=== PATIENT | female | born 1990 | race Caucasian/White ===

== ENCOUNTER 2024-10-12 06:59 | Emergency (ER) | payer MEDICAID, SELFPAY ==
--- NOTE | ~2024-10-12 | CT_ITS ---
CTA chest PE protocol Ordering provider: Greg Martino MD History: 34 years Female with . sob , cp . H/O PE . Comparison: None. Technique: CT angiogram chest was performed following timed intravenous injection of contrast. Thin s lice axial images and reformatted coronal images were obtained. Three dimensional reformatted images of the chest were also obtained using a [employer] workstation. . Automated exposure control and iterati ve reconstruction technique were employed. The dose-length product was 150.02 mGy-cm. 100 mL Omnipaqu e 350 was given IV. Findings: PULMONARY ARTERIES: No pulmonary embolus. VISUALIZED THORACIC INLET: Normal. MEDIASTINUM: Aorta/coronary arteries: The thoracic aorta is normal. Fabian Heart/other: The heart is not enlarged. Lymph nodes: No mediastinal or hilar adenopathy. LUNGS: 6 mm nodule is seen in the left lower lobe laterally. 6 months follow-up CT is advised. No pulmonary masses. No infiltrates or effusions. No pneumothorax. Dependent atelectatic changes. VISUALIZED UPPER ABDOMEN: Contracted gallbladder with calcification suggestive of cholelithiasis. Ult rasound evaluation advised. Otherwise, the visualized upper abdomen is normal. MUSCULOSKELETAL: Soft tissues: The superficial soft tissues are normal. Bones: Normal spine. IMPRESSION: 1. No pulmonary embolism. 2. No acute cardiopulmonary pathology. 3. Nodule in the left lower lobe laterally measuring 6 mm. 6 months follow-up CT is advised. 4. Contracted gallbladder with calcifications suggestive of cholelithiasis. ultrasound evaluation ad vised.. Reviewed, dictated and finalized at location A. IMPRESSION: 1. No pulmonary embolism. 2. No acute cardiopulmonary pathology. 3. Nodule in the left lower lobe laterally measuring 6 mm. 6 months follow-up CT is advised. 4. Contracted gallbladder with calcifications suggestive of cholelithiasis. ul trasound evaluation advised..
--- NOTE | ~2024-10-12 | XR_ITS ---
XR chest 2V Ordering provider: Liam Ortiz MD History: 34 years Female with . chest pain and SOB, weakness . Comparison: None. FINDINGS: MEDIASTINUM: The cardiac silhouette is not enlarged. LUNGS: No infiltrates, effusions or pneumothorax. OTHER: No free air under the diaphragm. IMPRESSION: No acute cardiopulmonary pathology Reviewed, dictated and finalized at location A.
[2024-10-12 07:01] VITALS: BP 113/77; PULSE 79; RESP 14; TEMP 36.9; O2SAT 100
[2024-10-12 07:12] VITALS: PULSE 78
--- NOTE | 2024-10-12 07:14 | ECG_ITS ---
Test Date: 2024-10-12 07:23:34 Measurements Intervals Adams Rate: 72 P: 39 ND: 165 QRS: 65 QRSD: 73 T: 50 QT: 360 QTc: 394 Interpretive Statements SINUS RHYTHM No previous ECG available for comparison Electronically Signed On 10-12-2024 14:41:45 CDT by Alfonzo Chambers M.D.
[2024-10-12 07:50] LABS: Hematocrit 39.3 % (37.0-47.0); Hemoglobin 13.3 g/dL (12.0-15.0); Immature Granulocyte Percent A 1.8 % (0-0.5); Lymphocytes Absolute Auto 3.33 K/mm3 (0.9-3.2); Mean Corpuscular HGB Conc 33.8 g/dl (32-36); Mean Corpuscular Hemoglobin 30.4 pg (26-34); Mean Corpuscular Volume 89.7 fl (80-100); Nucleated Red Blood Cells Absolute Auto 0.000 K/mm3 (0.0-0.012); Nucleated Red Blood Cells Perc 0.0 % (0.0-0.2); Platelet Count Result 190 k/mm3 (150-375); Red Blood Count 4.38 M/mm3 (4.2-5.4); White Blood Count 9.0 K/mm3 (4.5-10.0)
[2024-10-12 08:04] LABS: INR 1.1; Partial Thromboplastin Time 27.4 Seconds (22.3-36.8); Prothrombin Time 14.0 Seconds (11.1-14.7)
[2024-10-12 08:15] VITALS: BP 94/65; PULSE 79; RESP 12; O2SAT 100
[2024-10-12 08:22] LABS: Alanine Aminotransferase 18 U/L (6-35); Albumin Level 4.2 g/dL (3.5-5.1); Alkaline Phosphatase 39 U/L (38-126); Anion Gap 11 mmol/L (4-12); Aspartate Amino Transferase 26 U/L (14-36); Bilirubin,Total 0.6 mg/dL (0.2-1.3); Blood Urea Nitrogen 10 mg/dL (7-17); Calcium 9.0 mg/dL (8.4-10.2); Carbon Dioxide 20 mmol/L (22-30); Chloride 107 mmol/L (98-107); Estimated CRCL calculation 95 ml/min; Estimated Glomerular Filt Rate > 60; Glucose 98 mg/dL (65-110); Lipase 75 U/L (23-300); Potassium 3.3 mmol/L (3.4-5.0); Sodium 138 mmol/L (137-145); Total Protein 6.9 g/dL (6.3-8.2)
[2024-10-12 08:30] VITALS: BP 95/62; PULSE 79; RESP 18; TEMP 36.6; O2SAT 98
[2024-10-12 08:31] LABS: Troponin I < 0.012 ng/mL (0.000-0.034)
--- OUTSIDE RECORDS SUMMARY | 2024-10-12 08:43 | XMS_ITS | Continuity of Care Document ---
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 EXAMINATIO N: MRI Brain without IV contrast INDICATION : ct neg, r/o post stroke COMPARISON : MRI brain 09/15/2022, same day CT head FINDINGS: MRI BRAIN: INFARCT: No acute infarct. HEMORRHAGE : No acute intraparen chymal or extra-axia l hemorrhage . MASS EFFECT: None. PARENCHYMA : Minimal punctate T2/FLAIR hyperinten sities suggestive of chronic microvascu lar disease. No intraparen chymal mass. MIDLINE STRUCTURES : Normal. VOLUME LOSS: None. VENTRICLES : No ventriculo megaly. VASCULAR: Preserved major vascular flow voids. BONES: Unremarkab le. SINUSES: Normal. MASTOIDS: Clear. ORBITS: Symmetric. SOFT TISSUES: Normal. IMPRESSION : No acute intracrani al findings. I have personally reviewed the images and attest to the contents of this report. * * *Final Report* * * Electronic ally Signed by: Maurice KESSLER, Ramirez Dominguez Signed on: 07/10/24 09:15 07/10 03:01 :22 [facility] GENERAL CHEMISTRY ALT-SGPT 14 U/L 10 - 40 07/10 01:17 :00 [facility] GENERAL CHEMISTRY BUN 11 mg/dL 6 - 20 07/10 01:17 :00 [facility] GENERAL CHEMISTRY AST-SGOT 15 U/L 07/10 01:17 :00 [facility] GENERAL CHEMISTRY Albumin 4.0 g/dL 3.4 - 5.0 07/10 01:17 :00 [facility] GENERAL CHEMISTRY Alkaline Phosphatase 49 U/L 35 - 104 07/10 01:17 :00 [facility] GENERAL CHEMISTRY Chloride 107 mmol/L 98 - 107 07/10 01:17 :00 [facility] GENERAL CHEMISTRY Sodium 141 mmol/L 136 - 145 07/10 01:17 :00 [facility] GENERAL CHEMISTRY Potassium 3.3 mmol/L 3.5 - 5.1 07/10 01:17 :00 [facility] GENERAL CHEMISTRY Calcium 9.1 mg/dL 8.3 - 10.6 07/10 01:17 :00 [facility] GENERAL CHEMISTRY Glucose Lvl 84 mg/dL 70 - 139 07/10 01:17 :00 [facility] GENERAL CHEMISTRY T Bili 0.74 mg/dL 0.30 - 1.20 07/10 01:17 :00 [facility] GENERAL CHEMISTRY Total Protein 6.8 g/dL 5.7 - 8.2 07/10 01:17 :00 [facility] GENERAL CHEMISTRY Creatinine, standardized 0.7 mg/dL 0.5 - 1.0 07/10 01:17 :00 Interpretive Data: Torgyx-hk-xke e transgender patients on testosterone therapy should have results assessed using the male reference range. Oqjj-yu-ldufv e transgender patients on hormone-modul ating therapy clinical judgment is advisedfor assessment. [facility] GENERAL CHEMISTRY CO2 26 mmol/L 20 - 31 07/10 01:17 :00 [facility] GENERAL CHEMISTRY Anion gap 11 mmol/L 0 - 20 07/10 01:17 :00 [facility] GENERAL CHEMISTRY Estimated GFR for Adults 118 mL/min/1.7 3m 07/10 01:17 :00 Interpretive Data: Changed to CKD-EPI 2020 on 2020. [facility] GENERAL CHEMISTRY Estimated GFR for peds Not Calculated mL/min/1.7 3m 07/10 01:17 :00 Interpretive Data: The estimated GFR was calculated using the Eliezer salas [place] equation (2009) . Reference: Pediatric GFR calculator at [employer] Website. [facility] GENERAL CHEMISTRY Magnesium 1.96 mg/dL 1.60 - 2.60 07/10 01:17 :00 [facility] GENERAL CHEMISTRY Ca++ 1.14 mmol/L 1.12 - 1.30 07/10 01:17 :00 [facility] GENERAL CHEMISTRY Phosphorus 4.1 mg/dL 2.4 - 5.1 07/10 01:17 :00 [facility] HEMATOLOGY PROFILES PLT 215 x10(9)/L 150 - 450 07/10 01:17 :00 [facility] HEMATOLOGY PROFILES MPV 9.8 8.0 - 12.0 07/10 01:17 :00 [facility] HEMATOLOGY PROFILES RDW SD 38.5 fL 36.4 - 46.3 07/10 01:17 :00 [facility] HEMATOLOGY PROFILES MCV 89.2 fL 81.6 - 98.3 07/10 01:17 :00 [facility] HEMATOLOGY PROFILES MCH 30.0 pg 26.0 - 33.0 07/10 01:17 :00 [facility] HEMATOLOGY PROFILES HCT 42.8 % 34.9 - 44.5 07/10 01:17 :00 Interpretive Data: Faoeva-et-ywd e transgender patients on testosterone therapy should have results assessed using the male reference range. Jwkl-wk-yacok e transgender patients on hormone-modul ating therapy clinical judgment is advisedfor assessment. [facility] HEMATOLOGY PROFILES MCHC 33.6 g/dL 32.0 - 36.0 07/10 01:17 :00 [facility] HEMATOLOGY PROFILES RDW CV 11.9 % 11.9 - 15.5 07/10 01:17 :00 [facility] HEMATOLOGY PROFILES HGB 14.4 g/dL 12.0 - 15.5 07/10 01:17 :00 Interpretive Data: Dzsxtm-ek-qky e transgender patients on testosterone therapy should have results assessed using the male reference range. Rumb-bo-ztanv e transgender patients on hormone-modul ating therapy clinical judgment is advisedfor assessment. [facility] HEMATOLOGY PROFILES WBC 6.99 x10(9)/L 3.50 - 10.50 07/10 01:17 :00 [facility] HEMATOLOGY PROFILES RBC 4.80 x10(12)/L 3.90 - 5.03 07/10 01:17 :00 [facility] HEMATOLOGY PROFILES Absolute Granulocytes 3.78 x10(9)/L 1.70 - 7.00 07/10 01:17 :00 [facility] HEMATOLOGY PROFILES Abs Lymphocytes 2.50 x10(9)/L 0.90 - 2.90 07/10 01:17 :00 [facility] HEMATOLOGY PROFILES Abs Basophils 0.04 x10(9)/L 0.00 - 0.30 07/10 01:17 :00 [facility] HEMATOLOGY PROFILES Abs Monocytes 0.32 x10(9)/L 0.30 - 0.90 07/10 01:17 :00 [facility] HEMATOLOGY PROFILES Abs Eosinophils 0.33 x10(9)/L 0.05 - 0.50 07/10 01:17 : [facility] HEMATOLOGY PROFILES % Lymphocytes 35.8 % 07/10 01:17 : [facility] HEMATOLOGY PROFILES % Basophils 0.6 % 07/10 01:17 : [facility] HEMATOLOGY PROFILES % Immature Granulocytes 0.30 % 0.02 - 0.42 07/10 01:17 : [facility] HEMATOLOGY PROFILES % Monocytes 4.6 % 07/10 01:17 :00 [facility] HEMATOLOGY PROFILES % Eosinophils 4.7 % 07/10 01:17 :00 [facility] HEMATOLOGY PROFILES Absolute Nucleated RBCs 0.0 x10(9)/L 0.0 - 0.0 07/10 01:17 :00 Interpretive Data: Normal values not established in patients less than 18 years old. [facility] HEMATOLOGY PROFILES % Neutrophils 54.0 % 07/10 01:17 :00 [facility] HEMATOLOGY PROFILES % Nucleated RBCs 0.0 % 07/10 01:17 :00 [facility] HEMATOLOGY PROFILES Abs Immature Granulocytes 0.02 x10(9)/L 0.00 - 0.03 07/10 01:17 :00 [facility] URINALYSIS UA NITRITE Negative (07/09/24 7:57 PM) 07/10 00:57 :00 [facility] URINALYSIS UA PROTEIN Negative mg/dL 07/10 00:57 :00 [facility] URINALYSIS UA BLOOD Negative 4 (07/09/24 7:57 PM) 07/10 00:57 :00 Result Comment: A hemoglobin concentration of 0.015-0.062 mg/dL is approximately equivalent to 5 -20 intact red blood cells per microliter. [facility] URINALYSIS UA LEUKOCYTES Trace *ABNORMAL* (07/09/24 7:57 PM) 07/10 00:57 :00 [facility] URINALYSIS UA UROBILINOGEN Negative Geronimo unit/dL 0.2 - 1.0 07/10 00:57 :00 [facility] URINALYSIS COLOR Yellow (07/09/24 7:57 PM) 07/10 00:57 :00 [facility] URINALYSIS Urine Collection Method Clean Catch UR (07/09/24 7:57 PM) 07/10 00:57 :00 [facility] URINALYSIS CLARITY Clear (07/09/24 7:57 PM) 07/10 00:57 :00 [facility] URINALYSIS UA KETONES 5 mg/dL 07/10 00:57 :00 [facility] URINALYSIS BILIRUBIN Negative (07/09/24 7:57 PM) 07/10 00:57 :00 [facility] URINALYSIS UA PH 5 (07/09/24 7:57 PM) 4.5 - 8.0 07/10 00:57 :00 [facility] URINALYSIS UA GLUCOSE Negative mg/dL 07/10 00:57 :00 [facility] URINALYSIS SPECIFIC GRAVITY 1.026 1.006 - 1.030 07/10 00:57 :00 [facility] URINALYSIS UA Epithelial Cells Many /lpf 07/10 00:57 :00 [facility] URINALYSIS WBC 0-3 /hpf 0 - 3 07/10 00:57 :00 [facility] URINALYSIS RBC 0-2 /hpf 0 - 2 07/10 00:57 :00 [facility] URINALYSIS UA Mucous Present *ABNORMAL* (07/09/24 7:57 PM) 07/10 00:57 :00 [facility] URINALYSIS UA Epithelial Cells Comment Given the number of epithelial cells present, skin baltazar contaminat ion is likely. 07/10 00:57 :00 [facility] CT Chest PE Protocol CT Chest PE Protocol CT Scan/CT Angio Accession # Exam Date/Time Procedure Ordering Provider [id number] 07/10/2024 00:[address] Chest PE Protocol Alfredo Riggs Reason For Exam (CT Chest PE Protocol) sob, cp, near syncope factor V Report EXAMINATIO N: CT pulmonary angiogram with IV contrast INDICATION : sob, cp, near syncope factor V COMPARISON : CT PE 06/12/2024 TECHNIQUE: Using helical technique, CT data from the thoracic inlet through the upper abdomen was obtained during rapid IV contrast infusion. The examinatio n was timed to the pulmonary arterial system to generate a CT angiograph ic study. Multiplana r MIP and reformatte d images were provided. FINDINGS: VASCULAR: The study is diagnostic to the level of the subsegment al pulmonary arteries. PULMONARY ARTERIES: No evidence of acute or chronic pulmonary embolism. The pulmonary arteries are normal in size. THORACIC AORTA: Normal in size. PULMONARY VEINS: Normal drainage into the left atrium. CORONARY ARTERIES: No significan t coronary atheroscle rosis. SYSTEMIC VEINS: Within normal limits. HEART: The heart is normal in size. No pericardia l effusion. CHEST: LUNGS/PLEU RA: Bilateral dependent subsegment al atelectasi s. No suspicious pulmonary nodules are visualized . The airways are patent. No pneumothor ax. No pleural effusion. No focal pleural lesion. MEDIASTINU M: No mediastina l or hilar lymphadeno annmarie. The visualized thyroid is unremarkab le. The visualized esophagus is unremarkab le. AXILLA/SOF T TISSUE: No supraclavi cular or axillary lymphadeno annmarie. Regional soft tissues are within normal limits. UPPER ABDOMEN: Cholelithi asis without evidence of cholecysti tis. Otherwise, no acute abnormalit y of the partially visualized upper abdomen. BONES: No evidence of acute fractures or aggressive osseous lesions. Old healed sternal body fracture. IMPRESSION : VASCULAR: * No pulmonary emboli. CHEST: * No acute cardiopulm onary findings. * Cholelithi asis without evidence of acute cholecysti tis. I have personally reviewed the images and attest to the contents of CT Scan/CT Angio Report this report. * * *Final Report* * * Electronic ally Signed by: Shruthi KESSLER, Tommy Heath Signed on: 07/10/24 04:12 07/10 00:00 :12 [facility] CT Head or Brain CT Head or Brain CT Scan/CT Angio Accession # Exam Date/Time Procedure Ordering Provider [id number] 07/10/2024 00:[address] Head or Brain Alfredo Riggs Reason For Exam (CT Head or Brain) new vertigo Report EXAMINATIO N: CT Head or Brain, CT Angiograph y Neck, CT Angiograph y Head without IV contrast INDICATION : new vertigo COMPARISON : 03/03/2024 CT head FINDINGS: CT HEAD: INFARCT: No acute vascular territory infarct. HEMORRHAGE : No parenchyma l or extra-axia l hemorrhage . MASS EFFECT: None. PARENCHYMA : Punctate hypodensit ies suggestive of chronic microvascu lar disease. No intraparen chymal mass. VOLUME LOSS: None. VENTRICLES : No ventriculo megaly. VESSELS: Unremarkab le. BONES: No acute fracture. SINUSES: Normal. MASTOIDS: Clear. ORBITS: Symmetric. SOFT TISSUES: Normal. CTA HEAD: STENOSIS: None. DISSECTION : None. ANEURYSM: None. MALFORMATI ON/VARIANT S: None. VEINS: Unremarkab le. CTA NECK: CERVICAL ARTERIES: STENOSIS: None. DISSECTION : None. ANEURYSM: None. MALFORMATI ON/VARIANT S: None. Pulmonary trunk measures 3.0 cm. CERVICAL VEINS: Unremarkab le. SOFT TISSUES: Normal. CERVICAL SPINE: Multilevel degenerati ve changes of the cervical spine. LUNG APICES: Bilateral dependent subsegment al atelectasi s. Mild paraseptal emphysemat ous changes predominan tly right upper lobe. IMPRESSION : 1. No acute intracrani al findings. 2. No flow-limit ing stenosis or aneurysmal dilation of the major CT Scan/CT Angio Report intracrani al vasculatur e. 3. No flow-limit ing stenosis or aneurysmal dilation of the major cervical arterial vasculatur e. 4. Pulmonic trunk measures 3.0 cm. Findings are nonspecifi c but can be seen with pulmonary arterial hypertensi on. I have personally reviewed the images and attest to the contents of this report. * * *Final Report* * * Electronic ally Signed by: Shruthi KESSLER, Tommy Heath Signed on: 07/10/24 04:07 07/10 00:00 :12 [facility] CT Angiograph y Neck CT Angiography Neck CT Scan/CT Angio Accession # Exam Date/Time Procedure Ordering Provider [id number] 07/10/2024 00:[address] Angiograph y Neck Alfredo Riggs Reason For Exam (CT Angiograph y Neck) new vertigo/ factor V Report EXAMINATIO N: CT Head or Brain, CT Angiograph y Neck, CT Angiograph y Head without IV contrast INDICATION : new vertigo COMPARISON : 03/03/2024 CT head FINDINGS: CT HEAD: INFARCT: No acute vascular territory infarct. HEMORRHAGE : No parenchyma l or extra-axia l hemorrhage . MASS EFFECT: None. PARENCHYMA : Punctate hypodensit ies suggestive of chronic microvascu lar disease. No intraparen chymal mass. VOLUME LOSS: None. VENTRICLES : No ventriculo megaly. VESSELS: Unremarkab le. BONES: No acute fracture. SINUSES: Normal. MASTOIDS: Clear. ORBITS: Symmetric. SOFT TISSUES: Normal. CTA HEAD: STENOSIS: None. DISSECTION : None. ANEURYSM: None. MALFORMATI ON/VARIANT S: None. VEINS: Unremarkab le. CTA NECK: CERVICAL ARTERIES: STENOSIS: None. DISSECTION : None. ANEURYSM: None. MALFORMATI ON/VARIANT S: None. Pulmonary trunk measures 3.0 cm. CERVICAL VEINS: Unremarkab le. SOFT TISSUES: Normal. CERVICAL SPINE: Multilevel degenerati ve changes of the cervical spine. LUNG APICES: Bilateral dependent subsegment al atelectasi s. Mild paraseptal emphysemat ous changes predominan tly right upper lobe. IMPRESSION : 1. No acute intracrani al findings. 2. No flow-limit ing stenosis or aneurysmal dilation of the major CT Scan/CT Angio Report intracrani al vasculatur e. 3. No flow-limit ing stenosis or aneurysmal dilation of the major cervical arterial vasculatur e. 4. Pulmonic trunk measures 3.0 cm. Findings are nonspecifi c but can be seen with pulmonary arterial hypertensi on. I have personally reviewed the images and attest to the contents of this report. * * *Final Report* * * Electronic ally Signed by: Shruthi KESSLER, Tommy Heath Signed on: 07/10/24 04:07 07/10 00:00 :12 [facility] CT Angiograph y Head CT Angiography Head CT Scan/CT Angio Accession # Exam Date/Time Procedure Ordering Provider [id number] 07/10/2024 00:[address] Angiograph y Head Alfredo Riggs Reason For Exam (CT Angiograph y Head) new vertigo/ factor V Report EXAMINATIO N: CT Head or Brain, CT Angiograph y Neck, CT Angiograph y Head without IV contrast INDICATION : new vertigo COMPARISON : 03/03/2024 CT head FINDINGS: CT HEAD: INFARCT: No acute vascular territory infarct. HEMORRHAGE : No parenchyma l or extra-axia l hemorrhage . MASS EFFECT: None. PARENCHYMA : Punctate hypodensit ies suggestive of chronic microvascu lar disease. No intraparen chymal mass. VOLUME LOSS: None. VENTRICLES : No ventriculo megaly. VESSELS: Unremarkab le. BONES: No acute fracture. SINUSES: Normal. MASTOIDS: Clear. ORBITS: Symmetric. SOFT TISSUES: Normal. CTA HEAD: STENOSIS: None. DISSECTION : None. ANEURYSM: None. MALFORMATI ON/VARIANT S: None. VEINS: Unremarkab le. CTA NECK: CERVICAL ARTERIES: STENOSIS: None. DISSECTION : None. ANEURYSM: None. MALFORMATI ON/VARIANT S: None. Pulmonary trunk measures 3.0 cm. CERVICAL VEINS: Unremarkab le. SOFT TISSUES: Normal. CERVICAL SPINE: Multilevel degenerati ve changes of the cervical spine. LUNG APICES: Bilateral dependent subsegment al atelectasi s. Mild paraseptal emphysemat ous changes predominan tly right upper lobe. IMPRESSION : 1. No acute intracrani al findings. 2. No flow-limit ing stenosis or aneurysmal dilation of the major CT Scan/CT Angio Report intracrani al vasculatur e. 3. No flow-limit ing stenosis or aneurysmal dilation of the major cervical arterial vasculatur e. 4. Pulmonic trunk measures 3.0 cm. Findings are nonspecifi c but can be seen with pulmonary arterial hypertensi on. I have personally reviewed the images and attest to the contents of this report. * * *Final Report* * * Electronic ally Signed by: Shruthi KESSLER, Tommy Heath Signed on: 07/10/24 04:07 07/10 00:00 :12 [facility] COAGULATIO N INR 1.0 0.8 - 1.1 07/08 22:44 :00 Interpretive Data: Suggested therapeutic INR range for stable oral anticoagulati on: Optimal Therapeutic INR Range 2.0-3.0 Therapeutic Range for High-Risk Groups (antiphoshpol ipid syndrome with previous thrombosis) 2.0-3.0 DVT of the leg 2.0-3.0 PE 2.0-3.0 Patients with AF and Stable Coronary Artery Disease 2.0-3.0 Bioprosthetic valve in the mitral position 2.0-3.0 Mechanical mitral valve or additional risk factors 2.5-3.5 Prevention of Recurrent VTE in Women prophylaxis for 6 weeks with prophylactic- or intermediate- dose LMWH or warfarin targeted at INR 2.0 or 3.0 rather than no prophylaxis For additional guidance see: Chandrika GRIFFITH, Bassem EA, Reed M, Harley DD, Tonie n joshua HJ; [employer] Antithromboti c Therapy and Prevention of Thrombosis Panel. Executive summary: Antithromboti c Therapy and Prevention of Thrombosis, 9th Ed: [employer] Evidence-Base d Clinical Practice Guidelines. Chest. 2012 Feb; 141(2 Suppl):7S-47S . doi: 10.1378/chest .1412S3 [facility] COAGULATIO N PT 12.4 s 10.7 - 13.5 07/08 22:44 :00 [facility] COAGULATIO N PTT 26.3 s 25.1 - 36.5 07/08 22:44 :00 Interpretive Data: Recommendatio ns for anticoagulant therapeutic ranges: Unfractionate d Heparin: Please order the anti-Xa assay. Target ranges and medication management recommendatio ns are based on the anti-Xa assay and posted in [employer] (see Medication Management-Ad ult Heparin Nomogram). Argatroban: Target ranges and medication management recommendatio ns are posted in [employer] (see Medication Management- Adult Argatroban Nomogram). Low molecular weight heparin or danaparoid monitoring: Please order the anti-Xa assay. Please contact the Pharmacy or the Clinical Pathology Service for additional questions. [facility] GENERAL CHEMISTRY Albumin 4.0 g/dL 3.4 - 5.0 07/08 22:44 :00 [facility] GENERAL CHEMISTRY ALT-SGPT 13 U/L 10 - 40 07/08 22:44 :00 [facility] GENERAL CHEMISTRY CO2 22 mmol/L 20 - 31 07/08 22:44 :00 [facility] GENERAL CHEMISTRY Chloride 106 mmol/L 98 - 107 07/08 22:44 :00 [facility] GENERAL CHEMISTRY Estimated GFR for Adults 123 mL/min/1.7 3m 07/08 22:44 :00 Interpretive Data: Changed to CKD-EPI 2020 on 2020. [facility] GENERAL CHEMISTRY Anion gap 16 mmol/L 0 - 20 07/08 22:44 :00 [facility] GENERAL CHEMISTRY Creatinine, standardized 0.6 mg/dL 0.5 - 1.0 07/08 22:44 :00 Interpretive Data: Mgbwpn-fi-ari e transgender patients on testosterone therapy should have results assessed using the male reference range. Tdul-xz-nfnhq e transgender patients on hormone-modul ating therapy clinical judgment is advisedfor assessment. [facility] GENERAL CHEMISTRY Alkaline Phosphatase 51 U/L 35 - 104 07/08 22:44 :00 [facility] GENERAL CHEMISTRY AST-SGOT 14 U/L 07/08 22:44 :00 [facility] GENERAL CHEMISTRY T Bili 0.80 mg/dL 0.30 - 1.20 07/08 22:44 :00 [facility] CHEMISTRY Estimated GFR for peds Not Calculated mL/min/1.7 3m 07/08 22:44 :00 Interpretive Data: The estimated GFR was calculated using the B josue [place] equation (2009) . Reference: Pediatric GFR calculator at [employer] Website. [facility] GENERAL CHEMISTRY Potassium 3.3 mmol/L 3.5 - 5.1 07/08 22:44 :00 [facility] GENERAL CHEMISTRY BUN 11 mg/dL 6 - 20 07/08 22:44 :00 [facility] GENERAL CHEMISTRY Calcium 9.8 mg/dL 8.3 - 10.6 07/08 22:44 :00 [facility] GENERAL CHEMISTRY Sodium 140 mmol/L 136 - 145 07/08 22:44 :00 [facility] GENERAL CHEMISTRY Glucose Lvl 78 mg/dL 70 - 139 07/08 22:44 :00 [facility] GENERAL CHEMISTRY Total Protein 6.7 g/dL 5.7 - 8.2 07/08 22:44 :00 [facility] GENERAL CHEMISTRY 3rd Generation TSH 1.057 mcIU/mL 0.550 - 4.780 07/08 22:44 :00 Interpretive Data: Reference Interval I U/mL Infants (1 2 3 months) 0.87 6 .15 Children (2 1 2 years) 0.67 4 .16 Adolescents (13 2 0 years) 0.48 4 .17 [facility] HEMATOLOGY PROFILES RBC 4.71 x10(12)/L 3.90 - 5.03 07/08 22:44 :00 [facility] HEMATOLOGY PROFILES WBC 6.68 x10(9)/L 3.50 - 10.50 07/08 22:44 :00 [facility] HEMATOLOGY PROFILES MCV 87.9 fL 81.6 - 98.3 07/08 22:44 :00 [facility] HEMATOLOGY PROFILES HCT 41.4 % 34.9 - 44.5 07/08 22:44 :00 Interpretive Data: Miyngl-cv-ngs e transgender patients on testosterone therapy should have results assessed using the male reference range. Zkbd-nz-afgiu e transgender patients on hormone-modul ating therapy clinical judgment is advisedfor assessment. [facility] HEMATOLOGY PROFILES HGB 14.4 g/dL 12.0 - 15.5 07/08 22:44 :00 Interpretive Data: Jhixfw-xo-mni e transgender patients on testosterone therapy should have results assessed using the male reference range. Hsjg-bt-wcnfx e transgender patients on hormone-modul ating therapy clinical judgment is advisedfor assessment. [facility] HEMATOLOGY PROFILES MCHC 34.8 g/dL 32.0 - 36.0 07/08 22:44 :00 [facility] HEMATOLOGY PROFILES MCH 30.6 pg 26.0 - 33.0 07/08 22:44 :00 [facility] HEMATOLOGY PROFILES MPV 10.2 8.0 - 12.0 07/08 22:44 :00 [facility] HEMATOLOGY PROFILES PLT 219 x10(9)/L 150 - 450 07/08 22:44 :00 [facility] HEMATOLOGY PROFILES RDW SD 38.4 fL 36.4 - 46.3 07/08 22:44 :00 [facility] HEMATOLOGY PROFILES RDW CV 11.9 % 11.9 - 15.5 07/08 22:44 :00 [facility] HEMATOLOGY PROFILES Absolute Granulocytes 2.99 x10(9)/L 1.70 - 7.00 07/08 22:44 :00 [facility] HEMATOLOGY PROFILES % Immature Granulocytes 0.30 % 0.02 - 0.42 07/08 22:44 :00 [facility] HEMATOLOGY PROFILES Abs Eosinophils 0.32 x10(9)/L 0.05 - 0.50 07/08 22:44 :00 [facility] HEMATOLOGY PROFILES Abs Monocytes 0.35 x10(9)/L 0.30 - 0.90 07/08 22:44 :00 [facility] HEMATOLOGY PROFILES Abs Lymphocytes 2.95 x10(9)/L 0.90 - 2.90 07/08 22:44 :00 [facility] HEMATOLOGY PROFILES Abs Immature Granulocytes 0.02 x10(9)/L 0.00 - 0.03 07/08 22:44 :00 [facility] HEMATOLOGY PROFILES Abs Basophils 0.05 x10(9)/L 0.00 - 0.30 07/08 22:44 :00 [facility] HEMATOLOGY PROFILES Absolute Nucleated RBCs 0.0 x10(9)/L 0.0 - 0.0 07/08 22:44 :00 Interpretive Data: Normal values not established in patients less than 18 years old. [facility] HEMATOLOGY PROFILES % Nucleated RBCs 0.0 % 07/08 22:44 :00 [facility] HEMATOLOGY PROFILES % Basophils 0.7 % 07/08 22:44 :00 [facility] HEMATOLOGY PROFILES % Eosinophils 4.8 % 07/08 22:44 :00 [facility] HEMATOLOGY PROFILES % Monocytes 5.2 % 07/08 22:44 :00 [facility] HEMATOLOGY PROFILES % Lymphocytes 44.2 % 07/08 22:44 :00 [facility] HEMATOLOGY PROFILES % Neutrophils 44.8 % 07/08 22:44 :00 [facility] URINALYSIS UA NITRITE Negative (07/08/24 5:44 PM) 07/08 22:44 :00 [facility] URINALYSIS UA PROTEIN Negative mg/dL 07/08 22:44 :00 [facility] URINALYSIS UA BLOOD Negative 5 (07/08/24 5:44 PM) 07/08 22:44 :00 Result Comment: A hemoglobin concentration of 0.015-0.062 mg/dL is approximately equivalent to 5 -20 intact red blood cells per microliter. [facility] URINALYSIS UA LEUKOCYTES Negative (07/08/24 5:44 PM) 07/08 22:44 :00 [facility] URINALYSIS UA UROBILINOGEN Negative Geronimo unit/dL 0.2 - 1.0 07/08 22:44 :00 [facility] URINALYSIS UA GLUCOSE Negative mg/dL 07/08 22:44 :00 [facility] URINALYSIS UA KETONES Negative mg/dL 07/08 22:44 :00 [facility] URINALYSIS CLARITY Clear (07/08/24 5:44 PM) 07/08 22:44 :00 [facility] URINALYSIS SPECIFIC GRAVITY 1.010 1.006 - 1.030 07/08 22:44 :00 [facility] URINALYSIS Urine Collection Method Clean Catch UR (07/08/24 5:44 PM) 07/08 22:44 :00 [facility] URINALYSIS UA PH 8 *NA* (07/08/24 5:44 PM) 4.5 - 8.0 07/08 22:44 :00 [facility] URINALYSIS COLOR Straw (07/08/24 5:44 PM) 07/08 22:44 :00 [facility] URINALYSIS BILIRUBIN Negative (07/08/24 5:44 PM) 07/08 22:44 :00 [facility] GENERAL CHEMISTRY Total Protein 6.9 g/dL 5.7 - 8.2 06/25 09:23 :00 [facility] GENERAL CHEMISTRY Creatinine, standardized 0.6 mg/dL 0.5 - 1.0 06/25 09:23 :00 Interpretive Data: Tyiidv-ve-qgh e transgender patients on testosterone therapy should have results assessed using the male reference range. Uyjg-io-osetd e transgender patients on hormone-modul ating therapy clinical judgment is advisedfor assessment. [facility] GENERAL CHEMISTRY CO2 24 mmol/L 20 - 31 06/25 09:23 :00 [facility] GENERAL CHEMISTRY Anion gap 15 mmol/L 0 - 20 06/25 09:23 :00 [facility] GENERAL CHEMISTRY Sodium 140 mmol/L 136 - 145 06/25 09:23 :00 [facility] GENERAL CHEMISTRY Potassium 3.8 mmol/L 3.5 - 5.1 06/25 09:23 :00 [facility] GENERAL CHEMISTRY T Bili 0.55 mg/dL 0.30 - 1.20 06/25 09:23 :00 [facility] GENERAL CHEMISTRY Calcium 8.9 mg/dL 8.3 - 10.6 06/25 09:23 :00 [facility] GENERAL CHEMISTRY Glucose Lvl 86 mg/dL 70 - 139 06/25 09:23 :00 [facility] GENERAL CHEMISTRY ALT-SGPT 12 U/L 10 - 40 06/25 09:23 :00 [facility] GENERAL CHEMISTRY BUN 9 mg/dL 6 - 20 06/25 09:23 :00 [facility] GENERAL CHEMISTRY Chloride 105 mmol/L 98 - 107 06/25 09:23 :00 [facility] CHEMISTRY Estimated GFR for Adults 121 mL/min/1.7 3m 06/25 09:23 :00 Interpretive Data: Changed to CKD-EPI 2020 on 2020. [facility] GENERAL CHEMISTRY AST-SGOT 15 U/L 06/25 09:23 :00 [facility] GENERAL CHEMISTRY Estimated GFR for peds Not Calculated mL/min/1.7 3m 06/25 09:23 :00 Interpretive Data: The estimated GFR was calculated using the Eliezer salas [place] equation (2009) . Reference: Pediatric GFR calculator at [employer] Website. [facility] GENERAL CHEMISTRY Albumin 4.1 g/dL 3.4 - 5.0 06/25 09:23 :00 [facility] GENERAL CHEMISTRY Alkaline Phosphatase 48 U/L 35 - 104 06/25 09:23 :00 [facility] SITE LAB RESULTS Influenza A Rapid POC Negative *NA* (06/25/24 3:29 AM) 06/25 08:29 :00 [facility] LAB RESULTS Influenza B Rapid POC Negative *NA* (06/25/24 3:29 AM) 06/25 08:29 :00 [facility] COAGULATIO N D-DIMER QUANTITATIVE 318.00 ng/mLFEU 0.00 - 500.00 06/25 08:03 :00 Interpretive Data: This test may be used as an aid in conjunction with a clinical score for the exclusion of deep venous thrombo-embol ism. The negative predictive value for deep venous thrombosis was greater than 97% in patients with a low or moderate PTP score when the D-dimer was less than 500 ng/mL FEU. ISTH DIAGNOSTIC SCORING SYSTEM FOR DIC Score 0 1 2 3 Platelet Count (x10^9/L) > 100 < 100 < 50 N/A PT Prolongation 0-3 3-6 > 6 N/A Fibrinogen (mg/dL) > 100 < 100 N/A N/A D-Dimer (ng/mL) < 215 N/A 215 - 500 > 500 The score applies to non- patients with disorders that are associated with DIC. Please use modified ISTH score for patients. The modified ISTH score does not contain D-dimer (Guillermo Tran et al. PLoS One. 2014; 9(4): v20369) Calculate Score: > or = 500: compatible with overt DIC < 500: suggestive for non-overt DIC Calculate Score: > or = 5: compatible with overt DIC < 5: suggestive for non-overt DIC [facility] COAGULATIO N PT 13.2 s 10.7 - 13.5 06/25 08:03 :00 [facility] COAGULATIO N INR 1.1 0.8 - 1.1 06/25 08:03 :00 Interpretive Data: Suggested therapeutic INR range for stable oral anticoagulati on: Optimal Therapeutic INR Range 2.0-3.0 Therapeutic Range for High-Risk Groups (antiphoshpol ipid syndrome with previous thrombosis) 2.0-3.0 DVT of the leg 2.0-3.0 PE 2.0-3.0 Patients with AF and Stable Coronary Artery Disease 2.0-3.0 Bioprosthetic valve in the mitral position 2.0-3.0 Mechanical mitral valve or additional risk factors 2.5-3.5 Prevention of Recurrent VTE in Women prophylaxis for 6 weeks with prophylactic- or intermediate- dose LMWH or warfarin targeted at INR 2.0 or 3.0 rather than no prophylaxis For additional guidance see: Chandrika GH, Bassem EA, Reed M, Harley DD, Tonie n joshua HJ; [employer] Antithromboti c Therapy and Prevention of Thrombosis Panel. Executive summary: Antithromboti c Therapy and Prevention of Thrombosis, 9th Ed: [employer] Evidence-Base d Clinical Practice Guidelines. Chest. 2012 Apr; 141(2 Suppl):7S-47S . doi: 10.1378/chest .1412S3 [facility] COAGULATIO N PTT 18.1 s 25.1 - 36.5 06/25 08:03 :00 Interpretive Data: Recommendatio ns for anticoagulant therapeutic ranges: Unfractionate d Heparin: Please order the anti-Xa assay. Target ranges and medication management recommendatio ns are based on the anti-Xa assay and posted in [employer] (see Medication Management-Ad ult Heparin Nomogram). Argatroban: Target ranges and medication management recommendatio ns are posted in [employer] (see Medication Management- Adult Argatroban Nomogram). Low molecular weight heparin or danaparoid monitoring: Please order the anti-Xa assay. Please contact the Pharmacy or the Clinical Pathology Service for additional questions. [facility] GENERAL CHEMISTRY T Bili 0.48 mg/dL 0.30 - 1.20 06/25 07:51 :00 [facility] GENERAL CHEMISTRY Anion gap 17 mmol/L 0 - 20 06/25 07:51 :00 [facility] CHEMISTRY Total Protein 6.4 g/dL 5.7 - 8.2 06/25 07:51 :00 [facility] GENERAL CHEMISTRY CO2 20 mmol/L 20 - 31 06/25 07:51 :00 [facility] GENERAL CHEMISTRY Potassium HEMOLYZED, unable to report due to interferen ce mmol/L 3.5 - 5.1 06/25 07:51 :00 Result Comment: Hemolyzed Hemolyzed Sample. [facility] GENERAL CHEMISTRY Chloride 107 mmol/L 98 - 107 06/25 07:51 :00 [facility] GENERAL CHEMISTRY Glucose Lvl 94 mg/dL 70 - 139 06/25 07:51 :00 [facility] GENERAL CHEMISTRY Sodium 140 mmol/L 136 - 145 06/25 07:51 :00 [facility] GENERAL CHEMISTRY Calcium 8.2 mg/dL 8.3 - 10.6 06/25 07:51 :00 [facility] GENERAL CHEMISTRY BUN HEMOLYZED, unable to report due to interferen ce mg/dL 6 - 20 06/25 07:51 :00 Result Comment: Hemolyzed Hemolyzed Sample. [facility] GENERAL CHEMISTRY Albumin 3.7 g/dL 3.4 - 5.0 06/25 07:51 :00 [facility] CHEMISTRY AST-SGOT 27 U/L 06/25 07:51 :00 [facility] GENERAL CHEMISTRY ALT-SGPT HEMOLYZED, unable to report due to interferen ce U/L 10 - 40 06/25 07:51 :00 Result Comment: Hemolyzed Hemolyzed Sample. [facility] GENERAL CHEMISTRY Alkaline Phosphatase 37 U/L 35 - 104 06/25 07:51 :00 [facility] CHEMISTRY Estimated GFR for peds Not Calculated mL/min/1.7 3m 06/25 07:51 :00 Interpretive Data: The estimated GFR was calculated using the Eliezer salas [place] equation (2009) . Reference: Pediatric GFR calculator at [employer] Website. [facility] CHEMISTRY Estimated GFR for Adults 124 mL/min/1.7 3m 06/25 07:51 :00 Interpretive Data: Changed to CKD-EPI 2020 on 2020. [facility] GENERAL CHEMISTRY Creatinine, standardized HEMOLYZED, unable to report due to interferen ce mg/dL 0.5 - 1.0 06/25 07:51 :00 Result Comment: Hemolyzed Hemolyzed Sample. Interpretive Data: Slsinn-of-yfz e transgender patients on testosterone therapy should have results assessed using the male reference range. Xani-fj-kkhwo e transgender patients on hormone-modul ating therapy clinical judgment is advisedfor assessment. [facility] HEMATOLOGY PROFILES PLT 141 x10(9)/L 150 - 450 06/25 07:51 :00 [facility] HEMATOLOGY PROFILES MPV 10.5 8.0 - 12.0 06/25 07:51 :00 [facility] HEMATOLOGY PROFILES HGB 12.0 g/dL 12.0 - 15.5 06/25 07:51 :00 Interpretive Data: Rmynst-sr-rbt e transgender patients on testosterone therapy should have results assessed using the male reference range. Rnag-ty-yxwzl e transgender patients on hormone-modul ating therapy clinical judgment is advisedfor assessment. [facility] HEMATOLOGY PROFILES RBC 3.92 x10(12)/L 3.90 - 5.03 06/25 07:51 :00 [facility] HEMATOLOGY PROFILES HCT 34.9 % 34.9 - 44.5 06/25 07:51 :00 Interpretive Data: Osksyk-nq-zwv e transgender patients on testosterone therapy should have results assessed using the male reference range. Ktdy-jq-rkkab e transgender patients on hormone-modul ating therapy clinical judgment is advisedfor assessment. [facility] HEMATOLOGY PROFILES WBC 8.15 x10(9)/L 3.50 - 10.50 06/25 07:51 :00 [facility] HEMATOLOGY PROFILES RDW SD 37.7 fL 36.4 - 46.3 06/25 07:51 :00 [facility] HEMATOLOGY PROFILES RDW CV 11.9 % 11.9 - 15.5 06/25 07:51 :00 [facility] HEMATOLOGY PROFILES MCV 89.0 fL 81.6 - 98.3 06/25 07:51 :00 [facility] HEMATOLOGY PROFILES MCHC 34.4 g/dL 32.0 - 36.0 06/25 07:51 :00 [facility] HEMATOLOGY PROFILES MCH 30.6 pg 26.0 - 33.0 06/25 07:51 :00 [facility] HEMATOLOGY PROFILES % Basophils 0.6 % 06/25 07:51 :00 [facility] HEMATOLOGY PROFILES Absolute Granulocytes 5.30 x10(9)/L 1.70 - 7.00 06/25 07:51 :00 [facility] HEMATOLOGY PROFILES % Immature Granulocytes 0.60 % 0.02 - 0.42 06/25 07:51 :00 [facility] HEMATOLOGY PROFILES % Eosinophils 4.7 % 06/25 07:51 :00 [facility] HEMATOLOGY PROFILES Abs Basophils 0.05 x10(9)/L 0.00 - 0.30 06/25 07:51 :00 [facility] HEMATOLOGY PROFILES Abs Eosinophils 0.38 x10(9)/L 0.05 - 0.50 06/25 07:51 :00 [facility] HEMATOLOGY PROFILES Abs Immature Granulocytes 0.05 x10(9)/L 0.00 - 0.03 06/25 07:51 :00 [facility] HEMATOLOGY PROFILES Abs Monocytes 0.44 x10(9)/L 0.30 - 0.90 06/25 07:51 :00 [facility] HEMATOLOGY PROFILES Abs Lymphocytes 1.93 x10(9)/L 0.90 - 2.90 06/25 07:51 :00 [facility] HEMATOLOGY PROFILES % Neutrophils 65.0 % 06/25 07:51 :00 [facility] HEMATOLOGY PROFILES Absolute Nucleated RBCs 0.0 x10(9)/L 0.0 - 0.0 06/25 07:51 :00 Interpretive Data: Normal values not established in patients less than 18 years old. [facility] HEMATOLOGY PROFILES % Monocytes 5.4 % 06/25 07:51 :00 [facility] HEMATOLOGY PROFILES % Lymphocytes 23.7 % 06/25 07:51 :00 [facility] HEMATOLOGY PROFILES % Nucleated RBCs 0.0 % 06/25 07:51 :00 [facility] US Leg Imaging Venous US Leg Imaging Venous Ultrasound Accession # Exam Date/Time Procedure Ordering Provider [id number] 06/25/2024 04:00 CDT US Leg Imaging Venous Christy Ramsay Reason For Exam (US Leg Imaging Venous) factor V leiden, CP, missed AC doses Report EXAMINATIO N: US Leg Imaging Venous INDICATION : factor V leiden, CP, missed AC doses COMPARISON S: 05/25/2024 TECHNIQUE: Grayscale, color and spectral Doppler evaluation of the Bilateral lower extremity deep venous system(s) was performed. FINDINGS: Bilateral common femoral, femoral and popliteal veins are normally compressib le and demonstrat e normally directed and appropriat kiara phasic flow with augmentati on. Normal flow is present within the saphenofem oral junctions and deep femoral veins in the proximal thighs and the posterior tibial and peroneal veins in the proximal calves. Acute DVT: No IMPRESSION : No evidence of deep venous thrombosis in the bilateral lower extremitie s. I have personally reviewed the images and attest to the contents of this report. * * *Final Report* * * Electronic ally Signed by: Nader Neal MD Signed on: 06/25/24 09:19 06/25 03:01 :05 [facility] XR Chest XR Chest XR General Diagnostic Accession # Exam Date/Time Procedure Ordering Provider [id number] 06/25/2024 03:11 CDT XR Chest Christy Ramsay Reason For Exam (XR Chest) chest pain Report EXAMINATIO N: XR Chest INDICATION : chest pain VIEWS: 2 COMPARISON : CT 06/12/2024 FINDINGS: Normal cardiomedi astinal silhouette . No focal parenchyma l process. No pleural effusions. No pneumothor ax. No acute osseous abnormalit ies. IMPRESSION : No acute cardiopulm onary findings. I have personally reviewed the images and attest to the contents of this report. * * *Final Report* * * Electronic ally Signed by: Jasmyne KESSLER, Jordon Fountain Signed on: 06/25/24 08:32 06/25 02:50 :51 [facility] CLINIC SITE LAB RESULTS POC U hCG (Rals) Negative *NA* (06/12/24 2:35 AM) 06/12 07:35 :00 [facility] GENERAL CHEMISTRY ALT-SGPT 13 U/L 10 - 40 06/12 07:26 :00 [facility] GENERAL CHEMISTRY Alkaline Phosphatase 47 U/L 35 - 104 06/12 07:26 :00 [facility] GENERAL CHEMISTRY Total Protein 7.0 g/dL 5.7 - 8.2 06/12 07:26 :00 [facility] GENERAL CHEMISTRY Creatinine, standardized 0.6 mg/dL 0.5 - 1.0 06/12 07:26 :00 Interpretive Data: Ggbkbi-hl-mde e transgender patients on testosterone therapy should have results assessed using the male reference range. Gjkf-hn-zdgnn e transgender patients on hormone-modul ating therapy clinical judgment is advisedfor assessment. [facility] GENERAL CHEMISTRY Chloride 107 mmol/L 98 - 107 06/12 07:26 :00 [facility] GENERAL CHEMISTRY Estimated GFR for Adults 121 mL/min/1.7 3m 06/12 07:26 :00 Interpretive Data: Changed to CKD-EPI 2020 on 2020. [facility] GENERAL CHEMISTRY Glucose Lvl 97 mg/dL 70 - 139 06/12 07:26 :00 [facility] GENERAL CHEMISTRY Calcium 8.6 mg/dL 8.3 - 10.6 06/12 07:26 :00 [facility] GENERAL CHEMISTRY BUN 9 mg/dL 6 - 20 06/12 07:26 :00 [facility] GENERAL CHEMISTRY Sodium 137 mmol/L 136 - 145 06/12 07:26 :00 [facility] GENERAL CHEMISTRY Estimated GFR for peds Not Calculated mL/min/1.7 3m 06/12 07:26 :00 Interpretive Data: The estimated GFR was calculated using the Eliezer salas [place] equation (2009) . Reference: Pediatric GFR calculator at [employer] Website. [facility] CHEMISTRY Albumin 3.9 g/dL 3.4 - 5.0 06/12 07:26 :00 [facility] GENERAL CHEMISTRY T Bili 0.54 mg/dL 0.30 - 1.20 06/12 07:26 :00 [facility] GENERAL CHEMISTRY AST-SGOT 20 U/L 06/12 07:26 :00 [facility] GENERAL CHEMISTRY Anion gap 11 mmol/L 0 - 20 06/12 07:26 :00 [facility] GENERAL CHEMISTRY CO2 23 mmol/L 20 - 31 06/12 07:26 :00 [facility] GENERAL CHEMISTRY Potassium HEMOLYZED, unable to report due to interferen ce mmol/L 3.5 - 5.1 06/12 07:26 :00 Result Comment: Hemolyzed Hemolyzed Sample. [facility] GENERAL CHEMISTRY 3rd Generation TSH 1.490 mcIU/mL 0.550 - 4.780 06/12 07:26 :00 Interpretive Data: Reference Interval I U/mL Infants (1 2 3 months) 0.87 6 .15 Children (2 1 2 years) 0.67 4 .16 Adolescents (13 2 0 years) 0.48 4 .17 [facility] HEMATOLOGY PROFILES PLT 214 x10(9)/L 150 - 450 06/12 07:26 :00 [facility] HEMATOLOGY PROFILES RDW SD 37.3 fL 36.4 - 46.3 06/12 07:26 :00 [facility] HEMATOLOGY PROFILES RDW CV 11.6 % 11.9 - 15.5 06/12 07:26 :00 [facility] HEMATOLOGY PROFILES MCHC 33.9 g/dL 32.0 - 36.0 06/12 07:26 :00 [facility] HEMATOLOGY PROFILES MCH 30.2 pg 26.0 - 33.0 06/12 07:26 :00 [facility] HEMATOLOGY PROFILES MCV 89.0 fL 81.6 - 98.3 06/12 07:26 :00 [facility] HEMATOLOGY PROFILES HCT 41.3 % 34.9 - 44.5 06/12 07:26 :00 Interpretive Data: Lrfcmu-ri-jwg e transgender patients on testosterone therapy should have results assessed using the male reference range. Oxnf-os-wjkvk e transgender patients on hormone-modul ating therapy clinical judgment is advisedfor assessment. [facility] HEMATOLOGY PROFILES HGB 14.0 g/dL 12.0 - 15.5 06/12 07:26 :00 Interpretive Data: Qssofs-zu-qpw e transgender patients on testosterone therapy should have results assessed using the male reference range. Lsjt-vx-lxmrw e transgender patients on hormone-modul ating therapy clinical judgment is advisedfor assessment. [facility] HEMATOLOGY PROFILES RBC 4.64 x10(12)/L 3.90 - 5.03 06/12 07:26 :00 [facility] HEMATOLOGY PROFILES WBC 6.03 x10(9)/L 3.50 - 10.50 06/12 07:26 :00 [facility] HEMATOLOGY PROFILES MPV 10.5 8.0 - 12.0 06/12 07:26 :00 [facility] HEMATOLOGY PROFILES % Neutrophils 47.7 % 06/12 07:26 :00 [facility] HEMATOLOGY PROFILES Abs Immature Granulocytes 0.02 x10(9)/L 0.00 - 0.03 06/12 07:26 :00 [facility] HEMATOLOGY PROFILES Absolute Nucleated RBCs 0.0 x10(9)/L 0.0 - 0.0 06/12 07:26 :00 Interpretive Data: Normal values not established in patients less than 18 years old. [facility] HEMATOLOGY PROFILES Abs Basophils 0.06 x10(9)/L 0.00 - 0.30 06/12 07:26 :00 [facility] HEMATOLOGY PROFILES Abs Eosinophils 0.32 x10(9)/L 0.05 - 0.50 06/12 07:26 :00 [facility] HEMATOLOGY PROFILES % Nucleated RBCs 0.0 % 06/12 07:26 :00 [facility] HEMATOLOGY PROFILES Abs Monocytes 0.31 x10(9)/L 0.30 - 0.90 06/12 07:26 :00 [facility] HEMATOLOGY PROFILES Abs Lymphocytes 2.45 x10(9)/L 0.90 - 2.90 06/12 07:26 :00 [facility] HEMATOLOGY PROFILES Absolute Granulocytes 2.87 x10(9)/L 1.70 - 7.00 06/12 07:26 :00 [facility] HEMATOLOGY PROFILES % Immature Granulocytes 0.30 % 0.02 - 0.42 06/12 07:26 :00 [facility] HEMATOLOGY PROFILES % Basophils 1.0 % 06/12 07:26 :00 [facility] HEMATOLOGY PROFILES % Eosinophils 5.3 % 06/12 07:26 :00 [facility] HEMATOLOGY PROFILES % Monocytes 5.1 % 06/12 07:26 :00 [facility] HEMATOLOGY PROFILES % Lymphocytes 40.6 % 06/12 07:26 :00 [facility] CT Chest PE Protocol CT Chest PE Protocol CT Scan/CT Angio Accession # Exam Date/Time Procedure Ordering Provider [id number] 06/12/2024 03:[address] Chest PE Protocol Nette Hermosillo PA-C Reason For Exam (CT Chest PE Protocol) CP ,SOA, hx of PE Report EXAMINATIO N: CT pulmonary angiogram with IV contrast INDICATION : CP ,SOA, hx of PE COMPARISON : CT PE 05/25/2024 TECHNIQUE: Using helical technique, CT data from the thoracic inlet through the upper abdomen was obtained during rapid IV contrast infusion. The examinatio n was timed to the pulmonary arterial system to generate a CT angiograph ic study. Multiplana r MIP and reformatte d images were provided. FINDINGS: VASCULAR: The study is diagnostic to the level of the subsegment al pulmonary arteries. No limitation s on this exam PULMONARY ARTERIES: No evidence of acute or chronic pulmonary embolism. The pulmonary arteries are normal in size. THORACIC AORTA: Normal in size. PULMONARY VEINS: Normal drainage into the left atrium. CORONARY ARTERIES: No significan t coronary atheroscle rosis. SYSTEMIC VEINS: Within normal limits. HEART: The heart is normal in size. No pericardia l effusion. CHEST: LUNGS/PLEU RA: Mild bilateral dependent atelectasi s. No suspicious pulmonary nodules are visualized . The airways are patent. No pneumothor ax. No pleural effusion. No focal pleural lesion. MEDIASTINU M: No mediastina l or hilar lymphadeno annmarie. The visualized thyroid is unremarkab le. The visualized esophagus is unremarkab le. AXILLA/SOF T TISSUE: No supraclavi cular or axillary lymphadeno annmarie. Regional soft tissues are within normal limits. UPPER ABDOMEN: Cholelithi asis. BONES: No evidence of acute fractures or aggressive osseous lesions. Old healed sternal fracture. IMPRESSION : VASCULAR: 1. No acute or chronic pulmonary emboli CHEST: 1. No acute intrathora cic or upper abdominal findings. 2. Cholelithi asis without acute cholecysti tis I have personally reviewed the images and attest to the contents of CT Scan/CT Angio Report this report. * * *Final Report* * * Electronic ally Signed by: Jasmyne KESSLER, Jordon Fountain Signed on: 06/12/24 08:14 06/12 03:25 :07 [facility] GENERAL CHEMISTRY Estimated GFR for Adults 120 mL/min/1.7 3m 05/25 22:26 :00 Interpretive Data: Changed to CKD-EPI 2020 on 2020. [facility] GENERAL CHEMISTRY Creatinine, standardized 0.6 mg/dL 0.5 - 1.0 05/25 22:26 :00 Interpretive Data: Chwfsq-ln-qdu e transgender patients on testosterone therapy should have results assessed using the male reference range. Pbks-il-xyacu e transgender patients on hormone-modul ating therapy clinical judgment is advisedfor assessment. [facility] GENERAL CHEMISTRY Sodium 139 mmol/L 136 - 145 05/25 22:26 :00 [facility] GENERAL CHEMISTRY Total Protein 7.0 g/dL 5.7 - 8.2 05/25 22:26 :00 [facility] GENERAL CHEMISTRY Glucose Lvl 80 mg/dL 70 - 139 05/25 22:26 :00 [facility] CHEMISTRY Anion gap 14 mmol/L 0 - 20 05/25 22:26 :00 [facility] CHEMISTRY Chloride 105 mmol/L 98 - 107 05/25 22:26 :00 [facility] CHEMISTRY T Bili 0.60 mg/dL 0.30 - 1.20 05/25 22:26 :00 [facility] GENERAL CHEMISTRY BUN 11 mg/dL 6 - 20 05/25 22:26 :00 [facility] GENERAL CHEMISTRY Potassium 3.6 mmol/L 3.5 - 5.1 05/25 22:26 :00 [facility] GENERAL CHEMISTRY Calcium 9.2 mg/dL 8.3 - 10.6 05/25 22:26 :00 [facility] GENERAL CHEMISTRY CO2 24 mmol/L 20 - 31 05/25 22:26 :00 [facility] GENERAL CHEMISTRY Alkaline Phosphatase 50 U/L 35 - 104 05/25 22:26 :00 [facility] GENERAL CHEMISTRY ALT-SGPT 14 U/L 10 - 40 05/25 22:26 :00 [facility] GENERAL CHEMISTRY Albumin 4.2 g/dL 3.4 - 5.0 05/25 22:26 :00 [facility] CHEMISTRY AST-SGOT 15 U/L 05/25 22:26 :00 [facility] CHEMISTRY Estimated GFR for peds Not Calculated mL/min/1.7 3m 05/25 22:26 :00 Interpretive Data: The estimated GFR was calculated using the B josue [place] equation (2009) . Reference: Pediatric GFR calculator at [employer] Website. [facility] HEMATOLOGY PROFILES MPV 10.4 8.0 - 12.0 05/25 22:26 :00 [facility] HEMATOLOGY PROFILES PLT 188 x10(9)/L 150 - 450 05/25 22:26 :00 [facility] HEMATOLOGY PROFILES RDW CV 12.0 % 11.9 - 15.5 05/25 22:26 :00 [facility] HEMATOLOGY PROFILES RDW SD 38.9 fL 36.4 - 46.3 05/25 22:26 :00 [facility] HEMATOLOGY PROFILES MCH 29.8 pg 26.0 - 33.0 05/25 22:26 :00 [facility] HEMATOLOGY PROFILES MCHC 33.5 g/dL 32.0 - 36.0 05/25 22:26 :00 [facility] HEMATOLOGY PROFILES MCV 88.9 fL 81.6 - 98.3 05/25 22: :00 [facility] HEMATOLOGY PROFILES HCT 44.8 % 34.9 - 44.5 05/25 22:26 :00 Interpretive Data: Jnfhto-qg-yxq e transgender patients on testosterone therapy should have results assessed using the male reference range. Xnqk-yv-lgiav e transgender patients on hormone-modul ating therapy clinical judgment is advisedfor assessment. [facility] HEMATOLOGY PROFILES RBC 5.04 x10(12)/L 3.90 - 5.03 05/25 22:26 :00 [facility] HEMATOLOGY PROFILES HGB 15.0 g/dL 12.0 - 15.5 05/25 22:26 :00 Interpretive Data: Fkdonc-bu-qrn e transgender patients on testosterone therapy should have results assessed using the male reference range. Xfng-yj-ttehf e transgender patients on hormone-modul ating therapy clinical judgment is advisedfor assessment. [facility] HEMATOLOGY PROFILES WBC 5.97 x10(9)/L 3.50 - 10.50 05/25 22:26 :00 [facility] HEMATOLOGY PROFILES Absolute Granulocytes 3.03 x10(9)/L 1.70 - 7.00 05/25 22: :00 [facility] HEMATOLOGY PROFILES Abs Lymphocytes 2.25 x10(9)/L 0.90 - 2.90 05/25 22:26 :00 [facility] HEMATOLOGY PROFILES % Basophils 0.7 % 05/25 22:26 :00 [facility] HEMATOLOGY PROFILES % Immature Granulocytes 0.20 % 0.02 - 0.42 05/25 22:26 :00 [facility] HEMATOLOGY PROFILES % Eosinophils 4.4 % 05/25 22:26 :00 [facility] HEMATOLOGY PROFILES % Lymphocytes 37.7 % 05/25 22:26 :00 [facility] HEMATOLOGY PROFILES % Monocytes 6.4 % 05/25 22:26 :00 [facility] HEMATOLOGY PROFILES Absolute Nucleated RBCs 0.0 x10(9)/L 0.0 - 0.0 05/25 22:26 :00 Interpretive Data: Normal values not established in patients less than 18 years old. [facility] HEMATOLOGY PROFILES % Neutrophils 50.6 % 05/25 22:26 :00 [facility] HEMATOLOGY PROFILES % Nucleated RBCs 0.0 % 05/25 22:26 :00 [facility] HEMATOLOGY PROFILES Abs Basophils 0.04 x10(9)/L 0.00 - 0.30 05/25 22:26 :00 [facility] HEMATOLOGY PROFILES Abs Immature Granulocytes 0.01 x10(9)/L 0.00 - 0.03 05/25 22:26 :00 [facility] HEMATOLOGY PROFILES Abs Monocytes 0.38 x10(9)/L 0.30 - 0.90 05/25 22:26 :00 [facility] HEMATOLOGY PROFILES Abs Eosinophils 0.26 x10(9)/L 0.05 - 0.50 05/25 22:26 :00 [facility] URINALYSIS UA PH 6 (05/25/24 4:26 PM) 4.5 - 8.0 05/25 22:26 :00 [facility] URINALYSIS COLOR Yellow (05/25/24 4:26 PM) 05/25 22:26 :00 [facility] URINALYSIS SPECIFIC GRAVITY 1.026 1.006 - 1.030 05/25 22:26 :00 [facility] URINALYSIS Urine Collection Method Clean Catch UR (05/25/24 4:26 PM) 05/25 22:26 :00 [facility] URINALYSIS CLARITY Slightly Cloudy (05/25/24 4:26 PM) 05/25 22:26 :00 [facility] URINALYSIS UA UROBILINOGEN Negative Geronimo unit/dL 0.2 - 1.0 05/25 22:26 :00 [facility] URINALYSIS UA BLOOD Negative 4 (05/25/24 4:26 PM) 05/25 22:26 :00 Result Comment: A hemoglobin concentration of 0.015-0.062 mg/dL is approximately equivalent to 5 -20 intact red blood cells per microliter. [facility] URINALYSIS UA KETONES Negative mg/dL 05/25 22:26 :00 [facility] URINALYSIS BILIRUBIN Negative (05/25/24 4:26 PM) 05/25 22:26 :00 [facility] URINALYSIS UA GLUCOSE Negative mg/dL 05/25 22:26 :00 [facility] URINALYSIS UA NITRITE Negative (05/25/24 4:26 PM) 05/25 22:26 :00 [facility] URINALYSIS UA PROTEIN Negative mg/dL 05/25 22:26 :00 [facility] URINALYSIS UA LEUKOCYTES Negative (05/25/24 4:26 PM) 05/25 22:26 :00 [facility] CT Chest PE Protocol CT Chest PE Protocol CT Scan/CT Angio Accession # Exam Date/Time Procedure Ordering Provider [id number] 05/25/2024 21:21 [employer] CT Chest PE Protocol Mathew Lopez Reason For Exam (CT Chest PE Protocol) chest pain hypotensio n Report EXAMINATIO N: CT pulmonary angiogram with IV contrast INDICATION : Chest pain, hypotensio n. COMPARISON : Chest CT 04/23/2024 TECHNIQUE: Using helical technique, CT data from the thoracic inlet through the upper abdomen was obtained during rapid IV contrast infusion. The examinatio n was timed to the pulmonary arterial system to generate a CT angiograph ic study. Multiplana r MIP and reformatte d images were provided. Dual-energ y CT images with iodine mapping were provided. FINDINGS: VASCULAR: The study is diagnostic to the level of the subsequent pulmonary arteries. No limitation s. PULMONARY ARTERIES: No evidence of acute or chronic pulmonary embolism. The pulmonary arteries are normal in size. THORACIC AORTA: Normal in size. PULMONARY VEINS: Normal drainage into the left atrium. CORONARY ARTERIES: No significan t coronary atheroscle rosis. SYSTEMIC VEINS: Within normal limits. HEART: The heart is normal in size. No pericardia l effusion. CHEST: LUNGS/PLEU RA: The pulmonary parenchyma appears within normal limits. No suspicious pulmonary nodules are visualized . The airways are patent. No pneumothor ax. No pleural effusion. No focal pleural lesion. MEDIASTINU M: No mediastina l or hilar lymphadeno annmarie. The visualized thyroid is unremarkab le. Unchanged subcentime ter thyroid nodules. AXILLA/SOF T TISSUE: No supraclavi cular or axillary lymphadeno annmarie. Regional soft tissues are within normal limits. UPPER ABDOMEN: Cholelithi asis without findings for cholecysti tis. BONES: No evidence of acute fractures or aggressive osseous lesions. Old healed sternal fracture deformity with callus formation. IMPRESSION : VASCULAR: No pulmonary embolism CHEST: 1. No acute cardiopulm onary abnormalit ies. 2. Cholelithi asis without findings for cholecysti tis. I have personally reviewed the images and attest to the contents of CT Scan/CT Angio Report this report. * * *Final Report* * * Electronic ally Signed by: Dario Alvarado MD Signed on: 05/25/24 21:26 05/25 21:05 :48 [facility] US Leg Imaging Venous US Leg Imaging Venous Ultrasound Accession # Exam Date/Time Procedure Ordering Provider [id number] 05/25/2024 17:20 [employer] US Leg Imaging Venous Rachelle Galeano MD Reason For Exam (US Leg Imaging Venous) RLE pain Report EXAMINATIO N: US Leg Imaging Venous INDICATION : RLE pain COMPARISON S: 12/12/2023 TECHNIQUE: Grayscale, color and spectral Doppler evaluation of the Right lower extremity deep venous system was performed. FINDINGS: Right common femoral, femoral and popliteal veins are normally compressib le and demonstrat e normally directed and appropriat kiara phasic flow with augmentati on. Normal flow is present within the right saphenofem oral junctions and deep femoral vein in the proximal thigh and the posterior tibial and peroneal veins in the right proximal calf. Acute DVT: No IMPRESSION : No right lower extremity DVT. I have personally reviewed the images and attest to the contents of this report. * * *Final Report* * * Electronic ally Signed by: Dario Alvarado MD Signed on: 05/25/24 17:30 05/25 16:58 :29 [facility] CLINIC SITE LAB RESULTS POC U hCG (Rals) Negative *NA* (04/23/24 1:32 AM) 04/23 07:32 :00 [facility] URINALYSIS UA GLUCOSE Negative mg/dL 04/23 07:32 :00 [facility] URINALYSIS UA PH 7 (04/23/24 1:32 AM) 4.5 - 8.0 04/23 07:32 :00 [facility] URINALYSIS UA UROBILINOGEN Negative Geronimo unit/dL 0.2 - 1.0 04/23 07:32 :00 [facility] URINALYSIS BILIRUBIN Negative (04/23/24 1:32 AM) 04/23 07:32 :00 [facility] URINALYSIS UA KETONES Negative mg/dL 04/23 07:32 :00 [facility] URINALYSIS UA LEUKOCYTES Negative (04/23/24 1:32 AM) 04/23 07:32 :00 [facility] URINALYSIS UA BLOOD Negative 5 (04/23/24 1:32 AM) 04/23 07:32 :00 Result Comment: A hemoglobin concentration of 0.015-0.062 mg/dL is approximately equivalent to 5 -20 intact red blood cells per microliter. [facility] URINALYSIS UA PROTEIN Negative mg/dL 04/23 07:32 :00 [facility] URINALYSIS UA NITRITE Negative (04/23/24 1:32 AM) 04/23 07:32 :00 [facility] URINALYSIS Urine Collection Method Clean Catch UR (04/23/24 1:32 AM) 04/23 07:32 :00 [facility] URINALYSIS SPECIFIC GRAVITY 1.026 1.006 - 1.030 04/23 07:32 :00 [facility] URINALYSIS COLOR Yellow (04/23/24 1:32 AM) 04/23 07:32 :00 [facility] URINALYSIS CLARITY Cloudy *ABNORMAL* (04/23/24 1:32 AM) 04/23 07:32 :00 [facility] COAGULATIO N PT 12.4 s 9.4 - 12.5 04/23 07:00 :00 [facility] COAGULATIO N INR 1.1 0.9 - 1.2 04/23 07:00 :00 Interpretive Data: Suggested therapeutic INR range for stable oral anticoagulati on: Optimal Therapeutic INR Range 2.0-3.0 Therapeutic Range for High-Risk Groups (antiphoshpol ipid syndrome with previous thrombosis) 2.0-3.0 DVT of the leg 2.0-3.0 PE 2.0-3.0 Patients with AF and Stable Coronary Artery Disease 2.0-3.0 Bioprosthetic valve in the mitral position 2.0-3.0 Mechanical mitral valve or additional risk factors 2.5-3.5 Prevention of Recurrent VTE in Women prophylaxis for 6 weeks with prophylactic- or intermediate- dose LMWH or warfarin targeted at INR 2.0 or 3.0 rather than no prophylaxis For additional guidance see: Chandrika GH, Bassem EA, Reed M, Harley DD, Schu n joshua HJ; [employer] Antithromboti c Therapy and Prevention of Thrombosis Panel. Executive summary: Antithromboti c Therapy and Prevention of Thrombosis, 9th Ed: [employer] Evidence-Base d Clinical Practice Guidelines. Chest. 2012 Apr; 141(2 Suppl):7S-47S . doi: 10.1378/chest .1412S3 [facility] COAGULATIO N PTT 28.6 s 25.1 - 36.5 04/23 07:00 :00 Interpretive Data: Recommendatio ns for anticoagulant therapeutic ranges: Unfractionate d Heparin: Please order the anti-Xa assay. Target ranges and medication management recommendatio ns are based on the anti-Xa assay and posted in [employer] (see Medication Management-Ad ult Heparin Nomogram). Argatroban: Target ranges and medication management recommendatio ns are posted in [employer] (see Medication Management- Adult Argatroban Nomogram). Low molecular weight heparin or danaparoid monitoring: Please order the anti-Xa assay. Please contact the Pharmacy or the Clinical Pathology Service for additional questions. [facility] GENERAL CHEMISTRY Albumin 4.0 g/dL 3.4 - 5.0 04/23 07:00 :00 [facility] GENERAL CHEMISTRY Calcium 9.3 mg/dL 8.3 - 10.6 04/23 07:00 :00 [facility] GENERAL CHEMISTRY BUN 12 mg/dL 6 - 20 04/23 07:00 :00 [facility] GENERAL CHEMISTRY ALT-SGPT 13 U/L 10 - 40 04/23 07:00 :00 [facility] GENERAL CHEMISTRY Alkaline Phosphatase 56 U/L 35 - 104 04/23 07:00 :00 [facility] GENERAL CHEMISTRY Glucose Lvl 108 mg/dL 70 - 139 04/23 07:00 :00 [facility] GENERAL CHEMISTRY Chloride 106 mmol/L 98 - 107 04/23 07:00 :00 [facility] GENERAL CHEMISTRY Anion gap 14 mmol/L 0 - 20 04/23 07:00 :00 [facility] GENERAL CHEMISTRY CO2 25 mmol/L 20 - 31 04/23 07:00 :00 [facility] GENERAL CHEMISTRY Potassium 3.5 mmol/L 3.5 - 5.1 04/23 07:00 :00 [facility] GENERAL CHEMISTRY Sodium 141 mmol/L 136 - 145 04/23 07:00 :00 [facility] GENERAL CHEMISTRY T Bili 0.45 mg/dL 0.30 - 1.20 04/23 07:00 :00 [facility] GENERAL CHEMISTRY Creatinine, standardized 0.7 mg/dL 0.5 - 1.0 04/23 07:00 :00 Interpretive Data: Vzkzdc-or-wdz e transgender patients on testosterone therapy should have results assessed using the male reference range. Sxbc-vh-ixmoj e transgender patients on hormone-modul ating therapy clinical judgment is advisedfor assessment. [facility] GENERAL CHEMISTRY Total Protein 7.0 g/dL 5.7 - 8.2 04/23 07:00 :00 [facility] CHEMISTRY Estimated GFR for Adults 115 mL/min/1.7 3m 04/23 07:00 :00 Interpretive Data: Changed to CKD-EPI 2020 on 2020. [facility] GENERAL CHEMISTRY AST-SGOT 15 U/L 04/23 07:00 :00 [facility] GENERAL CHEMISTRY Estimated GFR for peds Not Calculated mL/min/1.7 3m 04/23 07:00 :00 Interpretive Data: The estimated GFR was calculated using the Eliezer salas [place] equation (2009) . Reference: Pediatric GFR calculator at [employer] Website. [facility] HEMATOLOGY PROFILES RDW CV 11.5 % 11.9 - 15.5 04/23 07:00 :00 [facility] HEMATOLOGY PROFILES MCHC 34.0 g/dL 32.0 - 36.0 04/23 07:00 :00 [facility] HEMATOLOGY PROFILES RDW SD 38.4 fL 36.4 - 46.3 04/23 07:00 :00 [facility] HEMATOLOGY PROFILES MCH 30.7 pg 26.0 - 33.0 04/23 07:00 :00 [facility] HEMATOLOGY PROFILES MCV 90.3 fL 81.6 - 98.3 04/23 07:00 :00 [facility] HEMATOLOGY PROFILES HGB 14.5 g/dL 12.0 - 15.5 04/23 07:00 :00 Interpretive Data: Ciwkvx-kg-ulv e transgender patients on testosterone therapy should have results assessed using the male reference range. Iyoo-ew-pxibx e transgender patients on hormone-modul ating therapy clinical judgment is advisedfor assessment. [facility] HEMATOLOGY PROFILES RBC 4.73 x10(12)/L 3.90 - 5.03 04/23 07:00 :00 [facility] HEMATOLOGY PROFILES HCT 42.7 % 34.9 - 44.5 04/23 07:00 :00 Interpretive Data: Iqlqse-wa-xdx e transgender patients on testosterone therapy should have results assessed using the male reference range. Ddgf-se-esrxf e transgender patients on hormone-modul ating therapy clinical judgment is advisedfor assessment. [facility] HEMATOLOGY PROFILES WBC 7.56 x10(9)/L 3.50 - 10.50 04/23 07:00 :00 [facility] HEMATOLOGY PROFILES PLT 187 x10(9)/L 150 - 450 04/23 07:00 :00 [facility] HEMATOLOGY PROFILES MPV 10.9 8.0 - 12.0 04/23 07:00 :00 [facility] HEMATOLOGY PROFILES % Nucleated RBCs 0.0 % 04/23 07:00 :00 [facility] HEMATOLOGY PROFILES % Neutrophils 44.5 % 04/23 07:00 :00 [facility] HEMATOLOGY PROFILES Absolute Nucleated RBCs 0.0 x10(9)/L 0.0 - 0.0 04/23 07:00 :00 Interpretive Data: Normal values not established in patients less than 18 years old. [facility] HEMATOLOGY PROFILES Abs Eosinophils 0.38 x10(9)/L 0.05 - 0.50 04/23 07:00 :00 [facility] HEMATOLOGY PROFILES Abs Monocytes 0.39 x10(9)/L 0.30 - 0.90 04/23 07:00 :00 [facility] HEMATOLOGY PROFILES Abs Immature Granulocytes 0.02 x10(9)/L 0.00 - 0.03 04/23 07:00 :00 [facility] HEMATOLOGY PROFILES Abs Basophils 0.05 x10(9)/L 0.00 - 0.30 04/23 07:00 :00 [facility] HEMATOLOGY PROFILES Abs Lymphocytes 3.35 x10(9)/L 0.90 - 2.90 04/23 07:00 :00 [facility] HEMATOLOGY PROFILES % Lymphocytes 44.3 % 04/23 07:00 :00 [facility] HEMATOLOGY PROFILES % Basophils 0.7 % 04/23 07:00 :00 [facility] HEMATOLOGY PROFILES % Eosinophils 5.0 % 04/23 07:00 :00 [facility] HEMATOLOGY PROFILES Absolute Granulocytes 3.37 x10(9)/L 1.70 - 7.00 04/23 07:00 :00 [facility] HEMATOLOGY PROFILES % Immature Granulocytes 0.30 % 0.02 - 0.42 04/23 07:00 :00 [facility] HEMATOLOGY PROFILES % Monocytes 5.2 % 04/23 07:00 :00 [facility] [facility] CT Chest PE Protocol CT Chest PE Protocol CT Scan/CT Angio Accession # Exam Date/Time Procedure Ordering Provider [id number] 04/23/2024 02:17 [employer] CT Chest PE Protocol Massiel KESSLER, Andrey Trinidad Reason For Exam (CT Chest PE Protocol) prior PEs, CP and SOB, not taking AC Report EXAMINATIO N: CT pulmonary angiogram with IV contrast INDICATION : prior PEs, CP and SOB, not taking AC COMPARISON : CT chest 02/20/2024 TECHNIQUE: Using helical technique, CT data from the thoracic inlet through the upper abdomen was obtained during rapid IV contrast infusion. The examinatio n was timed to the pulmonary arterial system to generate a CT angiograph ic study. Multiplana r MIP and reformatte d images were provided. FINDINGS: VASCULAR: The study is diagnostic to the level of the subsegment al pulmonary arteries. PULMONARY ARTERIES: No evidence of pulmonary embolism. The pulmonary arteries are normal in size. THORACIC AORTA: Normal in size. PULMONARY VEINS: Normal drainage into the left atrium. CORONARY ARTERIES: No significan t coronary atheroscle rosis. SYSTEMIC VEINS: Within normal limits. HEART: The heart is normal in size. No pericardia l effusion. CHEST: LUNGS/PLEU RA: Bibasilar subsegment al atelectasi s, otherwise the pulmonary parenchyma appears within normal limits. No suspicious pulmonary nodules are visualized . The airways are patent. No pneumothor ax. No pleural effusion. No focal pleural lesion. MEDIASTINU M: No mediastina l or hilar lymphadeno annmarie. Subcentime ter hypodense left thyroid nodule, similar to prior. The visualized esophagus is unremarkab le. AXILLA/SOF T TISSUE: No supraclavi cular or axillary lymphadeno annmarie. Regional soft tissues are within normal limits. UPPER ABDOMEN: Cholelithi asis without secondary signs of acute cholecysti tis. BONES: No evidence of acute fractures or aggressive osseous lesions. Healed chronic sternal fracture deformity. IMPRESSION : VASCULAR: No acute pulmonary embolism. CHEST: 1. No acute cardiopulm onary abnormalit ies.. 2. Cholelithi asis without secondary signs of acute cholecysti tis. 3. Grossly unchanged subcentime ter hypodense left thyroid nodule. CT Scan/CT Angio Report I have personally reviewed the images and attest to the contents of this report. * * *Final Report* * * Electronic ally Signed by: Jasmyne KESSLER, Jordon Fountain Signed on: 04/23/24 08:53 04/23 01:56 :34 [facility] GENERAL CHEMISTRY BUN 8 mg/dL 6 - 20 03/04 00:45 :00 [facility] GENERAL CHEMISTRY Calcium 9.0 mg/dL 8.3 - 10.6 03/04 00:45 :00 [facility] GENERAL CHEMISTRY Alkaline Phosphatase 63 U/L 35 - 104 03/04 00:45 :00 [facility] GENERAL CHEMISTRY Total Protein 7.3 g/dL 5.7 - 8.2 03/04 00:45 :00 [facility] GENERAL CHEMISTRY ALT-SGPT 16 U/L 10 - 40 03/04 00:45 :00 [facility] GENERAL CHEMISTRY Creatinine, standardized 0.7 mg/dL 0.5 - 1.0 03/04 00:45 :00 Interpretive Data: Iwzohi-gj-ppl e transgender patients on testosterone therapy should have results assessed using the male reference range. Zddw-qy-whlqt e transgender patients on hormone-modul ating therapy clinical judgment is advisedfor assessment. [facility] GENERAL CHEMISTRY Anion gap 15 mmol/L 0 - 20 03/04 00:45 :00 [facility] GENERAL CHEMISTRY Albumin 4.3 g/dL 3.4 - 5.0 03/04 00:45 :00 [facility] GENERAL CHEMISTRY T Bili 0.43 mg/dL 0.30 - 1.20 03/04 00:45 :00 [facility] GENERAL CHEMISTRY Estimated GFR for peds Not Calculated mL/min/1.7 3m 03/04 00:45 :00 Interpretive Data: The estimated GFR was calculated using the Eliezer salas [place] equation (2009) . Reference: Pediatric GFR calculator at [employer] Website. [facility] GENERAL CHEMISTRY Potassium 3.4 mmol/L 3.5 - 5.1 03/04 00:45 :00 [facility] GENERAL CHEMISTRY CO2 22 mmol/L 20 - 31 03/04 00:45 :00 [facility] GENERAL CHEMISTRY Chloride 105 mmol/L 98 - 107 03/04 00:45 :00 [facility] CHEMISTRY Estimated GFR for Adults 118 mL/min/1.7 3m 03/04 00:45 :00 Interpretive Data: Changed to CKD-EPI 2020 on 2020. [facility] GENERAL CHEMISTRY Sodium 139 mmol/L 136 - 145 03/04 00:45 :00 [facility] GENERAL CHEMISTRY AST-SGOT 16 U/L 03/04 00:45 :00 [facility] GENERAL CHEMISTRY Glucose Lvl 120 mg/dL 70 - 139 03/04 00:45 :00 [facility] HEMATOLOGY PROFILES MCHC 33.9 g/dL 32.0 - 36.0 03/04 00:45 :00 [facility] HEMATOLOGY PROFILES MCH 30.4 pg 26.0 - 33.0 03/04 00:45 :00 [facility] HEMATOLOGY PROFILES MCV 89.8 fL 81.6 - 98.3 03/04 00:45 :00 [facility] HEMATOLOGY PROFILES HCT 43.1 % 34.9 - 44.5 03/04 00:45 :00 Interpretive Data: Wqubug-fd-pnw e transgender patients on testosterone therapy should have results assessed using the male reference range. Rblh-fq-eicvl e transgender patients on hormone-modul ating therapy clinical judgment is advisedfor assessment. [facility] HEMATOLOGY PROFILES HGB 14.6 g/dL 12.0 - 15.5 03/04 00:45 :00 Interpretive Data: Qzkghh-rh-ugk e transgender patients on testosterone therapy should have results assessed using the male reference range. Bsww-gp-dzfxy e transgender patients on hormone-modul ating therapy clinical judgment is advisedfor assessment. [facility] HEMATOLOGY PROFILES RBC 4.80 x10(12)/L 3.90 - 5.03 03/04 00:45 :00 [facility] HEMATOLOGY PROFILES WBC 9.74 x10(9)/L 3.50 - 10.50 03/04 00:45 :00 [facility] HEMATOLOGY PROFILES MPV 10.1 8.0 - 12.0 03/04 00:45 :00 [facility] HEMATOLOGY PROFILES PLT 227 x10(9)/L 150 - 450 03/04 00:45 :00 [facility] HEMATOLOGY PROFILES RDW SD 38.6 fL 36.4 - 46.3 03/04 00:45 :00 [facility] HEMATOLOGY PROFILES RDW CV 11.9 % 11.9 - 15.5 03/04 00:45 :00 [facility] HEMATOLOGY PROFILES Abs Monocytes 0.43 x10(9)/L 0.30 - 0.90 03/04 00:45 :00 [facility] HEMATOLOGY PROFILES Abs Lymphocytes 2.29 x10(9)/L 0.90 - 2.90 03/04 00:45 :00 [facility] HEMATOLOGY PROFILES Absolute Granulocytes 6.62 x10(9)/L 1.70 - 7.00 03/04 00:45 :00 [facility] HEMATOLOGY PROFILES % Immature Granulocytes 0.60 % 0.02 - 0.42 03/04 00:45 :00 [facility] HEMATOLOGY PROFILES % Basophils 0.5 % 03/04 00:45 :00 [facility] HEMATOLOGY PROFILES % Eosinophils 3.0 % 03/04 00:45 :00 [facility] HEMATOLOGY PROFILES % Monocytes 4.4 % 03/04 00:45 :00 [facility] HEMATOLOGY PROFILES % Lymphocytes 23.5 % 03/04 00:45 :00 [facility] HEMATOLOGY PROFILES Abs Immature Granulocytes 0.06 x10(9)/L 0.00 - 0.03 03/04 00:45 :00 [facility] HEMATOLOGY PROFILES % Neutrophils 68.0 % 03/04 00:45 :00 [facility] HEMATOLOGY PROFILES Absolute Nucleated RBCs 0.0 x10(9)/L 0.0 - 0.0 03/04 00:45 :00 Interpretive Data: Normal values not established in patients less than 18 years old. [facility] HEMATOLOGY PROFILES Abs Basophils 0.05 x10(9)/L 0.00 - 0.30 03/04 00:45 :00 [facility] HEMATOLOGY PROFILES % Nucleated RBCs 0.0 % 03/04 00:45 :00 [facility] HEMATOLOGY PROFILES Abs Eosinophils 0.29 x10(9)/L 0.05 - 0.50 03/04 00:45 :00 [facility] XR Chest Portable XR Chest Portable XR General Diagnostic Accession # Exam Date/Time Procedure Ordering Provider [id number] 03/03/2024 20:39 [employer] XR Chest Portable Angelina Garibay Reason For Exam (XR Chest Portable) chest pain, shortness of breath Report EXAMINATIO N: XR Chest Portable INDICATION : chest pain, shortness of breath VIEWS: 1 COMPARISON : Chest radiograph 12/17/2023; CT chest 02/20/2024 FINDINGS: Normal cardiomedi astinal silhouette . No focal parenchyma l process. No pleural effusions. No pneumothor ax. No acute osseous abnormalit ies. IMPRESSION : No acute cardiopulm onary findings. I have personally reviewed the images and attest to the contents of this report. * * *Final Report* * * Electronic ally Signed by: Christiano KESSLER, Dario Brian Signed on: 03/03/24 20:50 03/03 20:14 :16 [facility] CT Head or Brain CT Head or Brain CT Scan/CT Angio Accession # Exam Date/Time Procedure Ordering Provider [id number] 03/03/2024 20:21 [employer] CT Head or Brain Brett Goel MD Reason For Exam (CT Head or Brain) weakness, vision changes Report EXAMINATIO N: CT Head or Brain without IV contrast INDICATION : Weakness, Vision Changes COMPARISON : 12/16/2023 FINDINGS: CT HEAD: INFARCT: No acute vascular territory infarct. HEMORRHAGE : No parenchyma l or extra-axia l hemorrhage . MASS EFFECT: None. PARENCHYMA : No intraparen chymal mass. VOLUME LOSS: None. VENTRICLES : No ventriculo megaly. VESSELS: Unremarkab le. BONES: No acute fracture. Mild concave rightward nasal septal deviation. SINUSES: Mild left maxillary sinus-pred ominant paranasal sinus opacificat ion. MASTOIDS: Clear. ORBITS: Symmetric. SOFT TISSUES: Normal. IMPRESSION : No acute intracrani al abnormalit y. I have personally reviewed the images and attest to the contents of this report. * * *Final Report* * * Electronic ally Signed by: Susan Butler DO Signed on: 03/03/24 20:31 03/03 20:05 :14 [facility] SITE LAB RESULTS Influenza A Rapid POC Negative *NA* (02/20/24 11:20 PM) 02/20 05:20 :00 [facility] SITE LAB RESULTS Influenza B Rapid POC Negative *NA* (02/20/24 11:20 PM) 02/20 05:20 :00 [facility] COAGULATIO N PT 13.1 s 9.4 - 12.5 02/20 02:45 :00 [facility] COAGULATIO N INR 1.2 0.9 - 1.2 02/20 02:45 :00 Interpretive Data: Suggested therapeutic INR range for stable oral anticoagulati on: Optimal Therapeutic INR Range 2.0-3.0 Therapeutic Range for High-Risk Groups (antiphoshpol ipid syndrome with previous thrombosis) 2.0-3.0 DVT of the leg 2.0-3.0 PE 2.0-3.0 Patients with AF and Stable Coronary Artery Disease 2.0-3.0 Bioprosthetic valve in the mitral position 2.0-3.0 Mechanical mitral valve or additional risk factors 2.5-3.5 Prevention of Recurrent VTE in Women prophylaxis for 6 weeks with prophylactic- or intermediate- dose LMWH or warfarin targeted at INR 2.0 or 3.0 rather than no prophylaxis For additional guidance see: Chandrika GRIFFITH, Bassem EA, Reed M, Harley DD, Schu n joshua HJ; [employer] Antithromboti c Therapy and Prevention of Thrombosis Panel. Executive summary: Antithromboti c Therapy and Prevention of Thrombosis, 9th Ed: [employer] Evidence-Base d Clinical Practice Guidelines. Chest. 2011; 141(2 Suppl):7S-47S . doi: 10.1378/chest .1412S3 [facility] COAGULATIO N PTT 30.3 s 25.1 - 36.5 02/20 02:45 :00 Interpretive Data: Recommendatio ns for anticoagulant therapeutic ranges: Unfractionate d Heparin: Please order the anti-Xa assay. Target ranges and medication management recommendatio ns are based on the anti-Xa assay and posted in [employer] (see Medication Management-Ad ult Heparin Nomogram). Argatroban: Target ranges and medication management recommendatio ns are posted in [employer] (see Medication Management- Adult Argatroban Nomogram). Low molecular weight heparin or danaparoid monitoring: Please order the anti-Xa assay. Please contact the Pharmacy or the Clinical Pathology Service for additional questions. [facility] GENERAL CHEMISTRY Anion gap 14 mmol/L 0 - 20 02/20 02:00 :00 [facility] GENERAL CHEMISTRY Albumin 4.2 g/dL 3.4 - 5.0 02/20 02:00 :00 [facility] GENERAL CHEMISTRY T Bili 0.70 mg/dL 0.30 - 1.20 02/20 02:00 :00 [facility] GENERAL CHEMISTRY Alkaline Phosphatase 64 U/L 35 - 104 02/20 02:00 :00 [facility] GENERAL CHEMISTRY Total Protein 7.1 g/dL 5.7 - 8.2 02/20 02:00 :00 [facility] GENERAL CHEMISTRY ALT-SGPT 13 U/L 10 - 40 02/20 02:00 :00 [facility] GENERAL CHEMISTRY Creatinine, standardized 0.7 mg/dL 0.5 - 1.0 02/20 02:00 :00 Interpretive Data: Pzpswd-if-oia e transgender patients on testosterone therapy should have results assessed using the male reference range. Pame-oq-wlvze e transgender patients on hormone-modul ating therapy clinical judgment is advisedfor assessment. [facility] GENERAL CHEMISTRY BUN 13 mg/dL 6 - 20 02/20 02:00 :00 [facility] GENERAL CHEMISTRY Calcium 8.6 mg/dL 8.3 - 10.6 02/20 02:00 :00 [facility] GENERAL CHEMISTRY Glucose Lvl 87 mg/dL 70 - 139 02/20 02:00 :00 [facility] GENERAL CHEMISTRY Chloride 106 mmol/L 98 - 107 02/20 02:00 :00 [facility] GENERAL CHEMISTRY Estimated GFR for Adults 118 mL/min/1.7 3m 02/20 02:00 :00 Interpretive Data: Changed to CKD-EPI 2020 on 2020. [facility] GENERAL CHEMISTRY Sodium 138 mmol/L 136 - 145 02/20 02:00 :00 [facility] GENERAL CHEMISTRY Estimated GFR for peds Not calculated 02/20 02:00 :00 Interpretive Data: The estimated GFR was calculated using the B josue [place] equation (2009) . Reference: Pediatric GFR calculator at [employer] Website. [facility] GENERAL CHEMISTRY Potassium 3.7 mmol/L 3.5 - 5.1 02/20 02:00 :00 [facility] GENERAL CHEMISTRY CO2 22 mmol/L 20 - 31 02/20 02:00 :00 [facility] GENERAL CHEMISTRY AST-SGOT 16 U/L 02/20 02:00 :00 [facility] HEMATOLOGY PROFILES WBC 8.13 x10(9)/L 3.50 - 10.50 02/20 02:00 :00 [facility] HEMATOLOGY PROFILES PLT 217 x10(9)/L 150 - 450 02/20 02:00 :00 [facility] HEMATOLOGY PROFILES MPV 10.6 8.0 - 12.0 02/20 02:00 :00 [facility] HEMATOLOGY PROFILES RDW CV 12.0 % 11.9 - 15.5 02/20 02:00 :00 [facility] HEMATOLOGY PROFILES RDW SD 38.7 fL 36.4 - 46.3 02/20 02:00 :00 [facility] HEMATOLOGY PROFILES MCHC 34.0 g/dL 32.0 - 36.0 02/20 02:00 :00 [facility] HEMATOLOGY PROFILES MCV 87.9 fL 81.6 - 98.3 02/20 02:00 :00 [facility] HEMATOLOGY PROFILES MCH 29.9 pg 26.0 - 33.0 02/20 02:00 :00 [facility] HEMATOLOGY PROFILES HGB 14.4 g/dL 12.0 - 15.5 02/20 02:00 :00 Interpretive Data: Ckahec-dk-djr e transgender patients on testosterone therapy should have results assessed using the male reference range. Epbx-wh-vvtve e transgender patients on hormone-modul ating therapy clinical judgment is advisedfor assessment. [facility] HEMATOLOGY PROFILES HCT 42.3 % 34.9 - 44.5 02/20 02:00 :00 Interpretive Data: Ygfugb-yz-sfm e transgender patients on testosterone therapy should have results assessed using the male reference range. Xjtu-jk-gbbye e transgender patients on hormone-modul ating therapy clinical judgment is advisedfor assessment. [facility] HEMATOLOGY PROFILES RBC 4.81 x10(12)/L 3.90 - 5.03 02/20 02:00 :00 [facility] HEMATOLOGY PROFILES Abs Immature Granulocytes 0.03 x10(9)/L 0.00 - 0.03 02/20 02:00 :00 [facility] HEMATOLOGY PROFILES Abs Eosinophils 0.42 x10(9)/L 0.05 - 0.50 02/20 02:00 :00 [facility] HEMATOLOGY PROFILES Abs Basophils 0.05 x10(9)/L 0.00 - 0.30 02/20 02:00 :00 [facility] HEMATOLOGY PROFILES % Monocytes 6.3 % 02/20 02:00 :00 [facility] HEMATOLOGY PROFILES % Eosinophils 5.2 % 02/20 02:00 :00 [facility] HEMATOLOGY PROFILES % Immature Granulocytes 0.40 % 0.02 - 0.42 02/20 02:00 :00 [facility] HEMATOLOGY PROFILES Absolute Granulocytes 4.86 x10(9)/L 1.70 - 7.00 02/20 02:00 :00 [facility] HEMATOLOGY PROFILES % Basophils 0.6 % 02/20 02:00 :00 [facility] HEMATOLOGY PROFILES % Nucleated RBCs 0.0 % 02/20 02:00 :00 [facility] HEMATOLOGY PROFILES Abs Lymphocytes 2.26 x10(9)/L 0.90 - 2.90 02/20 02:00 :00 [facility] HEMATOLOGY PROFILES Abs Monocytes 0.51 x10(9)/L 0.30 - 0.90 02/20 02:00 :00 [facility] HEMATOLOGY PROFILES % Neutrophils 59.7 % 02/20 02:00 :00 [facility] HEMATOLOGY PROFILES % Lymphocytes 27.8 % 02/20 02:00 :00 [facility] HEMATOLOGY PROFILES Absolute Nucleated RBCs 0.0 x10(9)/L 0.0 - 0.0 02/20 02:00 :00 Interpretive Data: Normal values not established in patients less than 18 years old. [facility] CT Chest PE Protocol CT Chest PE Protocol CT Scan/CT Angio Accession # Exam Date/Time Procedure Ordering Provider [id number] 02/20/2024 22:35 [employer] CT Chest PE Protocol Chip Espinosa DO Reason For Exam (CT Chest PE Protocol) chest pain, hemoptsis, h/o PE Report EXAMINATIO N: CT pulmonary angiogram with IV contrast INDICATION : chest pain, hemoptsis, h/o PE COMPARISON : Multiple prior CT PE's, most recently 12/11/2023 TECHNIQUE: Using helical technique, CT data from the thoracic inlet through the upper abdomen was obtained during rapid IV contrast infusion. The examinatio n was timed to the pulmonary arterial system to generate a CT angiograph ic study. Multiplana r MIP and reformatte d images were provided. FINDINGS: VASCULAR: The study is diagnostic to the level of the subsegment al pulmonary arteries. PULMONARY ARTERIES: No evidence of acute or chronic pulmonary embolism. The pulmonary arteries are normal in size. THORACIC AORTA: Normal in size. PULMONARY VEINS: Normal drainage into the left atrium. CORONARY ARTERIES: No significan t coronary atheroscle rosis. SYSTEMIC VEINS: Within normal limits. HEART: The heart is normal in size. No pericardia l effusion. CHEST: LUNGS/PLEU RA: Bilateral dependent subsegment al atelectasi s. No suspicious pulmonary nodules are visualized . The airways are patent. No pneumothor ax. No pleural effusion. No focal pleural lesion. MEDIASTINU M: No mediastina l or hilar lymphadeno annmarie. Similar-ap pearing left thyroid hypodense nodule. Unchanged from prior examinatio n. The visualized esophagus is unremarkab le. AXILLA/SOF T TISSUE: No supraclavi cular or axillary lymphadeno annmarie. Regional soft tissues are within normal limits. UPPER ABDOMEN: Cholelithi asis without cholecysti tis. BONES: No evidence of acute fractures or aggressive osseous lesions. Old healed sternal fracture deformity. IMPRESSION : VASCULAR: No evidence of pulmonary embolus. CHEST: * No acute cardiopulm onary findings. * Cholelithi asis without cholecysti tis. I have personally reviewed the images and attest to the contents of CT Scan/CT Angio Report this report. * * *Final Report* * * Electronic ally Signed by: Shruthi KESSLER, Tommy Heath Signed on: 02/21/24 01:23 02/19 22:00 :03 [facility] GENERAL CHEMISTRY Potassium 4.1 mmol/L 3.5 - 5.1 12/16 04:32 :00 [facility] GENERAL CHEMISTRY BUN 11 mg/dL - 12/16 04:32 :00 [facility] COAGULATIO N PT 17.2 s 9.4 - 12.5 12/16 03:15 :00 [facility] COAGULATIO N INR 1.5 0.9 - 1.2 12/16 03:15 :00 Interpretive Data: Suggested therapeutic INR range for stable oral anticoagulati on: Optimal Therapeutic INR Range 2.0-3.0 Therapeutic Range for High-Risk Groups (antiphoshpol ipid syndrome with previous thrombosis) 2.0-3.0 DVT of the leg 2.0-3.0 PE 2.0-3.0 Patients with AF and Stable Coronary Artery Disease 2.0-3.0 Bioprosthetic valve in the mitral position 2.0-3.0 Mechanical mitral valve or additional risk factors 2.5-3.5 Prevention of Recurrent VTE in Women prophylaxis for 6 weeks with prophylactic- or intermediate- dose LMWH or warfarin targeted at INR 2.0 or 3.0 rather than no prophylaxis For additional guidance see: Chandrika GRIFFITH, Bassem EA, Reed M, Harley DD, Tonie n joshua HJ; [employer] Antithromboti c Therapy and Prevention of Thrombosis Panel. Executive summary: Antithromboti c Therapy and Prevention of Thrombosis, 9th Ed: [employer] Evidence-Base d Clinical Practice Guidelines. Chest. 2012 Feb; 141(2 Suppl):7S-47S . doi: 10.1378/chest .1412S3 [facility] COAGULATIO N PTT 30.0 s 25.1 - 36.5 12/16 03:15 :00 Interpretive Data: Recommendatio ns for anticoagulant therapeutic ranges: Unfractionate d Heparin: Please order the anti-Xa assay. Target ranges and medication management recommendatio ns are based on the anti-Xa assay and posted in [employer] (see Medication Management-Ad ult Heparin Nomogram). Argatroban: Target ranges and medication management recommendatio ns are posted in [employer] (see Medication Management- Adult Argatroban Nomogram). Low molecular weight heparin or danaparoid monitoring: Please order the anti-Xa assay. Please contact the Pharmacy or the Clinical Pathology Service for additional questions. [facility] GENERAL CHEMISTRY AST-SGOT 36 U/L 12/16 03:15 :00 [facility] GENERAL CHEMISTRY Albumin 4.3 g/dL 3.4 - 5.0 12/16 03:15 :00 [facility] GENERAL CHEMISTRY Alkaline Phosphatase 46 U/L 35 - 104 12/16 03:15 :00 [facility] CHEMISTRY ALT-SGPT 57 U/L 10 - 40 12/16 03:15 :00 Result Comment: Hemolyzed [facility] GENERAL CHEMISTRY BUN HEMOLYZED, unable to report due to interferen ce mg/dL 6 - 20 12/16 03:15 :00 Result Comment: Hemolyzed Hemolyzed Sample.notifi ed [facility] GENERAL CHEMISTRY Calcium 9.8 mg/dL 8.3 - 10.6 12/16 03:15 :00 [facility] GENERAL CHEMISTRY Glucose Lvl 81 mg/dL 70 - 139 12/16 03:15 :00 [facility] GENERAL CHEMISTRY Chloride 108 mmol/L 98 - 107 12/16 03:15 :00 [facility] GENERAL CHEMISTRY Sodium 137 mmol/L 136 - 145 12/16 03:15 :00 [facility] GENERAL CHEMISTRY Potassium HEMOLYZED, unable to report due to interferen ce mmol/L 3.5 - 5.1 12/16 03:15 :00 Result Comment: Hemolyzed Hemolyzed Sample. Rosaashia Hardin RN [facility] [facility] GENERAL CHEMISTRY CO2 22 mmol/L 20 - 12/16 03:15 :00 [facility] GENERAL CHEMISTRY Anion gap 12 mmol/L 0 - 20 12/16 03:15 :00 [facility] GENERAL CHEMISTRY T Bili 0.48 mg/dL 0.30 - 1.20 12/16 03:15 :00 [facility] GENERAL CHEMISTRY Total Protein 7.3 g/dL 5.7 - 8.2 12/16 03:15 :00 [facility] GENERAL CHEMISTRY Creatinine, standardized 0.7 mg/dL 0.5 - 1.0 12/16 03:15 :00 Interpretive Data: Ebhqdk-ei-upf e transgender patients on testosterone therapy should have results assessed using the male reference range. Nqgk-je-reuzc e transgender patients on hormone-modul ating therapy clinical judgment is advisedfor assessment. [facility] GENERAL CHEMISTRY Estimated GFR for Adults 118 mL/min/1.7 3m 12/16 03:15 :00 Interpretive Data: Changed to CKD-EPI 2020 on 2020. [facility] GENERAL CHEMISTRY Estimated GFR for peds Not calculated 12/16 03:15 :00 Interpretive Data: The estimated GFR was calculated using the B josue Boston equation (2009) . Reference: Pediatric GFR calculator at [employer] Website. [facility] HEMATOLOGY PROFILES WBC 6.31 x10(9)/L 3.50 - 10.50 12/16 03:15 :00 [facility] HEMATOLOGY PROFILES RBC 4.96 x10(12)/L 3.90 - 5.03 12/16 03:15 :00 [facility] HEMATOLOGY PROFILES HGB 15.0 g/dL 12.0 - 15.5 12/16 03:15 :00 Interpretive Data: Rpfmoh-kd-ebb e transgender patients on testosterone therapy should have results assessed using the male reference range. Vqzo-wo-fijuy e transgender patients on hormone-modul ating therapy clinical judgment is advisedfor assessment. [facility] HEMATOLOGY PROFILES HCT 44.1 % 34.9 - 44.5 12/16 03:15 :00 Interpretive Data: Btwnif-jh-ilo e transgender patients on testosterone therapy should have results assessed using the male reference range. Bztq-sq-bzvzb e transgender patients on hormone-modul ating therapy clinical judgment is advisedfor assessment. [facility] HEMATOLOGY PROFILES MCV 88.9 fL 81.6 - 98.3 12/16 03:15 :00 [facility] HEMATOLOGY PROFILES MCH 30.2 pg 26.0 - 33.0 12/16 03:15 :00 [facility] HEMATOLOGY PROFILES MCHC 34.0 g/dL 32.0 - 36.0 12/16 03:15 :00 [facility] HEMATOLOGY PROFILES RDW CV 12.1 % 11.9 - 15.5 12/16 03:15 :00 [facility] HEMATOLOGY PROFILES RDW SD 39.8 fL 36.4 - 46.3 12/16 03:15 :00 [facility] HEMATOLOGY PROFILES PLT 189 x10(9)/L 150 - 450 12/16 03:15 :00 [facility] HEMATOLOGY PROFILES MPV 10.5 8.0 - 12.0 12/16 03:15 :00 [facility] HEMATOLOGY PROFILES % Nucleated RBCs 0.0 % 12/16 03:15 :00 [facility] HEMATOLOGY PROFILES Absolute Nucleated RBCs 0.0 x10(9)/L 0.0 - 0.0 12/16 03:15 :00 Interpretive Data: Normal values not established in patients less than 18 years old. [facility] HEMATOLOGY PROFILES % Neutrophils 50.2 % 12/16 03:15 :00 [facility] HEMATOLOGY PROFILES % Lymphocytes 39.5 % 12/16 03:15 :00 [facility] HEMATOLOGY PROFILES % Monocytes 5.5 % 12/16 03:15 :00 [facility] HEMATOLOGY PROFILES % Eosinophils 3.5 % 12/16 03:15 :00 [facility] HEMATOLOGY PROFILES % Basophils 1.1 % 12/16 03:15 :00 [facility] HEMATOLOGY PROFILES % Immature Granulocytes 0.20 % 0.02 - 0.42 12/16 03:15 :00 [facility] HEMATOLOGY PROFILES Absolute Granulocytes 3.17 x10(9)/L 1.70 - 7.00 12/16 03:15 :00 [facility] HEMATOLOGY PROFILES Abs Lymphocytes 2.49 x10(9)/L 0.90 - 2.90 12/16 03:15 :00 [facility] HEMATOLOGY PROFILES Abs Monocytes 0.35 x10(9)/L 0.30 - 0.90 12/16 03:15 :00 [facility] HEMATOLOGY PROFILES Abs Eosinophils 0.22 x10(9)/L 0.05 - 0.50 12/16 03:15 :00 [facility] HEMATOLOGY PROFILES Abs Basophils 0.07 x10(9)/L 0.00 - 0.30 12/16 03:15 :00 [facility] HEMATOLOGY PROFILES Abs Immature Granulocytes 0.01 x10(9)/L 0.00 - 0.03 12/16 03:15 :00 [facility] XR Chest XR Chest XR General Diagnostic Accession # Exam Date/Time Procedure Ordering Provider [id number] 12/17/2023 01:12 CDT XR Chest Marce Wagoner MD Reason For Exam (XR Chest) chest pain Report EXAMINATIO N: XR Chest INDICATION : chest pain VIEWS: 2 COMPARISON : CT 12/11/2023 FINDINGS: Normal cardiomedi astinal silhouette . No focal parenchyma l process. No pleural effusions. No pneumothor ax. No acute osseous abnormalit ies. IMPRESSION : No acute cardiopulm onary findings. I have personally reviewed the images and attest to the contents of this report. * * *Final Report* * * Electronic ally Signed by: Anuj Costello MD Signed on: 12/17/23 02:58 12/16 00:27 :07 [facility] CT Head or Brain CT Head or Brain CT Scan/CT Angio Accession # Exam Date/Time Procedure Ordering Provider [id number] 12/16/2023 23:[address] Head or Brain Marce Wagoner MD Reason For Exam (CT Head or Brain) headache, on thinners Report PROCEDURE INFORMATIO N: Exam: CT Head Without Contrast Exam date and time: 12/16/2023 11:40 PM Age: 33 years old Clinical indication : Headache, on thinners TECHNIQUE: Imaging protocol: Computed tomography of the head without contrast. COMPARISON : MRI Brain 09/15/2022 10:41 PM FINDINGS: Brain: Unremarkab le. No acute hemorrhage . Unremarkab le white matter. No mass effect. Cerebral ventricles : No ventriculo megaly. Paranasal sinuses: Minimal left maxillary sinus mucosal thickening . Deviated nasal septum and septal spur. Mastoid air cells: Visualized mastoid air cells are well aerated. Bones: Unremarkab le. No acute fracture. Soft tissues: Unremarkab le. IMPRESSION : No CT evidence of acute intracrani al abnormalit y. Electronic ally signed by Ortiz Quevedo MD at 12/17/2023 02:26 For questions regarding this report please call [facility] at [phone] I have personally reviewed the images and attest to the contents of this report. * * *Final Report* * * Electronic ally Signed by: Anuj Costello MD Signed on: 12/17/23 11:41 Transcribe d date/time: 12/17/23 11:42 12/15 23:34 :43 [facility] COAGULATIO N Unfractionat ed Heparin Assay 0.39 [iU]/mL 0.30 - 0.70 12/12 08:31 :00 Interpretive Data: Therapeutic Range: 0.3- 0.7 IU/mL [facility] GENERAL CHEMISTRY BUN 15 mg/dL 6 - 12/12 08:31 :00 [facility] GENERAL CHEMISTRY Calcium 9.2 mg/dL 8.3 - 10.6 12/12 08:31 :00 [facility] CHEMISTRY Glucose Lvl 81 mg/dL 70 - 139 12/12 08:31 :00 [facility] GENERAL CHEMISTRY Chloride 110 mmol/L 98 - 107 12/12 08:31 :00 [facility] GENERAL CHEMISTRY Sodium 140 mmol/L 136 - 145 12/12 08:31 :00 [facility] GENERAL CHEMISTRY Potassium 4.1 mmol/L 3.5 - 5.1 12/12 08:31 :00 [facility] GENERAL CHEMISTRY CO2 24 mmol/L 12/12 08:31 :00 [facility] GENERAL CHEMISTRY Anion gap 10 mmol/L 0 - 20 12/12 08:31 :00 [facility] CHEMISTRY Creatinine, standardized 0.6 mg/dL 0.5 - 1.0 12/12 08:31 :00 Interpretive Data: Pasgyo-jb-qsj e transgender patients on testosterone therapy should have results assessed using the male reference range. Pmjc-mw-ysmwk e transgender patients on hormone-modul ating therapy clinical judgment is advisedfor assessment. [facility] GENERAL CHEMISTRY Estimated GFR for Adults 121 mL/min/1.7 3m 12/12 08:31 :00 Interpretive Data: Changed to CKD-EPI 2020 on 2020. [facility] GENERAL CHEMISTRY Estimated GFR for peds Not calculated 12/12 08:31 :00 Interpretive Data: The estimated GFR was calculated using the B josue [place] equation (2009) . Reference: Pediatric GFR calculator at [employer] Website. [facility] HEMATOLOGY PROFILES WBC 6.13 x10(9)/L 3.50 - 10.50 12/12 08:31 :00 [facility] HEMATOLOGY PROFILES RBC 4.55 x10(12)/L 3.90 - 5.03 12/12 08:31 :00 [facility] HEMATOLOGY PROFILES HGB 13.9 g/dL 12.0 - 15.5 12/12 08:31 :00 Interpretive Data: Rmzdwq-dd-yje e transgender patients on testosterone therapy should have results assessed using the male reference range. Vwab-rp-fzxwo e transgender patients on hormone-modul ating therapy clinical judgment is advisedfor assessment. [facility] HEMATOLOGY PROFILES HCT 40.3 % 34.9 - 44.5 12/12 08:31 :00 Interpretive Data: Xsxpzd-kv-qmi e transgender patients on testosterone therapy should have results assessed using the male reference range. Lekt-qd-erqdx e transgender patients on hormone-modul ating therapy clinical judgment is advisedfor assessment. [facility] HEMATOLOGY PROFILES MCV 88.6 fL 81.6 - 98.3 12/12 08:31 :00 [facility] HEMATOLOGY PROFILES MCH 30.5 pg 26.0 - 33.0 12/12 08:31 :00 [facility] HEMATOLOGY PROFILES MCHC 34.5 g/dL 32.0 - 36.0 12/12 08:31 :00 [facility] HEMATOLOGY PROFILES RDW CV 12.2 % 11.9 - 15.5 12/12 08:31 :00 [facility] HEMATOLOGY PROFILES RDW SD 39.4 fL 36.4 - 46.3 12/12 08:31 :00 [facility] HEMATOLOGY PROFILES PLT 173 x10(9)/L 150 - 450 12/12 08:31 :00 [facility] HEMATOLOGY PROFILES MPV 10.9 8.0 - 12.0 12/12 08:31 :00 [facility] HEMATOLOGY PROFILES % Nucleated RBCs 0.0 % 12/12 08:31 :00 [facility] HEMATOLOGY PROFILES Absolute Nucleated RBCs 0.0 x10(9)/L 0.0 - 0.0 12/12 08:31 :00 Interpretive Data: Normal values not established in patients less than 18 years old. [facility] COAGULATIO N Unfractionat ed Heparin Assay 0.47 [iU]/mL 0.30 - 0.70 12/12 01:21 :00 Interpretive Data: Therapeutic Range: 0.3- 0.7 IU/mL [facility] COAGULATIO N Unfractionat ed Heparin Assay 0.70 [iU]/mL 0.30 - 0.70 12/11 18:31 :00 Interpretive Data: Therapeutic Range: 0.3- 0.7 IU/mL [facility] US Leg Imaging Venous US Leg Imaging Venous Ultrasound Accession # Exam Date/Time Procedure Ordering Provider [id number] 12/12/2023 13:15 CDT US Leg Imaging Venous Christian KESSLER, Saqib Best Reason For Exam (US Leg Imaging Venous) PE Report EXAMINATIO N: US Leg Imaging Venous INDICATION : PE COMPARISON S: Bilateral lower extremity ultrasound 11/17/2016 TECHNIQUE: Grayscale, color and spectral Doppler evaluation of the Bilateral lower extremity deep venous system(s) was performed. FINDINGS: Bilateral common femoral, femoral and popliteal veins are normally compressib le and demonstrat e normally directed and appropriat kiara phasic flow with augmentati on. Normal flow is present within the saphenofem oral junctions and deep femoral veins in the proximal thighs and the posterior tibial and peroneal veins in the proximal calves. Acute DVT: No IMPRESSION : No evidence of acute DVT within the bilateral lower extremitie s. I have personally reviewed the images and attest to the contents of this report. * * *Final Report* * * Electronic ally Signed by: Nader Neal MD Signed on: 12/12/23 13:46 12/11 11:50 :32 [facility] COAGULATIO N Unfractionat ed Heparin Assay 0.68 [iU]/mL 0.30 - 0.70 12/11 09:41 :00 Interpretive Data: Therapeutic Range: 0.3- 0.7 IU/mL [facility] COAGULATIO N PT 13.1 s 9.4 - 12.5 12/11 01:42 :00 [facility] COAGULATIO N INR 1.2 0.9 - 1.2 12/11 01:42 :00 Interpretive Data: Suggested therapeutic INR range for stable oral anticoagulati on: Optimal Therapeutic INR Range 2.0-3.0 Therapeutic Range for High-Risk Groups (antiphoshpol ipid syndrome with previous thrombosis) 2.0-3.0 DVT of the leg 2.0-3.0 PE 2.0-3.0 Patients with AF and Stable Coronary Artery Disease 2.0-3.0 Bioprosthetic valve in the mitral position 2.0-3.0 Mechanical mitral valve or additional risk factors 2.5-3.5 Prevention of Recurrent VTE in Women prophylaxis for 6 weeks with prophylactic- or intermediate- dose LMWH or warfarin targeted at INR 2.0 or 3.0 rather than no prophylaxis For additional guidance see: Chandrika GH, Bassem EA, Reed M, Harley DD, Tonie n joshua HJ; [employer] Antithromboti c Therapy and Prevention of Thrombosis Panel. Executive summary: Antithromboti c Therapy and Prevention of Thrombosis, 9th Ed: [employer] Evidence-Base d Clinical Practice Guidelines. Chest. 2011; 141(2 Suppl):7S-47S . doi: 10.1378/chest .1412S3 [facility] COAGULATIO N PTT 26.8 s 25.1 - 36.5 12/11 01:42 :00 Interpretive Data: Recommendatio ns for anticoagulant therapeutic ranges: Unfractionate d Heparin: Please order the anti-Xa assay. Target ranges and medication management recommendatio ns are based on the anti-Xa assay and posted in [employer] (see Medication Management-Ad ult Heparin Nomogram). Argatroban: Target ranges and medication management recommendatio ns are posted in [employer] (see Medication Management- Adult Argatroban Nomogram). Low molecular weight heparin or danaparoid monitoring: Please order the anti-Xa assay. Please contact the Pharmacy or the Clinical Pathology Service for additional questions. [facility] COAGULATIO N D-DIMER QUANTITATIVE 527.00 ng/mLFEU 0.00 - 500.00 12/10 21:52 :00 Result Comment: Called to Claire Monsalve RN @ 17:28 12/11/23 LKD - [id number] - 12/11/23, 5:29 PM Interpretive Data: This test may be used as an aid in conjunction with a clinical score for the exclusion of deep venous thrombo-embol ism. The negative predictive value for deep venous thrombosis was Greater than 97% in patients with a low or moderate PTP score when the D-dimer was less than 500 ng/mL FEU. ISTH DIAGNOSTIC SCORING SYSTEM FOR DIC Score 0 1 2 3 Platelet Count (x10^9/L) > 100 < 100 < 50 N/A PT Prolongation 0-3 3-6 > 6 N/A Fibrinogen (mg/dL) > 100 < 100 N/A N/A D-Dimer (ng/mL) < 215 N/A 215 - 500 > 500 The score applies to non- patients with disorders that are associated with DIC. Please use modified ISTH score for patients. The modified ISTH score does not contain D-dimer (Guillermo Tran et al. PLoS One. 2014; 9(4): v02315) Calculate Score: > or = 500: compatible with overt DIC < 500: suggestive for non-overt DIC [facility] GENERAL CHEMISTRY AST-SGOT 14 U/L 12/10 21:52 :00 [facility] GENERAL CHEMISTRY Albumin 4.3 g/dL 3.4 - 5.0 12/10 21:52 :00 [facility] GENERAL CHEMISTRY Alkaline Phosphatase 50 U/L 35 - 104 12/10 21:52 :00 [facility] GENERAL CHEMISTRY ALT-SGPT 10 U/L 10 - 40 12/10 21:52 :00 [facility] GENERAL CHEMISTRY BUN 10 mg/dL 6 - 20 12/10 21:52 :00 [facility] GENERAL CHEMISTRY Calcium 9.2 mg/dL 8.3 - 10.6 12/10 21:52 :00 [facility] GENERAL CHEMISTRY Glucose Lvl 89 mg/dL 70 - 139 12/10 21:52 :00 [facility] GENERAL CHEMISTRY Chloride 108 mmol/L 98 - 107 12/10 21:52 :00 [facility] GENERAL CHEMISTRY Sodium 137 mmol/L 136 - 145 09/14 /2024 21:52 :00 [facility] GENERAL CHEMISTRY Potassium 3.8 mmol/L 3.5 - 5.1 12/10 21:52 :00 [facility] GENERAL CHEMISTRY CO2 23 mmol/L 20 - 31 12/10 21:52 :00 [facility] GENERAL CHEMISTRY Anion gap 10 mmol/L 0 - 20 12/10 21:52 :00 [facility] GENERAL CHEMISTRY T Bili 0.51 mg/dL 0.30 - 1.20 12/10 21:52 :00 [facility] GENERAL CHEMISTRY Total Protein 7.1 g/dL 5.7 - 8.2 12/10 21:52 :00 [facility] GENERAL CHEMISTRY Creatinine, standardized 0.7 mg/dL 0.5 - 1.0 12/10 21:52 :00 Interpretive Data: Amltwl-kb-xrc e transgender patients on testosterone therapy should have results assessed using the male reference range. Mnci-fj-uplmq e transgender patients on hormone-modul ating therapy clinical judgment is advisedfor assessment. [facility] GENERAL CHEMISTRY Estimated GFR for Adults 118 mL/min/1.7 3m 12/10 21:52 :00 Interpretive Data: Changed to CKD-EPI 2020 on 2020. [facility] CHEMISTRY Estimated GFR for peds Not calculated 12/10 21:52 :00 Interpretive Data: The estimated GFR was calculated using the [employer] equation (2009) . Reference: Pediatric GFR calculator at National [employer] Website. [facility] HEMATOLOGY PROFILES % Nucleated RBCs 0.0 % 12/10 21:52 :00 [facility] HEMATOLOGY PROFILES Absolute Nucleated RBCs 0.0 x10(9)/L 0.0 - 0.0 12/10 21:52 :00 Interpretive Data: Normal values not established in patients less than 18 years old. [facility] HEMATOLOGY PROFILES % Neutrophils 51.8 % 12/10 21:52 :00 [facility] HEMATOLOGY PROFILES % Lymphocytes 39.7 % 12/10 21:52 :00 [facility] HEMATOLOGY PROFILES % Monocytes 5.0 % 12/10 21:52 :00 [facility] HEMATOLOGY PROFILES % Eosinophils 2.7 % 12/10 21:52 :00 [facility] HEMATOLOGY PROFILES % Basophils 0.6 % 12/10 21:52 :00 [facility] HEMATOLOGY PROFILES % Immature Granulocytes 0.20 % 0.02 - 0.42 12/10 21:52 :00 [facility] HEMATOLOGY PROFILES Absolute Granulocytes 3.22 x10(9)/L 1.70 - 7.00 12/10 21:52 :00 [facility] HEMATOLOGY PROFILES Abs Lymphocytes 2.47 x10(9)/L 0.90 - 2.90 12/10 21:52 :00 [facility] HEMATOLOGY PROFILES Abs Monocytes 0.31 x10(9)/L 0.30 - 0.90 12/10 21:52 :00 [facility] HEMATOLOGY PROFILES Abs Eosinophils 0.17 x10(9)/L 0.05 - 0.50 12/10 21:52 :00 [facility] HEMATOLOGY PROFILES Abs Basophils 0.04 x10(9)/L 0.00 - 0.30 12/10 21:52 :00 [facility] HEMATOLOGY PROFILES Abs Immature Granulocytes 0.01 x10(9)/L 0.00 - 0.03 12/10 21:52 :00 [facility] HEMATOLOGY PROFILES WBC 6.22 x10(9)/L 3.50 - 10.50 12/10 21:52 :00 [facility] HEMATOLOGY PROFILES RBC 4.92 x10(12)/L 3.90 - 5.03 12/10 21:52 :00 [facility] HEMATOLOGY PROFILES HGB 15.0 g/dL 12.0 - 15.5 12/10 21:52 :00 Interpretive Data: Tpwsai-rg-zpi e transgender patients on testosterone therapy should have results assessed using the male reference range. Jlou-ez-uunto e transgender patients on hormone-modul ating therapy clinical judgment is advisedfor assessment. [facility] HEMATOLOGY PROFILES HCT 43.1 % 34.9 - 44.5 12/10 21:52 :00 Interpretive Data: Pncefs-bh-hra e transgender patients on testosterone therapy should have results assessed using the male reference range. Zlnv-dg-yqunh e transgender patients on hormone-modul ating therapy clinical judgment is advisedfor assessment. [facility] HEMATOLOGY PROFILES MCV 87.6 fL 81.6 - 98.3 12/10 21:52 :00 [facility] HEMATOLOGY PROFILES MCH 30.5 pg 26.0 - 33.0 12/10 21:52 :00 [facility] HEMATOLOGY PROFILES MCHC 34.8 g/dL 32.0 - 36.0 12/10 21:52 :00 [facility] HEMATOLOGY PROFILES RDW CV 12.0 % 11.9 - 15.5 12/10 21:52 :00 [facility] HEMATOLOGY PROFILES RDW SD 38.5 fL 36.4 - 46.3 12/10 21:52 :00 [facility] HEMATOLOGY PROFILES PLT 186 x10(9)/L 150 - 450 12/10 21:52 :00 [facility] HEMATOLOGY PROFILES MPV 10.4 8.0 - 12.0 12/10 21:52 :00 [facility] CT Chest PE Protocol CT Chest PE Protocol CT Scan/CT Angio Accession # Exam Date/Time Procedure Ordering Provider [id number] 12/11/2023 19:[address] Chest PE Protocol Claire Rosas Reason For Exam (CT Chest PE Protocol) CP, dyspnea Report EXAMINATIO N: CT pulmonary angiogram with IV contrast INDICATION : CP, Dyspnea COMPARISON : 04/30/2023 TECHNIQUE: Using helical technique, CT data from the thoracic inlet through the upper abdomen was obtained during rapid IV contrast infusion. The examinatio n was timed to the pulmonary arterial system to generate a CT angiograph ic study. Multiplana r MIP and reformatte d images were provided. FINDINGS: VASCULAR: The study is diagnostic to the level of the subsegment al pulmonary arteries. PULMONARY ARTERIES: Acute central filling defect of the bifurcatio n of the right apical and posterior segmental arteries (#60/8). Borderline pulmonary trunk dilatation (measuring up to 2.6 cm in maximum axial diameter), larger than the ascending aorta diameter. THORACIC AORTA: Normal in size. PULMONARY VEINS: Normal drainage into the left atrium. CORONARY ARTERIES: No significan t coronary atheroscle rosis. SYSTEMIC VEINS: Within normal limits. IVC without hepatic vein contrast reflux. HEART: RV: LV diameter ratio greater than 1. No interventr icular septal straighten ing/bowing . The heart is normal in size. No pericardia l effusion. CHEST: LUNGS/PLEU RA: Dependent bibasilar subsegment al atelectasi s, otherwise the pulmonary parenchyma appears within normal limits. No suspicious pulmonary nodules are visualized . The airways are patent. No pneumothor ax. No pleural effusion. No focal pleural lesion. MEDIASTINU M: No mediastina l or hilar lymphadeno annmarie. The visualized thyroid is unremarkab le. The visualized esophagus is unremarkab le. AXILLA/SOF T TISSUE: No supraclavi cular or axillary lymphadeno annmarie. Regional soft tissues are within normal limits. UPPER ABDOMEN: Calcified cholelithi asis without acute cholecysti tis. The remainder visualized upper abdomen is unremarkab le.. BONES: No evidence of acute fractures or aggressive osseous lesions. Old healed sternal body fracture with callus formation. IMPRESSION : VASCULAR: Acute right upper lobe segmental pulmonary artery thromboemb olism with evidence suggestive of mild right heart strain. CHEST: No additional acute cardiopulm onary findings. These findings were discussed with DE Selby on CT Scan/CT Angio Report 12/11/2023 8:15 PM by Ramirez Wu MD. I have personally reviewed the images and attest to the contents of this report. * * *Final Report* * * Electronic ally Signed by: Dario Alvarado MD Signed on: 12/11/23 20:22 12/10 19:35 :30 [facility] XR Chest XR Chest XR General Diagnostic Accession # Exam Date/Time Procedure Ordering Provider [id number] 12/11/2023 17:53 CDT XR Chest Nathan KC, Mathew Landers Reason For Exam (XR Chest) chest pain Report EXAMINATIO N: XR Chest INDICATION : chest pain VIEWS: 2 COMPARISON : 04/25/2023 FINDINGS: Normal cardiomedi astinal silhouette . No focal parenchyma l process. No pleural effusions. No pneumothor ax. No acute osseous abnormalit ies. IMPRESSION : No acute cardiopulm onary findings. I have personally reviewed the images and attest to the contents of this report. * * *Final Report* * * Electronic ally Signed by: Dario Alvarado MD Signed on: 12/11/23 20:15 12/10 17:29 :35 [facility] Consultation Notes Results Value Date Source Emergency Services Note Basic Informatio n Chief Complaint chest pain/pressure starting at 1130. radiating to bilat shoulder and down back. History of Present Illness 34yo female with h/o POTS, PTSD, factor V leiden, PE (noncompliant with eliquis) presented to the ED with chest pressure. Started when she was getting ready to go for a hike with her boyfriend about 3-4hrs prior to arrival. Pressure, radiating to b/l shoulders. Slightly pleuritic with associated dyspnea. No cough, fevers, wheezing. No dizziness. Reports associated tachycardia. No N/V/D recently, although she has been camping. Reports staying hydrated recently. No alcohol use. Does endorse pain behind the left knee for several weeks. Hasn't refilled her eliquis in several weeks. Review of Systems All other systems reviewed and negative other than stated in history of present of illness. Physical Exam Vitals and Measurements T: 36.3 C HR: 111 RR: 20 BP: 124/80 SpO2: 99% WT: 58.6 kg Gen: Alert. No acute distress. Skin: Warm. Dry. No rash. Head: Normocephalic. Atraumatic. Eyes: PERRLA. EOMI. Normal conjunctiva. ENT: Oral mucosa moist. Neck: Supple. Cardio: Normal rate and rhythm. No edema. Pulm: Respirations are nonlabored. Lungs CTAB. Intermittently will stop talking and hyperventilate, but then will answer question and converse with me with nonlabored breathing. Abd: Soft and nontender. No guarding or rebound. MSK: Normal ROM. Neuro: A&Ox4. Moving all extremities spontaneously. Psych: Cooperative. Appropriate mood and affect. Procedure Medical Decision Making I have independently reviewed nursing triage information. I have independently reviewed prior medical records in the EMR. I have independently reviewed and interpreted all laboratory, radiology, EKG and diagnostic studies as documented in the MDM. Additional history obtained from: n/a Acute problems addressed: CP, dyspnea Chronic Problems noted/addressed: POTs, PE Differentials: PE, acs, pneumonia, anxiety Independent interpretation by this provider: cbc, cmp, ekg, trop, dimer, XR chest Intensive Monitoring: No Other sources: n/a Notable discussions: discussed results and treatment plan with the patient Notable Considerations: I have given consideration for discharge home . This was discussed with the patient and through shared decision making the patient understands the plan for discharge home. Scripts: None MDM 34yo female presented to the ED with chest pain and dyspnea. Improved on arrival to the ED. Given IVF, toradol and tylenol and pt reevaluated in no acute distress. Labs with no leukocytosis or anemia. CMP unremarkable. EKG with no ischemic changes. Trop negative. Dimer elevated. CT PE with no PE or other acute findings. CXR unremarkable. US doppler of the left leg with no acute findings. Pt reassured. Will f/u with her PCP for further care. Return ED precautions were discussed and pt verbalized understanding. Attending Dr. Argueta Reexamination/Reevaluation Assessment/Plan 1. Chest pain Patient Education Chest Pain Follow Up With When Contact Information Return to Emergency Department Within As Needed Additional Instructions: Elle Villarreal Within 1 to [address] [address] Business (1) Additional Instructions: Medication Reconciliation Unchanged apixaban (Eliquis (apixaban) 5 mg oral tablet)5 Milligram Oral Twice daily for 30 Days. Refills: 0. apixaban (Eliquis (apixaban) Starter Pack for Treatment of DVT and PE 5 mg oral tablet)Take 10 mg PO BID x 7 days, then take 5 mg PO BID thereafter; if refills, please fill maintenance dose NOT starter pack; Oral. Refills: 0. diclofenac topical (diclofenac 1% topical gel)2 gram Topical Three times daily for 14 Days. Refills: 0. diclofenac topical (diclofenac 1% topical gel)2 gram Topical Four times daily for 14 Days. Refills: 0. diclofenac topical (Voltaren Arthritis Pain 1% topical gel)4.5 Inch Topical Four times daily. do not use on more than 2 bodyareas at the same time do not use on more than 2 bodyareas at the same time apply to clean, dry, intact skin over the chest wall. Refills: 0. docusate (docusate sodium 100 mg oral tablet)1 tab(s) Oral Twice daily for 30 Days. Refills: 0. LORazepamOral Twice daily. meloxicam (meloxicam 15 mg oral tablet)15 Milligram Oral Daily for 7 Days. for inflammation eat before you take it. Refills: 0. Misc. Medication (Ice Pack)1 Pack Topical Every 4 hours as needed Pain for 3 Days. Refills: 0. pantoprazole (pantoprazole 40 mg oral delayed release tablet)1 tab(s) Oral Daily for 60 Days. Refills: 2. promethazine (promethazine 12.5 mg rectal suppository)1 suppository(ies) Rectal Every 6 hours for 3 Days. Refills: 0. ED Forms Problem List/Past Medical History Ongoing Allergic rhinitis, cause unspecified Factor V Leiden mutation History of DVT in adulthood Hyperemesis MDD (major depressive disorder), recurrent episode POTS (postural orthostatic tachycardia syndrome) PTSD (post-traumatic stress disorder) Scoliosis (and kyphoscoliosis), idiopathic Historical Procedure/Surgical History D&C- 2015 lipoma removal-2013 Medication Administration Given ketorolac, 15 mg, IV Push ondansetron Inj, 4 mg, Slow IV Push NS (bolus), 1000 mL, IV Allergies Fish Itching, Hives Haldol Lidoderm 5% topical film Rash No Known Latex Allergy cyclobenzaprine droPERidol Social History Smoking Status Current every day smoker Alcohol Employment/School Highest education:High school Home/Environment Lives with:Children, Godmother Substance Abuse - Denies Substance Abuse Tobacco - Denies Tobacco Use Family History Cancer: Grandfather, Maternal. Depression: Mother. Valvular heart disease: Negative: Mother. Health Status Family Member(s) Lab Results HEMATOLOGY PROFILES LATEST RESULTS HISTORICAL RESULTS WBC 08/09/24 13:08 6.34 07/09/24 6.99 RBC 08/09/24 13:08 4.77 07/09/24 4.80 HGB 08/09/24 13:08 14.2 07/09/24 14.4 HCT 08/09/24 13:08 42.2 07/09/24 42.8 MCV 08/09/24 13:08 88.5 07/09/24 89.2 MCH 08/09/24 13:08 29.8 07/09/24 30.0 MCHC 08/09/24 13:08 33.6 07/09/24 33.6 RDW SD 08/09/24 13:08 39.2 07/09/24 38.5 RDW CV 08/09/24 13:08 11.9 07/09/24 11.9 PLT 08/09/24 13:08 202 07/09/24 215 MPV 08/09/24 13:08 10.0 07/09/24 9.8 % Neutrophils 08/09/24 13:08 55.3 07/09/24 54.0 Absolute Granulocytes 08/09/24 13:08 3.51 07/09/24 3.78 % Immature Granulocytes 08/09/24 13:08 .50 High 07/09/24 .30 Abs Immature Granulocytes 08/09/24 13:08 0.03 07/09/24 0.02 % Lymphocytes 08/09/24 13:08 33.6 07/09/24 35.8 Abs Lymphocytes 08/09/24 13:08 2.13 07/09/24 2.50 % Monocytes 08/09/24 13:08 5.4 07/09/24 4.6 Abs Monocytes 08/09/24 13:08 0.34 07/09/24 0.32 % Eosinophils 08/09/24 13:08 4.6 07/09/24 4.7 Abs Eosinophils 08/09/24 13:08 0.29 07/09/24 0.33 % Basophils 08/09/24 13:08 0.6 07/09/24 0.6 Abs Basophils 08/09/24 13:08 0.04 07/09/24 0.04 % Nucleated RBCs 08/09/24 13:08 0.0 07/09/24 0.0 Absolute Nucleated RBCs 08/09/24 13:08 0.0 07/09/24 0.0 COAGULATION LATEST RESULTS HISTORICAL RESULTS D-DIMER QUANTITATIVE 08/09/24 13:08 665.00 High 06/25/24 318.00 GENERAL CHEMISTRY LATEST RESULTS HISTORICAL RESULTS Sodium 08/09/24 13:08 141 07/09/24 141 Potassium 08/09/24 13:08 3.3 Low 07/09/24 3.3 Low Chloride 08/09/24 13:08 106 07/09/24 107 CO2 08/09/24 13:08 26 07/09/24 26 Anion gap 08/09/24 13:08 12 07/09/24 11 Glucose Lvl 08/09/24 13:08 76 07/09/24 84 BUN 08/09/24 13:08 14 07/09/24 11 Creatinine, standardized 08/09/24 13:08 0.7 07/09/24 0.7 Estimated GFR for Adults 08/09/24 13:08 115 07/09/24 118 Estimated GFR for peds 08/09/24 13:08 Not Calculated 07/09/24 Not Calculated Calcium 08/09/24 13:08 9.0 07/09/24 9.1 Total Protein 08/09/24 13:08 6.8 07/09/24 6.8 Albumin 08/09/24 13:08 4.1 07/09/24 4.0 T Bili 08/09/24 13:08 0.76 07/09/24 0.74 Alkaline Phosphatase 08/09/24 13:08 50 07/09/24 49 AST-SGOT 08/09/24 13:08 18 07/09/24 15 ALT-SGPT 08/09/24 13:08 20 07/09/24 14 Cardiac Markers LATEST RESULTS HISTORICAL RESULTS Troponin I Value 08/09/24 13:08 <3 06/25/24 <3 Troponin I Delta from Initial Value 08/09/24 13:08 N/A 06/25/24 0 Troponin I Interp 08/09/24 13:08 See Comment 06/25/24 See Comment URINALYSIS LATEST RESULTS HISTORICAL RESULTS COLOR 08/09/24 13:08 Yellow 07/09/24 Yellow CLARITY 08/09/24 13:08 Clear 07/09/24 Clear SPECIFIC GRAVITY 08/09/24 13:08 1.021 07/09/24 1.026 UA PH 08/09/24 13:08 8 07/09/24 5 UA GLUCOSE 08/09/24 13:08 Negative 07/09/24 Negative UA KETONES 08/09/24 13:08 Negative 07/09/24 5 Abnormal BILIRUBIN 08/09/24 13:08 Negative 07/09/24 Negative UA UROBILINOGEN 08/09/24 13:08 Negative 07/09/24 Negative UA BLOOD 08/09/24 13:08 Negative 07/09/24 Negative UA LEUKOCYTES 08/09/24 13:08 Negative 07/09/24 Trace Abnormal UA NITRITE 08/09/24 13:08 Negative 07/09/24 Negative UA PROTEIN 08/09/24 13:08 Negative 07/09/24 Negative Urine Collection Method 08/09/24 13:08 Clean Catch UR 07/09/24 Clean Catch UR SENSITIVE OTHER URINE TESTS LATEST RESULTS HISTORICAL RESULTS Test Result: 08/09/24 13:08 Negative 07/08/24 Negative Diagnostic Results IMPRESSION: VASCULAR: * No pulmonary emboli. * Dilated pulmonary trunk. Findings can be seen with pulmonary arterial hypertension. CHEST: * No acute cardiopulmonary findings. Acute DVT: No IMPRESSION: No evidence of acute deep venous thrombosis within the left lower extremity. ECG NSR. No acute ischemic changes. 08/09/2024 Emergency Services Note Basic Informatio n Chief Complaint DIZZINESS OFF AND ON SINCE YEST. SEEN HERE YEST. History of Present Illness Patient is a 33-year-old female who presents for chest pain, with near syncopal episode prior to arrival. Patient does have a history of POTS, factor V Leyden mutation history of DVT PE major depression, anxiety who returns today for symptoms for which she states she was seen here yesterday however feels like they chalked it up to anxiety and sent her home which patient stating during exam with at times patient very tearful that she does know she has issues with anxiety, when she was first diagnosed with a PE she was terrified to go to bed because it is just her and her son living at home alone together for the fear that she would not wake up at night, with anytime she does have symptoms that are similar even if they are consistent with her prior PEs it does exacerbate her overall state of anxiety however patient states she has suffered from POTS for years nose exactly what symptoms she has when associated with that specific issue with the last 2 days patient having near syncopal episodes almost passing out while she was sitting. With tunnel vision, abnormal hearing, body feeling weak almost numb and very dizzy. She did not ever have a syncopal episode. However states episode yesterday and multiple today as it is what prompted her return today. She of note is under a lot of stress, she is typically very compliant with her medication she does take Ativan for severe anxiety however has had really difficult trials or experiences with SSRIs or medications to control symptoms instead of just as needed management with patient stating that her chest as well even though it is not chest pain just feels like it is deeply bruised with in regards to medications she has not taking her Eliquis in the last 48 hours. Patient has been seen in the past multiple times but states always told she has anxiety which makes her feel like she should not come in however patient states this is not her typical symptoms and has her very worried. Patient denies any abnormal bleeding, no shortness of breath no calf pain no vision changes no nausea vomiting diarrhea. She is not diabetic or immunocompromise. No severe headache or gait abnormalities Review of Systems All pertinent systems reviewed in HPI otherwise, reviewed as documented in chart Physical Exam Vitals and Measurements T: 37.2 C HR: 100 RR: 20 BP: 98/62 SpO2: 99% WT: 56.7 kg General: Tacky slightly lower pressure which is consistent with her prior readings afebrile not tachypneic normal O2 room air mildly anxious appearing, does appear as if she is very fatigued but not ill or septic Skin: Warm, dry, pink, no rash Head: Normocephalic, atraumatic. Neck: Supple. Eye: Pupils are equal, round, and reactive to light. Normal conjunctiva Ears, nose, mouth, and throat: normal TM, nares, oral mucosa moist, normal voice Cardiovascular: Regular rate and rhythm, no murmur, normal peripheral perfusion. Respiratory: Lungs are clear to auscultation, respirations are non-labored, breath sounds are equal. Chest wall: Pressure tenderness over anterior left chest no palpable rib fracture crepitus no bruising or rash Back: Nontender. Musculoskeletal: Normal ROM Gastrointestinal: Soft, nontender, nondistended, normal bowel sounds, no organomegaly. Neurological: Alert and oriented to person, place, time, and situation. CN II through XII intact Psychiatric: Cooperative. Easily tearful at times during conversation easily anxious but very pleasant Medical Decision Making I have independently reviewed nursing triage information. I have independently reviewed prior medical records in the EMR. I have independently reviewed and interpreted all laboratory, radiology, EKG and diagnostic studies as documented in the MDM. Acute problems addressed: Near syncopal episode, palpitations Chronic Problems noted/addressed pertinent to visit: Factor V Leyden mutation history of DVT hyperemesis POTS anxiety depression PTSD severe Differentials: PE, pleurisy, orthostatic hypotension, dehydration, anemia, electrolyte abnormality, infection less likely posterior stroke Diagnostics: CT head CTA head and neck chest x-ray MRI brain EKG Independent interpretation by this provider: EKG no ST elevation depression, sinus rhythm with sinus arrhythmia nonspecific T wave abnormality which is consistent with priors patient goes from this to normal sinus to no arrhythmia with nonspecific T wave abnormalities, rate of 84, Dr. Wen attending reviewed and agreed In regards to CT no obvious intracranial abnormality in regards to CT head specifically no ischemic findings, with in regards to interpretation CT PE CTA head and neck and MRI brain I did review Intensive Monitoring is required for: _Ativan, fentanyl ED Summary: Patient is a 33-year-old female who returns to the ER for what she describes as an near syncopal or passing out episode while she was sitting on the couch with associated left-sided chest pain pressure, patient states she is very familiar with what she suffers from in regards to symptoms associated with POTS and this was totally different, with patient also having a significant past medical history of severe anxiety depression significant posttraumatic stress which exacerbates overall health which patient is very aware of, with anxiety surrounding prior PE, with patient being evaluated in the ER multiple times for similar episodes however feels that everyone basically interprets her symptoms as anxiety which she does not disagree that this is part of it but patient states and I do agree that there have to be multiple etiologies combined associated with recurrent issues episodes. Patient here is very pleasant, she was given p.o. Ativan 2 L normal saline, potassium was Zofran and fentanyl following, with labs here overall reassuring no leukocytosis normal H&H normal platelet chronically low potassium orally replaced with otherwise no MARLI normal glucose normal liver function electrolytes with urinalysis not 100% consistent with infection we will culture in the setting of no urinary symptoms with patient undergoing imaging for posterior stroke as well as PE with CT head CTA head and neck CT PE negative for acute abnormalities with chest x-ray no acute cardiopulmonary findings. Patient he remained free of worsening symptoms still having intermittent pain in her chest but has not had any recurrence of the near syncopal episodes however in the setting of factor V and the fact that she has missed a few doses of her anticoagulation medication did proceed with MRI to rule out posterior stroke, with given chest pain has been present for more than 48 hours with negative troponin EKG yesterday at this time EKG obtained only and not repeat troponins with EKG sinus rhythm with sinus arrhythmia, nonspecific T wave abnormality which is consistent with multiple prior EKG she has had in the past. Patient here was also given heating pads for the chest which seem to help. MRI negative. Patient here continue to improve, did spend approximately 45 minutes throughout stay going over findings recommendations follow-up return precautions. She will follow-up with her provider who she will call on Wednesday, for discussions about findings today and recommendations such as Holter monitor. I will send in a few doses of meloxicam and Voltaren to pharmacy of choice for sternal, chest pain. She will continue her regular medication regimen including her anticoagulants. Within the time of discharge patient remained free of new or worsening symptoms aware of findings treatment follow-up and signs symptoms new or worsening as noted return for care. Disposition Discussion: The entire plan of care has been decided through shared decision making with directed input from the patient (family, legal guardian or others involved with the patient and their care; facilities, consult service recommendations iif applicable) surrounding reason for ED visit, diagnosis, treatment recommendations as well as disposition recommendations. During the patients time/course in the ED the patient remained free of new or worsening symptoms, required no escalation of care or critical care with treatment in regards to symptom control/management , remained hemodynamically stable with with improvement with the above noted treatment, therefore given no evidence for a more malignant underlying process, but the patient also understands that early in the process of an illness or injury, an initial workup and exam can be falsely reassuring, however reassurance provider surrounding the lack of urgent//emergent findings requiring observation or inpatient admission, will discharge home Education surrounding strict return precautions and reiterated importance of follow up with designated provider within 48-72 hours was discussed and encouraged. Patient (and or other historians) verbalized understanding of all findings and agrees to plan of care for if discharged from the ER. Discussed results and treatment plan with the patient (and/or family/parent/or other's pertinent to care) including but not limited to: diagnosis, recommendations (including non-medication treatment options-diet, stretches etc), medications (given during visit as well as prescriptions), response to treatment throughout stay as well as shared decision making with patient (including consult services if indicated), deciding factors surrounding final disposition (home, observation, admission, follow up appts) as well as signs or symptoms that are persistent, worse or new despite treatment today, requiring follow up and or return to ER for further care Reexamination/Reevaluation Vital Signs (midnight yesterday to current) Parameter Last Charted Minimum Maximum Temperature 37.2 (07/09 17:10) 37.2 (07/09 17:10) 37.2 (07/09 17:10) Heart Rate 67 (07/10 00:33) 63 (07/09 22:29) 100 (07/09 17:10) Resp Rate 16 (07/09 19:17) 16 (07/09 19:17) 20 (07/09 17:10) NIBP 99/64 (07/10 00:30) 97/66 (07/09 22:30) 150/107 (07/09 19:14) SpO2 95 (07/10 00:33) 94 (07/09 23:59) 100 (07/09 19:59) Pain Score 7 (07/09 23:13) 6 (07/09 17:10) 7 (07/09 23:13) Assessment/Plan 1. Near syncope 2. Chest pain Disposition:home. If the patient disposition included anything other than patient stable for discharge home/by self (PD, gaurdian, facility staff or vehicles, EMS, taxi pass, or ride needed) :taxi/uber Consults: Attending:Behzad Treatment Plan: At this time have discussed, symptoms, exam findings, diagnosis and treatment plan with patient and or others if permission to/or if patient does not have the mental capacity at baseline or secondary to current conditions For those stable for Discharge the following was discussed In addition to treatment plan above, any medication changes, recommendations specific interventions/care discussed at discharge with follow up and return precautions specific to visit today given. If your visit required specialty services or you require follow up placed for today's visit including establish of care with a service with our facility (including transfer of care), you will get a call with your appointment time and date If labs or imaging at discharge is pending, you were educated recommendations of care until results were back, with only if results are abnormal or would change current plan of care, you will be notified by the number you provided however, if you have not heard back from us within the timeframe discussed and have concerns please call the number listed on the first page of this paperwork and ask to speak to someone about results Education: See discharge papework Response: No questions at discharge unless documented Dragon used for note creation. Patient Education Meloxicam Oral Tablet (MELOXICAM - ORAL) Diclofenac Topical Gel (DICLOFENAC 1% - TOPICAL) Pulmonary Hypertension and Pulmonary Arterial Hypertension Chest Pain Lightheadedness or Faintness Follow Up With When Contact Information Elle Villarreal Within As Needed [address] [place] [address] [facility] (1) Additional Instructions: At this time as discussed workup here reassuring, no pulmonary embolism with no findings concerning for stroke or intracranial abnormality. I do want you to make sure you are consistent with your Eliquis try not to miss a dose. In regards to recommendations surrounding symptoms I do recommend warm heat to the chest, topical diclofenac. Regards to issues with stressors and anxiety I do recommend taking your anxiety medicine as prescribed like we discussed I know you do have a lot of reasonable reasons secondary to prior events that make you nervous specifically during the night however like we discussed taking your Ativan at the prescription dose recommended will help more usually day schedule with your sleep and overall stressors I believe at night. I do want you to follow-up with your provider for close recheck to discuss reason for visit recent symptoms as well as the fact that I do recommend a Holter monitor outpatient however given you do not have a provider here which I want like we discussed for you to talk about with your provider so that they can monitor and follow you in regards to the results but this may also allow for things such as abnormal heartbeat or rhythms to be captured while you are not in the ER. Although workup here is reassuring I also recommend you discuss with your provider other possible labs that can be done on an outpatient basis that may or may not be needed such as vitamin levels and things like that to see if there is anything you are deficient on that may be exacerbating and contributing as well given I do believe symptoms are multifactorial with multiple etiologies which is a not uncommon. I also want you to continue to monitor symptoms however I want you to also try to give yourself reassurance that you have been through a lot and although sometimes we do not have an exact medication or an exact answer to resolve symptoms instantly at 1 time with the amount of stress that you have had and currently have I do think you should give yourself credit and be proud for the fact that you are strong and have overcome multiple obstacles and/or roadblocks for several years because in regards to past events which were not your fault I do think that at the end of the day having somebody congratulate you on progressions and progress you have made is very important. At this time as discussed to follow-up with your provider for close recheck however if it anytime despite treatment symptoms persisted you get worse or new symptoms develop always return for care. 1. F/u pcp-holter monitor, further out pt labs if needed for symptoms Medication Reconciliation Unchanged apixaban (Eliquis (apixaban) 5 mg oral tablet)5 Milligram Oral Twice daily for 30 Days. Refills: 0. apixaban (Eliquis (apixaban) Starter Pack for Treatment of DVT and PE 5 mg oral tablet)Take 10 mg PO BID x 7 days, then take 5 mg PO BID thereafter; if refills, please fill maintenance dose NOT starter pack; Oral. Refills: 0. diclofenac topical (diclofenac 1% topical gel)2 gram Topical Three times daily for 14 Days. Refills: 0. diclofenac topical (diclofenac 1% topical gel)2 gram Topical Four times daily for 14 Days. Refills: 0. docusate (docusate sodium 100 mg oral tablet)1 tab(s) Oral Twice daily for 30 Days. Refills: 0. LORazepamOral Twice daily. Misc. Medication (Ice Pack)1 Pack Topical Every 4 hours as needed Pain for 3 Days. Refills: 0. pantoprazole (pantoprazole 40 mg oral delayed release tablet)1 tab(s) Oral Daily for 60 Days. Refills: 2. promethazine (promethazine 12.5 mg rectal suppository)1 suppository(ies) Rectal Every 6 hours for 3 Days. Refills: 0. ED Forms Problem List/Past Medical History Ongoing Allergic rhinitis, cause unspecified Factor V Leiden mutation History of DVT in adulthood Hyperemesis MDD (major depressive disorder), recurrent episode POTS (postural orthostatic tachycardia syndrome) PTSD (post-traumatic stress disorder) Scoliosis (and kyphoscoliosis), idiopathic Historical Procedure/Surgical History D&C- 2016 lipoma removal-2013 Medication Administration Given fentaNYL, 50 mcg, Slow IV Push iohexol, 07411 mg, IV Toradol, 15 mg, IV Push Ativan 1 mg oral tablet, 1 mg, Oral Zofran Inj, 4 mg, Slow IV Push potassium chloride, 40 mEq, Oral NS Bolus, 1000 mL, IV NS (bolus), 1000 mL, IV Allergies Fish Itching, Hives Haldol No Known Latex Allergy Social History Smoking Status Current every day smoker Alcohol Employment/School Highest education:High school Home/Environment Lives with:Children, Godmother Substance Abuse - Denies Substance Abuse Tobacco - Denies Tobacco Use Family History Cancer: Grandfather, Maternal. Depression: Mother. Valvular heart disease: Negative: Mother. Health Status Family Member(s) Lab Results HEMATOLOGY PROFILES LATEST RESULTS HISTORICAL RESULTS WBC 07/09/24 20:17 6.99 07/08/24 6.68 RBC 07/09/24 20:17 4.80 07/08/24 4.71 HGB 07/09/24 20:17 14.4 07/08/24 14.4 HCT 07/09/24 20:17 42.8 07/08/24 41.4 MCV 07/09/24 20:17 89.2 07/08/24 87.9 MCH 07/09/24 20:17 30.0 07/08/24 30.6 MCHC 07/09/24 20:17 33.6 07/08/24 34.8 RDW SD 07/09/24 20:17 38.5 07/08/24 38.4 RDW CV 07/09/24 20:17 11.9 07/08/24 11.9 PLT 07/09/24 20:17 215 07/08/24 219 MPV 07/09/24 20:17 9.8 07/08/24 10.2 % Neutrophils 07/09/24 20:17 54.0 07/08/24 44.8 Absolute Granulocytes 07/09/24 20:17 3.78 07/08/24 2.99 % Immature Granulocytes 07/09/24 20:17 .30 07/08/24 .30 Abs Immature Granulocytes 07/09/24 20:17 0.02 07/08/24 0.02 % Lymphocytes 07/09/24 20:17 35.8 07/08/24 44.2 Abs Lymphocytes 07/09/24 20:17 2.50 07/08/24 2.95 High % Monocytes 07/09/24 20:17 4.6 07/08/24 5.2 Abs Monocytes 07/09/24 20:17 0.32 07/08/24 0.35 % Eosinophils 07/09/24 20:17 4.7 07/08/24 4.8 Abs Eosinophils 07/09/24 20:17 0.33 07/08/24 0.32 % Basophils 07/09/24 20:17 0.6 07/08/24 0.7 Abs Basophils 07/09/24 20:17 0.04 07/08/24 0.05 % Nucleated RBCs 07/09/24 20:17 0.0 07/08/24 0.0 Absolute Nucleated RBCs 07/09/24 20:17 0.0 07/08/24 0.0 GENERAL CHEMISTRY LATEST RESULTS HISTORICAL RESULTS Sodium 07/09/24 20:17 141 07/08/24 140 Potassium 07/09/24 20:17 3.3 Low 07/08/24 3.3 Low Chloride 07/09/24 20:17 107 07/08/24 106 CO2 07/09/24 20:17 26 07/08/24 22 Anion gap 07/09/24 20:17 11 07/08/24 16 Glucose Lvl 07/09/24 20:17 84 07/08/24 78 BUN 07/09/24 20:17 11 07/08/24 11 Creatinine, standardized 07/09/24 20:17 0.7 07/08/24 0.6 Estimated GFR for Adults 07/09/24 20:17 118 07/08/24 123 Estimated GFR for peds 07/09/24 20:17 Not Calculated 07/08/24 Not Calculated Calcium 07/09/24 20:17 9.1 07/08/24 9.8 Magnesium 07/09/24 20:17 1.96 Phosphorus 07/09/24 20:17 4.1 Total Protein 07/09/24 20:17 6.8 07/08/24 6.7 Albumin 07/09/24 20:17 4.0 07/08/24 4.0 T Bili 07/09/24 20:17 0.74 07/08/24 0.80 Alkaline Phosphatase 07/09/24 20:17 49 07/08/24 51 AST-SGOT 07/09/24 20:17 15 07/08/24 14 ALT-SGPT 07/09/24 20:17 14 07/08/24 13 Ca++ 07/09/24 20:17 1.14 URINALYSIS LATEST RESULTS HISTORICAL RESULTS COLOR 07/09/24 19:57 Yellow 07/08/24 Straw CLARITY 07/09/24 19:57 Clear 07/08/24 Clear SPECIFIC GRAVITY 07/09/24 19:57 1.026 07/08/24 1.010 UA PH 04/13/25 19:57 5 07/08/24 8 UA GLUCOSE 07/09/24 19:57 Negative 07/08/24 Negative UA KETONES 07/09/24 19:57 5 Abnormal 07/08/24 Negative BILIRUBIN 07/09/24 19:57 Negative 07/08/24 Negative UA UROBILINOGEN 07/09/24 19:57 Negative 07/08/24 Negative UA BLOOD 07/09/24 19:57 Negative 07/08/24 Negative UA LEUKOCYTES 07/09/24 19:57 Trace Abnormal 07/08/24 Negative UA NITRITE 07/09/24 19:57 Negative 07/08/24 Negative UA PROTEIN 07/09/24 19:57 Negative 07/08/24 Negative WBC 07/09/24 19:57 0-3 04/28/23 0-3 RBC 07/09/24 19:57 0-2 04/28/23 3-6 Abnormal UA Epithelial Cells 07/09/24 19:57 Many Abnormal 04/28/23 Moderate Abnormal UA Epithelial Cells Comment 07/09/24 19:57 Given the number of epithelial cells present, skin baltazar contamination is likely. 04/28/23 Given the number of epithelial cells present, skin baltazar contamination is likely. UA Mucous 07/09/24 19:57 Present Abnormal 04/28/23 Present Abnormal Urine Collection Method 07/09/24 19:57 Clean Catch UR 07/08/24 Clean Catch UR Diagnostic Results Result type: MRI Brain Result date: July 10, 2024 04:53 CDT Result status: Unauth Result title: MRI Brain Performed by: Sue Yeh DO on July 10, 2024 04:58 CDT Encounter info: [id number], [facility], Emergency, 07/09/2024 - * Preliminary Report * Reason For Exam ct neg, r/o post stroke Report EXAMINATION: MRI Brain without IV contrast INDICATION: ct neg, r/o post stroke COMPARISON: MRI brain 09/15/2022, same day CT head FINDINGS: MRI BRAIN: INFARCT: No acute infarct. HEMORRHAGE: No acute intraparenchymal or extra-axial hemorrhage. MASS EFFECT: None. PARENCHYMA: Minimal punctate T2/FLAIR hyperintensities suggestive of chronic microvascular disease. No intraparenchymal mass. MIDLINE STRUCTURES: Normal. VOLUME LOSS: None. VENTRICLES: No ventriculomegaly. VASCULAR: Preserved major vascular flow voids. BONES: Unremarkable. SINUSES: Normal. MASTOIDS: Clear. ORBITS: Symmetric. SOFT TISSUES: Normal. IMPRESSION: No acute intracranial findings. Signature Line ### PRELIMINARY REPORT ONLY #### PRELIMINARY REPORT ONLY #### PRELIMINARY REPORT ONLY ### Resident:Yeh Sue ### PRELIMINARY REPORT ONLY #### PRELIMINARY REPORT ONLY #### PRELIMINARY REPORT ONLY ### MRIB This document has an image Result type: CT Angiography Head Result date: July 10, 2024 00:25 CDT Result status: Unauth Result title: CT Angiography Head Performed by: Sue Yeh DO on July 10, 2024 00:59 CDT Encounter info: [id number], [facility], Emergency, 07/09/2024 - * Preliminary Report * Reason For Exam new vertigo/ factor V Report EXAMINATION: CT Head or Brain, CT Angiography Neck, CT Angiography Head without IV contrast INDICATION: new vertigo COMPARISON: 03/03/2024 CT head FINDINGS: CT HEAD: INFARCT: No acute vascular territory infarct. HEMORRHAGE: No parenchymal or extra-axial hemorrhage. MASS EFFECT: None. PARENCHYMA: Punctate hypodensities suggestive of chronic microvascular disease. No intraparenchymal mass. VOLUME LOSS: None. VENTRICLES: No ventriculomegaly. VESSELS: Unremarkable. BONES: No acute fracture. SINUSES: Normal. MASTOIDS: Clear. ORBITS: Symmetric. SOFT TISSUES: Normal. CTA HEAD: STENOSIS: None. DISSECTION: None. ANEURYSM: None. MALFORMATION/VARIANTS: None. VEINS: Unremarkable. CTA NECK: CERVICAL ARTERIES: STENOSIS: None. DISSECTION: None. ANEURYSM: None. MALFORMATION/VARIANTS: None. Pulmonary trunk measures 3.0 cm. CERVICAL VEINS: Unremarkable. SOFT TISSUES: Normal. CERVICAL SPINE: Multilevel degenerative changes of the cervical spine. LUNG APICES: Bilateral dependent subsegmental atelectasis. Mild paraseptal emphysematous changes predominantly right upper lobe. IMPRESSION: 1. No acute intracranial findings. 2. No flow-limiting stenosis or aneurysmal dilation of the major intracranial vasculature. 3. No flow-limiting stenosis or aneurysmal dilation of the major cervical arterial vasculature. 4. Pulmonic trunk measures 3.0 cm. Findings are nonspecific but can be seen with pulmonary arterial hypertension. Signature Line ### PRELIMINARY REPORT ONLY #### PRELIMINARY REPORT ONLY #### PRELIMINARY REPORT ONLY ### Resident:Sue Yeh DO ### PRELIMINARY REPORT ONLY #### PRELIMINARY REPORT ONLY #### PRELIMINARY REPORT ON Result type: CT Chest PE Protocol Result date: July 10, 2024 00:25 CDT Result status: Unauth Result title: CT Chest PE Protocol Performed by: Sue Yeh DO on July 10, 2024 00:25 CDT Encounter info: [id number], [facility], Emergency, 07/09/2024 - * Preliminary Report * Reason For Exam sob, cp, near syncope factor V Report EXAMINATION: CT pulmonary angiogram with IV contrast INDICATION: sob, cp, near syncope factor V COMPARISON: CT PE 06/12/2024 TECHNIQUE: Using helical technique, CT data from the thoracic inlet through the upper abdomen was obtained during rapid IV contrast infusion. The examination was timed to the pulmonary arterial system to generate a CT angiographic study. Multiplanar MIP and reformatted images were provided. FINDINGS: VASCULAR: The study is diagnostic to the level of the subsegmental pulmonary arteries. PULMONARY ARTERIES: No evidence of acute or chronic pulmonary embolism. The pulmonary arteries are normal in size. THORACIC AORTA: Normal in size. PULMONARY VEINS: Normal drainage into the left atrium. CORONARY ARTERIES: No significant coronary atherosclerosis. SYSTEMIC VEINS: Within normal limits. HEART: The heart is normal in size. No pericardial effusion. CHEST: LUNGS/PLEURA: Bilateral dependent subsegmental atelectasis. No suspicious pulmonary nodules are visualized. The airways are patent. No pneumothorax. No pleural effusion. No focal pleural lesion. MEDIASTINUM: No mediastinal or hilar lymphadenopathy. The visualized thyroid is unremarkable. The visualized esophagus is unremarkable. AXILLA/SOFT TISSUE: No supraclavicular or axillary lymphadenopathy. Regional soft tissues are within normal limits. UPPER ABDOMEN: Cholelithiasis without evidence of cholecystitis. Otherwise, no acute abnormality of the partially visualized upper abdomen. BONES: No evidence of acute fractures or aggressive osseous lesions. IMPRESSION: VASCULAR: * No pulmonary emboli. CHEST: * No acute cardiopulmonary findings. * Cholelithiasis without evidence of acute cholecystitis. Signature Line ### PRELIMINARY REPORT ONLY #### PRELIMINARY REPORT ONLY #### PRELIMINARY REPORT ONLY ### Resident:Sue Yeh DO ### PRELIMINARY REPORT ONLY #### PRELIMINARY REPORT ONLY #### PRELIMINARY REPORT ONLY ### CTPEThis document has an image LY ### [id number] This document has an image ECG 07/09/2024 Emergency Services Note Basic Informatio n Chief Complaint Patient BIB EMS for chest pain, starting about an hour ago. Patient complains of pressure like pain. History of Present Illness Patient is a 33-year-old female with a PMH of factor V Leiden, DVT, PE, POTS, PTSD, MDD, RITCHIE. She presents to the ED for acute shortness of breath, chest pain, presyncope/syncope. Patient states that she was sitting on the couch playing video games when she suddenly had acute left-sided chest pain and shortness of breath. Patient states that she felt like she was going to pass out and did pass out several times for several seconds at a time. Patient denies falling or striking her head. She states that this has happened several times in the past, feels similar to her prior PE, however many times when this has happened she has come to the ED and has had a negative workup. Patient denies recent fevers, chills, cough, sputum production, abdominal pain, nausea, vomiting, constipation, diarrhea, dysuria. Review of Systems Negative except as noted in HPI Physical Exam Vitals and Measurements T: 37.0 C HR: 72 RR: 18 BP: 118/70 SpO2: 99% WT: 56.9 kg General: no acute distress, well appearing, alert and oriented. Head: normocephalic, atraumatic. Eyes: PERRL. Ears: atraumatic, no discharge. Nose: atraumatic, no epistaxis or drainage. Mouth: mucosa moist, no oropharyngeal erythema or exudate, no oral lacerations, uvula midline. Throat: trachea midline. Neck: supple, motion intact w/o pain. Chest: symmetric chest rise, tender to palp at mid sternal costal junction a pproximate level of ribs 5/6 Cardiovasculature: RRR with no M/R/G, cap refill < 2 sec, extremities warm and well perfused. Respiratory: CTAB, no increased WOB. Abdomen: flat, soft, nontender to palpation without guarding or rebound. MSK: all limbs moving freely w/o pain or restriction, no swelling or obvious deformity. Neuro: following commands, no focal deficits. Psych: cooperative, appropriate mood and affect. Procedure Medical Decision Making Acute problems addressed: Chest pain, shortness of breath Chronic Problems noted/addressed: factor V Leiden, DVT, PE, POTS, PTSD, MDD, RITCHIE Differentials include but not limited to: PE, WI, PNA, viral URI/LRI, arrhythmia, POTS, aneurysm, larynx spasm, MSK pain, costochondritis Independent interpretation by this provider: Labs, EKG Other sources: Prior ED note Notable discussions: Discussed all test results, follow-up planning, return precautions, medication management, etc. Specialists consulted: None Summary: Patient is a 33-year-old female with a PMH of factor V Leiden, DVT, PE, POTS, PTSD, MDD, RITCHIE. She presents to the ED for acute chest pain, shortness of breath, syncope/presyncope that occurred while patient was sitting down playing videogames. Patient states that symptoms lasted for several minutes and has completely resolved at this point. Patient states that this feels like her prior PE, and that this has happened multiple times however many times that this has happened she has had negative workups at the ED. On physical exam patient is resting comfortably in bed, in no acute distress, speaking in complete and coherent sentences. Heart is RRR, lungs CTAB, chest is tender to palpation at costochondral junction at approximate level of ribs 5/6 with reproduction of patient's chest pain. Abdomen is S/NT/ND. Physical exam is otherwise unremarkable. Labs show no leukocytosis, no anemia, no significant electrolyte abnormalities, normal coag panel, normal BNP. UA shows no acute signs of UTI. Given patient's complete resolution of symptoms and negative laboratory workup I have low suspicion for acute thrombotic disease and would prefer to spare patient radiation given her multiple CT PE studies in the past. Patient remains hemodynamically stable while in department, I believe that she is currently stable for outpatient follow-up. Discussed importance of follow-up with PCP as well as ED return precautions if symptoms worsen or new concerning symptoms arise. Patient is amenable to this plan Disposition: Discharged home Reexamination/Reevaluation Assessment/Plan 1. Chest pain 2. Anxiety Patient Education Generalized Anxiety Disorder Chest Pain Chest Pain: Musculoskeletal Follow Up With When Contact Information Return to Emergency Department Additional Instructions: If symptoms worsen or new concerning symptoms arise Follow up with primary care provider Within 5 to 7 days Additional Instructions: if symptoms persist Medication Reconciliation Unchanged apixaban (Eliquis (apixaban) 5 mg oral tablet)5 Milligram Oral Twice daily for 30 Days. Refills: 0. apixaban (Eliquis (apixaban) Starter Pack for Treatment of DVT and PE 5 mg oral tablet)Take 10 mg PO BID x 7 days, then take 5 mg PO BID thereafter; if refills, please fill maintenance dose NOT starter pack; Oral. Refills: 0. diclofenac topical (diclofenac 1% topical gel)2 gram Topical Three times daily for 14 Days. Refills: 0. diclofenac topical (diclofenac 1% topical gel)2 gram Topical Four times daily for 14 Days. Refills: 0. docusate (docusate sodium 100 mg oral tablet)1 tab(s) Oral Twice daily for 30 Days. Refills: 0. LORazepamOral Twice daily. Misc. Medication (Ice Pack)1 Pack Topical Every 4 hours as needed Pain for 3 Days. Refills: 0. pantoprazole (pantoprazole 40 mg oral delayed release tablet)1 tab(s) Oral Daily for 60 Days. Refills: 2. promethazine (promethazine 12.5 mg rectal suppository)1 suppository(ies) Rectal Every 6 hours for 3 Days. Refills: 0. ED Forms Problem List/Past Medical History Ongoing Allergic rhinitis, cause unspecified Factor V Leiden mutation History of DVT in adulthood Hyperemesis MDD (major depressive disorder), recurrent episode POTS (postural orthostatic tachycardia syndrome) PTSD (post-traumatic stress disorder) Scoliosis (and kyphoscoliosis), idiopathic Historical Procedure/Surgical History D&C- 2015 lipoma removal-2013 Medication Administration Given acetaminophen 500 mg oral tablet, 1000 mg, Oral Allergies Fish Itching, Hives Haldol No Known Latex Allergy Social History Smoking Status Current every day smoker Alcohol Employment/School Highest education:High school Home/Environment Lives with:Children, Godmother Substance Abuse - Denies Substance Abuse Tobacco - Denies Tobacco Use Family History Cancer: Grandfather, Maternal. Depression: Mother. Valvular heart disease: Negative: Mother. Health Status Family Member(s) Lab Results HEMATOLOGY PROFILES LATEST RESULTS HISTORICAL RESULTS WBC 07/08/24 17:44 6.68 06/25/24 8.15 RBC 07/08/24 17:44 4.71 06/25/24 3.92 HGB 07/08/24 17:44 14.4 06/25/24 12.0 HCT 07/08/24 17:44 41.4 06/25/24 34.9 MCV 07/08/24 17:44 87.9 06/25/24 89.0 MCH 07/08/24 17:44 30.6 06/25/24 30.6 MCHC 07/08/24 17:44 34.8 06/25/24 34.4 RDW SD 07/08/24 17:44 38.4 06/25/24 37.7 RDW CV 07/08/24 17:44 11.9 06/25/24 11.9 PLT 07/08/24 17:44 219 06/25/24 141 Low MPV 07/08/24 17:44 10.2 06/25/24 10.5 % Neutrophils 07/08/24 17:44 44.8 06/25/24 65.0 Absolute Granulocytes 07/08/24 17:44 2.99 06/25/24 5.30 % Immature Granulocytes 07/08/24 17:44 .30 06/25/24 .60 High Abs Immature Granulocytes 07/08/24 17:44 0.02 06/25/24 0.05 High % Lymphocytes 07/08/24 17:44 44.2 06/25/24 23.7 Abs Lymphocytes 07/08/24 17:44 2.95 High 06/25/24 1.93 % Monocytes 07/08/24 17:44 5.2 06/25/24 5.4 Abs Monocytes 07/08/24 17:44 0.35 06/25/24 0.44 % Eosinophils 07/08/24 17:44 4.8 06/25/24 4.7 Abs Eosinophils 07/08/24 17:44 0.32 06/25/24 0.38 % Basophils 07/08/24 17:44 0.7 06/25/24 0.6 Abs Basophils 07/08/24 17:44 0.05 06/25/24 0.05 % Nucleated RBCs 07/08/24 17:44 0.0 06/25/24 0.0 Absolute Nucleated RBCs 07/08/24 17:44 0.0 06/25/24 0.0 COAGULATION LATEST RESULTS HISTORICAL RESULTS PT 07/08/24 17:44 12.4 06/25/24 13.2 INR 07/08/24 17:44 1.0 06/25/24 1.1 PTT 07/08/24 17:44 26.3 06/25/24 18.1 Low GENERAL CHEMISTRY LATEST RESULTS HISTORICAL RESULTS Sodium 07/08/24 17:44 140 06/25/24 140 Potassium 07/08/24 17:44 3.3 Low 06/25/24 3.8 Chloride 07/08/24 17:44 106 06/25/24 105 CO2 07/08/24 17:44 22 06/25/24 24 Anion gap 07/08/24 17:44 16 06/25/24 15 Glucose Lvl 07/08/24 17:44 78 06/25/24 86 BUN 07/08/24 17:44 11 06/25/24 9 Creatinine, standardized 07/08/24 17:44 0.6 06/25/24 0.6 Estimated GFR for Adults 07/08/24 17:44 123 06/25/24 121 Estimated GFR for peds 07/08/24 17:44 Not Calculated 06/25/24 Not Calculated Calcium 07/08/24 17:44 9.8 06/25/24 8.9 Total Protein 07/08/24 17:44 6.7 06/25/24 6.9 Albumin 07/08/24 17:44 4.0 06/25/24 4.1 T Bili 07/08/24 17:44 0.80 06/25/24 0.55 Alkaline Phosphatase 07/08/24 17:44 51 06/25/24 48 AST-SGOT 07/08/24 17:44 14 06/25/24 15 ALT-SGPT 07/08/24 17:44 13 06/25/24 12 3rd Generation TSH 07/08/24 17:44 1.057 06/12/24 1.490 Cardiac Markers LATEST RESULTS HISTORICAL RESULTS NT-ProBNP 07/08/24 17:44 47 05/25/24 <35 URINALYSIS LATEST RESULTS HISTORICAL RESULTS COLOR 07/08/24 17:44 Straw 05/25/24 Yellow CLARITY 07/08/24 17:44 Clear 05/25/24 Slightly Cloudy SPECIFIC GRAVITY 07/08/24 17:44 1.010 05/25/24 1.026 UA PH 07/08/24 17:44 8 05/25/24 6 UA GLUCOSE 07/08/24 17:44 Negative 05/25/24 Negative UA KETONES 07/08/24 17:44 Negative 05/25/24 Negative BILIRUBIN 07/08/24 17:44 Negative 05/25/24 Negative UA UROBILINOGEN 07/08/24 17:44 Negative 05/25/24 Negative UA BLOOD 07/08/24 17:44 Negative 05/25/24 Negative UA LEUKOCYTES 07/08/24 17:44 Negative 05/25/24 Negative UA NITRITE 07/08/24 17:44 Negative 05/25/24 Negative UA PROTEIN 07/08/24 17:44 Negative 05/25/24 Negative Urine Collection Method 07/08/24 17:44 Clean Catch UR 05/25/24 Clean Catch UR SENSITIVE OTHER URINE TESTS LATEST RESULTS HISTORICAL RESULTS Test Result: 07/08/24 17:44 Negative 04/27/23 Negative Diagnostic Results ECG Attestation by Néstor Crawley DO on July 13, 2024 22:03 I personally saw and evaluated the patient on the result date found in the header of this document. I independently performed the critical/cruz portions of the Evaluation and Management service and discussed the management with the author of this document. I agree with everything documented above with the following exceptions/additions: I performed substantive portions of the physical exam, history collection, medical decision making and cruz elements of this patient's presentation and evaluation include: Procedures: No procedures were supervised Critical Care: No critical care time completed by me. 07/08/2024 Emergency Services Note Pre-Arrival Fabian llanes Name: [id number], Current Date: 06/25/2024 02:19:57 CDT Gender: Date of : Age: Pre-Arrival Type: Telephone Triage ETA: 06/25/2024 02:36:00 CDT Presenting Problem: Pre-Arrival User: Jelani Redding EMT-P Referring Source: Location: 44 06/25/2024 Emergency Services Note Basic Informatio n Chief Complaint chest pains that feels like prior PE, left sided sub sternal on deep inhalation History of Present Illness 33-year-old female with past medical history significant for factor V Leiden, previous PE/DVT, MDD, POTS, PTSD presents to the ED via EMS for sudden onset central substernal chest pain. Patient reports she was at home this evening awake playing video games when she had sudden onset substernal central chest pain with associated lightheadedness and nausea. The pain has slightly improved since its onset. The pain is pleuritic in nature. She has not been compliant on her anticoagulation as she left it in [place]. She has missed 7 doses (06/18 through 06/25). Denies recent infection, fevers, cough, lower extremity edema or erythema. Review of Systems All pertinent systems reviewed in HPI otherwise, reviewed as documented in chart Physical Exam Vitals and Measurements T: 36.6 C HR: 78 RR: 18 BP: 95/77 SpO2: 100% WT: 58.1 kg VS: Vital signs normal General: Alert, non ill or septic appearing Skin: Warm, dry, pink, no rash. Head: Normocephalic, atraumatic. Neck: Supple. Eye: Pupils are equal, round, and reactive to light. Normal conjunctiva Ears, nose, mouth, and throat:normal TM, nares, oral mucosa moist, normal voice Cardiovascular: Regular rate and rhythm, no murmur, normal peripheral perfusion. Respiratory: Lungs are clear to auscultation, respirations are non-labored, breath sounds are equal. Chest wall: Anterior chest wall tenderness to palpation Back: Nontender. Musculoskeletal: Normal ROM. Gastrointestinal: Soft, nontender, nondistended, normal bowel sounds, no organomegaly. Neurological: Alert and oriented to person, place, time, and situation Psychiatric: Cooperative. Medical Decision Making I have independently reviewed nursing triage information. I have independently reviewed prior medical records in the EMR. I have independently reviewed and interpreted all laboratory, radiology, EKG and diagnostic studies as documented in the MDM. Additional history obtained from: Chart review, EMS report Acute problems addressed: Chest pain, shortness of Chronic Problems noted/addressed: Factor V Leiden, anticoagulation nonadherence, history of PE, MDD, POTS, PTSD, anxiety Differentials: PE, musculoskeletal pain, anxiety, GERD, cholelithiasis, ACS less likely Independent interpretation by this provider: EKG, CXR Intensive Monitoring: No Other sources: Previous ED visit notes, EMS report Notable discussions: Return precautions, anticoagulation adherence Notable Considerations: I have given consideration for discharge home for chest pain. This was discussed with the patient and through shared decision making the patient understands the plan for discharge home. Scripts: Prescription(s) were provided to assist with symptom relief. Refill of Eliquis MDM 33-year-old female with past medical history significant for factor V Leiden, previous PE/DVT, MDD, POTS, PTSD presents to the ED via EMS for sudden onset central substernal chest pain. Vital signs normal. Well-appearing on physical exam, anterior chest wall tenderness to palpation, bilateral lungs clear to auscultation, no lower extremity unilateral erythema or edema. Initial interventions included Toradol. Chest x-ray independently interpreted by me negative for pneumothorax, focal consolidation, pulmonary edema, pleural effusion. Given she has had a numerous amount of CT PE's within the last year, normal vital signs including no tachycardia or hypoxia we discussed obtaining lower extremity DVT ultrasounds and D-dimer. D-dimer 318. If she does have a pulmonary embolism given normal troponins and vital signs low clinical concern that it is a massive or submassive PE and her clinical course would likely not change. Ultimately she needs to restart her Eliquis. Review of labs significant for no leukocytosis or anemia, normal liver renal function, no significant electrolyte abnormality. Troponin less than 3, delta 0. Flu and COVID-negative. EKG independently interpreted by me sinus rhythm, nonspecific T wave changes T wave inversions in V1 through V3 seen on prior EKG. Additional interventions for pain control included Flexeril and Tylenol. Ultrasound lower extremities negative for DVT. Refill sent of Eliquis. Discussed return precautions and follow-up with PCP. Patient comfortable with plan for discharge home. This visit was shared with Dr. Buck Assessment/Plan Chest pain Orders: US Leg Imaging Venous, factor V leiden, CP, missed AC doses, 06/25/24 2:52:00 CDT Bilat, Stat, Rad Type, Inpatient Indicator, Orig Ref Doc Eliazar Zuñiga XR Chest, Two views in department, chest pain, 06/25/24 2:48:00 CDT, Stat, Orig Ref Doc Eliazar Zuñiga Patient Education Chest Pain Follow Up With When Contact Information Return to Emergency Department Within As Needed Additional Instructions: Please return to the ED if you have new or worsening symptoms including chest pain, shortness of breath, passing out, palpitations. Start taking your anticoagulation again as soon as possible. Refill was sent to your pharmacy. Medication Reconciliation Unchanged apixaban (Eliquis (apixaban) 5 mg oral tablet)5 Milligram Oral Twice daily for 30 Days. Refills: 0. apixaban (Eliquis (apixaban) Starter Pack for Treatment of DVT and PE 5 mg oral tablet)Take 10 mg PO BID x 7 days, then take 5 mg PO BID thereafter; if refills, please fill maintenance dose NOT starter pack; Oral. Refills: 0. diclofenac topical (diclofenac 1% topical gel)2 gram Topical Three times daily for 14 Days. Refills: 0. diclofenac topical (diclofenac 1% topical gel)2 gram Topical Four times daily for 14 Days. Refills: 0. docusate (docusate sodium 100 mg oral tablet)1 tab(s) Oral Twice daily for 30 Days. Refills: 0. LORazepamOral Twice daily. Misc. Medication (Ice Pack)1 Pack Topical Every 4 hours as needed Pain for 3 Days. Refills: 0. pantoprazole (pantoprazole 40 mg oral delayed release tablet)1 tab(s) Oral Daily for 60 Days. Refills: 2. promethazine (promethazine 12.5 mg rectal suppository)1 suppository(ies) Rectal Every 6 hours for 3 Days. Refills: 0. ED Forms Attestation by Chan Buck MD on June 27, 2024 00:07 I personally saw and evaluated the patient. I discussed the management with the Advanced Practice Provider, and reviewed the CHELSEY's note. I approved of, and take responsibility for, the medical decision making at the time of patient care. Procedures: _ Critical Care: _ Problem List/Past Medical History Ongoing Allergic rhinitis, cause unspecified Factor V Leiden mutation History of DVT in adulthood Hyperemesis MDD (major depressive disorder), recurrent episode POTS (postural orthostatic tachycardia syndrome) PTSD (post-traumatic stress disorder) Scoliosis (and kyphoscoliosis), idiopathic Historical Procedure/Surgical History D&C- 2015 lipoma removal-2013 Medication Administration Given acetaminophen 500 mg oral tablet, 1000 mg, Oral ketorolac, 15 mg, 6 mL, IV Push Allergies Fish Itching, Hives Haldol No Known Latex Allergy Social History Smoking Status Current every day smoker Alcohol Employment/School Highest education:High school Home/Environment Lives with:Children, Godmother Substance Abuse - Denies Substance Abuse Tobacco - Denies Tobacco Use Family History Cancer: Grandfather, Maternal. Depression: Mother. Valvular heart disease: Negative: Mother. Health Status Family Member(s) Lab Results HEMATOLOGY PROFILES LATEST RESULTS HISTORICAL RESULTS WBC 06/25/24 02:51 8.15 06/12/24 6.03 RBC 06/25/24 02:51 3.92 06/12/24 4.64 HGB 06/25/24 02:51 12.0 06/12/24 14.0 HCT 06/25/24 02:51 34.9 06/12/24 41.3 MCV 06/25/24 02:51 89.0 06/12/24 89.0 MCH 06/25/24 02:51 30.6 06/12/24 30.2 MCHC 06/25/24 02:51 34.4 06/12/24 33.9 RDW SD 06/25/24 02:51 37.7 06/12/24 37.3 RDW CV 06/25/24 02:51 11.9 06/12/24 11.6 Low PLT 06/25/24 02:51 141 Low 06/12/24 214 MPV 06/25/24 02:51 10.5 06/12/24 10.5 % Neutrophils 06/25/24 02:51 65.0 06/12/24 47.7 Absolute Granulocytes 06/25/24 02:51 5.30 06/12/24 2.87 % Immature Granulocytes 06/25/24 02:51 .60 High 06/12/24 .30 Abs Immature Granulocytes 06/25/24 02:51 0.05 High 06/12/24 0.02 % Lymphocytes 06/25/24 02:51 23.7 06/12/24 40.6 Abs Lymphocytes 06/25/24 02:51 1.93 06/12/24 2.45 % Monocytes 06/25/24 02:51 5.4 06/12/24 5.1 Abs Monocytes 06/25/24 02:51 0.44 06/12/24 0.31 % Eosinophils 06/25/24 02:51 4.7 06/12/24 5.3 Abs Eosinophils 06/25/24 02:51 0.38 06/12/24 0.32 % Basophils 06/25/24 02:51 0.6 06/12/24 1.0 Abs Basophils 06/25/24 02:51 0.05 06/12/24 0.06 % Nucleated RBCs 06/25/24 02:51 0.0 06/12/24 0.0 Absolute Nucleated RBCs 06/25/24 02:51 0.0 06/12/24 0.0 COAGULATION LATEST RESULTS HISTORICAL RESULTS PT 06/25/24 03:03 13.2 04/23/24 12.4 INR 06/25/24 03:03 1.1 04/23/24 1.1 PTT 06/25/24 03:03 18.1 Low 04/23/24 28.6 D-DIMER QUANTITATIVE 06/25/24 03:03 318.00 12/11/23 527.00 High GENERAL CHEMISTRY LATEST RESULTS HISTORICAL RESULTS Sodium 06/25/24 04:23 140 06/12/24 137 Potassium 06/25/24 04:23 3.8 06/12/24 HEMOLYZED, unable to report due to interference Chloride 06/25/24 04:23 105 06/12/24 107 CO2 06/25/24 04:23 24 06/12/24 23 Anion gap 06/25/24 04:23 15 06/12/24 11 Glucose Lvl 06/25/24 04:23 86 06/12/24 97 BUN 06/25/24 04:23 9 06/12/24 9 Creatinine, standardized 06/25/24 04:23 0.6 06/12/24 0.6 Estimated GFR for Adults 06/25/24 04:23 121 06/12/24 121 Estimated GFR for peds 06/25/24 04:23 Not Calculated 06/12/24 Not Calculated Calcium 06/25/24 04:23 8.9 06/12/24 8.6 Total Protein 06/25/24 04:23 6.9 06/12/24 7.0 Albumin 06/25/24 04:23 4.1 06/12/24 3.9 T Bili 06/25/24 04:23 0.55 06/12/24 0.54 Alkaline Phosphatase 06/25/24 04:23 48 06/12/24 47 AST-SGOT 06/25/24 04:23 15 06/12/24 20 ALT-SGPT 06/25/24 04:23 12 06/12/24 13 Cardiac Markers LATEST RESULTS HISTORICAL RESULTS Troponin I Value 06/25/24 04:23 <3 06/12/24 <3 Troponin I Delta from Initial Value 06/25/24 04:23 0 06/12/24 N/A Troponin I Interp 06/25/24 04:23 See Comment 06/12/24 See Comment Coronavirus COVID-19 LATEST RESULTS HISTORICAL RESULTS SARS-CoV2 Rapid Antigen 06/25/24 03:29 Negative 02/20/24 Negative Point of Care Labs LATEST RESULTS HISTORICAL RESULTS Influenza A Rapid POC 06/25/24 03:29 Negative 02/20/24 Negative Influenza B Rapid POC 06/25/24 03:29 Negative 02/20/24 Negative Diagnostic Results (06/25/2024 04:00 CDT US Leg Imaging Venous) Reason For Exam factor V leiden, CP, missed AC doses Report EXAMINATION: US Leg Imaging Venous INDICATION: factor V leiden, CP, missed AC doses COMPARISONS: None TECHNIQUE: Grayscale, color and spectral Doppler evaluation of the Bilateral lower extremity deep venous system(s) was performed. FINDINGS: Bilateral common femoral, femoral and popliteal veins are normally compressible and demonstrate normally directed and appropriately phasic flow with augmentation. Normal flow is present within the saphenofemoral junctions and deep femoral veins in the proximal thighs and the posterior tibial and peroneal veins in the proximal calves. Acute DVT: No IMPRESSION: No evidence of deep venous thrombosis in the bilateral lower extremities. Signature Line ### PRELIMINARY REPORT ONLY #### PRELIMINARY REPORT ONLY #### PRELIMINARY REPORT ONLY ### Resident:Jordon Cazares MD [1] (06/25/2024 03:11 CDT XR Chest) Reason For Exam chest pain Report EXAMINATION: XR Chest INDICATION: chest pain VIEWS: 2 COMPARISON: CT 06/12/2024 FINDINGS: Normal cardiomediastinal silhouette. No focal parenchymal process. No pleural effusions. No pneumothorax. No acute osseous abnormalities. IMPRESSION: No acute cardiopulmonary findings. Signature Line ### PRELIMINARY REPORT ONLY #### PRELIMINARY REPORT ONLY #### PRELIMINARY REPORT ONLY ### Resident:Jordon Cazares MD [2] ECG [1] US Leg Imaging Venous; Leonila Fallon 06/25/2024 04:00 CDT [2] XR Chest; Danyel BOWIE (R)Tc 06/25/2024 03:11 CDT 06/25/2024 Emergency Services Note Basic Informatio n Chief Complaint BIB EMS with the c/o chest pain and SOB since 10 pm , has H/O PE History of Present Illness Karley is a 33-year-old female with past medical history of factor V Leiden, history of 2 previous PEs, PTSD, POTS, depression who presents to the ED via EMS for chest pain and shortness of breath. Patient developed episode of dizziness at approximately 1300 today. She laid down, which helped for a little bit. She was then driving back from [place] when she developed sudden onset of pleuritic left-sided chest pain that started approximately 1900. States this feels similar to her previous PE. States she has been off her Eliquis for a couple of months because she does not have insurance. She has been getting her insurance back. Denies any leg swelling. Does endorse recent travel. No recent surgeries. Associated shortness of breath. Some nausea, no vomiting. Review of Systems All systems reviewed and are otherwise negative. ROS reviewed as documented in chart. Physical Exam Vitals and Measurements T: 36.3 C HR: 75 RR: 19 BP: 97/70 SpO2: 99% WT: 60.2 kg General: Alert. In no acute distress. Resp: Lungs CTA with non-labored respirations. CV: RRR without M/R/G GI: Abdomen soft and non-tender. Neuro: A&O x4. Sensation intact to bilateral face, upper extremity, lower extremity. Strength 5 of 5 bilateral upper and lower extremity. No facial droop. No slurred speech. Normal [id number]. Normal [id number]. No ataxic gait. Extraocular movements intact. PERRLA. No nystagmus. Psych: Anxious. Procedure Medical Decision Making Acute problems addressed: Chest pain, shortness of breath Chronic Problems noted/addressed: Factor V Leiden with history of PE Differentials: PE, ACS, pneumonia, dissection, costochondritis, pleurisy Independent interpretation by this provider: Labs, EKG, CT scan Other sources: previous ED notes Notable discussions: None Summary: Patient is a 33-year-old female who presents to the ED for chest pain and shortness of breath. Vital signs stable. Patient initially given Tylenol, fentanyl, IV fluids. Declined meclizine. EKG demonstrates heart rate of 67, sinus rhythm, no acute signs of ischemia, QTc of 392. Patient states her symptoms resolved until she went to CT scan and then she was started at some pain again. Was given dose of Valium. Basic labs are unremarkable. Thyroid within normal limits. Troponin negative. 2-hour delta troponin not needed as symptoms started greater than [address] PE without evidence of pulmonary acute findings or evidence of PE. Findings discussed with patient. Recommended she restart her Eliquis, which patient states she will do when she has her insurance figured out. Discharged home in stable condition with return precautions explained. Attending on shift: Dr. Buck Reexamination/Reevaluation Assessment/Plan 1. Chest pain Orders: CT Chest PE Protocol, CP ,SOA, hx of PE, 06/12/24 2:16:00 CDT, Stat, Orig Ref Doc Eliazar Zuñiga Patient Education Chest Pain: Musculoskeletal Chest Pain Follow Up With When Contact Information Phil KESSLER, Elle Steel, Referring Physicians Within As Needed [address] [address] Additional Instructions: There are many things that may cause chest pain, often the exact cause can be difficult to identify. Apart from pain associated with the heart or lungs, discomfort may also be caused by digestive problems such as acid reflux or stomach ulcers, spasms of the esophagus, anxiety, stress or anger, inflammation of the cartilage in the chest, or soreness of the muscles within the chest wall. Most often, the sources of chest pain are not serious or life-threatening and will get better on their own over a few days. Sometimes of chest pain may require more testing as an outpatient to identify the source of your symptoms. Your work-up in the emergency department did not show any evidence of an acute life-threatening cause of your chest pain. It is felt that you are low risk for a serious adverse event as result of your chest pain over the next several days and therefore we recommend discharge and close follow-up within the next 1-2 weeks with your primary care provider to ensure resolution of symptoms and determine if further testing needs to be performed as an outpatient. Even though you are being discharged from the ER, you should still continue to watch for any problems, as we can never be 100% certain that you won't develop further issues in the future. If you have any new symptoms or your systems get worse, do not be afraid to return for reevaluation. We are more than happy to reevaluate you should any new concerns develop. If you have worse or different types of chest pain, chest pain or pressure that lasts for several minutes, have difficulty breathing, have a sensation of irregular or abnormal heart rhythm, have chest pain associated with dizziness or sweating, chest pain associated with vomiting, or tearing chest pain that radiates to your back, or if further concerning symptoms are developing, you should return to the ER for reevaluation. Medication Reconciliation Unchanged apixaban (Eliquis (apixaban) 5 mg oral tablet)5 Milligram Oral Twice daily for 30 Days. Refills: 0. apixaban (Eliquis (apixaban) Starter Pack for Treatment of DVT and PE 5 mg oral tablet)Take 10 mg PO BID x 7 days, then take 5 mg PO BID thereafter; if refills, please fill maintenance dose NOT starter pack; Oral. Refills: 0. diclofenac topical (diclofenac 1% topical gel)2 gram Topical Three times daily for 14 Days. Refills: 0. diclofenac topical (diclofenac 1% topical gel)2 gram Topical Four times daily for 14 Days. Refills: 0. docusate (docusate sodium 100 mg oral tablet)1 tab(s) Oral Twice daily for 30 Days. Refills: 0. LORazepamOral Twice daily. Misc. Medication (Ice Pack)1 Pack Topical Every 4 hours as needed Pain for 3 Days. Refills: 0. pantoprazole (pantoprazole 40 mg oral delayed release tablet)1 tab(s) Oral Daily for 60 Days. Refills: 2. promethazine (promethazine 12.5 mg rectal suppository)1 suppository(ies) Rectal Every 6 hours for 3 Days. Refills: 0. ED Forms Problem List/Past Medical History Ongoing Allergic rhinitis, cause unspecified Factor V Leiden mutation History of DVT in adulthood Hyperemesis MDD (major depressive disorder), recurrent episode POTS (postural orthostatic tachycardia syndrome) PTSD (post-traumatic stress disorder) Scoliosis (and kyphoscoliosis), idiopathic Historical Procedure/Surgical History D&C- 2016 lipoma removal-2013 Medication Administration Given acetaminophen IV Soln, 1000 mg, IVPB diazepam injection, 5 mg, IV Push fentaNYL, 25 mcg, Slow IV Push iohexol, 91372 mg, IV NS (bolus), 1000 mL, IV Bolus Allergies Fish Itching, Hives Haldol No Known Latex Allergy Social History Smoking Status Current every day smoker Alcohol Employment/School Highest education:High school Home/Environment Lives with:Children, Godmother Substance Abuse - Denies Substance Abuse Tobacco - Denies Tobacco Use Family History Cancer: Grandfather, Maternal. Depression: Mother. Valvular heart disease: Negative: Mother. Health Status Family Member(s) Lab Results HEMATOLOGY PROFILES LATEST RESULTS HISTORICAL RESULTS WBC 06/12/24 02:26 6.03 05/25/24 5.97 RBC 06/12/24 02:26 4.64 05/25/24 5.04 High HGB 06/12/24 02: 14.0 05/25/24 15.0 HCT 06/12/24 02:26 41.3 05/25/24 44.8 High MCV 06/12/24 02: 89.0 05/25/24 88.9 MCH 06/12/24 02:26 30.2 05/25/24 29.8 MCHC 06/12/24 02:26 33.9 05/25/24 33.5 RDW SD 06/12/24 02:26 37.3 05/25/24 38.9 RDW CV 06/12/24 02: 11.6 Low 05/25/24 12.0 PLT 06/12/24 02:26 214 05/25/24 188 MPV 06/12/24 02:26 10.5 05/25/24 10.4 % Neutrophils 06/12/24 02: 47.7 05/25/24 50.6 Absolute Granulocytes 06/12/24 02:26 2.87 05/25/24 3.03 % Immature Granulocytes 06/12/24 02:26 .30 05/25/24 .20 Abs Immature Granulocytes 06/12/24 02:26 0.02 05/25/24 0.01 % Lymphocytes 06/12/24 02:26 40.6 05/25/24 37.7 Abs Lymphocytes 06/12/24 02:26 2.45 05/25/24 2.25 % Monocytes 06/12/24 02:26 5.1 05/25/24 6.4 Abs Monocytes 06/12/24 02:26 0.31 05/25/24 0.38 % Eosinophils 06/12/24 02:26 5.3 05/25/24 4.4 Abs Eosinophils 06/12/24 02:26 0.32 05/25/24 0.26 % Basophils 06/12/24 02:26 1.0 05/25/24 0.7 Abs Basophils 06/12/24 02:26 0.06 05/25/24 0.04 % Nucleated RBCs 06/12/24 02:26 0.0 05/25/24 0.0 Absolute Nucleated RBCs 06/12/24 02:26 0.0 05/25/24 0.0 GENERAL CHEMISTRY LATEST RESULTS HISTORICAL RESULTS Sodium 06/12/24 02:26 137 05/25/24 139 Potassium 06/12/24 02:26 HEMOLYZED, unable to report due to interference 05/25/24 3.6 Chloride 06/12/24 02:26 107 05/25/24 105 CO2 06/12/24 02:26 23 05/25/24 24 Anion gap 06/12/24 02:26 11 05/25/24 14 Glucose Lvl 06/12/24 02:26 97 05/25/24 80 BUN 06/12/24 02:26 9 05/25/24 11 Creatinine, standardized 06/12/24 02:26 0.6 05/25/24 0.6 Estimated GFR for Adults 06/12/24 02:26 121 05/25/24 120 Estimated GFR for peds 06/12/24 02:26 Not Calculated 05/25/24 Not Calculated Calcium 06/12/24 02:26 8.6 05/25/24 9.2 Total Protein 06/12/24 02:26 7.0 05/25/24 7.0 Albumin 06/12/24 02:26 3.9 05/25/24 4.2 T Bili 06/12/24 02:26 0.54 05/25/24 0.60 Alkaline Phosphatase 06/12/24 02:26 47 05/25/24 50 AST-SGOT 06/12/24 02:26 20 05/25/24 15 ALT-SGPT 06/12/24 02:26 13 05/25/24 14 3rd Generation TSH 06/12/24 02:26 1.490 Cardiac Markers LATEST RESULTS HISTORICAL RESULTS Troponin I Value 06/12/24 02:26 <3 05/25/24 <3 Troponin I Delta from Initial Value 06/12/24 02:26 N/A 05/25/24 N/A Troponin I Interp 06/12/24 02:26 See Comment 05/25/24 See Comment Point of Care Labs LATEST RESULTS HISTORICAL RESULTS POC U hCG (Rals) 06/12/24 02:35 Negative 04/23/24 Negative Diagnostic Results (06/12/2024 03:[address] Chest PE Protocol) IMPRESSION: VASCULAR: 1. No acute or chronic pulmonary emboli CHEST: 1. No acute intrathoracic or upper abdominal findings. 2. Cholelithiasis without acute cholecystitis Signature Line ### PRELIMINARY REPORT ONLY #### PRELIMINARY REPORT ONLY #### PRELIMINARY REPORT ONLY ### Resident:Aruna KESSLER, Eliazar Anand [1] ECG [1] CT Chest PE Protocol; Milton RT (R)(CT)Brett 06/12/2024 03:51 CDT 06/12/2024 Acute Care Surgery Clinic Note Chief Com plaint primitivo eval History of Present Illness 33 year old female presents to [facility] clinic for concerns of abdominal pain. She states the pain has been ongoing for the past several months. The pain is located to her epigastric region and right upper abdomen. The pain radiates to the back. She states any intake of food will make it worse. When she is not eating the pain is less severe but still dull and aching. She describes the pain has dull and achy similar to indigestion. She has been seen many times in the ED with rule out PE in the setting of SOB and factor V Leiden. PMH - Factor V Leiden, hx of PE 2014, Depression, PSH - D&C Family Hx - Lymphoma maternal grandmother Social Hx - Denies tobacco use, current vap use, denies ETOH, Denies illicit drug use Review of Systems Review of systems was completed and pertinent positives mentioned in the HPI above. Physical Exam Vitals and Measurements T: 37.3 C HR: 103 RR: 20 BP: 109/69 WT: 56.7 kg General: Alert and oriented, no acute distress HEENT: Normocephalic, PERRLA, EOMI, normal conjunctiva, moist mucous membranes Neck: Supple Cardiac: Regular rate and rhythm, no murmur, no edema, adequate peripheral perfusion Pulmonary: Clear to auscultation bilaterally, symmetric expansion, normal inspiratory effort Abdomen: Soft, mild tenderness to RUQ, LUQ, and Epigastrium, non-distended, normal bowel sounds; no CVA tenderness MSK: Normal strength, no deformity or ecchymosis; mild tenderness to palpation of anterior left chest wall, tenderness to palpation of posterior R calf Integument: Warm, dry, no rash Psych: Cooperative, appropriate mood and affect Assessment/Plan Orders: pantoprazole(pantoprazole 40 mg oral delayed release tablet), 40 mg= 1 Tablet(s), Oral, Daily, 2 refills H pylori Stool Antigen, Stool, *Est. 06/06/24, Routine, Routine, Nurse Collect, Print Label Y/N, Dyspepsia, Order for Future Visit, Hold Until Collected, First Available, Orig Ref Doc Eliazar Zuñiga US Abdomen (Non Vascular)(Ultrasound Abdomen (Non Vascular)), Order for Future Visit (Post Discharge), Epigastric Abdominal pain, *Est. 06/06/24 due within 2 month(s) US RUQ (Liver/GB), Routine, Orig Ref Doc Eliazar Zuñiga, Dyspepsia 33 year old F with: 1. Abdominal pain 2. Cholelithiasis 3. Dyspepsia 4. Factor V Leiden - On AC (eliquis) Plan: 1. Ms. Mcneill was seen and examined 2. Clinically her pain and discomfort are none specific, however location and temporal association with PO intake makes the following high in the differential: -Symptomatic cholelithiasis -Peptic Ulcer Disease 3. I discussed the difference as well as the natural history of both disease processes as well as medical and procedural options. -We reviewed her CT Chest PE studies which show one small calcified stone without secondary evidence of inflammation 4. Will plan to follow up US of the abdomen as well as trial PPI therapy with stool studies for H pylori -Education regarding low fat diet provided -Return precautions provided Dispo: 1. Return to clinic 3 weeks Medical decision making on this patient encounter which included but is not limited to personally reviewing history (previous encounters within our healthcare system when available, external records when appropriate), performing the cruz aspects of the exam including history and physical examination, reviewing orders, providing education to the patient/caregiver, and documentation in the medical record. The visit required complex medical management through an ongoing care relationship with the patient. Complexity: 40283 Moderate; 1 or more chronic illnesses with exacerbation, progression, or 2 or more stable chronic illnesses, or 1 undiagnosed new problem, or 1 acute illness with systemic symptoms, or 1 acute complicated injury 40 min Time spent on this patient encounter include but is not limited to personally reviewing history, previous encounters within our healthcare system when available, external records when appropriate. Performing the cruz aspects of the exam, reviewing orders, providing education to the patient/caregiver, and documentation in the medical record. This excludes any procedure time that may have been performed. RD Problem List/Past Medical History Ongoing Allergic rhinitis, cause unspecified Factor V Leiden mutation History of DVT in adulthood Hyperemesis MDD (major depressive disorder), recurrent episode POTS (postural orthostatic tachycardia syndrome) PTSD (post-traumatic stress disorder) Scoliosis (and kyphoscoliosis), idiopathic Historical Procedure/Surgical History D&C- 2015 lipoma removal-2013 Medications apixaban(Eliquis (apixaban) 5 mg oral tablet), 5 mg, Oral, bid apixaban(Eliquis (apixaban) Starter Pack for Treatment of DVT and PE 5 mg oral tablet), See Instructions, Oral diclofenac topical(diclofenac 1% topical gel), 2 g, Topical, tid diclofenac topical(diclofenac 1% topical gel), 2 g, Topical, qid docusate(docusate sodium 100 mg oral tablet), 100 mg= 1 Tablet(s), Oral, bid ketorolac(Toradol), 30 mg= 1 mL, IV Push, Once Lactated Ringers(LR Bolus), 1000 mL, IV Bolus, Once Lactated Ringers(LR Bolus), 1000 mL, IV Bolus, Once LORazepam, Oral, bid Misc. Medication(Ice Pack), 1 Pack, Topical, q4h, PRN pantoprazole(pantoprazole 40 mg oral delayed release tablet), 40 mg= 1 Tablet(s), Oral, Daily, 2 refills promethazine(promethazine 12.5 mg rectal suppository), 12.5 mg= 1 Supp, Rectal, q6h Allergies Fish Itching, Hives Haldol No Known Latex Allergy Social History Smoking Status Current every day smoker Alcohol Employment/School Highest education:High school Home/Environment Lives with:Children, Godmother Substance Abuse - Denies Substance Abuse Tobacco - Denies Tobacco Use Family History Cancer: Grandfather, Maternal. Depression: Mother. Valvular heart disease: Negative: Mother. Health Status Family Member(s) Immunizations Vaccine Date Status SARS-CoV-2 (COVID-19) Ad26 vaccine - Not Given influenza virus vaccine inactivated 12/30/2016 Given diphtheria/pertussis acel/tetanus adult 12/30/2016 Given influenza virus vaccine inactivated 12/30/2014 Given Human Papillomavirus(Gardasil)* 01/25/2007 Given Human Papillomavirus(Gardasil)* 09/24/2006 Given Human Papillomavirus(Gardasil)* 07/23/2006 Given measles/mumps/rubella virus vaccine 10/27/1996 Given OPV (old vaccine) 10/27/1996 Given DTaP* 10/27/1996 Given DTP (old vaccine)* 11/12/1993 Given OPV (old vaccine) 06/12/1993 Given OPV (old vaccine) 02/07/1993 Given DTaP* 02/07/1993 Given measles/mumps/rubella virus vaccine 11/18/1992 Given hepatitis B vaccine (historical) 09/16/1992 Given hepatitis B vaccine (historical) 08/02/1992 Given haemophilus PRP-OMP(PedvaxHIB)* 04/16/1992 Given haemophilus PRP-OMP(PedvaxHIB)* 04/16/1992 Given DTP (old vaccine)* 04/16/1992 Given haemophilus PRP-OMP(PedvaxHIB)* 01/05/1992 Given OPV (old vaccine) 01/05/1992 Given DTP (old vaccine)* 01/05/1992 Given Health Maintenance Lab Results Diagnostic Results Visit Information Attending Physician: Jordon Hartman MD Primary Care Physician: Elle Villarreal MD Visit Date: 06/06/2024 06/06/2024 Emergency Services Note Basic Informatio n Chief Complaint Increased anxiety with palpitations and dizziness. Having episodes of vision loss in triage. Right flank/abd pain. History of Present Illness a 33-year-old female with past medical history of factor V Leiden and prior pulmonary emboli (not able to afford her Eliquis) who is presenting to the emergency department for chest pain, anxiety, right flank pain, lightheadedness, and right calf pain since last night. Endorses that her chest pain is making her feel nauseous. Patient reports that she has been unable to afford her Eliquis for several months because Of changing jobs and losing her health insurance. She plans on applying to Medicaid later this week. No urinary symptoms. Unknown when last menstrual period was as she has a Mirena and does not get periods. No recent illness. No traumatic injuries. Review of Systems Physical Exam Vitals and Measurements T: 36.7 C HR: 101 RR: 18 BP: 93/66 SpO2: 98% WT: 57.9 kg General: Alert and oriented, no acute distress HEENT: Normocephalic, PERRLA, EOMI, normal conjunctiva, moist mucous membranes Neck: Supple Cardiac: Regular rate and rhythm, no murmur, no edema, adequate peripheral perfusion Pulmonary: Clear to auscultation bilaterally, symmetric expansion, normal inspiratory effort Abdomen: Soft, non-tender, non-distended, normal bowel sounds; no CVA tenderness MSK: Normal strength, no deformity or ecchymosis; mild tenderness to palpation of anterior left chest wall, tenderness to palpation of posterior R calf Integument: Warm, dry, no rash Neuro: CN II-XII grossly intact, no focal deficits Psych: Cooperative, appropriate mood and affect Procedure Medical Decision Making Patient coming in for chest pain, R flank pain, and shortness of breath. DDX includes but is not limited to PE, pneumonia, pyelonephritis, costochondritis, muscle spasm Given ketorolac and zofran for symptom control. CBC, CMP, beta hcg, troponins, NT-ProBNP, and UA unremarkable. EKG independently interpreted by myself as normal sinus rhythm, normal axis, no evidence of acute ischemic changes, no ST elevations/depressions/T wave inversions, no significant conduction abnormalities, normal intervals. Continuing to have pain- given 10 mg Flexeril PO. Feeling that she is going to have a panic attack- given 5 mg diazepam IV , as she refused to take it PO. CT PE shows no evidence of PE but does show cholelithiasis, no evidence of cholecystitis. Informed of this and given follow up with general surgery. Given eliquis starter pack Rx and coupon. Counseled on importance of continuing this medication. She will go the insurance office this week to apply. Return to care precautions provided and patient expressed understanding of such. Patient discharged home in care of friend. Reexamination/Reevaluation Assessment/Plan 1. Gallstone 2. Coagulopathy Patient Education Gallbladder Disease: Low-Fat Diet Gallstones Safe Use of Non-Warfarin Blood Thinners: Video Follow Up With When Contact Information Surgery - General Within 1 month [facility] [place] [phone] Business (1) Additional Instructions: I have referred you to general surgery at and follow-up with if you end up having frequent symptoms from your gallbladder. Return to Emergency Department Within As Needed Additional Instructions: Please return to the emergency department for chest pain, shortness of breath, lightheadedness, persistent abdominal pain associated with vomiting or fevers, or new/worsening symptoms. Elle Wiredu Within As Needed [address] [place] [address] Business (1) Additional Instructions: Medication Reconciliation Unchanged apixaban (Eliquis (apixaban) 5 mg oral tablet)5 Milligram Oral Twice daily for 30 Days. Refills: 0. apixaban (Eliquis (apixaban) Starter Pack for Treatment of DVT and PE 5 mg oral tablet)Take 10 mg PO BID x 7 days, then take 5 mg PO BID thereafter; if refills, please fill maintenance dose NOT starter pack; Oral. Refills: 0. diclofenac topical (diclofenac 1% topical gel)2 gram Topical Three times daily for 14 Days. Refills: 0. diclofenac topical (diclofenac 1% topical gel)2 gram Topical Four times daily for 14 Days. Refills: 0. docusate (docusate sodium 100 mg oral tablet)1 tab(s) Oral Twice daily for 30 Days. Refills: 0. Misc. Medication (Ice Pack)1 Pack Topical Every 4 hours as needed Pain for 3 Days. Refills: 0. promethazine (promethazine 12.5 mg rectal suppository)1 suppository(ies) Rectal Every 6 hours for 3 Days. Refills: 0. Attestation by Camilo Dan MD on May 28, 2024 04:45 I personally saw and evaluated the patient. I discussed the management with the resident and reviewed the resident s note. I agree with the documented findings and plan of care. Eric Dan MD Emergency Medicine Attending Problem List/Past Medical History Ongoing Allergic rhinitis, cause unspecified Factor V Leiden mutation History of DVT in adulthood Hyperemesis MDD (major depressive disorder), recurrent episode POTS (postural orthostatic tachycardia syndrome) PTSD (post-traumatic stress disorder) Scoliosis (and kyphoscoliosis), idiopathic Historical Procedure/Surgical History D&C- 2015 lipoma removal-2013 Medication Administration Given cyclobenzaprine, 10 mg, Oral diazepam injection, 5 mg, Slow IV Push iohexol, 02068 mg, IV ketorolac, 15 mg, IV Push Zofran Inj, 4 mg, Slow IV Push Allergies Fish Itching, Hives Haldol No Known Latex Allergy Social History Smoking Status Current every day smoker Alcohol Employment/School Highest education:High school Home/Environment Lives with:Children, Godmother Substance Abuse - Denies Substance Abuse Tobacco - Denies Tobacco Use Family History Cancer: Grandfather, Maternal. Depression: Mother. Valvular heart disease: Negative: Mother. Health Status Family Member(s) Lab Results HEMATOLOGY PROFILES LATEST RESULTS HISTORICAL RESULTS WBC 05/25/24 16:26 5.97 04/23/24 7.56 RBC 05/25/24 16:26 5.04 High 04/23/24 4.73 HGB 05/25/24 16:26 15.0 04/23/24 14.5 HCT 05/25/24 16:26 44.8 High 04/23/24 42.7 MCV 05/25/24 16:26 88.9 04/23/24 90.3 MCH 05/25/24 16:26 29.8 04/23/24 30.7 MCHC 05/25/24 16:26 33.5 04/23/24 34.0 RDW SD 05/25/24 16:26 38.9 04/23/24 38.4 RDW CV 05/25/24 16:26 12.0 04/23/24 11.5 Low PLT 05/25/24 16:26 188 04/23/24 187 MPV 05/25/24 16:26 10.4 04/23/24 10.9 % Neutrophils 05/25/24 16:26 50.6 04/23/24 44.5 Absolute Granulocytes 05/25/24 16:26 3.03 04/23/24 3.37 % Immature Granulocytes 05/25/24 16:26 .20 01/26/25 .30 Abs Immature Granulocytes 05/25/24 16:26 0.01 04/23/24 0.02 % Lymphocytes 05/25/24 16:26 37.7 04/23/24 44.3 Abs Lymphocytes 05/25/24 16:26 2.25 04/23/24 3.35 High % Monocytes 05/25/24 16:26 6.4 04/23/24 5.2 Abs Monocytes 05/25/24 16:26 0.38 04/23/24 0.39 % Eosinophils 05/25/24 16:26 4.4 04/23/24 5.0 Abs Eosinophils 05/25/24 16:26 0.26 04/23/24 0.38 % Basophils 05/25/24 16:26 0.7 04/23/24 0.7 Abs Basophils 05/25/24 16:26 0.04 04/23/24 0.05 % Nucleated RBCs 05/25/24 16:26 0.0 04/23/24 0.0 Absolute Nucleated RBCs 05/25/24 16:26 0.0 04/23/24 0.0 GENERAL CHEMISTRY LATEST RESULTS HISTORICAL RESULTS Sodium 05/25/24 16:26 139 04/23/24 141 Potassium 05/25/24 16:26 3.6 04/23/24 3.5 Chloride 05/25/24 16:26 105 04/23/24 106 CO2 05/25/24 16:26 24 04/23/24 25 Anion gap 05/25/24 16:26 14 04/23/24 14 Glucose Lvl 05/25/24 16:26 80 04/23/24 108 BUN 05/25/24 16:26 11 04/23/24 12 Creatinine, standardized 05/25/24 16:26 0.6 04/23/24 0.7 Estimated GFR for Adults 05/25/24 16:26 120 04/23/24 115 Estimated GFR for peds 05/25/24 16:26 Not Calculated 04/23/24 Not Calculated Calcium 05/25/24 16:26 9.2 04/23/24 9.3 Total Protein 05/25/24 16:26 7.0 04/23/24 7.0 Albumin 05/25/24 16:26 4.2 04/23/24 4.0 T Bili 05/25/24 16:26 0.60 04/23/24 0.45 Alkaline Phosphatase 05/25/24 16:26 50 04/23/24 56 AST-SGOT 05/25/24 16:26 15 04/23/24 15 ALT-SGPT 05/25/24 16:26 14 04/23/24 13 SENSITIVE GENERAL CHEMISTRY LATEST RESULTS Beta hCG 05/25/24 16:26 <2.6 Cardiac Markers LATEST RESULTS HISTORICAL RESULTS NT-ProBNP 05/25/24 16:26 <35 02/20/24 <35 Troponin I Value 05/25/24 16:26 <3 03/03/24 <3 Troponin I Delta from Initial Value 05/25/24 16:26 N/A 03/03/24 N/A Troponin I Interp 05/25/24 16:26 See Comment 03/03/24 See Comment URINALYSIS LATEST RESULTS HISTORICAL RESULTS COLOR 05/25/24 16:26 Yellow 04/23/24 Yellow CLARITY 05/25/24 16:26 Slightly Cloudy 04/23/24 Cloudy Abnormal SPECIFIC GRAVITY 05/25/24 16:26 1.026 04/23/24 1.026 UA PH 05/25/24 16:26 6 04/23/24 7 UA GLUCOSE 05/25/24 16:26 Negative 04/23/24 Negative UA KETONES 05/25/24 16:26 Negative 04/23/24 Negative BILIRUBIN 05/25/24 16:26 Negative 04/23/24 Negative UA UROBILINOGEN 05/25/24 16:26 Negative 04/23/24 Negative UA BLOOD 05/25/24 16:26 Negative 04/23/24 Negative UA LEUKOCYTES 05/25/24 16:26 Negative 04/23/24 Negative UA NITRITE 05/25/24 16:26 Negative 04/23/24 Negative UA PROTEIN 05/25/24 16:26 Negative 04/23/24 Negative Urine Collection Method 05/25/24 16:26 Clean Catch UR 04/23/24 Clean Catch UR Diagnostic Results (05/25/2024 17:20 [employer] US Leg Imaging Venous) FINDINGS: Right common femoral, femoral and popliteal veins are normally compressible and demonstrate normally directed and appropriately phasic flow with augmentation. Normal flow is present within the right saphenofemoral junctions and deep femoral vein in the proximal thigh and the posterior tibial and peroneal veins in the right proximal calf. Acute DVT: No IMPRESSION: No right lower extremity DVT. [1] (05/25/2024 21:21 [employer] CT Chest PE Protocol) FINDINGS: VASCULAR: The study is diagnostic to the level of the subsequent pulmonary arteries. No limitations. PULMONARY ARTERIES: No evidence of acute or chronic pulmonary embolism. The pulmonary arteries are normal in size. THORACIC AORTA: Normal in size. PULMONARY VEINS: Normal drainage into the left atrium. CORONARY ARTERIES: No significant coronary atherosclerosis. SYSTEMIC VEINS: Within normal limits. HEART: The heart is normal in size. No pericardial effusion. CHEST: LUNGS/PLEURA: The pulmonary parenchyma appears within normal limits. No suspicious pulmonary nodules are visualized. The airways are patent. No pneumothorax. No pleural effusion. No focal pleural lesion. MEDIASTINUM: No mediastinal or hilar lymphadenopathy. The visualized thyroid is unremarkable. Unchanged subcentimeter thyroid nodules. AXILLA/SOFT TISSUE: No supraclavicular or axillary lymphadenopathy. Regional soft tissues are within normal limits. UPPER ABDOMEN: Cholelithiasis without findings for cholecystitis. BONES: No evidence of acute fractures or aggressive osseous lesions. Old healed sternal fracture deformity with callus formation. IMPRESSION: VASCULAR: No pulmonary embolism CHEST: 1. No acute cardiopulmonary abnormalities. 2. Cholelithiasis without findings for cholecystitis. [2] ECG [1] US Leg Imaging Venous; Dario Alvarado MD 05/25/2024 17:20 [employer] [2] CT Chest PE Protocol; Dario Alvarado MD 05/25/2024 21:21 [employer] 05/25/2024 Emergency Services Note Basic Informatio n Chief Complaint right flank pain since this am, sob and cp began 1800. pe in sept. not taking eleqious x1 month History of Present Illness Patient is a 33-year-old female with past medical history of factor V Leiden and prior pulmonary emboli (not currently compliant with Eliquis for the past 1.5 months) who is presenting to the emergency department due to chest pain and shortness of breath. Patient states that her shortness of breath has been ongoing for the past couple of days. Worse when she takes a deep breath in. She notes that this evening around 1800, she had onset of chest pain. She denies any radiation of the pain. She states that at first she thought it could be secondary to a panic attack, though when it persisted she decided to be seen. She also does note some right flank pain. She states that she has never had a kidney stone in the past and denies any ekta hematuria. She denies any dysuria. She does smoke and vape. Review of Systems Review of systems is negative except as otherwise stated in the HPI. Physical Exam Vitals and Measurements T: 36.4 C HR: 83 RR: 16 BP: 110/73 SpO2: 100% WT: 58.2 kg General: Alert and oriented, no acute distress. HEENT: Normocephalic, PERRLA, EOMI, normal conjunctiva, moist mucous membranes. Neck: Supple, no JVD. Cardiac: Regular rate and rhythm, no murmur, no edema, adequate peripheral perfusion. Pulmonary: Clear to auscultation bilaterally, symmetric expansion, normal inspiratory effort. Abdomen: Soft, non-tender, non-distended, no rebound or guarding, reproducible right flank tenderness to palpation. MSK: Normal strength, no deformity or ecchymosis. Integument: Warm, dry, no rash. Neuro: CN II-XII grossly intact, no focal deficits. Psych: Cooperative, appropriate mood and affect. Medical Decision Making Patient is a 33 year old female with history of factor V Leiden and two prior pulmonary emboli who is not currently compliant with her prescribed Eliquis (last taken 1-1.5 months ago) who is presenting to the emergency department due to chest pain and shortness of breath. Shortness of breath for the past couple of days, chest pain that worsened acutely today. Also endorses right flank pain. Has had recent dry cough, is a smoker. Denies infectious symptoms. Vital signs reviewed. Physical exam as above. Labs obtained and reviewed - UA negative for infection/blood. No leukocytosis. EKG without acute ischemic changes. Elected to obtain CT PE given patient's history and medication noncompliance, negative for acute PE. No pneumonia. Patient treated symptomatically with Toradol and Fentanyl. Suspect costochondritis/muscle strain in setting of recent cough. Strongly advised patient to take her prescribed Eliquis, new prescription sent to patient's pharmacy. Advised PCP follow up within the next week. Patient has Flexeril at home, advised PRN use. Strict return precautions discussed. Again encouraged patient to ensure Eliquis compliance. All questions answered. Patient discharged home. Assessment/Plan 1. Chest pain 2. Shortness of breath 3. Non compliance w medication regimen Orders: apixaban(Eliquis (apixaban) 5 mg oral tablet), 5 mg, Oral, bid Patient Education Apixaban Oral Tablet (APIXABAN - ORAL) SOB (Shortness of Breath) Chest Pain Follow Up With When Contact Information Return to Emergency Department Within As Needed Additional Instructions: It is highly recommended that you get back in with your primary care doctor to get back on your Eliquis. Please return to the emergency department at any time should you have any worsening of your symptoms or new concerning symptoms. Elle Villarreal Within 1 to [address] [phone] Business (1) Additional Instructions: You must contact this provider to schedule your appointment. Medication Reconciliation Changed apixaban (Eliquis (apixaban) 5 mg oral tablet)5 Milligram Oral Twice daily for 30 Days. Refills: 0. apixaban (Eliquis (apixaban) Starter Pack for Treatment of DVT and PE 5 mg oral tablet)Take 10 mg PO BID x 7 days, then take 5 mg PO BID thereafter; if refills, please fill maintenance dose NOT starter pack; Oral. Refills: 0. Unchanged diclofenac topical (diclofenac 1% topical gel)2 gram Topical Three times daily for 14 Days. Refills: 0. diclofenac topical (diclofenac 1% topical gel)2 gram Topical Four times daily for 14 Days. Refills: 0. docusate (docusate sodium 100 mg oral tablet)1 tab(s) Oral Twice daily for 30 Days. Refills: 0. Misc. Medication (Ice Pack)1 Pack Topical Every 4 hours as needed Pain for 3 Days. Refills: 0. promethazine (promethazine 12.5 mg rectal suppository)1 suppository(ies) Rectal Every 6 hours for 3 Days. Refills: 0. ED Forms Problem List/Past Medical History Ongoing Allergic rhinitis, cause unspecified Factor V Leiden mutation History of DVT in adulthood Hyperemesis MDD (major depressive disorder), recurrent episode POTS (postural orthostatic tachycardia syndrome) PTSD (post-traumatic stress disorder) Scoliosis (and kyphoscoliosis), idiopathic Historical Procedure/Surgical History D&C- 2015 lipoma removal-2013 Medication Administration Given fentaNYL, 25 mcg, Slow IV Push iohexol, 43078 mg, IV ketorolac, 15 mg, IV Push Allergies Fish Itching, Hives No Known Latex Allergy No Known Medication Allergies Social History Smoking Status Current every day smoker Alcohol Employment/School Highest education:High school Home/Environment Lives with:Children, Godmother Substance Abuse - Denies Substance Abuse Tobacco - Denies Tobacco Use Family History Cancer: Grandfather, Maternal. Depression: Mother. Valvular heart disease: Negative: Mother. Health Status Family Member(s) Lab Results HEMATOLOGY PROFILES LATEST RESULTS HISTORICAL RESULTS WBC 04/23/24 01:00 7.56 03/03/24 9.74 RBC 04/23/24 01:00 4.73 03/03/24 4.80 HGB 04/23/24 01:00 14.5 03/03/24 14.6 HCT 04/23/24 01:00 42.7 03/03/24 43.1 MCV 04/23/24 01:00 90.3 03/03/24 89.8 MCH 04/23/24 01:00 30.7 03/03/24 30.4 MCHC 04/23/24 01:00 34.0 03/03/24 33.9 RDW SD 04/23/24 01:00 38.4 03/03/24 38.6 RDW CV 04/23/24 01:00 11.5 Low 03/03/24 11.9 PLT 04/23/24 01:00 187 03/03/24 227 MPV 04/23/24 01:00 10.9 03/03/24 10.1 % Neutrophils 04/23/24 01:00 44.5 03/03/24 68.0 Absolute Granulocytes 04/23/24 01:00 3.37 03/03/24 6.62 % Immature Granulocytes 04/23/24 01:00 .30 03/03/24 .60 High Abs Immature Granulocytes 04/23/24 01:00 0.02 03/03/24 0.06 High % Lymphocytes 04/23/24 01:00 44.3 03/03/24 23.5 Abs Lymphocytes 04/23/24 01:00 3.35 High 03/03/24 2.29 % Monocytes 04/23/24 01:00 5.2 03/03/24 4.4 Abs Monocytes 04/23/24 01:00 0.39 03/03/24 0.43 % Eosinophils 04/23/24 01:00 5.0 03/03/24 3.0 Abs Eosinophils 04/23/24 01:00 0.38 03/03/24 0.29 % Basophils 04/23/24 01:00 0.7 03/03/24 0.5 Abs Basophils 04/23/24 01:00 0.05 03/03/24 0.05 % Nucleated RBCs 04/23/24 01:00 0.0 03/03/24 0.0 Absolute Nucleated RBCs 04/23/24 01:00 0.0 03/03/24 0.0 COAGULATION LATEST RESULTS HISTORICAL RESULTS PT 04/23/24 01:00 12.4 02/20/24 13.1 High INR 04/23/24 01:00 1.1 02/20/24 1.2 PTT 04/23/24 01:00 28.6 02/20/24 30.3 GENERAL CHEMISTRY LATEST RESULTS HISTORICAL RESULTS Sodium 04/23/24 01:00 141 03/03/24 139 Potassium 04/23/24 01:00 3.5 03/03/24 3.4 Low Chloride 04/23/24 01:00 106 03/03/24 105 CO2 04/23/24 01:00 25 03/03/24 22 Anion gap 04/23/24 01:00 14 03/03/24 15 Glucose Lvl 04/23/24 01:00 108 03/03/24 120 BUN 04/23/24 01:00 12 03/03/24 8 Creatinine, standardized 04/23/24 01:00 0.7 03/03/24 0.7 Estimated GFR for Adults 04/23/24 01:00 115 03/03/24 118 Estimated GFR for peds 04/23/24 01:00 Not Calculated 03/03/24 Not Calculated Calcium 04/23/24 01:00 9.3 03/03/24 9.0 Total Protein 04/23/24 01:00 7.0 03/03/24 7.3 Albumin 04/23/24 01:00 4.0 03/03/24 4.3 T Bili 04/23/24 01:00 0.45 03/03/24 0.43 Alkaline Phosphatase 04/23/24 01:00 56 03/03/24 63 AST-SGOT 04/23/24 01:00 15 03/03/24 16 ALT-SGPT 04/23/24 01:00 13 03/03/24 16 URINALYSIS LATEST RESULTS HISTORICAL RESULTS COLOR 04/23/24 01:32 Yellow 04/28/23 Yellow CLARITY 04/23/24 01:32 Cloudy Abnormal 04/28/23 Clear SPECIFIC GRAVITY 04/23/24 01:32 1.026 04/28/23 1.040 High UA PH 04/23/24 01:32 7 04/28/23 6 UA GLUCOSE 04/23/24 01:32 Negative 04/28/23 Negative UA KETONES 04/23/24 01:32 Negative 04/28/23 80 Abnormal BILIRUBIN 04/23/24 01:32 Negative 04/28/23 Negative UA UROBILINOGEN 04/23/24 01:32 Negative 04/28/23 Negative UA BLOOD 04/23/24 01:32 Negative 04/28/23 Small Abnormal UA LEUKOCYTES 04/23/24 01:32 Negative 04/28/23 Negative UA NITRITE 04/23/24 01:32 Negative 04/28/23 Negative UA PROTEIN 04/23/24 01:32 Negative 04/28/23 Negative Urine Collection Method 04/23/24 01:32 Clean Catch UR 04/28/23 Clean Catch UR Point of Care Labs LATEST RESULTS HISTORICAL RESULTS POC U hCG (Rals) 04/23/24 01:32 Negative 04/18/23 Negative Diagnostic Results (04/23/2024 02:17 [employer] CT Chest PE Protocol) IMPRESSION: VASCULAR: No acute pulmonary embolism. CHEST: 1. No acute cardiopulmonary abnormalities.. 2. Cholelithiasis without secondary signs of acute cholecystitis. 3. Grossly unchanged subcentimeter hypodense left thyroid nodule. [1] ECG Sinus rhythm with sinus arrhythmia, rate of 88, normal axis, [place], QRS and QTc intervals normal, nonspecific ST/T wave changes, by my read. [1] CT Chest PE Protocol; Milton BOWIE (Gomez)(CT)Brett 04/23/2024 02:17 [employer] I evaluated the patient and discussed the management with the resident physician. I agree with their findings, treatment and disposition. Zhao Vigil MD Emergency Medicine Attending 04/23/2024 Emergency Services Note History Of Prese nt Illness Patient received during handoff from previous physician. For full history of present illness, please see their note from earlier. In short, this is a 33-year-old female who presents for evaluation of abdominal pain. Review of Systems Patient received during handoff from previous physician. For full review of systems, please see their note from earlier. Reevaluation/Repeat Exam Vitals and Measurements HR: 84 RR: 16 BP: 101/75 SpO2: 100% Patient received during handoff from previous physician. For full physical exam, please see their note from earlier. Lab Results HEMATOLOGY PROFILES LATEST RESULTS HISTORICAL RESULTS WBC 03/03/24 18:45 9.74 02/20/24 8.13 RBC 03/03/24 18:45 4.80 02/20/24 4.81 HGB 03/03/24 18:45 14.6 02/20/24 14.4 HCT 03/03/24 18:45 43.1 02/20/24 42.3 MCV 03/03/24 18:45 89.8 02/20/24 87.9 MCH 03/03/24 18:45 30.4 02/20/24 29.9 MCHC 03/03/24 18:45 33.9 02/20/24 34.0 RDW SD 03/03/24 18:45 38.6 02/20/24 38.7 RDW CV 03/03/24 18:45 11.9 02/20/24 12.0 PLT 03/03/24 18:45 227 02/20/24 217 MPV 03/03/24 18:45 10.1 02/20/24 10.6 % Neutrophils 03/03/24 18:45 68.0 02/20/24 59.7 Absolute Granulocytes 03/03/24 18:45 6.62 02/20/24 4.86 % Immature Granulocytes 03/03/24 18:45 .60 High 02/20/24 .40 Abs Immature Granulocytes 03/03/24 18:45 0.06 High 02/20/24 0.03 % Lymphocytes 03/03/24 18:45 23.5 02/20/24 27.8 Abs Lymphocytes 03/03/24 18:45 2.29 02/20/24 2.26 % Monocytes 03/03/24 18:45 4.4 02/20/24 6.3 Abs Monocytes 03/03/24 18:45 0.43 02/20/24 0.51 % Eosinophils 03/03/24 18:45 3.0 02/20/24 5.2 Abs Eosinophils 03/03/24 18:45 0.29 02/20/24 0.42 % Basophils 03/03/24 18:45 0.5 02/20/24 0.6 Abs Basophils 03/03/24 18:45 0.05 02/20/24 0.05 % Nucleated RBCs 03/03/24 18:45 0.0 02/20/24 0.0 Absolute Nucleated RBCs 03/03/24 18:45 0.0 02/20/24 0.0 GENERAL CHEMISTRY LATEST RESULTS HISTORICAL RESULTS Sodium 03/03/24 18:45 139 02/20/24 138 Potassium 03/03/24 18:45 3.4 Low 02/20/24 3.7 Chloride 03/03/24 18:45 105 02/20/24 106 CO2 03/03/24 18:45 22 02/20/24 22 Anion gap 03/03/24 18:45 15 02/20/24 14 Glucose Lvl 03/03/24 18:45 120 02/20/24 87 BUN 03/03/24 18:45 8 02/20/24 13 Creatinine, standardized 03/03/24 18:45 0.7 02/20/24 0.7 Estimated GFR for Adults 03/03/24 18:45 118 02/20/24 118 Estimated GFR for peds 03/03/24 18:45 Not Calculated 02/20/24 Not calculated Calcium 03/03/24 18:45 9.0 02/20/24 8.6 Total Protein 03/03/24 18:45 7.3 02/20/24 7.1 Albumin 03/03/24 18:45 4.3 02/20/24 4.2 T Bili 03/03/24 18:45 0.43 02/20/24 0.70 Alkaline Phosphatase 03/03/24 18:45 63 02/20/24 64 AST-SGOT 03/03/24 18:45 16 02/20/24 16 ALT-SGPT 03/03/24 18:45 16 02/20/24 13 Cardiac Markers LATEST RESULTS HISTORICAL RESULTS Troponin I Value 03/03/24 18:45 <3 02/20/24 <3 Troponin I Delta from Initial Value 03/03/24 18:45 N/A 11/24/24 0 Troponin I Interp 03/03/24 18:45 See Comment 02/20/24 See Comment Diagnostic Results CT Head or Brain 03/03/2024 20:32 [employer] SAL[employer]WORK ENGINEER XR Chest Portable 03/03/2024 20:51 [employer]WORK ENGINEER ECG Medical Decision Making Patient received from previous provider, please see their note for full details. In short this is a 33-year-old female who presents for evaluation of abdominal pain. Patient was treated with Valium and haloperidol for symptoms which moderately improved symptoms. Upon re-evaluation, patient feeling moderately better and feels ready to go home. Return precautions discussed. All questions answered to patient satisfaction Assessment/Plan 1. Back pain Patient Education Back Pain Follow Up With When Contact Information Follow up with primary care provider Within As Needed Additional Instructions: Please follow up with your primary care provider within 5-7 days for evaluation if your symptoms do not improve. You must contact your provider to schedule this appointment. Return to Emergency Department Within As Needed Additional Instructions: Please return to the emergency department if your symptoms worsen or you develop new symptoms concerning to you. Medication Administration Given Valium Injection, 2 mg, Slow IV Push Haldol Inj (Imm Rel), 5 mg, Slow IV Push Medication Reconciliation Unchanged apixaban (Eliquis (apixaban) Starter Pack for Treatment of DVT and PE 5 mg oral tablet)Take 10 mg PO BID x 7 days, then take 5 mg PO BID thereafter; if refills, please fill maintenance dose NOT starter pack; Oral. Refills: 0. diclofenac topical (diclofenac 1% topical gel)2 gram Topical Three times daily for 14 Days. Refills: 0. diclofenac topical (diclofenac 1% topical gel)2 gram Topical Four times daily for 14 Days. Refills: 0. docusate (docusate sodium 100 mg oral tablet)1 tab(s) Oral Twice daily for 30 Days. Refills: 0. Misc. Medication (Ice Pack)1 Pack Topical Every 4 hours as needed Pain for 3 Days. Refills: 0. promethazine (promethazine 12.5 mg rectal suppository)1 suppository(ies) Rectal Every 6 hours for 3 Days. Refills: 0. Attestation by Christel Mijares MD on March 10, 2024 02:44 I personally saw and evaluated the patient. I discussed the management with the resident and reviewed the resident&rsquo;s note. I agree with the documented findings and plan of care. Procedures: _ Critical Care: _ 03/03/2024 Emergency Services Note Basic Informatio n Chief Complaint History of Present Illness 33yo F presenting for several acute concerns w a pmhx of anxiety. Pt reports she was at home watching [employer]ik[employer]oks when she suddenly had vision loss described as only being able to see fuzzy outlines of objects and light vs dark. Also had sudden weakness w limited ability to walk. Feels like she has a 'weighted blanket' on her entire body. Symptoms are the same on the R and L side of her body. Denies sensation changes, fevers, rigors, bowel changes, rash, headache, vomiting, photophobia. Symptoms not worsened by laying down flat. Review of Systems Physical Exam Vitals and Measurements General: moderate acute distress, tearful, panicked HENT: Normal conjunctiva, EOMI, oral mucosa is moist, PERRLA Neck: Supple, Full range of motion Respiratory: Lungs are clear to auscultation bilaterally, Respirations are non-labored, Symmetrical chest wall expansion. Cardiovascular: Regular rate and rhythm, No murmur, Normal peripheral perfusion, No peripheral edema or swelling, no vascular cordage in calves Gastrointestinal: Soft, Non-tender, Non-distended, Normal bowel sounds Musculoskeletal: intermittent improvement and worsening in range of motion of all extremities, intermittent improvement and worsening of strength. When pt is asked to do something, she is unable. Spontaneously able to preform similar actions later (s.a. hand tripe washer, getting out of wheel chair, able to control dropping arm from hitting her face) Neurologic: Alert, Moves all extremities spontaneously. Sensation to light touch intact in all extremities. CN II-XII intact (XI nerve was touch and go, pt had full strength w proper muscle contraction for a second and then would let arms go limp during exam) Skin: no visible lesions or rash Psychiatric: Cooperative, interactive, appropriate for age Procedure Medical Decision Making I reviewed triage and nursing records from this visit. I reviewed prior medical records in the EMR I reviewed all results of laboratory analysis, diagnostic studies, and imaging studies ordered and completed during this encounter. I independently interpreted results of all laboratory tests, and further imagining and diagnostic testing completed during this encounter as documented in the MDM paragraph. Additional history obtained from: NA Chronic medical problems contributing to current encounter or at risk of deteriorating as a result of the patient's current presenting complaint addressed during this encounter: history of PE x 2, DVT, cholelithiasis, factor V Leiden, sternal fracture, MDD, POTS, PTSD Differential diagnosis including but not limited to: conversion disorder, somatic symptom disorder, panic attack, TIA/CVA, sepsis, inflammatory disorder --> Sxs do not stike me as a CVA given bilateral weakness, lack of sensory involvement, vision changes that fully resolved w ongoing weakness. CT head non-concerning. CMP, CBC, trop non-concerning. Pt unable to do MSK eval during exam but later able to get out of wheelchair on own, move arms to shake hand w proper tripe washer, control the fall of her arm to not let it hit her face. Given IV diazepam wo full control of panic, Haldol ordered. Symptoms improved significantly, pt handed off to dc once she got new clothes. Consultants: None_ _ Reexamination/Reevaluation Assessment/Plan Orders: haloperidol(Haldol Inj (Imm Rel)), 5 mg= 1 mL, Slow IV Push, Once 1. Acute weakness - pmhx of anxiety, PTSD - CT head non-concerning - weakness waxing/waning throughout ED stay - IV diazepam for anxiety did not control anxiety - IV Haldol ordered - symptoms improved significantly Patient Education Follow Up Medication Reconciliation Unchanged apixaban (Eliquis (apixaban) Starter Pack for Treatment of DVT and PE 5 mg oral tablet)Take 10 mg PO BID x 7 days, then take 5 mg PO BID thereafter; if refills, please fill maintenance dose NOT starter pack; Oral. Refills: 0. diclofenac topical (diclofenac 1% topical gel)2 gram Topical Three times daily for 14 Days. Refills: 0. diclofenac topical (diclofenac 1% topical gel)2 gram Topical Four times daily for 14 Days. Refills: 0. docusate (docusate sodium 100 mg oral tablet)1 tab(s) Oral Twice daily for 30 Days. Refills: 0. Misc. Medication (Ice Pack)1 Pack Topical Every 4 hours as needed Pain for 3 Days. Refills: 0. promethazine (promethazine 12.5 mg rectal suppository)1 suppository(ies) Rectal Every 6 hours for 3 Days. Refills: 0. ED Forms Problem List/Past Medical History Ongoing Allergic rhinitis, cause unspecified Factor V Leiden mutation History of DVT in adulthood Hyperemesis MDD (major depressive disorder), recurrent episode POTS (postural orthostatic tachycardia syndrome) PTSD (post-traumatic stress disorder) Scoliosis (and kyphoscoliosis), idiopathic Historical Procedure/Surgical History D&C- 2015 lipoma removal-2013 Medication Administration Given Valium Injection, 2 mg, Slow IV Push Haldol Inj (Imm Rel), 5 mg, Slow IV Push Allergies Fish Itching, Hives No Known Latex Allergy No Known Medication Allergies Social History Smoking Status Current every day smoker Alcohol Employment/School Highest education:High school Home/Environment Lives with:Children, Godmother Substance Abuse - Denies Substance Abuse Tobacco - Denies Tobacco Use Family History Cancer: Grandfather, Maternal. Depression: Mother. Valvular heart disease: Negative: Mother. Health Status Family Member(s) Lab Results HEMATOLOGY PROFILES LATEST RESULTS HISTORICAL RESULTS WBC 03/03/24 18:45 9.74 02/20/24 8.13 RBC 03/03/24 18:45 4.80 02/20/24 4.81 HGB 03/03/24 18:45 14.6 02/20/24 14.4 HCT 03/03/24 18:45 43.1 02/20/24 42.3 MCV 03/03/24 18:45 89.8 02/20/24 87.9 MCH 03/03/24 18:45 30.4 02/20/24 29.9 MCHC 03/03/24 18:45 33.9 02/20/24 34.0 RDW SD 03/03/24 18:45 38.6 02/20/24 38.7 RDW CV 03/03/24 18:45 11.9 02/20/24 12.0 PLT 03/03/24 18:45 227 02/20/24 217 MPV 03/03/24 18:45 10.1 02/20/24 10.6 % Neutrophils 03/03/24 18:45 68.0 02/20/24 59.7 Absolute Granulocytes 03/03/24 18:45 6.62 02/20/24 4.86 % Immature Granulocytes 03/03/24 18:45 .60 High 02/20/24 .40 Abs Immature Granulocytes 03/03/24 18:45 0.06 High 02/20/24 0.03 % Lymphocytes 03/03/24 18:45 23.5 02/20/24 27.8 Abs Lymphocytes 03/03/24 18:45 2.29 02/20/24 2.26 % Monocytes 03/03/24 18:45 4.4 02/20/24 6.3 Abs Monocytes 03/03/24 18:45 0.43 02/20/24 0.51 % Eosinophils 03/03/24 18:45 3.0 02/20/24 5.2 Abs Eosinophils 03/03/24 18:45 0.29 02/20/24 0.42 % Basophils 03/03/24 18:45 0.5 02/20/24 0.6 Abs Basophils 03/03/24 18:45 0.05 02/20/24 0.05 % Nucleated RBCs 03/03/24 18:45 0.0 02/20/24 0.0 Absolute Nucleated RBCs 03/03/24 18:45 0.0 02/20/24 0.0 GENERAL CHEMISTRY LATEST RESULTS HISTORICAL RESULTS Sodium 03/03/24 18:45 139 02/20/24 138 Potassium 03/03/24 18:45 3.4 Low 02/20/24 3.7 Chloride 03/03/24 18:45 105 02/20/24 106 CO2 03/03/24 18:45 22 02/20/24 22 Anion gap 03/03/24 18:45 15 02/20/24 14 Glucose Lvl 03/03/24 18:45 120 02/20/24 87 BUN 03/03/24 18:45 8 02/20/24 13 Creatinine, standardized 03/03/24 18:45 0.7 02/20/24 0.7 Estimated GFR for Adults 03/03/24 18:45 118 02/20/24 118 Estimated GFR for peds 03/03/24 18:45 Not Calculated 02/20/24 Not calculated Calcium 03/03/24 18:45 9.0 02/20/24 8.6 Total Protein 03/03/24 18:45 7.3 02/20/24 7.1 Albumin 03/03/24 18:45 4.3 02/20/24 4.2 T Bili 03/03/24 18:45 0.43 02/20/24 0.70 Alkaline Phosphatase 03/03/24 18:45 63 11/24/24 64 AST-SGOT 03/03/24 18:45 16 02/20/24 16 ALT-SGPT 03/03/24 18:45 16 02/20/24 13 Cardiac Markers LATEST RESULTS HISTORICAL RESULTS Troponin I Value 03/03/24 18:45 <3 02/20/24 <3 Troponin I Delta from Initial Value 03/03/24 18:45 N/A 02/20/24 0 Troponin I Interp 03/03/24 18:45 See Comment 02/20/24 See Comment Diagnostic Results CT Head or Brain 03/03/2024 20:32 [employer] ENGINEER XR Chest Portable 03/03/2024 20:51 [employer] ENGINEER ECG Attestation by Dyllan KESSLER, Christel Shaffer on March 10, 2024 02:44 I personally saw and evaluated the patient. I discussed the management with the resident and reviewed the resident&rsquo;s note. I agree with the documented findings and plan of care. Procedures: _ Critical Care: _ 03/03/2024 Emergency Services Note History Of Prese nt Illness Patient received during handoff from previous physician. For full history of present illness, please see their note from earlier. In short, this is a 33F presenting to the ED for chest pain and hemoptysis. Hx of PE. Review of Systems N/A Reevaluation/Repeat Exam Vitals and Measurements T: 36.7 C HR: 69 RR: 20 BP: 107/79 SpO2: 100% WT: 59 kg Patient received during handoff from previous physician. For full physical exam, please see their note from earlier. General: In no acute distress Respiratory: Nonlabored respirations on room air Head: Atraumatic, mildly erythematous oropharynx Lab Results HEMATOLOGY PROFILES LATEST RESULTS HISTORICAL RESULTS WBC 02/20/24 20:00 8.13 12/16/23 6.31 RBC 02/20/24 20:00 4.81 12/16/23 4.96 HGB 02/20/24 20:00 14.4 12/16/23 15.0 HCT 02/20/24 20:00 42.3 12/16/23 44.1 MCV 02/20/24 20:00 87.9 12/16/23 88.9 MCH 02/20/24 20:00 29.9 12/16/23 30.2 MCHC 02/20/24 20:00 34.0 12/16/23 34.0 RDW SD 02/20/24 20:00 38.7 12/16/23 39.8 RDW CV 02/20/24 20:00 12.0 12/16/23 12.1 PLT 02/20/24 20:00 217 12/16/23 189 MPV 02/20/24 20:00 10.6 12/16/23 10.5 % Neutrophils 02/20/24 20:00 59.7 12/16/23 50.2 Absolute Granulocytes 02/20/24 20:00 4.86 12/16/23 3.17 % Immature Granulocytes 02/20/24 20:00 .40 12/16/23 .20 Abs Immature Granulocytes 02/20/24 20:00 0.03 12/16/23 0.01 % Lymphocytes 02/20/24 20:00 27.8 12/16/23 39.5 Abs Lymphocytes 02/20/24 20:00 2.26 12/16/23 2.49 % Monocytes 02/20/24 20:00 6.3 12/16/23 5.5 Abs Monocytes 02/20/24 20:00 0.51 12/16/23 0.35 % Eosinophils 02/20/24 20:00 5.2 12/16/23 3.5 Abs Eosinophils 02/20/24 20:00 0.42 12/16/23 0.22 % Basophils 02/20/24 20:00 0.6 12/16/23 1.1 Abs Basophils 02/20/24 20:00 0.05 12/16/23 0.07 % Nucleated RBCs 02/20/24 20:00 0.0 12/16/23 0.0 Absolute Nucleated RBCs 02/20/24 20:00 0.0 12/16/23 0.0 COAGULATION LATEST RESULTS HISTORICAL RESULTS PT 02/20/24 20:45 13.1 High 12/16/23 17.2 High INR 02/20/24 20:45 1.2 12/16/23 1.5 High PTT 02/20/24 20:45 30.3 12/16/23 30.0 GENERAL CHEMISTRY LATEST RESULTS HISTORICAL RESULTS Sodium 02/20/24 20:00 138 12/16/23 137 Potassium 02/20/24 20:00 3.7 12/16/23 4.1 Chloride 02/20/24 20:00 106 12/16/23 108 High CO2 02/20/24 20:00 22 12/16/23 22 Anion gap 02/20/24 20:00 14 12/16/23 12 Glucose Lvl 02/20/24 20:00 87 12/16/23 81 BUN 02/20/24 20:00 13 12/16/23 11 Creatinine, standardized 02/20/24 20:00 0.7 12/16/23 0.7 Estimated GFR for Adults 02/20/24 20:00 118 12/16/23 118 Estimated GFR for peds 02/20/24 20:00 Not calculated 12/16/23 Not calculated Calcium 02/20/24 20:00 8.6 12/16/23 9.8 Total Protein 02/20/24 20:00 7.1 12/16/23 7.3 Albumin 02/20/24 20:00 4.2 12/16/23 4.3 T Bili 02/20/24 20:00 0.70 12/16/23 0.48 Alkaline Phosphatase 02/20/24 20:00 64 12/16/23 46 AST-SGOT 02/20/24 20:00 16 12/16/23 36 High ALT-SGPT 02/20/24 20:00 13 12/16/23 57 High Cardiac Markers LATEST RESULTS HISTORICAL RESULTS NT-ProBNP 02/20/24 20:45 <35 12/16/23 <35 Troponin I Value 02/20/24 20:45 <3 12/16/23 <3 Troponin I Delta from Initial Value 02/20/24 20:45 0 12/16/23 N/A Troponin I Interp 02/20/24 20:45 See Comment 12/16/23 See Comment Blood Bank Results LATEST RESULTS ABORh Gel 02/20/24 21:25 B Positive History Check 02/20/24 21:25 History Found Diagnostic Results ECG (02/20/2024 22:35 [employer] [address] CT Chest PE Protocol) FINDINGS: VASCULAR: The study is diagnostic to the level of the subsegmental pulmonary arteries. PULMONARY ARTERIES: No evidence of acute or chronic pulmonary embolism. The pulmonary arteries are normal in size. THORACIC AORTA: Normal in size. PULMONARY VEINS: Normal drainage into the left atrium. CORONARY ARTERIES: No significant coronary atherosclerosis. SYSTEMIC VEINS: Within normal limits. HEART: The heart is normal in size. No pericardial effusion. CHEST: LUNGS/PLEURA: Bilateral dependent subsegmental atelectasis. No suspicious pulmonary nodules are visualized. The airways are patent. No pneumothorax. No pleural effusion. No focal pleural lesion. MEDIASTINUM: No mediastinal or hilar lymphadenopathy. Similar-appearing left thyroid hypodense nodule. Unchanged from prior examination. The visualized esophagus is unremarkable. AXILLA/SOFT TISSUE: No supraclavicular or axillary lymphadenopathy. Regional soft tissues are within normal limits. UPPER ABDOMEN: Cholelithiasis without cholecystitis. BONES: No evidence of acute fractures or aggressive osseous lesions. IMPRESSION: VASCULAR: No evidence of pulmonary embolus. CHEST: * No acute cardiopulmonary findings. * Cholelithiasis without cholecystitis. [1] Medical Decision Making Patient handed off to me by previous provider, see their note for complete details and work-up. Pending at the time of hand-off: CT PE protocol, OOVID/influenza swab Results: Negative for PE. Incidental finding of cholelithiasis. Follow up contact information for general surgery provided to patient. Discussed all findings with patient. COVID/influenza negative. Dispo: Patient discharged in stable condition. Discussed return precautions with patient at bedside. Encouraged follow up with PCP. Patient agreeable with plan and verbalized understanding. Assessment/Plan 1. Chest pain 2. SOB (shortness of breath) 3. Cholelithiasis Patient Education Chest Pain SOB (Shortness of Breath) Gallstones: General Info Follow Up With When Contact Information Surgery - Acute Care Surgery Clinic Within As Needed [facility] [place] [place] [address]- Business (1) Additional Instructions: Return to Emergency Department Within As Needed Additional Instructions: Phil KESSLER, Elle Steel, Referring Physicians Within As Needed [address] [id number] Additional Instructions: Medication Administration Given fentaNYL, 25 mcg, Slow IV Push morphine INJ, 4 mg, Slow IV Push Medication Reconciliation Unchanged apixaban (Eliquis (apixaban) Starter Pack for Treatment of DVT and PE 5 mg oral tablet)Take 10 mg PO BID x 7 days, then take 5 mg PO BID thereafter; if refills, please fill maintenance dose NOT starter pack; Oral. Refills: 0. diclofenac topical (diclofenac 1% topical gel)2 gram Topical Three times daily for 14 Days. Refills: 0. diclofenac topical (diclofenac 1% topical gel)2 gram Topical Four times daily for 14 Days. Refills: 0. docusate (docusate sodium 100 mg oral tablet)1 tab(s) Oral Twice daily for 30 Days. Refills: 0. Misc. Medication (Ice Pack)1 Pack Topical Every 4 hours as needed Pain for 3 Days. Refills: 0. promethazine (promethazine 12.5 mg rectal suppository)1 suppository(ies) Rectal Every 6 hours for 3 Days. Refills: 0. [1] CT Chest PE Protocol; Shruthi KESSLER, Tommy Heath 02/20/2024 22:35 [employer] Attestation by Lyric Enriquez DO on February 21, 2024 02:39 I personally saw and evaluated the patient. I discussed the management with the resident and reviewed the resident&rsquo;s note. I agree with the documented findings and plan of care. Procedures: No procedures were performed during the visit. Critical Care: No critical care was needed for this visit. 02/20/2024 Emergency Services Note Basic Informatio n Chief Complaint Chest pain s/p PE in November,, also dizzy, hemoptysis 2 weeks ago x1 History of Present Illness PT is a 33 yo female with a history of PE x 2, DVT, cholelithiasis, factor V Leiden, sternal fracture, MDD, POTS, PTSD. They present today for chest pain and shortness of breath that started on . Patient states that pain is central and radiates through to her right scapula, pain is worse with deep inspiration. Patient states that this feels the same as her prior PEs. Patient endorses that she was off her Eliquis for approximately 3 weeks secondary to not having an active prescription, this has been remedied with PCPs office, patient has been back on Eliquis for approximately 2 weeks. Patient endorses 1 bout of hemoptysis, minimal, several days ago. Patient also states that she had a cold several days prior, minimal cough without sputum production, no fevers, chills, nausea, vomiting at that time. They deny associated sputum production, nausea, vomiting, hematemesis, diarrhea, abd pain, fever, chills, lethargy, dysuria Review of Systems Negative except as noted in HPI Physical Exam Vitals and Measurements T: 36.7 C HR: 75 RR: 11 BP: 110/84 SpO2: 100% WT: 59 kg General: mild distress, well appearing, alert and oriented. Head: normocephalic, atraumatic. Eyes: PERRL, EOMI, non-icteric. Ears: atraumatic, no discharge. Nose: atraumatic, no epistaxis or drainage. Mouth: mucosa moist, no oropharyngeal erythema or exudate, no oral lacerations, uvula midline. No active bleeding noted in oropharynx. Throat: trachea midline, no LAD, No JVD noted. Neck: supple, motion intact w/o pain, no midline tenderness. Chest: symmetric chest rise, nontender to palp. Cardiovasculature: RRR with no M/R/G, cap refill < 2 sec, extremities warm and well perfused. Respiratory: CTAB, no increased WOB. Active, minimal hemoptysis. Abdomen: flat, soft, nontender to palpation without guarding or rebound. MSK: all limbs moving freely w/o pain or restriction, no swelling or obvious deformity. Normal pain to right calf with palpation and passive dorsiflexion, no palpable cords, no posterior knee pain. Neuro: following commands, no focal deficits. Psych: cooperative, appropriate mood and affect. Procedure Medical Decision Making Acute problems addressed: Chest pain, hemoptysis Chronic Problems noted/addressed: PE x 2, DVT, cholelithiasis, factor V Leiden, sternal fracture, MDD, POTS, PTSD Differentials include but not limited to: PE, WI, pneumonia, viral URI/LRI, mucosal bleeding, Independent interpretation by this provider: Labs, EKG Other sources: Prior admission/discharge note Notable discussions: Discussed all test results, follow-up planning, return precautions, medication management, etc. Specialists consulted: None Summary: Patient is a 33-year-old woman presenting for chest pain, shortness of breath that has been persistent for approximately 4 days, point tenderness over central/right chest radiating to right scapula, patient states the pain is worse with deep inspiration. Patient endorses that this feels like her prior PE, that she had been off her anticoagulant for approximately 3 weeks, (approximately 5 weeks ago). Patient has been back on her Eliquis for approximately 2 weeks. On exam patient is having active, minimal hemoptysis. No active signs of bleeding noted in oropharynx. Exam is otherwise unremarkable. Labs show no leukocytosis, no anemia, no significant electrolyte derangements. PT is elevated as would be expected, INR is 1.2. Cardiac labs show BNP and troponin are not elevated, delta of 0. EKG shows no ST elevation, T wave inversion, no S1Q3T3, or other signs of right heart strain. Given patient's history of PEs, bleeding disorder, noncompliance with Eliquis for approximately 3 weeks, and active hemoptysis acute is reasonable to work patient up for PE. CT PE is ordered and is pending at this time. ​ Disposition: Handed off to oncoming physician for further workup and disposition Reexamination/Reevaluation Assessment/Plan 1. Chest pain 2. SOB (shortness of breath) 3. Cholelithiasis Orders: CT Chest PE Protocol, chest pain, hemoptsis, h/o PE, 02/20/24 20:37:00 [employer] ENGINEER, Stat, Orig Ref Doc Eliazar Zuñiga Influenza+SARS-CoV-2 (COVID-19) Rapid Antigen POC, Stat collect, Nasal Swab, Nurse Collect, Start date 02/20/24 23:20:00 [employer]WORK ENG[employer]ER, Stop date 02/20/24 23:20:00 [employer]WORK ENGINEER, Eliazar Zuñiga Patient Education Chest Pain SOB (Shortness of Breath) Gallstones: General Info Follow Up With When Contact Information Surgery - [facility] Within As Needed [facility] [place] [address]- Business (1) Additional Instructions: Return to Emergency Department Within As Needed Additional Instructions: Phil KESSLER, Elle Steel, Referring Physicians Within As Needed [address] [address] Additional Instructions: Medication Reconciliation Unchanged apixaban (Eliquis (apixaban) Starter Pack for Treatment of DVT and PE 5 mg oral tablet)Take 10 mg PO BID x 7 days, then take 5 mg PO BID thereafter; if refills, please fill maintenance dose NOT starter pack; Oral. Refills: 0. diclofenac topical (diclofenac 1% topical gel)2 gram Topical Three times daily for 14 Days. Refills: 0. diclofenac topical (diclofenac 1% topical gel)2 gram Topical Four times daily for 14 Days. Refills: 0. docusate (docusate sodium 100 mg oral tablet)1 tab(s) Oral Twice daily for 30 Days. Refills: 0. Misc. Medication (Ice Pack)1 Pack Topical Every 4 hours as needed Pain for 3 Days. Refills: 0. promethazine (promethazine 12.5 mg rectal suppository)1 suppository(ies) Rectal Every 6 hours for 3 Days. Refills: 0. ED Forms Problem List/Past Medical History Ongoing Allergic rhinitis, cause unspecified Factor V Leiden mutation History of DVT in adulthood Hyperemesis MDD (major depressive disorder), recurrent episode POTS (postural orthostatic tachycardia syndrome) PTSD (post-traumatic stress disorder) Scoliosis (and kyphoscoliosis), idiopathic Historical Procedure/Surgical History D&C- 2015 lipoma removal-2013 Medication Administration Given fentaNYL, 25 mcg, Slow IV Push iohexol, 85946 mg, IV morphine INJ, 4 mg, Slow IV Push Allergies Fish Itching, Hives No Known Latex Allergy No Known Medication Allergies Social History Smoking Status Current every day smoker Alcohol Employment/School Highest education:High school Home/Environment Lives with:Children, Godmother Substance Abuse - Denies Substance Abuse Tobacco - Denies Tobacco Use Family History Cancer: Grandfather, Maternal. Depression: Mother. Valvular heart disease: Negative: Mother. Health Status Family Member(s) Lab Results HEMATOLOGY PROFILES LATEST RESULTS HISTORICAL RESULTS WBC 02/20/24 20:00 8.13 12/16/23 6.31 RBC 02/20/24 20:00 4.81 12/16/23 4.96 HGB 02/20/24 20:00 14.4 12/16/23 15.0 HCT 02/20/24 20:00 42.3 12/16/23 44.1 MCV 02/20/24 20:00 87.9 12/16/23 88.9 MCH 02/20/24 20:00 29.9 12/16/23 30.2 MCHC 02/20/24 20:00 34.0 12/16/23 34.0 RDW SD 02/20/24 20:00 38.7 12/16/23 39.8 RDW CV 02/20/24 20:00 12.0 12/16/23 12.1 PLT 02/20/24 20:00 217 12/16/23 189 MPV 02/20/24 20:00 10.6 12/16/23 10.5 % Neutrophils 02/20/24 20:00 59.7 12/16/23 50.2 Absolute Granulocytes 02/20/24 20:00 4.86 12/16/23 3.17 % Immature Granulocytes 02/20/24 20:00 .40 12/16/23 .20 Abs Immature Granulocytes 02/20/24 20:00 0.03 12/16/23 0.01 % Lymphocytes 02/20/24 20:00 27.8 12/16/23 39.5 Abs Lymphocytes 02/20/24 20:00 2.26 12/16/23 2.49 % Monocytes 02/20/24 20:00 6.3 12/16/23 5.5 Abs Monocytes 02/20/24 20:00 0.51 12/16/23 0.35 % Eosinophils 02/20/24 20:00 5.2 12/16/23 3.5 Abs Eosinophils 02/20/24 20:00 0.42 12/16/23 0.22 % Basophils 02/20/24 20:00 0.6 12/16/23 1.1 Abs Basophils 02/20/24 20:00 0.05 12/16/23 0.07 % Nucleated RBCs 02/20/24 20:00 0.0 12/16/23 0.0 Absolute Nucleated RBCs 02/20/24 20:00 0.0 12/16/23 0.0 COAGULATION LATEST RESULTS HISTORICAL RESULTS PT 02/20/24 20:45 13.1 High 12/16/23 17.2 High INR 02/20/24 20:45 1.2 12/16/23 1.5 High PTT 02/20/24 20:45 30.3 12/16/23 30.0 GENERAL CHEMISTRY LATEST RESULTS HISTORICAL RESULTS Sodium 02/20/24 20:00 138 12/16/23 137 Potassium 02/20/24 20:00 3.7 12/16/23 4.1 Chloride 02/20/24 20:00 106 12/16/23 108 High CO2 02/20/24 20:00 22 12/16/23 22 Anion gap 02/20/24 20:00 14 12/16/23 12 Glucose Lvl 02/20/24 20:00 87 12/16/23 81 BUN 02/20/24 20:00 13 12/16/23 11 Creatinine, standardized 02/20/24 20:00 0.7 12/16/23 0.7 Estimated GFR for Adults 02/20/24 20:00 118 12/16/23 118 Estimated GFR for peds 02/20/24 20:00 Not calculated 12/16/23 Not calculated Calcium 02/20/24 20:00 8.6 12/16/23 9.8 Total Protein 02/20/24 20:00 7.1 12/16/23 7.3 Albumin 02/20/24 20:00 4.2 12/16/23 4.3 T Bili 02/20/24 20:00 0.70 12/16/23 0.48 Alkaline Phosphatase 02/20/24 20:00 64 12/16/23 46 AST-SGOT 02/20/24 20:00 16 12/16/23 36 High ALT-SGPT 02/20/24 20:00 13 12/16/23 57 High Cardiac Markers LATEST RESULTS HISTORICAL RESULTS NT-ProBNP 02/20/24 20:45 <35 12/16/23 <35 Troponin I Value 02/20/24 20:45 <3 12/16/23 <3 Troponin I Delta from Initial Value 02/20/24 20:45 0 12/16/23 N/A Troponin I Interp 02/20/24 20:45 See Comment 12/16/23 See Comment Blood Bank Results LATEST RESULTS ABORh Gel 02/20/24 21:25 B Positive History Check 02/20/24 21:25 History Found Antibody Screen (Gel) 02/20/24 21:25 Negative BB ID 02/20/24 21:25 [id number] Diagnostic Results (02/20/2024 22:35 [employer] [address] Chest PE Protocol) IMPRESSION: VASCULAR: No evidence of pulmonary embolus. CHEST: * No acute cardiopulmonary findings. * Cholelithiasis without cholecystitis. [1] ECG Normal sinus rhythm, no ST elevation, no reciprocal changes, no inverted T waves, no signs of arrhythmia, intervals are all within normal limits. [1] CT Chest PE Protocol; Robe Cordoba 02/20/2024 22:35 [employer] Attestation by Lyric Enriquez DO on February 20, 2024 21:31 I personally saw and evaluated the patient. I discussed the management with the resident and reviewed the resident&rsquo;s note. I agree with the documented findings and plan of care. This is a 33-year-old female with history of recurrent pulmonary embolism and factor V Leiden Presenting for pleuritic chest pain and small-volume hemoptysis. The patient was off of her Eliquis for some time and got back on it 2 weeks ago; apparently she ran out of her prescription and her PCP would not fill it. Had URI symptoms last week but no cough with it. Today started coughing up a small amount of blood and having pleuritic chest pain which felt just like her prior PE ECG performed at 1958 hrs reveals NSR at 73 bpm, normal axis, normal intervals, no ST elevation or depression General: Awake, alert, no acute distress Head: Normocephalic, atraumatic ENT: PERRLA, EOM intact, non-icteric without injection. Oral mucosa moist Neck: supple with full range of motion. No midline tenderness. Trachea midline. No JVD Cardiovascular: RRR, no murmurs, rubs, or gallops Respiratory: No increased work of breathing. No use of accessory muscles. Symmetrical chest wall expansion. No rhonchi, rales, or wheezes Abdomen: Soft, nontender, nondistended MSK: grossly normal ROM without swelling or deformity. No chest wall tenderness Extremities: No cyanosis, no edema. 2+ pulses. No calf tenderness Neuro: CN II-XII grossly intact. No focal deficits appreciated Psych: Calm, appropriate Skin: Warm, dry, no skin tenting, cap refill < 2 seconds Clinical picture suspicious for acute under embolism, recurrent, in the setting of factor V Leiden. Differential considered includes bronchitis (low suspicion for this given no adventitious lungs sounds and hasn&rsquo;t been coughing until today). No TB exposures we know of. Will obtain CTA chest 0000 hrs update: CTA negative. Suspect low volume hemoptysis is secondary to early bronchitis. Clinically stable for discharge Procedures: No procedures were performed during the visit. Critical Care: No critical care was needed for this visit. 02/20/2024 Emergency Services Note Basic Informatio n Chief Complaint pt reports she was diagnosed w a PE on sat and last night began having head rushes, and 'hearing like in a tunnel and chest pain, on eliquis, (feels wobbly like on a boat) ear ringing History of Present Illness Patient is a 33-year-old female with history of factor V Leiden, prior DVT, diagnosed with recurrent PE about a week ago presenting with worsening chest pain, shortness of breath and fatigue. Patient states that she has she had been doing well following discharge until yesterday when she started to have bouts of lightheadedness and fatigue. She reports headache, no vision changes no nausea. She states that the chest pain on her right side is much worse than it was before. She has tried Tylenol and ibuprofen with no significant relief. Patient states that she has been compliant with her Eliquis. No leg pain or swelling. Review of Systems Physical Exam Vitals and Measurements T: 36.5 C HR: 63 RR: 11 BP: 103/71 SpO2: 87% WT: 58 kg General: Alert and oriented, painful distress HEENT: Normocephalic, normal conjunctiva, moist mucous membranes Neck: Supple, no JVD Cardiac: Regular rate and rhythm, no murmur, no edema, adequate peripheral perfusion Pulmonary: Clear to auscultation bilaterally, symmetric expansion, normal inspiratory effort Abdomen: Soft, non-tender, non-distended MSK: Normal strength, no deformity or ecchymosis Integument: Warm, dry Neuro: no focal deficits, alert and oriented to person, place, time, and situation. Procedure Medical Decision Making Patient is a 33-year-old female with a right segmental PE on Eliquis presenting with worsening chest pain, shortness of breath and fatigue. On my exam, she is uncomfortable on account of pain but is nontoxic-appearing. Maintaining oxygen saturation of 90 to 94% on room air. Blood pressure and other vital signs within normal limits. No neurologic deficits. Reviewed CT PE, showed right segmental PE with evidence of right heart strain. Concern for worsening right heart strain, failure of outpatient treatment, intracranial bleed. Will obtain CBC, CMP, troponin, BNP, EKG, chest x-ray, CT brain for further evaluation. EKG, interpreted by me, shows sinus rhythm, rate of 79 bpm, no evidence of acute ischemic changes or right heart strain on EKG. CBC and CMP within normal limits. Troponin and BNP within normal limits. Independently interpreted chest x-ray to show no acute findings. No acute intracranial bleed on CT brain. Patient initially received Toradol for pain but continued to report significant pain so was given morphine. Patient maintaining oxygen saturation of 99 to 100% on room air. Patient was able to ambulate in the ED with no significant respiratory distress or hypoxia. No indication for further workup or admission at this time. All results of diagnostic tests performed in the ED were discussed with the patient. We discussed symptomatic management of symptoms, compliance with medications and appropriate follow-up. She was prescribed Percocet to help with her symptoms. Return precautions were discussed. The patient voiced understanding and is in agreement with discharge and treatment plan. Reexamination/Reevaluation Assessment/Plan Chest pain Ordered: Troponin I (High Sensitivity - [facility]), Timed collect, Blood, Nurse Collect, Start date 12/17/23 0:03:00 CDT, Once, Stop date 12/17/23 0:03:00 CDT, Chest pain, Orig Ref Eliazar Grigsby Orders: CT Head or Brain, headache, on thinners, 12/16/23 23:01:00 CDT, Stat, Orig Ref Eliazar Grigsby Patient Education Chest Pain Pulmonary Embolism Follow Up With When Contact Information Elle Phil Within 5 to [address] [address] Business (1) Additional Instructions: Medication Reconciliation New Prescription acetaminophen-oxyCODONE (acetaminophen-oxycodone 325 mg-5 mg oral tablet)1 tab(s) Oral Every 6 hours as needed for pain for 3 Days. Refills: 0. Unchanged apixaban (Eliquis (apixaban) Starter Pack for Treatment of DVT and PE 5 mg oral tablet)Take 10 mg PO BID x 7 days, then take 5 mg PO BID thereafter; if refills, please fill maintenance dose NOT starter pack; Oral. Refills: 0. diclofenac topical (diclofenac 1% topical gel)2 gram Topical Three times daily for 14 Days. Refills: 0. diclofenac topical (diclofenac 1% topical gel)2 gram Topical Four times daily for 14 Days. Refills: 0. docusate (docusate sodium 100 mg oral tablet)1 tab(s) Oral Twice daily for 30 Days. Refills: 0. Misc. Medication (Ice Pack)1 Pack Topical Every 4 hours as needed Pain for 3 Days. Refills: 0. promethazine (promethazine 12.5 mg rectal suppository)1 suppository(ies) Rectal Every 6 hours for 3 Days. Refills: 0. ED Forms Problem List/Past Medical History Ongoing Allergic rhinitis, cause unspecified Factor V Leiden mutation History of DVT in adulthood Hyperemesis MDD (major depressive disorder), recurrent episode POTS (postural orthostatic tachycardia syndrome) PTSD (post-traumatic stress disorder) Scoliosis (and kyphoscoliosis), idiopathic Historical Procedure/Surgical History D&C- 2015 lipoma removal-2013 Medication Administration Given ketorolac, 15 mg, IV Push morphine INJ, 4 mg, Slow IV Push Allergies Fish Itching, Hives No Known Latex Allergy No Known Medication Allergies Social History Smoking Status Current every day smoker Alcohol Employment/School Highest education:High school Home/Environment Lives with:Children, Godmother Substance Abuse - Denies Substance Abuse Tobacco - Denies Tobacco Use Family History Cancer: Grandfather, Maternal. Depression: Mother. Valvular heart disease: Negative: Mother. Health Status Family Member(s) Lab Results HEMATOLOGY PROFILES LATEST RESULTS HISTORICAL RESULTS WBC 12/16/23 22:15 6.31 12/13/23 6.13 RBC 12/16/23 22:15 4.96 12/13/23 4.55 HGB 12/16/23 22:15 15.0 12/13/23 13.9 HCT 12/16/23 22:15 44.1 12/13/23 40.3 MCV 12/16/23 22:15 88.9 12/13/23 88.6 MCH 12/16/23 22:15 30.2 12/13/23 30.5 MCHC 12/16/23 22:15 34.0 12/13/23 34.5 RDW SD 12/16/23 22:15 39.8 12/13/23 39.4 RDW CV 12/16/23 22:15 12.1 12/13/23 12.2 PLT 12/16/23 22:15 189 12/13/23 173 MPV 12/16/23 22:15 10.5 12/13/23 10.9 % Neutrophils 12/16/23 22:15 50.2 12/11/23 51.8 Absolute Granulocytes 12/16/23 22:15 3.17 12/11/23 3.22 % Immature Granulocytes 12/16/23 22:15 .20 12/11/23 .20 Abs Immature Granulocytes 12/16/23 22:15 0.01 12/11/23 0.01 % Lymphocytes 12/16/23 22:15 39.5 12/11/23 39.7 Abs Lymphocytes 12/16/23 22:15 2.49 12/11/23 2.47 % Monocytes 12/16/23 22:15 5.5 12/11/23 5.0 Abs Monocytes 12/16/23 22:15 0.35 12/11/23 0.31 % Eosinophils 12/16/23 22:15 3.5 12/11/23 2.7 Abs Eosinophils 12/16/23 22:15 0.22 12/11/23 0.17 % Basophils 12/16/23 22:15 1.1 12/11/23 0.6 Abs Basophils 12/16/23 22:15 0.07 12/11/23 0.04 % Nucleated RBCs 12/16/23 22:15 0.0 12/13/23 0.0 Absolute Nucleated RBCs 12/16/23 22:15 0.0 12/13/23 0.0 COAGULATION LATEST RESULTS HISTORICAL RESULTS PT 12/16/23 22:15 17.2 High 12/11/23 13.1 High INR 12/16/23 22:15 1.5 High 12/11/23 1.2 PTT 12/16/23 22:15 30.0 12/11/23 26.8 GENERAL CHEMISTRY LATEST RESULTS HISTORICAL RESULTS Sodium 12/16/23 22:15 137 12/13/23 140 Potassium 12/16/23 23:32 4.1 12/13/23 4.1 Chloride 12/16/23 22:15 108 High 12/13/23 110 High CO2 12/16/23 22:15 22 12/13/23 24 Anion gap 12/16/23 22:15 12 12/13/23 10 Glucose Lvl 12/16/23 22:15 81 12/13/23 81 BUN 12/16/23 23:32 11 12/13/23 15 Creatinine, standardized 12/16/23 22:15 0.7 12/13/23 0.6 Estimated GFR for Adults 12/16/23 22:15 118 12/13/23 121 Estimated GFR for peds 12/16/23 22:15 Not calculated 12/13/23 Not calculated Calcium 12/16/23 22:15 9.8 12/13/23 9.2 Total Protein 12/16/23 22:15 7.3 12/11/23 7.1 Albumin 12/16/23 22:15 4.3 12/11/23 4.3 T Bili 12/16/23 22:15 0.48 12/11/23 0.51 Alkaline Phosphatase 12/16/23 22:15 46 12/11/23 50 AST-SGOT 12/16/23 22:15 36 High 12/11/23 14 ALT-SGPT 12/16/23 22:15 57 High 12/11/23 10 Cardiac Markers LATEST RESULTS HISTORICAL RESULTS NT-ProBNP 12/16/23 22:15 <35 Troponin I Value 12/16/23 22:15 <3 12/11/23 <3 Troponin I Delta from Initial Value 12/16/23 22:15 N/A 12/11/23 N/A Troponin I Interp 12/16/23 22:15 See Comment 12/11/23 See Comment Diagnostic Results ECG Attestation by Jelani Carranza MD on December 20, 2023 03:00 I personally saw and evaluated the patient. I discussed the management with the resident and reviewed the resident&rsquo;s note. I agree with the documented findings and plan of care. Procedures: _ Critical Care: _ 12/16/2023 Echocardiogram Transthoracic Complete (TTE) Patient Information Patient name: SHAYY PUTNAM Date of : 1990 UEI: [id number] Age: 33 year(s) Gender: Female Visit number: [id number] Procedure Information Procedure: TTE procedure: Echo Transthoracic Complete, Complete 2D, M-mode, Complete Spectral Doppler, Color Flow. Study date and time: 12/12/2023 3:53 PM Blood pressure: 93 / 54 mmHg Study status: Routine Heart rate: 73 bpm Patient status: In-Patient Height: 65 in. Study location: Bedside Weight: 132.25 lb. Patient location: BSA: 1.66 m BMI: 22.01 kg/m Indication R07.9 Chest Pain. Procedure Electronic Semiconductor Processor: Timi Camarena RDCS RVT Interpreting physician: Rosana Harrington MD Physician Conclusions Summary: Left ventricular size is normal. Left ventricular systolic function is normal, ejection fraction is 60 %. Overall regional wall motion is normal. Diastolic function is normal. Right ventricular size is normal. Systolic function is normal. Right ventricular systolic pressure could not be assessed due to inadequate tricuspid regurgitation jet. Normal size atria. No significant valvular abnormalities. No evidence of pericardial effusion. IVC is normal in size and course. Respirophasic changes were normal. Signature Findings Left ventricle: Left ventricular size is normal. Wall thickness is normal. Left ventricular systolic function is normal, ejection fraction is 60 %. Overall regional wall motion is normal. Diastolic function is normal. Right ventricle: Right ventricular size is normal. Systolic function is normal. Right ventricular systolic pressure could not be assessed due to inadequate tricuspid regurgitation jet. Left atrium: Left atrial volume is normal. Right atrium: Right atrial size is normal. Aortic valve: Aortic valve is not well visualized. Valve morphology is indeterminate. There is no evidence for aortic stenosis. There is no significant aortic regurgitation. Mitral valve: Mitral valve structure is normal. There is normal leaflet separation. There is no evidence for mitral valve stenosis. There is trace mitral valve regurgitation. Tricuspid valve: The tricuspid valve appears normal. There is normal leaflet motion. There is no evidence of tricuspid stenosis. There is trivial tricuspid regurgitation. Pulmonic valve: Pulmonic valve not well seen. There is no Doppler evidence for pulmonic stenosis or significant regurgitation. Aorta/Great vessels: Aortic root exhibited normal size. The IVC is normal in size and course. Respirophasic changes were normal. Pericardial: No evidence of pericardial effusion. Left Ventricle Diastolic dimension: 4.4 cm Systolic dimension: 2.6 cm 2D septum diastolic: 0.9 cm Area systolic: 14.8 cm 2D post wall diastolic: 0.8 cm FS: 41 % Area diastolic: 29.1 cm LV length: 7.72 cm CI: 2.36 l/min/m LV mass (ASE formula): 118.58 g LVESV MOD: 30.7 ml LV mass index: 71.46 g/m RWT: 0.36 EF Bateman (BP): 66 % LVEDV MOD: 89.5 ml LVEDV (A2C): 90.6 ml LVEDVI MOD: 53.94 ml/m EF Calculated: 65.7 % LVEDVI (A2C): 54.6 ml/m LVEDV Bateman (BP): 89.5 ml LVESVI (A2C): 18.44 ml/m LVESV Bateman (BP): 30.7 ml EF (A2C): 66 % LVEDV (A4C): 80.3 ml LVESV (A4C): 28.1 ml LVEDVI (A4C): 48.39 ml/m LVESVI (A4C): 16.93 ml/m EF (A4C): 65 % Right Ventricle Diastolic dimension: 2.5 cm TAPSE: 2.71 cm Left Atrium LA diameter (2D): 3.1 cm LA/Aorta (2D): 0.97 LA area: 12 cm LA volume: 35.6 ml Right Atrium RA dimension: 4.59 cm RA area index: 7.11 cm RA area: 11.8 cm Aortic Valve Peak velocity: 118 cm/s Mean velocity: 77 cm/s Peak gradient: 5.57 mmHg Mean gradient: 3 mmHg Area (cont VTI): 2.31 cm AV VTI: 23.2 cm LVOT Mean velocity: 70.7 cm/s LVOT Peak velocity: 113 cm/s LVOT Mean gradient: 2 mmHg LVOT Peak gradient: 5 mmHg LVOT VTI: 21.1 cm LVOT diameter: 1.8 cm Mitral Valve Peak E-wave: 76 cm/s Peak A-wave: 58.2 cm/s E' septal velocity: 12 cm/s E/A ratio: 1.31 E/E' septal: 6.33 Peak gradient: 2.31 mmHg Deceleration time: 217 ms E' lateral velocity: 15.3 cm/s E/E' lateral: 4.97 E/E' average: 5.65 Tricuspid Valve TR velocity: 176 cm/s TR gradient: 12.39 mmHg Pulmonic Valve Peak velocity: 98.3 cm/s Peak gradient: 3.87 mmHg Mean velocity: 67.3 cm/s Mean gradient: 2 mmHg Acceleration time: 48 ms Aorta/Great Vessels Aortic root (2D): 3.2 cm Aortic arch: 2.5 cm Ascending aorta: 2.5 cm LVOT diameter: 1.8 cm 12/12/2023 Emergency Services Note Basic Informatio n Chief Complaint reports, feeling unusual heart beat over past few days getting worse today History of Present Illness 33yo female with h/o Factor V leiden with prior PE (not currently on anticoagulation), and POTS presented to the ED with palpitations for the past few days and CP today. Onset of pleuritic chest while at work with an episode of near syncope. Feels mildly labored. Mild cough. No fevers or chills. No LE edema. Concerned for possible PE. Review of Systems All other systems reviewed and negative other than stated in history of present of illness. Physical Exam Vitals and Measurements T: 36.5 C HR: 65 RR: 9 BP: 99/69 SpO2: 100% WT: 57.7 kg Gen: Alert. No acute distress. Skin: Warm. Dry. No rash. Head: Normocephalic. Atraumatic. Eyes: PERRLA. EOMI. Normal conjunctiva. ENT: Oral mucosa moist. Neck: Supple. Cardio: Normal rate and rhythm. No edema. Pulm: Respirations are nonlabored. Lungs CTAB. Abd: Soft and nontender. No guarding or rebound. MSK: Normal ROM. Neuro: A&Ox4. Moving all extremities spontaneously. Psych: Cooperative. Appropriate mood and affect. Procedure Medical Decision Making I have independently reviewed nursing triage information. I have independently reviewed prior medical records in the EMR. I have independently reviewed and interpreted all laboratory, radiology, EKG and diagnostic studies as documented in the MDM. Additional history obtained from: EMR Acute problems addressed: CP, dyspnea, pre-syncope Chronic Problems noted/addressed: factor V leiden, prior PE Differentials: PE, ACS, pleurisy, pneumonia Independent interpretation by this provider: EKG, cbc, cmp, trop, dimer, CXR Intensive Monitoring: No Other sources: EMR Notable discussions: discussed results and treatment plan with the patient Notable Considerations: I have given consideration for full admission for pulmonary embolism. This was discussed with the patient and through shared decision making the patient understands the plan for admission. Scripts: _ [facility] 33yo female presented to the ED with pleuritic chest pain, dyspnea, near syncope. Arrived mildly tachycardic. No hypoxia or labored breathing. EKG with no ischemic changes. Trop negative. CBC and CMP unremarkable. CXR with no acute findings. Dimer mildly elevated. CT with right segmental PE with right heart strain. Started heparin. Will admit to medicine for echo and tele monitoring. Shared visit with attending Dr. Buck Reexamination/Reevaluation Vital Signs (most recent within last year) Temperature 36.5 (12/11/23 16:39) Heart Rate 70 (12/11/23 20:18) Resp Rate 10 (12/11/23 20:17) NIBP 100/69 (12/11/23 19:30) SpO2 100 (12/11/23 20:18) Pain Score 4 (12/11/23 16:39) Assessment/Plan 1. Pulmonary embolism Orders: heparin, Nomogram, form: Injection, IV Push, Once, STAT, first dose 12/11/23 20:18:00 CDT, stop date 12/11/23 20:18:00 CDT heparin, Nomogram, form: Injection, IV Push, As Indicated PRN for Other; See comments, first dose 12/11/23 20:18:00 CDT heparin 25,000 units, Total volume (mL): 250, IV Soln, IV, TITRATE - See Nomogram Task for inital infusion ra, Start date: 12/11/23 20:18:00 CDT Heparin Nomogram - Dosage Titration Orders Heparin Nomogram - Notify Physician Heparin Nomogram - Start Heparin Infusion Heparin Nomogram - Unfractionated Heparin Assay orders Heparin Nomogram - Use Admission Weight PT PTT Unfractionated Heparin Anti-Xa Assay Patient Education Follow Up No qualifying data available Medication Reconciliation Unchanged diclofenac topical (diclofenac 1% topical gel)2 gram Topical Three times daily for 14 Days. Refills: 0. diclofenac topical (diclofenac 1% topical gel)2 gram Topical Four times daily for 14 Days. Refills: 0. docusate (docusate sodium 100 mg oral tablet)1 tab(s) Oral Twice daily for 30 Days. Refills: 0. Misc. Medication (Ice Pack)1 Pack Topical Every 4 hours as needed Pain for 3 Days. Refills: 0. promethazine (promethazine 12.5 mg rectal suppository)1 suppository(ies) Rectal Every 6 hours for 3 Days. Refills: 0. ED Forms Attestation by Chan Buck MD on December 15, 2023 03:07 I personally saw and evaluated the patient. I discussed the management with the Advanced Practice Provider, and reviewed the CHELSEY's note. I approved of, and take responsibility for, the medical decision making at the time of patient care. Procedures: _ Critical Care: _ Problem List/Past Medical History Ongoing Allergic rhinitis, cause unspecified Factor V Leiden mutation History of DVT in adulthood Hyperemesis MDD (major depressive disorder), recurrent episode POTS (postural orthostatic tachycardia syndrome) PTSD (post-traumatic stress disorder) Scoliosis (and kyphoscoliosis), idiopathic Historical Procedure/Surgical History D&C- 2015 lipoma removal-2013 Medication Administration Given NS (bolus), 1000 mL, IV Allergies Fish (Itching, Hives) No Known Latex Allergy No Known Medication Allergies Social History Smoking Status Never smoker Alcohol Employment/School Highest education level: High school. Home/Environment Lives with Children, Godmother. Substance Abuse - Denies Substance Abuse Tobacco - Denies Tobacco Use Family History Cancer: Grandfather, Maternal. Depression: Mother. Valvular heart disease: Negative: Mother. Lab Results HEMATOLOGY PROFILES LATEST RESULTS HISTORICAL RESULTS WBC 12/11/23 16:52 6.22 04/30/23 6.62 RBC 12/11/23 16:52 4.92 04/30/23 4.76 HGB 12/11/23 16:52 15.0 04/30/23 14.5 HCT 12/11/23 16:52 43.1 04/30/23 41.9 MCV 12/11/23 16:52 87.6 04/30/23 88.0 MCH 12/11/23 16:52 30.5 04/30/23 30.5 MCHC 12/11/23 16:52 34.8 04/30/23 34.6 RDW SD 12/11/23 16:52 38.5 04/30/23 37.2 RDW CV 12/11/23 16:52 12.0 04/30/23 11.5 Low PLT 12/11/23 16:52 186 04/30/23 188 MPV 12/11/23 16:52 10.4 04/30/23 9.9 % Neutrophils 12/11/23 16:52 51.8 04/30/23 52.5 Absolute Granulocytes 12/11/23 16:52 3.22 04/30/23 3.48 % Immature Granulocytes 12/11/23 16:52 .20 04/30/23 .50 High Abs Immature Granulocytes 12/11/23 16:52 0.01 04/30/23 0.03 % Lymphocytes 12/11/23 16:52 39.7 04/30/23 34.9 Abs Lymphocytes 12/11/23 16:52 2.47 04/30/23 2.31 % Monocytes 12/11/23 16:52 5.0 04/30/23 6.6 Abs Monocytes 12/11/23 16:52 0.31 04/30/23 0.44 % Eosinophils 12/11/23 16:52 2.7 04/30/23 4.7 Abs Eosinophils 12/11/23 16:52 0.17 04/30/23 0.31 % Basophils 12/11/23 16:52 0.6 04/30/23 0.8 Abs Basophils 12/11/23 16:52 0.04 04/30/23 0.05 % Nucleated RBCs 12/11/23 16:52 0.0 04/30/23 0.0 Absolute Nucleated RBCs 12/11/23 16:52 0.0 04/30/23 0.0 COAGULATION LATEST RESULTS HISTORICAL RESULTS D-DIMER QUANTITATIVE 12/11/23 16:52 527.00 High 04/30/23 0.51 High GENERAL CHEMISTRY LATEST RESULTS HISTORICAL RESULTS Sodium 12/11/23 16:52 137 04/30/23 136 Potassium 12/11/23 16:52 3.8 04/30/23 3.5 Chloride 12/11/23 16:52 108 High 04/30/23 100 CO2 12/11/23 16:52 23 04/30/23 24 Anion gap 12/11/23 16:52 10 04/30/23 16 Glucose Lvl 12/11/23 16:52 89 04/30/23 80 BUN 12/11/23 16:52 10 04/30/23 9 Creatinine, standardized 12/11/23 16:52 0.7 04/30/23 0.90 Estimated GFR for Adults 12/11/23 16:52 118 04/30/23 88 Low Estimated GFR for peds 12/11/23 16:52 Not calculated 04/30/23 Not calculated Calcium 12/11/23 16:52 9.2 04/30/23 8.8 Total Protein 12/11/23 16:52 7.1 04/30/23 6.7 Albumin 12/11/23 16:52 4.3 04/30/23 4.2 T Bili 12/11/23 16:52 0.51 04/30/23 0.56 Alkaline Phosphatase 12/11/23 16:52 50 04/30/23 67 AST-SGOT 12/11/23 16:52 14 04/30/23 13 ALT-SGPT 12/11/23 16:52 10 04/30/23 9 Low Cardiac Markers LATEST RESULTS Troponin I Value 12/11/23 16:52 <3 Troponin I Delta from Initial Value 12/11/23 16:52 N/A Troponin I Interp 12/11/23 16:52 See Comment Diagnostic Results IMPRESSION: VASCULAR: Acute right segmental pulmonary artery thromboembolism with evidence suggestive of mild right heart strain. CHEST: No acute cardiopulmonary findings. ECG NSR. No acute ischemic changes. 12/11/2023 Discharge Summaries Results Value Date Source Discharge Summary Date of Admission Date of Discharge 12/13/2023 Reason for Hospitalization reports, feeling unusual heart beat over past few days getting worse today Hospital Course Karley Mcneill is a 33-year-old female with a history of Factor V Leiden deficiency (heparin gtt started 12/12/23, apixaban starter pack started 12/13/23), prior PE, and POTS who presented to the ED for pleuritic chest pain with an episode of near-syncope while at work on 12/12/23. She reported that she has experienced palpitations over the past few days. She has had a prior PE in 2014, however she states that she was not on anticoagulation afterwards. She reports she was on Lovenox only during her in 2017. In the ED, patient was initially tachycardic, which improved with 1L NS bolus. D-dimer was obtained and was elevated at 527. CT PE was significant for acute RUL segmental PE with mild heart strain. Patient was started on heparin drip on 12/12/23. IR was consulted in ED and they recommended no intervention as PT is hemodynamically stable. PT was switched to Apixaban taper on 12/13/23. PT feels comfortable with discharge on 12/13/23. Patient instructions: -Take apixaban 10 mg by mouth twice daily for 7 days, then take 5 mg by mouth twice daily thereafter. Will be delivered bedside. -Cannot take apixaban while -Follow up with your primary care doctor within 1 week of getting discharged for post-hospital follow-up Discharge Diagnoses 1. Pulmonary embolism Orders: apixaban, 10 mg = 2 Tablet(s), form: Tablet, Oral, bid, NOW, first dose 12/13/23 8:53:00 CDT, order duration: 7 day(s), Physician Stop, stop date 12/19/23 21:00:00 CDT, DVT/PE - NEW DIAGNOSIS ONLY: Loading Dose, Other - See Comments apixaban, See Instructions, Oral, Take 10 mg PO BID x 7 days, then take 5 mg PO BID thereafter; if refills, please fill maintenance dose NOT starter pack, # 1 Kit, Refill(s) 0, DVT/PE, Pharmacy: [facility], Loading plus maintenance dose X 3... Follow Up Appt External Clinic or Provider Other Diagnoses Ongoing Allergic rhinitis, cause unspecified Factor V Leiden mutation History of DVT in adulthood Hyperemesis MDD (major depressive disorder), recurrent episode POTS (postural orthostatic tachycardia syndrome) PTSD (post-traumatic stress disorder) Scoliosis (and kyphoscoliosis), idiopathic Historical Operations and Procedures [facility] Interventional Radiology Pending Labs Discharge Disposition Medications New, Changed, or Refilled Medications apixaban (Eliquis (apixaban) Starter Pack for Treatmen See Instructions, Oral, for 30 day(s), Take 10 mg PO BID x 7 days, then take 5 mg PO BID thereafter; if refills, please fill maintenance dose NOT starter pack, 1 Kit, 0 Refill(s) Comments: apixaban 10 mg BID started 12/13/23 AM. Heparin started on the 12/12/23 Instructions:Take 10 mg PO BID x 7 days, then take 5 mg PO BID thereafter; if refills, please f Medications to be Continued Misc. Medication (Ice Pack) 1 Pack, Topical, q4h, for 3 day(s), PRN: Pain, 1 Each, 0 Refill(s) diclofenac topical (diclofenac 1% topical gel) 2 g, Topical, qid, for 14 day(s), 112 g, 0 Refill(s) diclofenac topical (diclofenac 1% topical gel) 2 g, Topical, tid, for 14 day(s), 100 g, 0 Refill(s) docusate (docusate sodium 100 mg) 100 mg, 1 Tablet(s), Oral, bid, for 30 day(s), 60 Tablet(s), 0 Refill(s) promethazine (promethazine 12.5 mg rectal suppository) 12.5 mg, 1 Supp, Rectal, q6h, for 3 day(s), 12 Supp, 0 Refill(s) Discontinued Medications None Physical Exam at Discharge Vitals and Measurements T: 36.5 C TMIN: 36.1 C TMAX: 36.5 C HR: 61 RR: 16 BP: 91/55 SpO2: 96% General: Alert and oriented, No acute distress. Eyes: PERRL, EOMI, Normal conjunctiva. HENT: Normocephalic, Oral mucosa is moist. Neck: Supple, Non-tender. Respiratory: Lungs are clear to auscultation, Respirations are non-labored, Breath sounds are equal, Symmetrical chest wall expansion. Cardiovascular: Normal rate, Regular rhythm, No murmur, Normal peripheral perfusion, No edema. Gastrointestinal: Soft, Non-tender, Non-distended, Normal bowel sounds. Musculoskeletal: No swelling, No deformity. Integumentary: Warm, Dry, Intact, No pallor, No rash. Neurologic: Alert, Oriented, No focal defects. Psychiatric: Cooperative, Appropriate mood and affect. Time Spent 30 mins Follow Up Appointments Follow Up Appt External Clinic or Provider, Follow up at Elle Villarreal MD with [facility] Within 7 Days, Coordinate appt with No tests, Originally referred by Eliazar Zuñiga No qualifying data available Nursing/Other Orders Regular Diet. Ordered on 12/11/23 22:54:00 CDT, Meal Start Time Breakfast 0700 to 0900 I performed a history and examination of the patient and discussed the patient&rsquo;s management with the team on the date listed in the header of this document. I reviewed the note by the student/resident/fellow and agree with the documented findings and plan of care. Acute RUL segmental PE Clarification: was prescribed Xarelto after her first PE in 2014; did not tolerate well (reported it made her feel tired/difficulty concentrating. Willing to take apixaban as prescribed above. Discussed return precautions. Discussed that DOAC is not compatible with ; advised to discuss switching to LMVH if considering . 12/13/2023 History and Physicals Results Value Date Source History and Physical Chief Complaint rep orts, feeling unusual heart beat over past few days getting worse today History of Present Illness Karley Mcneill is a 33-year-old female with a history of Factor V Leiden deficiency (not on anticoagulation currently), prior PE, and POTS who presented to the ED for pleuritic chest pain with an episode of near-syncope while at work. She reports that she has experienced palpitations over the past few days. She has had a prior PE in 2014, however she states that she was not on anticoagulation afterwards. She reports she was on Lovenox only during her in 2016. She is a current smoker. In the ED, patient was initially tachycardic, which improved with 1L NS bolus. D-dimer was obtained and was elevated at 527. CT PE was significant for acute RUL segmental PE with mild heart strain. Patient was started on heparin drip. IR was consulted in ED and they recommended no intervention at this time, as patient is hemodynamically stable. Review of Systems Constitutional: Negative for fever, chills, night sweats, weight loss or malaise/fatigue. Eyes: Negative for blurred vision. Ear, nose, mouth, throat: Negative for congestion, oral lesions or sore throat. Cardiovascular: Positive for palpiations. Negative for chest pain or leg swelling. Respiratory: Positive for pleuritic chest pain and shortness of breath. Negative for cough, hemoptysis, or sputum production. Gastrointestinal: Negative for abdominal pain, nausea, vomiting, constipation or diarrhea. Genitourinary: Negative for dysuria, frequency or urgency. Musculoskeletal: Negative for back pain, myalgias, arthralgias or neck pain. Skin: Negative for itching or rash. Neurological: Negative for headaches, peripheral numbness or tingling. All other systems reviewed and are negative Physical Exam Vitals and Measurements T: 36.6 C TMIN: 36.5 C TMAX: 36.6 ?C HR: 83 RR: 17 BP: 104/64 SpO2: 98% WT: 57.7 kg (Dosing) BMI: 21.9 General: Alert and oriented. No acute distress. Eye: EOMI. Normal conjunctiva. HENT: Normal hearing. Moist oral mucosa. No lymphadenopathy Cardiovascular: Regular rate and rhythm. Radial pulse palpable. Pulmonary: Clear to auscultation bilaterally. Normal effort. Abdomen: Soft. Nontender. Musculoskeletal: No lower extremity edema. Nontender. Skin: Warm and dry. Neuro: No focal deficits. Psychiatric: Cooperative. Appropriate affect. Assessment/Plan Karley Mcneill is a 33-year-old female with a history of Factor V Leiden deficiency (not on anticoagulation currently), prior PE, and POTS who presented to the ED for pleuritic chest pain with an episode of near-syncope while at work. She reports that she has experienced palpitations over the past few days. She has had a prior PE in 2014, however she states that she was not on anticoagulation afterwards. She reports she was on Lovenox only during her in 2016. In the ED, patient was initially tachycardic, which improved with 1L NS bolus. D-dimer was obtained and was elevated at 527. CT PE was significant for acute RUL segmental PE with mild heart strain. Patient was started on heparin drip. IR was consulted in ED and they recommended no intervention at this time, as patient is hemodynamically stable. #RUL Segmental Pulmonary Embolism #Factor V Leiden Deficiency, not on anticoagulation #History of prior PE in 2014 - CT PE demonstrated acute right upper lobe segmental pulmonary artery thromboembolism with evidence of mild right heart strain - D-dimer elevated at 527 - Hemodynamically stable in ED - Started on heparin drip in ED - TTE in AM - Doppler US for BLEs pending #Tobacco Use - Nicotine patches ordered Diet: Regular GI prophylaxis: Pantoprazole DVT prophylaxis: Heparin drip Code: Full Dispo: Floor, Team D Patient seen and discussed with attending physician, Dr. Elliott. Problem List/Past Medical History Ongoing Allergic rhinitis, cause unspecified Factor V Leiden mutation History of DVT in adulthood Hyperemesis MDD (major depressive disorder), recurrent episode POTS (postural orthostatic tachycardia syndrome) PTSD (post-traumatic stress disorder) Scoliosis (and kyphoscoliosis), idiopathic Historical Procedure/Surgical History D&C- 2015 lipoma removal-2013 Medications Inpatient heparin 1000 units/ml inj range, Nomogram, IV Push, As Indicated, PRN heparin 25,000 units/250 mL RTU 25,000 units, 56055 units= 250 mL, IV ibuprofen 600 mg oral tablet, 600 mg= 3 Tablet(s), Oral, q6h, PRN LR Bolus, 1000 mL, IV Bolus, Once LR Bolus, 1000 mL, IV Bolus, Once Toradol, 30 mg= 1 mL, IV Push, Once Home diclofenac 1% topical gel, 2 g, Topical, tid diclofenac 1% topical gel, 2 g, Topical, qid docusate sodium 100 mg oral tablet, 100 mg= 1 Tablet(s), Oral, bid Ice Pack, 1 Pack, Topical, q4h, PRN promethazine 12.5 mg rectal suppository, 12.5 mg= 1 Supp, Rectal, q6h Allergies Fish (Itching, Hives) No Known Latex Allergy No Known Medication Allergies Social History Smoking Status Current every day smoker Alcohol Employment/School Highest education level: High school. Home/Environment Lives with Children, Godmother. Substance Abuse - Denies Substance Abuse Tobacco - Denies Tobacco Use Family History Cancer: Grandfather, Maternal. Depression: Mother. Valvular heart disease: Negative: Mother. Immunizations Vaccine Date Status SARS-CoV-2 (COVID-19) Ad26 vaccine - Not Given influenza virus vaccine inactivated 12/30/2016 Given diphtheria/pertussis acel/tetanus adult 12/30/2016 Given influenza virus vaccine inactivated 12/30/2014 Given Human Papillomavirus(Gardasil)* 01/25/2007 Given Human Papillomavirus(Gardasil)* 09/24/2006 Given Human Papillomavirus(Gardasil)* 07/23/2006 Given measles/mumps/rubella virus vaccine 10/27/1996 Given OPV (old vaccine) 10/27/1996 Given DTaP* 10/27/1996 Given DTP (old vaccine)* 11/12/1993 Given OPV (old vaccine) 06/12/1993 Given OPV (old vaccine) 02/07/1993 Given DTaP* 02/07/1993 Given measles/mumps/rubella virus vaccine 11/18/1992 Given hepatitis B vaccine (historical) 09/16/1992 Given hepatitis B vaccine (historical) 08/02/1992 Given haemophilus PRP-OMP(PedvaxHIB)* 04/16/1992 Given haemophilus PRP-OMP(PedvaxHIB)* 04/16/1992 Given DTP (old vaccine)* 04/16/1992 Given haemophilus PRP-OMP(PedvaxHIB)* 01/05/1992 Given OPV (old vaccine) 01/05/1992 Given DTP (old vaccine)* 01/05/1992 Given Lab Results CBC (12/11/23) WBC 6.22 Hgb 15.0 Hct 43.1 MCV 87.6 PLT 186 Auto Differential % nRBC 0.0 Absolute nRBC 0.0 % Neutrophils 51.8 Absolute Neut 3.22 % Im Granulocyt .20 Absolute Im Gra 0.01 % Lymphocytes 39.7 % Monocytes 5.0 % Eosinophils 2.7 % Basophils 0.6 Diagnostic Results (12/11/2023 17:53 CDT XR Chest) IMPRESSION: No acute cardiopulmonary findings. [1] (12/11/2023 19:[address] Chest PE Protocol) IMPRESSION: VASCULAR: Acute right upper lobe segmental pulmonary artery thromboembolism with evidence suggestive of mild right heart strain. CHEST: No additional acute cardiopulmonary findings. [2] [1] XR Chest; Dario Alvarado MD 12/11/2023 17:53 CDT [2] CT Chest PE Protocol; Dario Alvarado MD 12/11/2023 19:53 CDT Patient states she is doing better this morning. Continues to endorse chest pain, rated at 6-7/10. Continues to endorse mild shortness of breath, improved from yesterday. Endorses good p.o. intake. Denies nausea, vomiting, diarrhea. Voiding and stooling without issue. Discussed need for ongoing anticoagulation with patient. States she was on anticoagulant in the past that caused undesirable side effects. Open to starting new oral anticoagulant. No other concerns. 24-hour plan: -Continue heparin drip -TTE pending -Bilateral lower extremity Doppler US pending -Follow-up prior records to determine what anticoagulant patient was on in the past. Will plan to transition to oral DOAC in the coming days. -Pain control with Tylenol as needed Attending Attestation: I personally saw and evaluated the patient on the result date found in the header of this document. I independently performed the critical/cruz portions of the Evaluation and Management service and discussed the management with the author of this document. I agree with everything documented above with the following exceptions/additions: None. Michael Elliott MD Department of Medicine Hospital medicine, Tree Inspector/Hospitalist 12/12/2023 Vital Signs Vital Sign Value Date Comments Source SpO2 100 % 07/10/2024 09:20:59 [facility] Heart Rate 66 bpm 07/10/2024 09:20:58 [facility] SBP NIBP 99 mm[Hg] 07/10/2024 09:20:00 [facility] DBP NIBP 70 mm[Hg] 07/10/2024 09:20:00 [facility] Heart Rate 64 bpm 07/10/2024 09:19:58 [facility] SpO2 100 % 07/10/2024 09:19:58 [facility] Mean NIBP 78 mm[Hg] 07/10/2024 09:18:36 [facility] SBP NIBP 93 mm[Hg] 07/10/2024 09:18:36 [facility] DBP NIBP 68 mm[Hg] 07/10/2024 09:18:36 [facility] SpO2 94 % 07/10/2024 07:49:19 [facility] Heart Rate 64 bpm 07/10/2024 07:49:18 [facility] Mean NIBP 61 mm[Hg] 07/10/2024 07:37:44 [facility] SpO2 95 % 07/10/2024 05:33:05 [facility] Heart Rate 67 bpm 07/10/2024 05:33:03 [facility] Mean NIBP 77 mm[Hg] 07/10/2024 05:30:00 [facility] SBP NIBP 99 mm[Hg] 07/10/2024 05:30:00 [facility] DBP NIBP 64 mm[Hg] 07/10/2024 05:30:00 [facility] SBP NIBP 98 mm[Hg] 07/10/2024 04:30:00 [facility] DBP NIBP 73 mm[Hg] 07/10/2024 04:30:00 [facility] Mean NIBP 83 mm[Hg] 07/10/2024 04:30:00 [facility] Respiratory Rate 16 breaths/min 07/10/2024 00:17:52 [facility] Respiratory Rate 20 breaths/min 07/09/2024 22:10:00 [facility] Temperature (Celsius) 37.2 Rani 07/09/2024 22:10:00 [facility] Weight (kg) 56.7 kg 07/09/2024 22:10:00 [facility] SBP NIBP 118 mm[Hg] 07/09/2024 01:30:00 [facility] DBP NIBP 70 mm[Hg] 07/09/2024 01:30:00 [facility] SpO2 99 % 07/09/2024 01:30:00 [facility] Respiratory Rate 18 breaths/min 07/09/2024 01:30:00 [facility] Heart Rate 72 bpm 07/09/2024 01:30:00 [facility] SpO2 100 % 07/09/2024 01:20:27 [facility] Respiratory Rate 15 breaths/min 07/09/2024 01:19:56 [facility] Heart Rate 75 bpm 07/09/2024 01:19:56 [facility] SBP NIBP 113 mm[Hg] 07/09/2024 01:00:00 [facility] DBP NIBP 75 mm[Hg] 07/09/2024 01:00:00 [facility] Mean NIBP 87 mm[Hg] 07/09/2024 01:00:00 [facility] Heart Rate 83 bpm 07/09/2024 00:57:26 [facility] SpO2 98 % 07/09/2024 00:57:26 [facility] Respiratory Rate 16 breaths/min 07/09/2024 00:57:26 [facility] Mean NIBP 74 mm[Hg] 07/09/2024 00:30:00 [facility] SBP NIBP 94 mm[Hg] 07/09/2024 00:30:00 [facility] DBP NIBP 72 mm[Hg] 07/09/2024 00:30:00 [facility] Heart Rate 68 bpm 07/09/2024 00:29:50 [facility] SpO2 97 % 07/09/2024 00:29:50 [facility] Respiratory Rate 17 breaths/min 07/09/2024 00:29:42 [facility] Mean NIBP 83 mm[Hg] 07/09/2024 00:00:50 [facility] SBP NIBP 93 mm[Hg] 07/09/2024 00:00:50 [facility] DBP NIBP 76 mm[Hg] 07/09/2024 00:00:50 [facility] Mean NIBP 83 mm[Hg] 07/08/2024 23:57:55 [facility] Temperature (Celsius) 37.0 Rani 07/08/2024 21:31:00 [facility] Weight (kg) 56.9 kg 07/08/2024 21:31:00 [facility] Mean NIBP 68 mm[Hg] 06/25/2024 10:06:39 [facility] SBP NIBP 95 mm[Hg] 06/25/2024 10:06:39 [facility] DBP NIBP 57 mm[Hg] 06/25/2024 10:06:39 [facility] Respiratory Rate 15 breaths/min 06/25/2024 10:01:56 [facility] Heart Rate 89 bpm 06/25/2024 10:01:56 [facility] SpO2 100 % 06/25/2024 10:01:55 [facility] Mean NIBP 84 mm[Hg] 06/25/2024 09:17:44 [facility] SBP NIBP 95 mm[Hg] 06/25/2024 09:17:44 [facility] DBP NIBP 77 mm[Hg] 06/25/2024 09:17:44 [facility] Heart Rate 78 bpm 06/25/2024 09:17:00 [facility] Respiratory Rate 18 breaths/min 06/25/2024 09:17:00 [facility] SpO2 100 % 06/25/2024 09:17:00 [facility] Temperature (Celsius) 36.6 Rani 06/25/2024 09:17:00 [facility] SpO2 100 % 06/25/2024 08:29:04 [facility] Respiratory Rate 15 breaths/min 06/25/2024 08:29:02 [facility] Heart Rate 81 bpm 06/25/2024 08:29:02 [facility] SpO2 99 % 06/25/2024 07:33:15 [facility] Heart Rate 75 bpm 06/25/2024 07:27:26 [facility] Mean NIBP 84 mm[Hg] 06/25/2024 07:27:12 [facility] SBP NIBP 95 mm[Hg] 06/25/2024 07:27:12 [facility] DBP NIBP 80 mm[Hg] 06/25/2024 07:27:12 [facility] Respiratory Rate 18 breaths/min 06/25/2024 07:27:00 [facility] Temperature (Celsius) 36.2 Rani 06/25/2024 07:22:00 [facility] Mean NIBP 89 mm[Hg] 06/25/2024 07:22:00 [facility] Weight (kg) 58.1 kg 06/25/2024 07:22:00 [facility] SBP NIBP 103 mm[Hg] 06/25/2024 07:22:00 [facility] DBP NIBP 82 mm[Hg] 06/25/2024 07:22:00 [facility] Heart Rate 77 bpm 06/12/2024 10:17:37 [facility] SpO2 100 % 06/12/2024 10:17:35 [facility] Mean NIBP 85 mm[Hg] 06/12/2024 10:00:00 [facility] SBP NIBP 99 mm[Hg] 06/12/2024 10:00:00 [facility] DBP NIBP 76 mm[Hg] 06/12/2024 10:00:00 [facility] SpO2 100 % 06/12/2024 09:50:01 [facility] Heart Rate 76 bpm 06/12/2024 09:49:59 [facility] SBP NIBP 98 mm[Hg] 06/12/2024 09:30:00 [facility] DBP NIBP 74 mm[Hg] 06/12/2024 09:30:00 [facility] Mean NIBP 83 mm[Hg] 06/12/2024 09:30:00 [facility] SpO2 100 % 06/12/2024 09:29:59 [facility] Heart Rate 75 bpm 06/12/2024 09:29:54 [facility] Mean NIBP 81 mm[Hg] 06/12/2024 09:00:00 [facility] SBP NIBP 102 mm[Hg] 06/12/2024 09:00:00 [facility] DBP NIBP 66 mm[Hg] 06/12/2024 09:00:00 [facility] SpO2 100 % 06/12/2024 08:59:53 [facility] Heart Rate 66 bpm 06/12/2024 08:59:48 [facility] Mean NIBP 86 mm[Hg] 06/12/2024 08:04:59 [facility] SBP NIBP 103 mm[Hg] 06/12/2024 08:04:59 [facility] DBP NIBP 79 mm[Hg] 06/12/2024 08:04:59 [facility] Respiratory Rate 19 breaths/min 06/12/2024 06:58:00 [facility] Temperature (Celsius) 36.3 Rani 06/12/2024 06:58:00 [facility] Weight (kg) 60.2 kg 06/12/2024 06:58:00 [facility] Temperature (Celsius) 37.3 Rani 06/06/2024 18:53:00 [facility] Respiratory Rate 20 breaths/min 06/06/2024 18:53:00 [facility] Heart Rate 103 bpm 06/06/2024 18:53:00 [facility] Weight (kg) 56.7 kg 06/06/2024 18:53:00 [facility] SBP NIBP 109 mm[Hg] 06/06/2024 18:53:00 [facility] DBP NIBP 69 mm[Hg] 06/06/2024 18:53:00 [facility] SpO2 99 % 05/26/2024 03:30:52 [facility] Heart Rate 73 bpm 05/26/2024 03:30:05 [facility] Respiratory Rate 16 breaths/min 05/26/2024 03:30:00 [facility] Mean NIBP 75 mm[Hg] 05/26/2024 03:30:00 [facility] SBP NIBP 97 mm[Hg] 05/26/2024 03:30:00 [facility] DBP NIBP 65 mm[Hg] 05/26/2024 03:30:00 [facility] SpO2 94 % 05/26/2024 02:47:32 [facility] Heart Rate 66 bpm 05/26/2024 02:47:28 [facility] Heart Rate 61 bpm 05/26/2024 02:30:13 [facility] SpO2 98 % 05/26/2024 02:30:02 [facility] Mean NIBP 71 mm[Hg] 05/26/2024 02:30:00 [facility] SBP NIBP 92 mm[Hg] 05/26/2024 02:30:00 [facility] DBP NIBP 63 mm[Hg] 05/26/2024 02:30:00 [facility] SpO2 98 % 05/26/2024 01:43:37 [facility] Heart Rate 68 bpm 05/26/2024 01:43:36 [facility] Mean NIBP 90 mm[Hg] 05/26/2024 01:30:00 [facility] SBP NIBP 110 mm[Hg] 05/26/2024 01:30:00 [facility] DBP NIBP 78 mm[Hg] 05/26/2024 01:30:00 [facility] Mean NIBP 75 mm[Hg] 05/26/2024 01:00:00 [facility] SBP NIBP 91 mm[Hg] 05/26/2024 01:00:00 [facility] DBP NIBP 64 mm[Hg] 05/26/2024 01:00:00 [facility] Respiratory Rate 18 breaths/min 05/25/2024 21:30:00 [facility] Weight (kg) 57.9 kg 05/25/2024 21:30:00 [facility] Temperature (Celsius) 36.7 Rani 05/25/2024 21:30:00 [facility] Heart Rate 59 bpm 04/23/2024 09:23:06 [facility] SpO2 96 % 04/23/2024 09:23:04 [facility] Respiratory Rate 15 breaths/min 04/23/2024 09:23:00 [facility] Mean NIBP 80 mm[Hg] 04/23/2024 09:15:00 [facility] SBP NIBP 100 mm[Hg] 04/23/2024 09:15:00 [facility] DBP NIBP 70 mm[Hg] 04/23/2024 09:15:00 [facility] Respiratory Rate 13 breaths/min 04/23/2024 08:59:57 [facility] Heart Rate 72 bpm 04/23/2024 08:59:31 [facility] SpO2 96 % 04/23/2024 08:59:30 [facility] SBP NIBP 106 mm[Hg] 04/23/2024 08:45:00 [facility] DBP NIBP 77 mm[Hg] 04/23/2024 08:45:00 [facility] Mean NIBP 85 mm[Hg] 04/23/2024 08:45:00 [facility] SpO2 97 % 04/23/2024 07:59:13 [facility] Respiratory Rate 13 breaths/min 04/23/2024 07:59:12 [facility] Heart Rate 72 bpm 04/23/2024 07:59:12 [facility] SpO2 96 % 04/23/2024 07:17:36 [facility] Heart Rate 77 bpm 04/23/2024 07:17:08 [facility] Respiratory Rate 16 breaths/min 04/23/2024 07:17:08 [facility] SBP NIBP 92 mm[Hg] 04/23/2024 07:15:00 [facility] DBP NIBP 67 mm[Hg] 04/23/2024 07:15:00 [facility] Mean NIBP 75 mm[Hg] 04/23/2024 07:15:00 [facility] Temperature (Celsius) 36.4 Rani 04/23/2024 06:35:00 [facility] SBP NIBP 110 mm[Hg] 04/23/2024 06:35:00 [facility] DBP NIBP 73 mm[Hg] 04/23/2024 06:35:00 [facility] Weight (kg) 58.2 kg 04/23/2024 06:35:00 [facility] SpO2 99 % 03/04/2024 05:59:15 [facility] Mean NIBP 66 mm[Hg] 03/04/2024 05:30:00 [facility] Respiratory Rate 18 breaths/min 03/04/2024 05:30:00 [facility] SBP NIBP 94 mm[Hg] 03/04/2024 05:30:00 [facility] DBP NIBP 58 mm[Hg] 03/04/2024 05:30:00 [facility] Heart Rate 80 bpm 03/04/2024 05:30:00 [facility] SpO2 100 % 03/04/2024 05:29:39 [facility] Mean NIBP 76 mm[Hg] 03/04/2024 05:00:00 [facility] SBP NIBP 104 mm[Hg] 03/04/2024 05:00:00 [facility] DBP NIBP 67 mm[Hg] 03/04/2024 05:00:00 [facility] SpO2 100 % 03/04/2024 04:59:33 [facility] Mean NIBP 80 mm[Hg] 03/04/2024 04:30:00 [facility] SBP NIBP 103 mm[Hg] 03/04/2024 04:30:00 [facility] DBP NIBP 65 mm[Hg] 03/04/2024 04:30:00 [facility] SpO2 100 % 03/04/2024 04:08:58 [facility] Heart Rate 84 bpm 03/04/2024 04:00:00 [facility] Mean NIBP 83 mm[Hg] 03/04/2024 04:00:00 [facility] SBP NIBP 101 mm[Hg] 03/04/2024 04:00:00 [facility] DBP NIBP 75 mm[Hg] 03/04/2024 04:00:00 [facility] Respiratory Rate 16 breaths/min 03/04/2024 04:00:00 [facility] Respiratory Rate 22 breaths/min 03/04/2024 01:30:00 [facility] Heart Rate 92 bpm 03/04/2024 01:30:00 [facility] SpO2 100 % 02/21/2024 06:07:01 [facility] Heart Rate 88 bpm 02/21/2024 06:07:01 [facility] Respiratory Rate 13 breaths/min 02/21/2024 06:02:31 [facility] SBP NIBP 105 mm[Hg] 02/21/2024 06:00:02 [facility] DBP NIBP 71 mm[Hg] 02/21/2024 06:00:02 [facility] Mean NIBP 79 mm[Hg] 02/21/2024 06:00:02 [facility] Heart Rate 71 bpm 02/21/2024 05:59:30 [facility] SpO2 100 % 02/21/2024 05:59:30 [facility] Respiratory Rate 16 breaths/min 02/21/2024 05:59:22 [facility] Mean NIBP 83 mm[Hg] 02/21/2024 05:45:00 [facility] SBP NIBP 113 mm[Hg] 02/21/2024 05:45:00 [facility] DBP NIBP 73 mm[Hg] 02/21/2024 05:45:00 [facility] Heart Rate 66 bpm 02/21/2024 05:29:56 [facility] SpO2 100 % 02/21/2024 05:29:54 [facility] Respiratory Rate 12 breaths/min 02/21/2024 05:29:50 [facility] Mean NIBP 83 mm[Hg] 02/21/2024 05:15:00 [facility] SBP NIBP 98 mm[Hg] 02/21/2024 05:15:00 [facility] DBP NIBP 73 mm[Hg] 02/21/2024 05:15:00 [facility] Heart Rate 75 bpm 02/21/2024 04:29:46 [facility] SpO2 100 % 02/21/2024 04:29:44 [facility] Respiratory Rate 11 breaths/min 02/21/2024 04:29:43 [facility] SBP NIBP 110 mm[Hg] 02/21/2024 04:00:00 [facility] DBP NIBP 84 mm[Hg] 02/21/2024 04:00:00 [facility] Mean NIBP 93 mm[Hg] 02/21/2024 04:00:00 [facility] Temperature (Celsius) 36.7 Rani 02/21/2024 01:49:00 [facility] Weight (kg) 59 kg 02/21/2024 01:49:00 [facility] Heart Rate 76 bpm 12/17/2023 08:55:48 [facility] Respiratory Rate 19 breaths/min 12/17/2023 08:55:45 [facility] SpO2 99 % 12/17/2023 08:52:49 [facility] Mean NIBP 66 mm[Hg] 12/17/2023 08:30:00 [facility] SBP NIBP 97 mm[Hg] 12/17/2023 08:30:00 [facility] DBP NIBP 53 mm[Hg] 12/17/2023 08:30:00 [facility] Heart Rate 64 bpm 12/17/2023 08:16:15 [facility] SpO2 99 % 12/17/2023 08:16:15 [facility] Respiratory Rate 16 breaths/min 12/17/2023 08:16:12 [facility] Mean NIBP 88 mm[Hg] 12/17/2023 08:00:00 [facility] SBP NIBP 107 mm[Hg] 12/17/2023 08:00:00 [facility] DBP NIBP 81 mm[Hg] 12/17/2023 08:00:00 [facility] SpO2 99 % 12/17/2023 07:50:12 [facility] Heart Rate 78 bpm 12/17/2023 07:50:11 [facility] Respiratory Rate 16 breaths/min 12/17/2023 07:50:11 [facility] Heart Rate 60 bpm 12/17/2023 07:49:42 [facility] SpO2 99 % 12/17/2023 07:49:40 [facility] Respiratory Rate 13 breaths/min 12/17/2023 07:49:36 [facility] Mean NIBP 94 mm[Hg] 12/17/2023 07:31:30 [facility] SBP NIBP 106 mm[Hg] 12/17/2023 07:31:30 [facility] DBP NIBP 90 mm[Hg] 12/17/2023 07:31:30 [facility] Mean NIBP 78 mm[Hg] 12/17/2023 07:30:00 [facility] SBP NIBP 98 mm[Hg] 12/17/2023 07:30:00 [facility] DBP NIBP 69 mm[Hg] 12/17/2023 07:30:00 [facility] Weight (kg) 58 kg 12/17/2023 02:05:00 [facility] Temperature (Celsius) 36.5 Rani 12/17/2023 02:05:00 [facility] SBP NIBP 91 mm[Hg] 12/13/2023 15:03:47 [facility] DBP NIBP 55 mm[Hg] 12/13/2023 15:03:47 [facility] Mean NIBP 67 mm[Hg] 12/13/2023 15:03:47 [facility] Heart Rate 61 bpm 12/13/2023 15:03:47 [facility] SpO2 96 % 12/13/2023 15:03:47 [facility] Temperature (Celsius) 36.5 Rani 12/13/2023 15:00:00 [facility] Temperature (Celsius) 36.3 Rani 12/13/2023 09:00:00 [facility] Heart Rate 79 bpm 12/13/2023 09:00:00 [facility] Respiratory Rate 16 breaths/min 12/13/2023 09:00:00 [facility] SBP NIBP 99 mm[Hg] 12/13/2023 09:00:00 [facility] DBP NIBP 71 mm[Hg] 12/13/2023 09:00:00 [facility] Mean NIBP 80 mm[Hg] 12/13/2023 09:00:00 [facility] SpO2 97 % 12/13/2023 09:00:00 [facility] Temperature (Celsius) 36.1 Rani 12/13/2023 00:00:00 [facility] Heart Rate 66 bpm 12/13/2023 00:00:00 [facility] Respiratory Rate 16 breaths/min 12/13/2023 00:00:00 [facility] SBP NIBP 96 mm[Hg] 12/13/2023 00:00:00 [facility] DBP NIBP 60 mm[Hg] 12/13/2023 00:00:00 [facility] Mean NIBP 72 mm[Hg] 12/13/2023 00:00:00 [facility] SpO2 99 % 12/13/2023 00:00:00 [facility] SBP NIBP 102 mm[Hg] 12/12/2023 21:45:44 [facility] DBP NIBP 67 mm[Hg] 12/12/2023 21:45:44 [facility] Mean NIBP 78 mm[Hg] 12/12/2023 21:45:44 [facility] Heart Rate 74 bpm 12/12/2023 21:45:44 [facility] SpO2 97 % 12/12/2023 21:45:44 [facility] Respiratory Rate 14 breaths/min 12/12/2023 21:00:00 [facility] Temperature (Celsius) 36.9 Rani 12/12/2023 14:25:25 [facility] Respiratory Rate 17 breaths/min 12/12/2023 09:00:00 [facility] Report Given to RN 12/12/2023 03:03:00 [facility] Dosing Weight (kg) 57.7 kg 12/12/2023 03:00:00 [facility] Height (cm) 165.1 cm 12/12/2023 03:00:00 [facility] Height (cm) 165.1 cm 12/12/2023 02:30:00 [facility] Height (cm) 165.1 cm 12/12/2023 02:00:00 [facility] Weight (kg) 59.7 kg 12/12/2023 01:46:00 [facility] Height (cm) 165.1 cm 12/12/2023 01:46:00 [facility] BMI 21.9 kg/m2 12/12/2023 01:46:00 [facility] Dosing Weight (kg) 57.7 kg 12/12/2023 01:36:00 [facility] Weight (kg) 57.7 kg 12/11/2023 21:39:00 [facility] BMI 21.2 kg/m2 12/11/2023 21:39:00 [facility] Encounters Location Location Details Encounter Type Encounter Number Reason For Visit Attending Provider ADM Date DC Date Status Source [facility] Inpatient [id number] PAIN - CHEST Patricia Backes 12/10 16:37 :07 12/12 15:26 :00 Active [facility] [id number] Jelani Carranza 12/16 01:59 :35 12/16 09:09 :00 [facility] [id number] Tre Alvarado 02/20 01:46 :02 02/20 07:10 :00 [facility] [id number] Bryan Dupree 03/04 00:22 :00 03/04 00:34 :00 [facility] [id number] Christel Mijares 03/04 00:41 :27 03/04 06:04 :00 [facility] [id number] Bryan Dupree 03/04 23:22 :00 03/04 23:23 :00 [facility] [id number] Zhao Vigil 04/23 06:33 :42 04/23 09:35 :00 [facility] [id number] Bryan Dupree 05/25 20:53 :00 05/25 21:04 :00 [facility] [id number] Camilo Dan 05/25 21:07 :14 05/26 04:27 :00 [facility] [id number] Jordon Hartman 06/06 18:38 :30 06/07 04:59 :59 [facility] [id number] Bryan Dupree 06/12 06:39 :00 06/12 06:49 :00 [facility] [id number] Chan Buck 06/12 06:53 :56 06/12 10:30 :00 [facility] [id number] Bryan Dupree 06/25 06:56 :00 06/25 07:09 :00 [facility] [id number] Chan Devinet 06/25 07:16 :45 06/25 10:11 :00 [facility] [id number] Bryan Dupree 07/08 21:11 :00 07/08 21:25 :00 [facility] [id number] Obianuju Eziolisa 07/08 21:30 :22 07/09 02:06 :00 [facility] [id number] Bryan Dupree 07/09 21:49 :00 07/09 21:58 :00 [facility] [id number] Ed Beavers 07/09 22:05 :12 07/10 11:10 :00 [facility] [id number] 40624 Outside Ordering Physician 07/31 18:45 :00 09/30 04:59 :59 [facility] [id number] Bryan Dupree 08/09 17:31 :00 08/09 17:54 :00 [facility] [id number] Ed Beavers 08/09 17:57 :50 08/09 22:44 :00 [facility] FGL FGL OUTPATIENT [id number] ER FU 3-5 DAYS/blo od clot Brett Alejo [facility] SPP SPP OUTPATIENT [id number] NEW PER PT(ANXIE TY) Jessie Dao [facility]GL OUTPATIENT [id number] WEEK F/U Liliana Gov-Jesse [facility] [id number] tachycar karina, possible POTS Roberto Marquez [facility] FGL FGL OUTPATIENT [id number] ER FU 3-5 DAYS/blo od clot Marybeth Chasitydahl [facility] FGL OUTPATIENT [id number] ER f/u Sam Cobbnshaw [facility] FGL OUTPATIENT [id number] wk f/u per madeline Sam Cobbnshaw [facility] FBL FBL DIAGNOSTIC TESTING [id number] ppd reading it was placed at 10:50 11/3 Sam Cobbnshaw [facility] FGL FGL OUTPATIENT [id number] ER F/U-HEAR T RACING/V OMITING- TB CHECKED Sam [place] [facility] FGL OUTPATIENT [id number] hosp dc fu Sam Madeline [facility] CRD CRD OUTPATIENT [id number] EST CARE CHECK FOR Armen Leal Cancel [facility]Z PH[facility]IC[facility]INIC [id number] cristóbal/fts/ blayne Weston Cancel [facility] [id number] con/?us/ blayne Weston Cancel [facility] [id number] con/?us/ cisneros [facility] NELSON NELSON CR PHYSICIAN OP CLINIC [id number] CRISTÓBAL/BARRON SON Brett Weston [facility] N[facility] [id number] CRISTÓBAL/BARRON DESIREE Weston [facility] [id number] SCOLI - 16 DEGRESS L1-L4 Dot Pul[facility] [id number] growth/r ob/jacks on Brett Weston [facility] NELSON NELSON CR PHYS[facility] [id number] growth/r ob/[facility] NELSON NELSON CR PH[facility] [id number] growth/r ob/jacks on Brett Weston [facility] [id number] 6WK FU ON RT TOE Collette Tana-Natanael stinson [facility] OBP OBP CR PHYSICIAN OP CLINIC [id number] ER FO[facility] NELSON NELSON CR PHYSICIAN [facility]IN[facility] [id number] cristóbal/fts/ blayne Weston [facility] NELSON NELSON CR PH[facility] [id number] cristóbal/fts/ cisneros [facility] NELSON NELSON CR DIAGNOSTIC TESTING [id number] ua/jacks on [facility] NELSON NELSON CR PHYSICIAN OP CLINIC [id number] fts/cristóbal/ christopher [facility] NELSON NELSON CR PHYSICIAN [facility]IN[facility] [id number] fts/cristóbal/ christopher Weston [facility] SPP SPP NO TECHBILL [id number] THERAPY Shira [facility] N[facility] CR [facility] [id number] bpp/nst/ cristóbal/barron desiree Weston [facility] NELSON NELSON CR PHYS[facility]IAN [facility] [id number] bpp/nst/ cristóbal/barron desiree [facility] N[facility]SON NELSON CR [facility] [id number] bpp/nst/ cristóbal/barron son Cancel [facility] OBP OBP CR PHYSICIAN OP CLINIC [id number] COLPO Neelima Martin [facility] [place] [facility] SPP SPP NO TECHBILL [id number] NEW PT. THERAPY Shira Velasquezf [facility] OBP OBP [facility] [id number] COLPO/MF M REFERRAL [facility] [place] [facility] OBP OBP CR PHYSICIAN OP CLINIC [id number] PRE-OP BTL Neelima Martin [facility] [place] [facility] Procedures Procedure Code Date Perfomer Comments Source D&C- 2015 [facility] lypoma removal-2013 [facility] Social History Social History Date Source No data available for this section 09/30/2024 [facility] No data available for this section 08/09/2024 [facility] No data available for this section 08/09/2024 [facility] No data available for this section 07/10/2024 [facility] No data available for this section 07/09/2024 [facility] No data available for this section 07/09/2024 [facility] No data available for this section 07/08/2024 [facility] No data available for this section 06/25/2024 [facility] No data available for this section 06/25/2024 [facility] No data available for this section 06/12/2024 [facility] No data available for this section 06/12/2024 [facility] No data available for this section 06/07/2024 [facility] No data available for this section 05/26/2024 [facility] No data available for this section 05/25/2024 [facility] No data available for this section 04/23/2024 [facility] No data available for this section 03/04/2024 [facility] No data available for this section 03/04/2024 [facility] No data available for this section 03/04/2024 [facility] No data available for this section 02/21/2024 [facility] No data available for this section 12/17/2023 [facility] No data available for this section 12/13/2023 [facility]
--- NOTE | 2024-10-12 08:44 | PC.NURSE ---
pt reports she is unable to void at this time for bedside but does state there is no way I'm I will sign a waiver.
[2024-10-12 08:49] VITALS: BP 94/64; PULSE 74; RESP 17; TEMP 36.6; O2SAT 100
[2024-10-12 09:30] VITALS: BP 100/62; PULSE 80; RESP 17; TEMP 36.5; O2SAT 100
--- NOTE | 2024-10-12 09:38 | ED_ITS ---
HPI - Chest Pain General Chief Complaint: Chest Pain Stated Complaint: CP & SOB Time Seen by Provider: 10/12/24 07:13 Source: patient Mode of arrival: EMS Limitations: no limitations History of Present Illness HPI narrative: 34-year-old with a history of PE, POTS , here with a complains of right-sided chest pain since yesterday. Patient states that she was on Eliquis until about 4 months ago. She states that she lost her insurance and has not been taking Eliquis. She denies any shortness of breath however she states every time she takes a deep breath has pain in the right side of her chest. She denies any cough fever or chills. 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 MD complaint: chest pain Pertinent past history: other (PE) Onset (ago): day(s) (1) Prior episodes: Yes Onset: during rest Pain location: right chest Pain radiation: none Severity: moderate Quality: aching Relieving factors: nothing Exacerbating factors: inspiration Treatment prior to arrival: none Related Data Allergies Allergy/AdvReac Type Severity Reaction Status Date / Time No Known Allergies Allergy Verified 10/12/24 07:33 Review of Systems 2 Review of Systems: GENERAL: Well-appearing, well-nourished, and in no acute distress. HEAD: Normocephalic, atraumatic. EYES: PERRLA and EOMI. ENT: Nares clear, . Mucous membranes moist. NECK: Supple. CHEST: Clear to auscultation. No respiratory distress. HEART: Regular rate and rhythm. No murmur heard. Normal peripheral pulses. ABDOMEN: Soft, nontender, nondistended, normal active bowel sounds. EXTREMITIES: Normal range of motion. No edema. SKIN: Warm, dry, no rash. NEURO: No focal deficits. Alert and oriented x3. PSYCH: Normal mood and affect. Course Course Emergency Course: Patient comfortably resting in no acute distress. Informed her about the lab work, CT findings which includes nodule in the chest. Cause of the pain was likely musculoskeletal at this time. Advised to follow up with the primary doctor. Vital Signs Vital signs: Vital Signs Temperature 36.9 C 10/12/24 07:01 Pulse Rate 79 10/12/24 07:01 Respiratory Rate 14 10/12/24 07:01 Blood Pressure 113/77 10/12/24 07:01 Pulse Oximetry 100 10/12/24 07:01 Oxygen Delivery Room Air 10/12/24 07:01 Temperature 36.6 C 10/12/24 08:30 Pulse Rate 79 10/12/24 08:30 Respiratory Rate 18 10/12/24 08:30 Blood Pressure 95/62 L 10/12/24 08:30 Pulse Oximetry 98 10/12/24 08:30 Oxygen Delivery Room Air 10/12/24 07:51 MDM - Chest Pain MDM Narrative Medical decision making narrative: 34-year-old with a history of PU presents to the ER with a complaint of right- sided chest pain exam is unremarkable will do labs and CT to rule out PE. Differential Diagnosis Differential diagnosis: Likely fracture of rib, atypical chest pain, costochondritis, chest pain and other (PE) Lab Data Attestation: I reviewed the patient's lab results. 10/12/24 07:40 10/12/24 07:39 Labs: Lab Results 10/12/24 10/12/24 Range/Units 07:39 07:40 WBC 9.0 (4.5-10.0) K/mm3 RBC 4.38 (4.2-5.4) M/mm3 Hgb 13.3 (12.0-15.0) g/dL Hct 39.3 (37.0-47.0) % MCV 89.7 (80-100) fl MCH 30.4 (26-34) pg MCHC 33.8 (32-36) g/dl RDW 11.7 (11.5-14.5) % Plt Count 190 (150-375) k/mm3 MPV 10.1 (7.4-10.4) fl Immature Gran % (Auto) 1.8 H (0-0.5) % Neut % (Auto) 49.5 (45.5-73.1) % Lymph % (Auto) 36.8 (18.3-44.2) % Cla[place]orne % (Auto) 7.1 (2.6-8.5) % Eos % (Auto) 4.2 (0-4.4) % Baso % (Auto) 0.6 (0.2-1.2) % Lymph # (Auto) 3.33 H (0.9-3.2) K/mm3 [place]orne # (Auto) 0.6 (0.1-0.6) K/mm3 Eos # (Auto) 0.4 H (0-0.3) K/mm3 Baso # (Auto) 0.1 (0.0-0.1) K/mm3 Abs Immat Gran (auto) 0.16 H (0.00-0.031) K/mm3 Absolute Neuts (auto) 4.5 (1.3-6.7) K/mm3 Absolute Nucleated RBC 0.000 (0.0-0.012) K/mm3 Nucleated RBC % 0.0 (0.0-0.2) % PT 14.0 (11.1-14.7) Seconds INR 1.1 APTT 27.4 (22.3-36.8) Seconds Sodium 138 (137-145) mmol/L Potassium 3.3 L (3.4-5.0) mmol/L Chloride 107 (98-107) mmol/L Carbon Dioxide 20 L (22-30) mmol/L Anion Gap 11 (4-12) mmol/L BUN 10 (7-17) mg/dL Creatinine 0.65 L (0.7-1.0) mg/dL Estim Creat Clear Calc 95 ml/min Estimated GFR > 60 (59 - ) Glucose 98 (65-110) mg/dL Calcium 9.0 (8.4-10.2) mg/dL Total Bilirubin 0.6 (0.2-1.3) mg/dL AST 26 (14-36) U/L ALT 18 (6-35) U/L Alkaline Phosphatase 39 (38-126) U/L Troponin I < 0.012 (0.000-0.034) ng/mL Total Protein 6.9 (6.3-8.2) g/dL Albumin 4.2 (3.5-5.1) g/dL Lipase 75 (23-300) U/L Imaging Data Radiologist's impression: ITS Impressions Chest X-Ray 10/12/24 08:13 IMPRESSION: No acute cardiopulmonary pathology Chest CTA 10/12/24 09:12 IMPRESSION: 1. No pulmonary embolism. 2. No acute cardiopulmonary pathology. 3. Nodule in the left lower lobe laterally measuring 6 mm. 6 months follow-up CT is advised. 4. Contracted gallbladder with calcifications suggestive of cholelithiasis. ultrasound evaluation advised.. ECG Data EKG #1: ECG completion date: 10/12/24 ECG completion time: 07:23 EKG Interpretation: normal rate (72), sinus rhythm, no ectopy, no ST changes, normal QT, NL axis and no acute changes Discharge Plan Discharge Clinical Impression: Chest pain Qualifiers: Chest pain type: unspecified Qualified Code(s): R07.9 - Chest pain, unspecified Patient Disposition: Home Condition: Stable Instructions: Chest Pain (ED) Additional Instructions: Can take Tylenol or ibuprofen for pain. Follow-up with your primary doctor Patient Language: Slovak Follow-up/Referrals: Anup Alfaro MD [Physician] - PHYSICIAN,[employer]PERVISOR [Primary Care Provider] - Time of Disposition: 09:39
== END 2024-10-12 09:58 | disposition home or self-care (01) ==
PROVIDERS: Student in an Organized Health Care Education/Training Program; Emergency Provider Family Medicine
DX: R07.9 Chest pain, unspecified (principal); G90.A Postural orthostatic tachycardia syndrome [POTS]; Z86.711 Personal history of pulmonary embolism; R91.1 Solitary pulmonary nodule; R93.2 Abnormal findings on diagnostic imaging of liver and biliary tract
CPT/HCPCS: 36415; 71046; 71275; 80053; 83690; 84484; 85025; 85610; 85730; 93005; 99284; Q9967

== ENCOUNTER 2024-10-19 04:01 | Emergency (ER) | payer MEDICAID, SELFPAY ==
--- NOTE | ~2024-10-19 | CT_ITS ---
EXAM: CTA chest PE protocol - 10/19/2024 8:35 CDT History: 34 years old Female with cp TECHNIQUE: CTA of the chest with contrast, according to pulmonary embolism protocol. Reformatted cor onal, sagittal, and 3-D MIP images were obtained. 100 cc of Optiray 350 were used for the study. Auto matic exposure control was used for this study. COMPARISON: None available. FINDINGS: EXAM QUALITY: Adequate visualization of the pulmonary arteries to the lobar level. PULMONARY ARTERIAL VASCULATURE: No evidence of pulmonary embolism in main and lobar pulmonary arterie s. Limited evaluation for segmental and peripheral pulmonary arteries due to suboptimal contrast bolu s timing. VISUALIZED LOWER NECK: Thyroid gland appears normal. No supraclavicular lymphadenopathy. AIRWAYS: Patent centrally. LUNGS and PLEURA: No suspicious pulmonary nodules. Previously seen 6 mm left pulmonary nodule is no l onger seen.. No focal consolidation or ground glass opacity.No pleural effusion. MEDIASTINUM and MEERA: No hilar or mediastinal lymphadenopathy. No mediastinal mass is seen. Esophagus appears normal. HEART AND PERICARDIUM: Cardiac chambers are normal in size. No pericardial fluid or thickening is pre sent. VASCULATURE: Thoracic aorta and pulmonary arteries are normal in caliber. CHEST WALL: No supraclavicular or axillary lymphadenopathy. MUSCULOSKELETAL: No acute osseous abnormality. UPPER ABDOMEN: Cholelithiasis. IMPRESSION: 1. No evidence of pulmonary embolism in main and lobar pulmonary arteries. 2. Cholelithiasis. Reviewed, dictated and finalized at location A.
--- NOTE | ~2024-10-19 | XR_ITS ---
EXAMINATION: XR chest 2V 10/19/2024 05:56 INDICATION: Chest pain PROCEDURE: 2 view chest COMPARISON: 10/12/2024 FINDINGS: The lungs are clear. The cardiomediastinal silhouette is within normal limits. There are no pleural effusions. There is no pneumothorax suspected. IMPRESSION: 1: NO ACUTE CARDIOPULMONARY DISEASE. Reviewed, dictated and finalized at location A.
--- NOTE | ~2024-10-19 | US_ITS ---
EXAM: US pelvic complete w TV - 10/19/2024 8:10 CDT History: 34 years old Female with right adnexal pain Comparison: None available. Technique Real time scanning of the pelvis was performed. 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 The uterus measures 9.7 x 4.8 x 5.4 cm. No focal myometrial abnormality is seen. Endometrium is hugh sly unremarkable. The endometrial stripe measures 5 mm. The right ovary measures 3.1 x 2.3 x 3.1 cm. The left ovary measures 3.6 x 1.4 x 2.3 cm. Both ovaries appear grossly unremarkable and have intact blood flow. There is no significant fluid in the cul-de-sac. 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 Reviewed, dictated and finalized at location A. 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
--- OUTSIDE RECORDS SUMMARY | 2024-10-19 04:05 | XMS_ITS | Continuity of Care Document ---
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 calculator at [employer] Website. [facility] CHEMISTRY Estimated GFR for Adults 124 mL/min/1.7 3m 06/25 07:51 :00 Interpretive Data: Changed to CKD-EPI 2020 on 2020. [facility] GENERAL CHEMISTRY Creatinine, standardized HEMOLYZED, unable to report due to interferen ce mg/dL 0.5 - 1.0 06/25 07:51 :00 Result Comment: Hemolyzed Hemolyzed Sample. Interpretive Data: Apzowt-jv-slj e transgender patients on testosterone therapy should have results assessed using the male reference range. Tmxf-fx-atqkf e transgender patients on hormone-modul ating therapy clinical judgment is advisedfor assessment. [facility] HEMATOLOGY PROFILES PLT 141 x10(9)/L 150 - 450 06/25 07:51 :00 [facility] HEMATOLOGY PROFILES MPV 10.5 8.0 - 12.0 06/25 07:51 :00 [facility] HEMATOLOGY PROFILES HGB 12.0 g/dL 12.0 - 15.5 06/25 07:51 :00 Interpretive Data: Bkbfap-vz-fip e transgender patients on testosterone therapy should have results assessed using the male reference range. Scxu-gt-tiieb e transgender patients on hormone-modul ating therapy clinical judgment is advisedfor assessment. [facility] HEMATOLOGY PROFILES RBC 3.92 x10(12)/L 3.90 - 5.03 06/25 07:51 :00 [facility] HEMATOLOGY PROFILES HCT 34.9 % 34.9 - 44.5 06/25 07:51 :00 Interpretive Data: Exntdr-qk-rml e transgender patients on testosterone therapy should have results assessed using the male reference range. Vgso-xl-wdkfq e transgender patients on hormone-modul ating therapy clinical judgment is advisedfor assessment. [facility] HEMATOLOGY PROFILES WBC 8.15 x10(9)/L 3.50 - 10.50 06/25 07:51 :00 [facility] HEMATOLOGY PROFILES RDW SD 37.7 fL 36.4 - 46.3 06/25 07:51 :00 [facility] HEMATOLOGY PROFILES RDW CV 11.9 % 11.9 - 15.5 06/25 07:51 :00 [facility] HEMATOLOGY PROFILES MCV 89.0 fL 81.6 - 98.3 06/25 07:51 :00 [facility] HEMATOLOGY PROFILES MCHC 34.4 g/dL 32.0 - 36.0 06/25 07:51 :00 [facility] HEMATOLOGY PROFILES MCH 30.6 pg 26.0 - 33.0 06/25 07:51 :00 [facility] HEMATOLOGY PROFILES % Basophils 0.6 % 06/25 07:51 :00 [facility] HEMATOLOGY PROFILES Absolute Granulocytes 5.30 x10(9)/L 1.70 - 7.00 06/25 07:51 :00 [facility] HEMATOLOGY PROFILES % Immature Granulocytes 0.60 % 0.02 - 0.42 06/25 07:51 :00 [facility] HEMATOLOGY PROFILES % Eosinophils 4.7 % 06/25 07:51 :00 [facility] HEMATOLOGY PROFILES Abs Basophils 0.05 x10(9)/L 0.00 - 0.30 06/25 07:51 :00 [facility] HEMATOLOGY PROFILES Abs Eosinophils 0.38 x10(9)/L 0.05 - 0.50 06/25 07:51 :00 [facility] HEMATOLOGY PROFILES Abs Immature Granulocytes 0.05 x10(9)/L 0.00 - 0.03 06/25 07:51 :00 [facility] HEMATOLOGY PROFILES Abs Monocytes 0.44 x10(9)/L 0.30 - 0.90 06/25 07:51 :00 [facility] HEMATOLOGY PROFILES Abs Lymphocytes 1.93 x10(9)/L 0.90 - 2.90 06/25 07:51 :00 [facility] HEMATOLOGY PROFILES % Neutrophils 65.0 % 06/25 07:51 :00 [facility] HEMATOLOGY PROFILES Absolute Nucleated RBCs 0.0 x10(9)/L 0.0 - 0.0 06/25 07:51 :00 Interpretive Data: Normal values not established in patients less than 18 years old. [facility] HEMATOLOGY PROFILES % Monocytes 5.4 % 06/25 07:51 :00 [facility] HEMATOLOGY PROFILES % Lymphocytes 23.7 % 06/25 07:51 :00 [facility] HEMATOLOGY PROFILES % Nucleated RBCs 0.0 % 06/25 07:51 :00 [facility] US Leg Imaging Venous US Leg Imaging [...] Signed on: 06/25/24 09:19 06/25 03:01 :05 [facility] XR Chest XR Chest XR General Diagnostic [...] Signed on: 06/25/24 08:32 06/25 02:50 :51 [facility] CLINIC SITE LAB RESULTS POC U hCG (Rals) Negative *NA* (06/12/24 2:35 AM) 06/12 07:35 :00 [facility] GENERAL CHEMISTRY ALT-SGPT 13 U/L 10 - 40 06/12 07:26 :00 [facility] GENERAL CHEMISTRY Alkaline Phosphatase 47 U/L 35 - 104 06/12 07:26 :00 [facility] GENERAL CHEMISTRY Total Protein 7.0 g/dL 5.7 - 8.2 06/12 07:26 :00 [facility] GENERAL CHEMISTRY Creatinine, standardized 0.6 mg/dL 0.5 - 1.0 06/12 07:26 :00 Interpretive Data: Rvwpfz-ee-gpb e transgender patients on testosterone therapy should have results assessed using the male reference range. Lrdn-ft-akjvb e transgender patients on hormone-modul ating therapy clinical judgment is advisedfor assessment. [facility] GENERAL CHEMISTRY Chloride 107 mmol/L 98 - 107 06/12 07:26 :00 [facility] GENERAL CHEMISTRY Estimated GFR for Adults 121 mL/min/1.7 3m 06/12 07:26 :00 Interpretive Data: Changed to CKD-EPI 2020 on 2020. [facility] GENERAL CHEMISTRY Glucose Lvl 97 mg/dL 70 - 139 06/12 07:26 :00 [facility] GENERAL CHEMISTRY Calcium 8.6 mg/dL 8.3 - 10.6 06/12 07:26 :00 [facility] GENERAL CHEMISTRY BUN 9 mg/dL 6 - 20 06/12 07:26 :00 [facility] GENERAL CHEMISTRY Sodium 137 mmol/L 136 - 145 06/12 07:26 :00 [facility] GENERAL CHEMISTRY Estimated GFR for peds Not Calculated mL/min/1.7 3m 06/12 07:26 :00 Interpretive Data: The estimated GFR was calculated using the Eliezer salas [place] equation (2009) . Reference: Pediatric GFR calculator at [employer] Website. [facility] CHEMISTRY Albumin 3.9 g/dL 3.4 - 5.0 06/12 07:26 :00 [facility] GENERAL CHEMISTRY T Bili 0.54 mg/dL 0.30 - 1.20 06/12 07:26 :00 [facility] GENERAL CHEMISTRY AST-SGOT 20 U/L 06/12 07:26 :00 [facility] GENERAL CHEMISTRY Anion gap 11 mmol/L 0 - 20 06/12 07:26 :00 [facility] GENERAL CHEMISTRY CO2 23 mmol/L 20 - 31 06/12 07:26 :00 [facility] GENERAL CHEMISTRY Potassium HEMOLYZED, unable to report due to interferen ce mmol/L 3.5 - 5.1 06/12 07:26 :00 Result Comment: Hemolyzed Hemolyzed Sample. [facility] GENERAL CHEMISTRY 3rd Generation TSH 1.490 mcIU/mL 0.550 - 4.780 06/12 07:26 :00 Interpretive Data: Reference Interval I U/mL Infants (1 2 3 months) 0.87 6 .15 Children (2 1 2 years) 0.67 4 .16 Adolescents (13 2 0 years) 0.48 4 .17 [facility] HEMATOLOGY PROFILES PLT 214 x10(9)/L 150 - 450 06/12 07:26 :00 [facility] HEMATOLOGY PROFILES RDW SD 37.3 fL 36.4 - 46.3 06/12 07:26 :00 [facility] HEMATOLOGY PROFILES RDW CV 11.6 % 11.9 - 15.5 06/12 07:26 :00 [facility] HEMATOLOGY PROFILES MCHC 33.9 g/dL 32.0 - 36.0 06/12 07:26 :00 [facility] HEMATOLOGY PROFILES MCH 30.2 pg 26.0 - 33.0 06/12 07:26 :00 [facility] HEMATOLOGY PROFILES MCV 89.0 fL 81.6 - 98.3 06/12 07:26 :00 [facility] HEMATOLOGY PROFILES HCT 41.3 % 34.9 - 44.5 06/12 07:26 :00 Interpretive Data: Lpniyi-yv-jxy e transgender patients on testosterone therapy should have results assessed using the male reference range. Byhk-kj-enjnk e transgender patients on hormone-modul ating therapy clinical judgment is advisedfor assessment. [facility] HEMATOLOGY PROFILES HGB 14.0 g/dL 12.0 - 15.5 06/12 07:26 :00 Interpretive Data: Vkxrix-zb-kve e transgender patients on testosterone therapy should have results assessed using the male reference range. Depc-dr-laftw e transgender patients on hormone-modul ating therapy clinical judgment is advisedfor assessment. [facility] HEMATOLOGY PROFILES RBC 4.64 x10(12)/L 3.90 - 5.03 06/12 07:26 :00 [facility] HEMATOLOGY PROFILES WBC 6.03 x10(9)/L 3.50 - 10.50 06/12 07:26 :00 [facility] HEMATOLOGY PROFILES MPV 10.5 8.0 - 12.0 06/12 07:26 :00 [facility] HEMATOLOGY PROFILES % Neutrophils 47.7 % 06/12 07:26 :00 [facility] HEMATOLOGY PROFILES Abs Immature Granulocytes 0.02 x10(9)/L 0.00 - 0.03 06/12 07:26 :00 [facility] HEMATOLOGY PROFILES Absolute Nucleated RBCs 0.0 x10(9)/L 0.0 - 0.0 06/12 07:26 :00 Interpretive Data: Normal values not established in patients less than 18 years old. [facility] HEMATOLOGY PROFILES Abs Basophils 0.06 x10(9)/L 0.00 - 0.30 06/12 07:26 :00 [facility] HEMATOLOGY PROFILES Abs Eosinophils 0.32 x10(9)/L 0.05 - 0.50 06/12 07:26 :00 [facility] HEMATOLOGY PROFILES % Nucleated RBCs 0.0 % 06/12 07:26 :00 [facility] HEMATOLOGY PROFILES Abs Monocytes 0.31 x10(9)/L 0.30 - 0.90 06/12 07:26 :00 [facility] HEMATOLOGY PROFILES Abs Lymphocytes 2.45 x10(9)/L 0.90 - 2.90 06/12 07:26 :00 [facility] HEMATOLOGY PROFILES Absolute Granulocytes 2.87 x10(9)/L 1.70 - 7.00 06/12 07:26 :00 [facility] HEMATOLOGY PROFILES % Immature Granulocytes 0.30 % 0.02 - 0.42 06/12 07:26 :00 [facility] HEMATOLOGY PROFILES % Basophils 1.0 % 06/12 07:26 :00 [facility] HEMATOLOGY PROFILES % Eosinophils 5.3 % 06/12 07:26 :00 [facility] HEMATOLOGY PROFILES % Monocytes 5.1 % 06/12 07:26 :00 [facility] HEMATOLOGY PROFILES % Lymphocytes 40.6 % 06/12 07:26 :[address] [facility] CT Chest PE Protocol CT Chest PE [...] Signed on: 06/12/24 08:14 06/12 03:25 :07 [facility] GENERAL CHEMISTRY Estimated GFR for Adults 120 mL/min/1.7 3m 05/25 22:26 :00 Interpretive Data: Changed to CKD-EPI 2020 on 2020. [facility] GENERAL CHEMISTRY Creatinine, standardized 0.6 mg/dL 0.5 - 1.0 05/25 22:26 :00 Interpretive Data: Bfdsqm-zq-ydn e transgender patients on testosterone therapy should have results assessed using the male reference range. Jufo-yb-vzswo e transgender patients on hormone-modul ating therapy clinical judgment is advisedfor assessment. [facility] GENERAL CHEMISTRY Sodium 139 mmol/L 136 - 145 05/25 22:26 :00 [facility] GENERAL CHEMISTRY Total Protein 7.0 g/dL 5.7 - 8.2 05/25 22:26 :00 [facility] GENERAL CHEMISTRY Glucose Lvl 80 mg/dL 70 - 139 05/25 22:26 :00 [facility] CHEMISTRY Anion gap 14 mmol/L 0 - 20 05/25 22:26 :00 [facility] CHEMISTRY Chloride 105 mmol/L 98 - 107 05/25 22:26 :00 [facility] CHEMISTRY T Bili 0.60 mg/dL 0.30 - 1.20 05/25 22:26 :00 [facility] GENERAL CHEMISTRY BUN 11 mg/dL 6 - 20 05/25 22:26 :00 [facility] GENERAL CHEMISTRY Potassium 3.6 mmol/L 3.5 - 5.1 05/25 22:26 :00 [facility] GENERAL CHEMISTRY Calcium 9.2 mg/dL 8.3 - 10.6 05/25 22:26 :00 [facility] GENERAL CHEMISTRY CO2 24 mmol/L 20 - 31 05/25 22:26 :00 [facility] GENERAL CHEMISTRY Alkaline Phosphatase 50 U/L 35 - 104 05/25 22:26 :00 [facility] GENERAL CHEMISTRY ALT-SGPT 14 U/L 10 - 40 05/25 22:26 :00 [facility] GENERAL CHEMISTRY Albumin 4.2 g/dL 3.4 - 5.0 05/25 22:26 :00 [facility] CHEMISTRY AST-SGOT 15 U/L 05/25 22:26 :00 [facility] CHEMISTRY Estimated GFR for peds Not Calculated mL/min/1.7 3m 05/25 22:26 :00 Interpretive Data: The estimated GFR was calculated using the B [employer]osue [place] equation (2009) . Reference: Pediatric GFR calculator at [employer] Website. [facility] HEMATOLOGY PROFILES MPV 10.4 8.0 - 12.0 05/25 22:26 :00 [facility] HEMATOLOGY PROFILES PLT 188 x10(9)/L 150 - 450 05/25 22:26 :00 [facility] HEMATOLOGY PROFILES RDW CV 12.0 % 11.9 - 15.5 05/25 22:26 :00 [facility] HEMATOLOGY PROFILES RDW SD 38.9 fL 36.4 - 46.3 05/25 22:26 :00 [facility] HEMATOLOGY PROFILES MCH 29.8 pg 26.0 - 33.0 05/25 22:26 :00 [facility] HEMATOLOGY PROFILES MCHC 33.5 g/dL 32.0 - 36.0 05/25 22:26 :00 [facility] HEMATOLOGY PROFILES MCV 88.9 fL 81.6 - 98.3 05/25 22: :00 [facility] HEMATOLOGY PROFILES HCT 44.8 % 34.9 - 44.5 05/25 22:26 :00 Interpretive Data: Jqxjvm-rg-ryi e transgender patients on testosterone therapy should have results assessed using the male reference range. Jzge-uf-iftbg e transgender patients on hormone-modul ating therapy clinical judgment is advisedfor assessment. [facility] HEMATOLOGY PROFILES RBC 5.04 x10(12)/L 3.90 - 5.03 05/25 22:26 :00 [facility] HEMATOLOGY PROFILES HGB 15.0 g/dL 12.0 - 15.5 05/25 22:26 :00 Interpretive Data: Zziiiw-ef-gzd e transgender patients on testosterone therapy should have results assessed using the male reference range. Wenr-kz-aledx e transgender patients on hormone-modul ating therapy clinical judgment is advisedfor assessment. [facility] HEMATOLOGY PROFILES WBC 5.97 x10(9)/L 3.50 - 10.50 05/25 22:26 :00 [facility] HEMATOLOGY PROFILES Absolute Granulocytes 3.03 x10(9)/L 1.70 - 7.00 05/25 22: :00 [facility] HEMATOLOGY PROFILES Abs Lymphocytes 2.25 x10(9)/L 0.90 - 2.90 05/25 22:26 :00 [facility] HEMATOLOGY PROFILES % Basophils 0.7 % 05/25 22:26 :00 [facility] HEMATOLOGY PROFILES % Immature Granulocytes 0.20 % 0.02 - 0.42 05/25 22:26 :00 [facility] HEMATOLOGY PROFILES % Eosinophils 4.4 % 05/25 22:26 :00 [facility] HEMATOLOGY PROFILES % Lymphocytes 37.7 % 05/25 22:26 :00 [facility] HEMATOLOGY PROFILES % Monocytes 6.4 % 05/25 22:26 :00 [facility] HEMATOLOGY PROFILES Absolute Nucleated RBCs 0.0 x10(9)/L 0.0 - 0.0 05/25 22:26 :00 Interpretive Data: Normal values not established in patients less than 18 years old. [facility] HEMATOLOGY PROFILES % Neutrophils 50.6 % 05/25 22:26 :00 [facility] HEMATOLOGY PROFILES % Nucleated RBCs 0.0 % 05/25 22:26 :00 [facility] HEMATOLOGY PROFILES Abs Basophils 0.04 x10(9)/L 0.00 - 0.30 05/25 22:26 :00 [facility] HEMATOLOGY PROFILES Abs Immature Granulocytes 0.01 x10(9)/L 0.00 - 0.03 05/25 22:26 :00 [facility] HEMATOLOGY PROFILES Abs Monocytes 0.38 x10(9)/L 0.30 - 0.90 05/25 22:26 :00 [facility] HEMATOLOGY PROFILES Abs Eosinophils 0.26 x10(9)/L 0.05 - 0.50 05/25 22:26 :00 [facility] URINALYSIS UA PH 6 (05/25/24 4:26 PM) 4.5 - 8.0 05/25 22:26 :00 [facility] URINALYSIS COLOR Yellow (05/25/24 4:26 PM) 05/25 22:26 :00 [facility] URINALYSIS SPECIFIC GRAVITY 1.026 1.006 - 1.030 05/25 22:26 :00 [facility] URINALYSIS Urine Collection Method Clean Catch UR (05/25/24 4:26 PM) 05/25 22:26 :00 [facility] URINALYSIS CLARITY Slightly Cloudy (05/25/24 4:26 PM) 05/25 22:26 :00 [facility] URINALYSIS UA UROBILINOGEN Negative Geronimo unit/dL 0.2 - 1.0 05/25 22:26 :00 [facility] URINALYSIS UA BLOOD Negative 4 (05/25/24 4:26 PM) 05/25 22:26 :00 Result Comment: A hemoglobin concentration of 0.015-0.062 mg/dL is approximately equivalent to 5 -20 intact red blood cells per microliter. [facility] URINALYSIS UA KETONES Negative mg/dL 05/25 22:26 :00 [facility] URINALYSIS BILIRUBIN Negative (05/25/24 4:26 PM) 05/25 22:26 :00 [facility] URINALYSIS UA GLUCOSE Negative mg/dL 05/25 22:26 :00 [facility] URINALYSIS UA NITRITE Negative (05/25/24 4:26 PM) 05/25 22:26 :00 [facility] URINALYSIS UA PROTEIN Negative mg/dL 05/25 22:26 :00 [facility] URINALYSIS UA LEUKOCYTES Negative (05/25/24 4:26 PM) 05/25 22:26 :[address] [facility] [address] Chest PE Protocol CT Chest PE Protocol CT Scan/CT Angio Accession # Exam Date/Time Procedure Ordering Provider [id number] 05/25/2024 21:21 [address] [address] Chest PE Protocol Mathew Lopez Reason [...] Signed on: 05/25/24 21:26 05/25 21:05 :48 [facility] US Leg Imaging Venous US Leg Imaging Venous Ultrasound Accession # Exam Date/Time Procedure Ordering Provider [id number] 05/25/2024 17:20 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[employer]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 US Leg Imaging Venous Rachelle Galeano MD [...] Signed on: 05/25/24 17:30 05/25 16:58 :29 [facility] CLINIC SITE LAB RESULTS POC U hCG (Rals) Negative *NA* (04/23/24 1:32 AM) 04/23 07:32 :00 [facility] URINALYSIS UA GLUCOSE Negative mg/dL 04/23 07:32 :00 [facility] URINALYSIS UA PH 7 (04/23/24 1:32 AM) 4.5 - 8.0 04/23 07:32 :00 [facility] URINALYSIS UA UROBILINOGEN Negative Geronimo unit/dL 0.2 - 1.0 04/23 07:32 :00 [facility] URINALYSIS BILIRUBIN Negative (04/23/24 1:32 AM) 04/23 07:32 :00 [facility] URINALYSIS UA KETONES Negative mg/dL 04/23 07:32 :00 [facility] URINALYSIS UA LEUKOCYTES Negative (04/23/24 1:32 AM) 04/23 07:32 :00 [facility] URINALYSIS UA BLOOD Negative 5 (04/23/24 1:32 AM) 04/23 07:32 :00 Result Comment: A hemoglobin concentration of 0.015-0.062 mg/dL is approximately equivalent to 5 -20 intact red blood cells per microliter. [facility] URINALYSIS UA PROTEIN Negative mg/dL 04/23 07:32 :00 [facility] URINALYSIS UA NITRITE Negative (04/23/24 1:32 AM) 04/23 07:32 :00 [facility] URINALYSIS Urine Collection Method Clean Catch UR (04/23/24 1:32 AM) 04/23 07:32 :00 [facility] URINALYSIS SPECIFIC GRAVITY 1.026 1.006 - 1.030 04/23 07:32 :00 [facility] URINALYSIS COLOR Yellow (04/23/24 1:32 AM) 04/23 07:32 :00 [facility] URINALYSIS CLARITY Cloudy *ABNORMAL* (04/23/24 1:32 AM) 04/23 07:32 :00 [facility] COAGULATIO N PT 12.4 s 9.4 - 12.5 04/23 07:00 :00 [facility] COAGULATIO N INR 1.1 0.9 - 1.2 [...] M, Harley DD, Schu n joshua HJ; [employer] Antithromboti c Therapy and Prevention of Thrombosis Panel. Executive summary: Antithromboti c Therapy and Prevention of Thrombosis, 9th Ed: [employer] Evidence-Base d Clinical Practice Guidelines. Chest. 2012 Apr; 141(2 Suppl):7S-47S . doi: 10.1378/chest .1412S3 [facility] COAGULATIO N PTT 28.6 s 25.1 - [...] the Clinical Pathology Service for additional questions. [facility] GENERAL CHEMISTRY Albumin 4.0 g/dL 3.4 - 5.0 04/23 07:00 :00 [facility] GENERAL CHEMISTRY Calcium 9.3 mg/dL 8.3 - 10.6 04/23 07:00 :00 [facility] GENERAL CHEMISTRY BUN 12 mg/dL 6 - 20 04/23 07:00 :00 [facility] GENERAL CHEMISTRY ALT-SGPT 13 U/L 10 - 40 04/23 07:00 :00 [facility] GENERAL CHEMISTRY Alkaline Phosphatase 56 U/L 35 - 104 04/23 07:00 :00 [facility] GENERAL CHEMISTRY Glucose Lvl 108 mg/dL 70 - 139 04/23 07:00 :00 [facility] GENERAL CHEMISTRY Chloride 106 mmol/L 98 - 107 04/23 07:00 :00 [facility] GENERAL CHEMISTRY Anion gap 14 mmol/L 0 - 20 04/23 07:00 :00 [facility] GENERAL CHEMISTRY CO2 25 mmol/L 20 - 31 04/23 07:00 :00 [facility] GENERAL CHEMISTRY Potassium 3.5 mmol/L 3.5 - 5.1 04/23 07:00 :00 [facility] GENERAL CHEMISTRY Sodium 141 mmol/L 136 - 145 04/23 07:00 :00 [facility] GENERAL CHEMISTRY T Bili 0.45 mg/dL 0.30 - 1.20 04/23 07:00 :00 [facility] GENERAL CHEMISTRY Creatinine, standardized 0.7 mg/dL 0.5 - 1.0 04/23 07:00 :00 Interpretive Data: Hnbtfn-ps-mzh e transgender patients on testosterone therapy should have results assessed using the male reference range. Jizi-ry-yqzue e transgender patients on hormone-modul ating therapy clinical judgment is advisedfor assessment. [facility] GENERAL CHEMISTRY Total Protein 7.0 g/dL 5.7 - 8.2 04/23 07:00 :00 [facility] CHEMISTRY Estimated GFR for Adults 115 mL/min/1.7 3m 04/23 07:00 :00 Interpretive Data: Changed to CKD-EPI 2020 on 2020. [facility] GENERAL CHEMISTRY AST-SGOT 15 U/L 04/23 07:00 :00 [facility] GENERAL CHEMISTRY Estimated GFR for peds Not Calculated mL/min/1.7 3m 04/23 07:00 :00 Interpretive Data: The estimated GFR was calculated using the Eliezer salas [place] equation (2009) . Reference: Pediatric GFR calculator at [employer] Website. [facility] HEMATOLOGY PROFILES RDW CV 11.5 % 11.9 - 15.5 04/23 07:00 :00 [facility] HEMATOLOGY PROFILES MCHC 34.0 g/dL 32.0 - 36.0 04/23 07:00 :00 [facility] HEMATOLOGY PROFILES RDW SD 38.4 fL 36.4 - 46.3 04/23 07:00 :00 [facility] HEMATOLOGY PROFILES MCH 30.7 pg 26.0 - 33.0 04/23 07:00 :00 [facility] HEMATOLOGY PROFILES MCV 90.3 fL 81.6 - 98.3 04/23 07:00 :00 [facility] HEMATOLOGY PROFILES HGB 14.5 g/dL 12.0 - 15.5 04/23 07:00 :00 Interpretive Data: Rmttrk-nz-dkl e transgender patients on testosterone therapy should have results assessed using the male reference range. Rgik-nr-ynfip e transgender patients on hormone-modul ating therapy clinical judgment is advisedfor assessment. [facility] HEMATOLOGY PROFILES RBC 4.73 x10(12)/L 3.90 - 5.03 04/23 07:00 :00 [facility] HEMATOLOGY PROFILES HCT 42.7 % 34.9 - 44.5 04/23 07:00 :00 Interpretive Data: Alkvwl-mc-noz e transgender patients on testosterone therapy should have results assessed using the male reference range. Wlko-cb-fdvdj e transgender patients on hormone-modul ating therapy clinical judgment is advisedfor assessment. [facility] HEMATOLOGY PROFILES WBC 7.56 x10(9)/L 3.50 - 10.50 04/23 07:00 :00 [facility] HEMATOLOGY PROFILES PLT 187 x10(9)/L 150 - 450 04/23 07:00 :00 [facility] HEMATOLOGY PROFILES MPV 10.9 8.0 - 12.0 04/23 07:00 :00 [facility] HEMATOLOGY PROFILES % Nucleated RBCs 0.0 % 04/23 07:00 :00 [facility] HEMATOLOGY PROFILES % Neutrophils 44.5 % 04/23 07:00 :00 [facility] HEMATOLOGY PROFILES Absolute Nucleated RBCs 0.0 x10(9)/L 0.0 - 0.0 04/23 07:00 :00 Interpretive Data: Normal values not established in patients less than 18 years old. [facility] HEMATOLOGY PROFILES Abs Eosinophils 0.38 x10(9)/L 0.05 - 0.50 04/23 07:00 :00 [facility] HEMATOLOGY PROFILES Abs Monocytes 0.39 x10(9)/L 0.30 - 0.90 04/23 07:00 :00 [facility] HEMATOLOGY PROFILES Abs Immature Granulocytes 0.02 x10(9)/L 0.00 - 0.03 04/23 07:00 :00 [facility] HEMATOLOGY PROFILES Abs Basophils 0.05 x10(9)/L 0.00 - 0.30 04/23 07:00 :00 [facility] HEMATOLOGY PROFILES Abs Lymphocytes 3.35 x10(9)/L 0.90 - 2.90 04/23 07:00 :00 [facility] HEMATOLOGY PROFILES % Lymphocytes 44.3 % 04/23 07:00 :00 [facility] HEMATOLOGY PROFILES % Basophils 0.7 % 04/23 07:00 :00 [facility] HEMATOLOGY PROFILES % Eosinophils 5.0 % 04/23 07:00 :00 [facility] HEMATOLOGY PROFILES Absolute Granulocytes 3.37 x10(9)/L 1.70 - 7.00 04/23 07:00 :00 [facility] HEMATOLOGY PROFILES % Immature Granulocytes 0.30 % 0.02 - 0.42 04/23 07:00 :00 [facility] HEMATOLOGY PROFILES % Monocytes 5.2 % 04/23 07:00 :[address] [facility] [address] Chest PE Protocol CT Chest PE Protocol CT Scan/CT Angio Accession # Exam Date/Time Procedure Ordering Provider [id number] 04/23/2024 02:17 [employer] [address] [employer] [address] Chest PE Protocol Massiel KESSLER, Andrey [...] Signed on: 04/23/24 08:53 04/23 01:56 :34 [facility] GENERAL CHEMISTRY BUN 8 mg/dL 6 - 20 03/04 00:45 :00 [facility] GENERAL CHEMISTRY Calcium 9.0 mg/dL 8.3 - 10.6 03/04 00:45 :00 [facility] GENERAL CHEMISTRY Alkaline Phosphatase 63 U/L 35 - 104 03/04 00:45 :00 [facility] GENERAL CHEMISTRY Total Protein 7.3 g/dL 5.7 - 8.2 03/04 00:45 :00 [facility] GENERAL CHEMISTRY ALT-SGPT 16 U/L 10 - 40 03/04 00:45 :00 [facility] GENERAL CHEMISTRY Creatinine, standardized 0.7 mg/dL 0.5 - 1.0 03/04 00:45 :00 Interpretive Data: Ysmgcl-de-gjr e transgender patients on testosterone therapy should have results assessed using the male reference range. Nunm-ay-enbde e transgender patients on hormone-modul ating therapy clinical judgment is advisedfor assessment. [facility] GENERAL CHEMISTRY Anion gap 15 mmol/L 0 - 20 03/04 00:45 :00 [facility] GENERAL CHEMISTRY Albumin 4.3 g/dL 3.4 - 5.0 03/04 00:45 :00 [facility] GENERAL CHEMISTRY T Bili 0.43 mg/dL 0.30 - 1.20 03/04 00:45 :00 [facility] GENERAL CHEMISTRY Estimated GFR for peds Not Calculated mL/min/1.7 3m 03/04 00:45 :00 Interpretive Data: The estimated GFR was calculated using the Eliezer salas [place] equation (2009) . Reference: Pediatric GFR calculator at [employer] Website. [facility] GENERAL CHEMISTRY Potassium 3.4 mmol/L 3.5 - 5.1 03/04 00:45 :00 [facility] GENERAL CHEMISTRY CO2 22 mmol/L 20 - 31 03/04 00:45 :00 [facility] GENERAL CHEMISTRY Chloride 105 mmol/L 98 - 107 03/04 00:45 :00 [facility] CHEMISTRY Estimated GFR for Adults 118 mL/min/1.7 3m 03/04 00:45 :00 Interpretive Data: Changed to CKD-EPI 2020 on 2020. [facility] GENERAL CHEMISTRY Sodium 139 mmol/L 136 - 145 03/04 00:45 :00 [facility] GENERAL CHEMISTRY AST-SGOT 16 U/L 03/04 00:45 :00 [facility] GENERAL CHEMISTRY Glucose Lvl 120 mg/dL 70 - 139 03/04 00:45 :00 [facility] HEMATOLOGY PROFILES MCHC 33.9 g/dL 32.0 - 36.0 03/04 00:45 :00 [facility] HEMATOLOGY PROFILES MCH 30.4 pg 26.0 - 33.0 03/04 00:45 :00 [facility] HEMATOLOGY PROFILES MCV 89.8 fL 81.6 - 98.3 03/04 00:45 :00 [facility] HEMATOLOGY PROFILES HCT 43.1 % 34.9 - 44.5 03/04 00:45 :00 Interpretive Data: Ngwdwy-ac-mii e transgender patients on testosterone therapy should have results assessed using the male reference range. Phzw-oh-elhln e transgender patients on hormone-modul ating therapy clinical judgment is advisedfor assessment. [facility] HEMATOLOGY PROFILES HGB 14.6 g/dL 12.0 - 15.5 03/04 00:45 :00 Interpretive Data: Nidlms-gb-sya e transgender patients on testosterone therapy should have results assessed using the male reference range. Hjbb-xt-fuebx e transgender patients on hormone-modul ating therapy clinical judgment is advisedfor assessment. [facility] HEMATOLOGY PROFILES RBC 4.80 x10(12)/L 3.90 - 5.03 03/04 00:45 :00 [facility] HEMATOLOGY PROFILES WBC 9.74 x10(9)/L 3.50 - 10.50 03/04 00:45 :00 [facility] HEMATOLOGY PROFILES MPV 10.1 8.0 - 12.0 03/04 00:45 :00 [facility] HEMATOLOGY PROFILES PLT 227 x10(9)/L 150 - 450 03/04 00:45 :00 [facility] HEMATOLOGY PROFILES RDW SD 38.6 fL 36.4 - 46.3 03/04 00:45 :00 [facility] HEMATOLOGY PROFILES RDW CV 11.9 % 11.9 - 15.5 03/04 00:45 :00 [facility] HEMATOLOGY PROFILES Abs Monocytes 0.43 x10(9)/L 0.30 - 0.90 03/04 00:45 :00 [facility] HEMATOLOGY PROFILES Abs Lymphocytes 2.29 x10(9)/L 0.90 - 2.90 03/04 00:45 :00 [facility] HEMATOLOGY PROFILES Absolute Granulocytes 6.62 x10(9)/L 1.70 - 7.00 03/04 00:45 :00 [facility] HEMATOLOGY PROFILES % Immature Granulocytes 0.60 % 0.02 - 0.42 03/04 00:45 :00 [facility] HEMATOLOGY PROFILES % Basophils 0.5 % 03/04 00:45 :00 [facility] HEMATOLOGY PROFILES % Eosinophils 3.0 % 03/04 00:45 :00 [facility] HEMATOLOGY PROFILES % Monocytes 4.4 % 03/04 00:45 :00 [facility] HEMATOLOGY PROFILES % Lymphocytes 23.5 % 03/04 00:45 :00 [facility] HEMATOLOGY PROFILES Abs Immature Granulocytes 0.06 x10(9)/L 0.00 - 0.03 03/04 00:45 :00 [facility] HEMATOLOGY PROFILES % Neutrophils 68.0 % 03/04 00:45 :00 [facility] HEMATOLOGY PROFILES Absolute Nucleated RBCs 0.0 x10(9)/L 0.0 - 0.0 03/04 00:45 :00 Interpretive Data: Normal values not established in patients less than 18 years old. 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 XR Chest Portable Angelina Garibay Reason For [...] Signed on: 03/03/24 20:50 03/03 20:14 :16 [facility] CT Head or Brain CT Head or Brain CT Scan/CT Angio Accession # Exam Date/Time Procedure Ordering Provider [id number] 03/03/2024 20:21 TE[employer] [address] Head or Brain Brett Goel MD [...] Signed on: 03/03/24 20:31 03/03 20:05 :14 [facility] SITE LAB RESULTS Influenza A Rapid POC Negative *NA* (02/20/24 11:20 PM) 02/20 05:20 :00 [facility] SITE LAB RESULTS Influenza B Rapid POC Negative *NA* (02/20/24 11:20 PM) 02/20 05:20 :00 [facility] COAGULATIO N PT 13.1 s 9.4 - 12.5 02/20 02:45 :00 [facility] COAGULATIO N INR 1.2 0.9 - 1.2 [...] M, Harley DD, Schu n joshua HJ; [employer] Antithromboti c Therapy and Prevention of Thrombosis Panel. Executive summary: Antithromboti c Therapy and Prevention of Thrombosis, 9th Ed: [employer] Evidence-Base d Clinical Practice Guidelines. Chest. 2011; 141(2 Suppl):7S-47S . doi: 10.1378/chest .1412S3 [facility] COAGULATIO N PTT 30.3 s 25.1 - [...] the Clinical Pathology Service for additional questions. [facility] GENERAL CHEMISTRY Anion gap 14 mmol/L 0 - 20 02/20 02:00 :00 [facility] GENERAL CHEMISTRY Albumin 4.2 g/dL 3.4 - 5.0 02/20 02:00 :00 [facility] GENERAL CHEMISTRY T Bili 0.70 mg/dL 0.30 - 1.20 02/20 02:00 :00 [facility] GENERAL CHEMISTRY Alkaline Phosphatase 64 U/L 35 - 104 02/20 02:00 :00 [facility] GENERAL CHEMISTRY Total Protein 7.1 g/dL 5.7 - 8.2 02/20 02:00 :00 [facility] GENERAL CHEMISTRY ALT-SGPT 13 U/L 10 - 40 02/20 02:00 :00 [facility] GENERAL CHEMISTRY Creatinine, standardized 0.7 mg/dL 0.5 - 1.0 02/20 02:00 :00 Interpretive Data: Mwtlku-jp-iaj e transgender patients on testosterone therapy should have results assessed using the male reference range. Bbqy-bp-bkxxd e transgender patients on hormone-modul ating therapy clinical judgment is advisedfor assessment. [facility] GENERAL CHEMISTRY BUN 13 mg/dL 6 - 20 02/20 02:00 :00 [facility] GENERAL CHEMISTRY Calcium 8.6 mg/dL 8.3 - 10.6 02/20 02:00 :00 [facility] GENERAL CHEMISTRY Glucose Lvl 87 mg/dL 70 - 139 02/20 02:00 :00 [facility] GENERAL CHEMISTRY Chloride 106 mmol/L 98 - 107 02/20 02:00 :00 [facility] GENERAL CHEMISTRY Estimated GFR for Adults 118 mL/min/1.7 3m 02/20 02:00 :00 Interpretive Data: Changed to CKD-EPI 2020 on 2020. [facility] GENERAL CHEMISTRY Sodium 138 mmol/L 136 - 145 02/20 02:00 :00 [facility] GENERAL CHEMISTRY Estimated GFR for peds Not calculated 02/20 02:00 :00 Interpretive Data: The estimated GFR was calculated using the B josue [place] equation (2009) . Reference: Pediatric GFR calculator at [employer] Website. [facility] GENERAL CHEMISTRY Potassium 3.7 mmol/L 3.5 - 5.1 02/20 02:00 :00 [facility] GENERAL CHEMISTRY CO2 22 mmol/L 20 - 31 02/20 02:00 :00 [facility] GENERAL CHEMISTRY AST-SGOT 16 U/L 02/20 02:00 :00 [facility] HEMATOLOGY PROFILES WBC 8.13 x10(9)/L 3.50 - 10.50 02/20 02:00 :00 [facility] HEMATOLOGY PROFILES PLT 217 x10(9)/L 150 - 450 02/20 02:00 :00 [facility] HEMATOLOGY PROFILES MPV 10.6 8.0 - 12.0 02/20 02:00 :00 [facility] HEMATOLOGY PROFILES RDW CV 12.0 % 11.9 - 15.5 02/20 02:00 :00 [facility] HEMATOLOGY PROFILES RDW SD 38.7 fL 36.4 - 46.3 02/20 02:00 :00 [facility] HEMATOLOGY PROFILES MCHC 34.0 g/dL 32.0 - 36.0 02/20 02:00 :00 [facility] HEMATOLOGY PROFILES MCV 87.9 fL 81.6 - 98.3 02/20 02:00 :00 [facility] HEMATOLOGY PROFILES MCH 29.9 pg 26.0 - 33.0 02/20 02:00 :00 [facility] HEMATOLOGY PROFILES HGB 14.4 g/dL 12.0 - 15.5 02/20 02:00 :00 Interpretive Data: Ckdadb-ph-uuf e transgender patients on testosterone therapy should have results assessed using the male reference range. Pusq-fo-nqauv e transgender patients on hormone-modul ating therapy clinical judgment is advisedfor assessment. [facility] HEMATOLOGY PROFILES HCT 42.3 % 34.9 - 44.5 02/20 02:00 :00 Interpretive Data: Rbxbac-qg-xyl e transgender patients on testosterone therapy should have results assessed using the male reference range. Ykyn-lf-bomyc e transgender patients on hormone-modul ating therapy clinical judgment is advisedfor assessment. [facility] HEMATOLOGY PROFILES RBC 4.81 x10(12)/L 3.90 - 5.03 02/20 02:00 :00 [facility] HEMATOLOGY PROFILES Abs Immature Granulocytes 0.03 x10(9)/L 0.00 - 0.03 02/20 02:00 :00 [facility] HEMATOLOGY PROFILES Abs Eosinophils 0.42 x10(9)/L 0.05 - 0.50 02/20 02:00 :00 [facility] HEMATOLOGY PROFILES Abs Basophils 0.05 x10(9)/L 0.00 - 0.30 02/20 02:00 :00 [facility] HEMATOLOGY PROFILES % Monocytes 6.3 % 02/20 02:00 :00 [facility] HEMATOLOGY PROFILES % Eosinophils 5.2 % 02/20 02:00 :00 [facility] HEMATOLOGY PROFILES % Immature Granulocytes 0.40 % 0.02 - 0.42 02/20 02:00 :00 [facility] HEMATOLOGY PROFILES Absolute Granulocytes 4.86 x10(9)/L 1.70 - 7.00 02/20 02:00 :00 [facility] HEMATOLOGY PROFILES % Basophils 0.6 % 02/20 02:00 :00 [facility] HEMATOLOGY PROFILES % Nucleated RBCs 0.0 % 02/20 02:00 :00 [facility] HEMATOLOGY PROFILES Abs Lymphocytes 2.26 x10(9)/L 0.90 - 2.90 02/20 02:00 :00 [facility] HEMATOLOGY PROFILES Abs Monocytes 0.51 x10(9)/L 0.30 - 0.90 02/20 02:00 :00 [facility] HEMATOLOGY PROFILES % Neutrophils 59.7 % 02/20 02:00 :00 [facility] HEMATOLOGY PROFILES % Lymphocytes 27.8 % 02/20 02:00 :00 [facility] HEMATOLOGY PROFILES Absolute Nucleated RBCs 0.0 x10(9)/L 0.0 - 0.0 02/20 02:00 :00 Interpretive Data: Normal values not established in patients less than 18 years old. [facility] CT Chest PE Protocol CT Chest PE Protocol CT Scan/CT Angio Accession # Exam Date/Time Procedure Ordering Provider [id number] 02/20/2024 22:35 [address] [address] Chest PE Protocol Chip Espinosa DO [...] Signed on: 02/21/24 01:23 02/19 22:00 :03 [facility] GENERAL CHEMISTRY Potassium 4.1 mmol/L 3.5 - 5.1 12/16 04:32 :00 [facility] GENERAL CHEMISTRY BUN 11 mg/dL - 12/16 04:32 :00 [facility] COAGULATIO N PT 17.2 s 9.4 - 12.5 12/16 03:15 :00 [facility] COAGULATIO N INR 1.5 0.9 - 1.2 [...] M, Harley DD, Tonie n joshua HJ; [employer] Antithromboti c Therapy and Prevention of Thrombosis Panel. Executive summary: Antithromboti c Therapy and Prevention of Thrombosis, 9th Ed: [employer] Evidence-Base d Clinical Practice Guidelines. Chest. 2012 Feb; 141(2 Suppl):7S-47S . doi: 10.1378/chest .1412S3 [facility] COAGULATIO N PTT 30.0 s 25.1 - [...] the Clinical Pathology Service for additional questions. [facility] GENERAL CHEMISTRY AST-SGOT 36 U/L 12/16 03:15 :00 [facility] GENERAL CHEMISTRY Albumin 4.3 g/dL 3.4 - 5.0 12/16 03:15 :00 [facility] GENERAL CHEMISTRY Alkaline Phosphatase 46 U/L 35 - 104 12/16 03:15 :00 [facility] CHEMISTRY ALT-SGPT 57 U/L 10 - 40 12/16 03:15 :00 Result Comment: Hemolyzed [facility] GENERAL CHEMISTRY BUN HEMOLYZED, unable to report due to interferen ce mg/dL 6 - 20 12/16 03:15 :00 Result Comment: Hemolyzed Hemolyzed Sample.notifi ed [facility] GENERAL CHEMISTRY Calcium 9.8 mg/dL 8.3 - 10.6 12/16 03:15 :00 [facility] GENERAL CHEMISTRY Glucose Lvl 81 mg/dL 70 - 139 12/16 03:15 :00 [facility] GENERAL CHEMISTRY Chloride 108 mmol/L 98 - 107 12/16 03:15 :00 [facility] GENERAL CHEMISTRY Sodium 137 mmol/L 136 - 145 12/16 03:15 :00 [facility] GENERAL CHEMISTRY Potassium HEMOLYZED, unable to report due to interferen ce mmol/L 3.5 - 5.1 12/16 03:15 :00 Result Comment: Hemolyzed Hemolyzed Sample. Rosaashia Hardin RN [facility] GENERAL CHEMISTRY CO2 22 mmol/L 20 - 12/16 03:15 :00 [facility] GENERAL CHEMISTRY Anion gap 12 mmol/L 0 - 20 12/16 03:15 :00 [facility] GENERAL CHEMISTRY T Bili 0.48 mg/dL 0.30 - 1.20 12/16 03:15 :00 [facility] GENERAL CHEMISTRY Total Protein 7.3 g/dL 5.7 - 8.2 12/16 03:15 :00 [facility] GENERAL CHEMISTRY Creatinine, standardized 0.7 mg/dL 0.5 - 1.0 12/16 03:15 :00 Interpretive Data: Sdoely-kf-pac e transgender patients on testosterone therapy should have results assessed using the male reference range. Rnnz-na-fdbuq e transgender patients on hormone-modul ating therapy clinical judgment is advisedfor assessment. [facility] GENERAL CHEMISTRY Estimated GFR for Adults 118 mL/min/1.7 3m 12/16 03:15 :00 Interpretive Data: Changed to CKD-EPI 2020 on 2020. [facility] GENERAL CHEMISTRY Estimated GFR for peds Not calculated 12/16 03:15 :00 Interpretive Data: The estimated GFR was calculated using the B josue [place] equation (2009) . Reference: Pediatric GFR calculator at [employer] Website. [facility] HEMATOLOGY PROFILES WBC 6.31 x10(9)/L 3.50 - 10.50 12/16 03:15 :00 [facility] HEMATOLOGY PROFILES RBC 4.96 x10(12)/L 3.90 - 5.03 12/16 03:15 :00 [facility] HEMATOLOGY PROFILES HGB 15.0 g/dL 12.0 - 15.5 12/16 03:15 :00 Interpretive Data: Llchyq-rz-isd e transgender patients on testosterone therapy should have results assessed using the male reference range. Mbjs-wd-xxond e transgender patients on hormone-modul ating therapy clinical judgment is advisedfor assessment. [facility] HEMATOLOGY PROFILES HCT 44.1 % 34.9 - 44.5 12/16 03:15 :00 Interpretive Data: Oxfzee-lb-dof e transgender patients on testosterone therapy should have results assessed using the male reference range. Hrkr-uv-fttms e transgender patients on hormone-modul ating therapy clinical judgment is advisedfor assessment. [facility] HEMATOLOGY PROFILES MCV 88.9 fL 81.6 - 98.3 12/16 03:15 :00 [facility] HEMATOLOGY PROFILES MCH 30.2 pg 26.0 - 33.0 12/16 03:15 :00 [facility] HEMATOLOGY PROFILES MCHC 34.0 g/dL 32.0 - 36.0 12/16 03:15 :00 [facility] HEMATOLOGY PROFILES RDW CV 12.1 % 11.9 - 15.5 12/16 03:15 :00 [facility] HEMATOLOGY PROFILES RDW SD 39.8 fL 36.4 - 46.3 12/16 03:15 :00 [facility] HEMATOLOGY PROFILES PLT 189 x10(9)/L 150 - 450 12/16 03:15 :00 [facility] HEMATOLOGY PROFILES MPV 10.5 8.0 - 12.0 12/16 03:15 :00 [facility] HEMATOLOGY PROFILES % Nucleated RBCs 0.0 % 12/16 03:15 :00 [facility] HEMATOLOGY PROFILES Absolute Nucleated RBCs 0.0 x10(9)/L 0.0 - 0.0 12/16 03:15 :00 Interpretive Data: Normal values not established in patients less than 18 years old. [facility] HEMATOLOGY PROFILES % Neutrophils 50.2 % 12/16 03:15 :00 [facility] HEMATOLOGY PROFILES % Lymphocytes 39.5 % 12/16 03:15 :00 [facility] HEMATOLOGY PROFILES % Monocytes 5.5 % 12/16 03:15 :00 [facility] HEMATOLOGY PROFILES % Eosinophils 3.5 % 12/16 03:15 :00 [facility] HEMATOLOGY PROFILES % Basophils 1.1 % 12/16 03:15 :00 [facility] HEMATOLOGY PROFILES % Immature Granulocytes 0.20 % 0.02 - 0.42 12/16 03:15 :00 [facility] HEMATOLOGY PROFILES Absolute Granulocytes 3.17 x10(9)/L 1.70 - 7.00 12/16 03:15 :00 [facility] HEMATOLOGY PROFILES Abs Lymphocytes 2.49 x10(9)/L 0.90 - 2.90 12/16 03:15 :00 [facility] HEMATOLOGY PROFILES Abs Monocytes 0.35 x10(9)/L 0.30 - 0.90 12/16 03:15 :00 [facility] HEMATOLOGY PROFILES Abs Eosinophils 0.22 x10(9)/L 0.05 - 0.50 12/16 03:15 :00 [facility] HEMATOLOGY PROFILES Abs Basophils 0.07 x10(9)/L 0.00 - 0.30 12/16 03:15 :00 [facility] HEMATOLOGY PROFILES Abs Immature Granulocytes 0.01 x10(9)/L 0.00 - 0.03 12/16 03:15 :00 [facility] XR Chest XR Chest XR General Diagnostic [...] Signed on: 12/17/23 02:58 12/16 00:27 :07 [facility] CT Head or Brain CT Head or [...] regarding this report please call [facility] at I have personally reviewed the images and attest to the contents of this report. * * *Final Report* * * Electronic ally Signed by: Anuj Costello MD Signed on: 12/17/23 11:41 Transcribe d date/time: 12/17/23 11:42 12/15 23:34 :43 [facility] COAGULATIO N Unfractionat ed Heparin Assay 0.39 [iU]/mL 0.30 - 0.70 12/12 08:31 :00 Interpretive Data: Therapeutic Range: 0.3- 0.7 IU/mL [facility] GENERAL CHEMISTRY BUN 15 mg/dL 6 - 12/12 08:31 :00 [facility] GENERAL CHEMISTRY Calcium 9.2 mg/dL 8.3 - 10.6 12/12 08:31 :00 [facility] CHEMISTRY Glucose Lvl 81 mg/dL 70 - 139 12/12 08:31 :00 [facility] GENERAL CHEMISTRY Chloride 110 mmol/L 98 - 107 12/12 08:31 :00 [facility] GENERAL CHEMISTRY Sodium 140 mmol/L 136 - 145 12/12 08:31 :00 [facility] GENERAL CHEMISTRY Potassium 4.1 mmol/L 3.5 - 5.1 12/12 08:31 :00 [facility] GENERAL CHEMISTRY CO2 24 mmol/L 12/12 08:31 :00 [facility] GENERAL CHEMISTRY Anion gap 10 mmol/L 0 - 20 12/12 08:31 :00 [facility] CHEMISTRY Creatinine, standardized 0.6 mg/dL 0.5 - 1.0 12/12 08:31 :00 Interpretive Data: Dplwsk-ld-zwq e transgender patients on testosterone therapy should have results assessed using the male reference range. Zjis-pm-pioyc e transgender patients on hormone-modul ating therapy clinical judgment is advisedfor assessment. [facility] GENERAL CHEMISTRY Estimated GFR for Adults 121 mL/min/1.7 3m 12/12 08:31 :00 Interpretive Data: Changed to CKD-EPI 2020 on 2020. [facility] GENERAL CHEMISTRY Estimated GFR for peds Not calculated 12/12 08:31 :00 Interpretive Data: The estimated GFR was calculated using the B josue [place] equation (2009) . Reference: Pediatric GFR calculator at [employer] Website. [facility] HEMATOLOGY PROFILES WBC 6.13 x10(9)/L 3.50 - 10.50 12/12 08:31 :00 [facility] HEMATOLOGY PROFILES RBC 4.55 x10(12)/L 3.90 - 5.03 12/12 08:31 :00 [facility] HEMATOLOGY PROFILES HGB 13.9 g/dL 12.0 - 15.5 12/12 08:31 :00 Interpretive Data: Vsjpjp-zy-eif e transgender patients on testosterone therapy should have results assessed using the male reference range. Tdwj-fn-gjqcc e transgender patients on hormone-modul ating therapy clinical judgment is advisedfor assessment. [facility] HEMATOLOGY PROFILES HCT 40.3 % 34.9 - 44.5 12/12 08:31 :00 Interpretive Data: Oepzfa-zq-yxz e transgender patients on testosterone therapy should have results assessed using the male reference range. Tzuy-oz-uybbo e transgender patients on hormone-modul ating therapy clinical judgment is advisedfor assessment. [facility] HEMATOLOGY PROFILES MCV 88.6 fL 81.6 - 98.3 12/12 08:31 :00 [facility] HEMATOLOGY PROFILES MCH 30.5 pg 26.0 - 33.0 12/12 08:31 :00 [facility] HEMATOLOGY PROFILES MCHC 34.5 g/dL 32.0 - 36.0 12/12 08:31 :00 [facility] HEMATOLOGY PROFILES RDW CV 12.2 % 11.9 - 15.5 12/12 08:31 :00 [facility] HEMATOLOGY PROFILES RDW SD 39.4 fL 36.4 - 46.3 12/12 08:31 :00 [facility] HEMATOLOGY PROFILES PLT 173 x10(9)/L 150 - 450 12/12 08:31 :00 [facility] HEMATOLOGY PROFILES MPV 10.9 8.0 - 12.0 12/12 08:31 :00 [facility] HEMATOLOGY PROFILES % Nucleated RBCs 0.0 % 12/12 08:31 :00 [facility] HEMATOLOGY PROFILES Absolute Nucleated RBCs 0.0 x10(9)/L 0.0 - 0.0 12/12 08:31 :00 Interpretive Data: Normal values not established in patients less than 18 years old. [facility] COAGULATIO N Unfractionat ed Heparin Assay 0.47 [iU]/mL 0.30 - 0.70 12/12 01:21 :00 Interpretive Data: Therapeutic Range: 0.3- 0.7 IU/mL [facility] COAGULATIO N Unfractionat ed Heparin Assay 0.70 [iU]/mL 0.30 - 0.70 12/11 18:31 :00 Interpretive Data: Therapeutic Range: 0.3- 0.7 IU/mL [facility] US Leg Imaging Venous US Leg Imaging [...] Signed on: 12/12/23 13:46 12/11 11:50 :32 [facility] COAGULATIO N Unfractionat ed Heparin Assay 0.68 [iU]/mL 0.30 - 0.70 12/11 09:41 :00 Interpretive Data: Therapeutic Range: 0.3- 0.7 IU/mL [facility] COAGULATIO N PT 13.1 s 9.4 - 12.5 12/11 01:42 :00 [facility] COAGULATIO N INR 1.2 0.9 - 1.2 [...] M, Harley DD, Tonie n joshua HJ; [employer] Antithromboti c Therapy and Prevention of Thrombosis Panel. Executive summary: Antithromboti c Therapy and Prevention of Thrombosis, 9th Ed: [employer] Evidence-Base d Clinical Practice Guidelines. Chest. 2011; 141(2 Suppl):7S-47S . doi: 10.1378/chest .1412S3 [facility] COAGULATIO N PTT 26.8 s 25.1 - [...] the Clinical Pathology Service for additional questions. [facility] COAGULATIO N D-DIMER QUANTITATIVE 527.00 ng/mLFEU 0.00 [...] Tran et al. PLoS One. 2014; 9(4): [id number]) Calculate Score: > or = 500: compatible with overt DIC < 500: suggestive for non-overt DIC [facility] GENERAL CHEMISTRY AST-SGOT 14 U/L 12/10 21:52 :00 [facility] GENERAL CHEMISTRY Albumin 4.3 g/dL 3.4 - 5.0 12/10 21:52 :00 [facility] GENERAL CHEMISTRY Alkaline Phosphatase 50 U/L 35 - 104 12/10 21:52 :00 [facility] GENERAL CHEMISTRY ALT-SGPT 10 U/L 10 - 40 12/10 21:52 :00 [facility] GENERAL CHEMISTRY BUN 10 mg/dL 6 - 20 12/10 21:52 :00 [facility] GENERAL CHEMISTRY Calcium 9.2 mg/dL 8.3 - 10.6 12/10 21:52 :00 [facility] GENERAL CHEMISTRY Glucose Lvl 89 mg/dL 70 - 139 12/10 21:52 :00 [facility] GENERAL CHEMISTRY Chloride 108 mmol/L 98 - 107 12/10 21:52 :00 [facility] GENERAL CHEMISTRY Sodium 137 mmol/L 136 - 145 09/14 /2024 21:52 :00 [facility] GENERAL CHEMISTRY Potassium 3.8 mmol/L 3.5 - 5.1 12/10 21:52 :00 [facility] GENERAL CHEMISTRY CO2 23 mmol/L 20 - 31 12/10 21:52 :00 [facility] GENERAL CHEMISTRY Anion gap 10 mmol/L 0 - 20 12/10 21:52 :00 [facility] GENERAL CHEMISTRY T Bili 0.51 mg/dL 0.30 - 1.20 12/10 21:52 :00 [facility] GENERAL CHEMISTRY Total Protein 7.1 g/dL 5.7 - 8.2 12/10 21:52 :00 [facility] GENERAL CHEMISTRY Creatinine, standardized 0.7 mg/dL 0.5 - 1.0 12/10 21:52 :00 Interpretive Data: Jsnwct-jx-qbz e transgender patients on testosterone therapy should have results assessed using the male reference range. Rcpl-nf-fddqt e transgender patients on hormone-modul ating therapy clinical judgment is advisedfor assessment. [facility] GENERAL CHEMISTRY Estimated GFR for Adults 118 mL/min/1.7 3m 12/10 21:52 :00 Interpretive Data: Changed to CKD-EPI 2020 on 2020. [facility] CHEMISTRY Estimated GFR for peds Not calculated 12/10 21:52 :00 Interpretive Data: The estimated GFR was calculated using the [employer] equation (2009) . Reference: Pediatric GFR calculator at [employer] Website. [facility] HEMATOLOGY PROFILES % Nucleated RBCs 0.0 % 12/10 21:52 :00 [facility] HEMATOLOGY PROFILES Absolute Nucleated RBCs 0.0 x10(9)/L 0.0 - 0.0 12/10 21:52 :00 Interpretive Data: Normal values not established in patients less than 18 years old. [facility] HEMATOLOGY PROFILES % Neutrophils 51.8 % 12/10 21:52 :00 [facility] HEMATOLOGY PROFILES % Lymphocytes 39.7 % 12/10 21:52 :00 [facility] HEMATOLOGY PROFILES % Monocytes 5.0 % 12/10 21:52 :00 [facility] HEMATOLOGY PROFILES % Eosinophils 2.7 % 12/10 21:52 :00 [facility] HEMATOLOGY PROFILES % Basophils 0.6 % 12/10 21:52 :00 [facility] HEMATOLOGY PROFILES % Immature Granulocytes 0.20 % 0.02 - 0.42 12/10 21:52 :00 [facility] HEMATOLOGY PROFILES Absolute Granulocytes 3.22 x10(9)/L 1.70 - 7.00 12/10 21:52 :00 [facility] HEMATOLOGY PROFILES Abs Lymphocytes 2.47 x10(9)/L 0.90 - 2.90 12/10 21:52 :00 [facility] HEMATOLOGY PROFILES Abs Monocytes 0.31 x10(9)/L 0.30 - 0.90 12/10 21:52 :00 [facility] HEMATOLOGY PROFILES Abs Eosinophils 0.17 x10(9)/L 0.05 - 0.50 12/10 21:52 :00 [facility] HEMATOLOGY PROFILES Abs Basophils 0.04 x10(9)/L 0.00 - 0.30 12/10 21:52 :00 [facility] HEMATOLOGY PROFILES Abs Immature Granulocytes 0.01 x10(9)/L 0.00 - 0.03 12/10 21:52 :00 [facility] HEMATOLOGY PROFILES WBC 6.22 x10(9)/L 3.50 - 10.50 12/10 21:52 :00 [facility] HEMATOLOGY PROFILES RBC 4.92 x10(12)/L 3.90 - 5.03 12/10 21:52 :00 [facility] HEMATOLOGY PROFILES HGB 15.0 g/dL 12.0 - 15.5 12/10 21:52 :00 Interpretive Data: Lshhvv-rf-akx e transgender patients on testosterone therapy should have results assessed using the male reference range. Deya-zy-raogg e transgender patients on hormone-modul ating therapy clinical judgment is advisedfor assessment. [facility] HEMATOLOGY PROFILES HCT 43.1 % 34.9 - 44.5 12/10 21:52 :00 Interpretive Data: Vduujg-be-zpp e transgender patients on testosterone therapy should have results assessed using the male reference range. Pfxr-mm-hncjb e transgender patients on hormone-modul ating therapy clinical judgment is advisedfor assessment. [facility] HEMATOLOGY PROFILES MCV 87.6 fL 81.6 - 98.3 12/10 21:52 :00 [facility] HEMATOLOGY PROFILES MCH 30.5 pg 26.0 - 33.0 12/10 21:52 :00 [facility] HEMATOLOGY PROFILES MCHC 34.8 g/dL 32.0 - 36.0 12/10 21:52 :00 [facility] HEMATOLOGY PROFILES RDW CV 12.0 % 11.9 - 15.5 12/10 21:52 :00 [facility] HEMATOLOGY PROFILES RDW SD 38.5 fL 36.4 - 46.3 12/10 21:52 :00 [facility] HEMATOLOGY PROFILES PLT 186 x10(9)/L 150 - 450 12/10 21:52 :00 [facility] HEMATOLOGY PROFILES MPV 10.4 8.0 - 12.0 12/10 21:52 :00 [facility] CT Chest PE Protocol CT Chest PE [...] Signed on: 12/11/23 20:22 12/10 19:35 :30 [facility] XR Chest XR Chest XR General Diagnostic [...] Signed on: 12/11/23 20:15 12/10 17:29 :35 [facility] Consultation Notes Results Value Date Source Emergency [...] Elle Villarreal Within 1 to [address] [phone] Business (1) Additional Instructions: Medication [...] Contact Information Elle Villarreal Within As Needed [address] [place] [address] [facility] (1) Additional Instructions: At this time as [...] fentaNYL, 50 mcg, Slow IV Push iohexol, 76672 mg, IV Toradol, 15 mg, IV Push [...] July 10, 2024 04:58 CDT Encounter info: [id number], [facility], Emergency, 07/09/2024 - * Preliminary Report [...] ONLY #### PRELIMINARY REPORT ONLY ### Resident:Yeh uSe ### PRELIMINARY REPORT ONLY #### PRELIMINARY REPORT ONLY #### PRELIMINARY REPORT ONLY ### MRIB This document has an image Result type: CT Angiography Head Result date: July 10, 2024 00:25 CDT Result status: Unauth Result title: CT Angiography Head Performed by: Sue Yeh DO on July 10, 2024 00:59 CDT Encounter info: [id number], [facility], Emergency, 07/09/2024 - * Preliminary Report [...] July 10, 2024 00:25 CDT Encounter info: [id number], [facility], Emergency, 07/09/2024 - * Preliminary Report * [...] CTPEThis document has an image LY ### [id number] This document has an image ECG 07/09/2024 [...] Differentials include but not limited to: PE, NC, PNA, viral URI/LRI, arrhythmia, POTS, aneurysm, larynx [...] her anticoagulation as she left it in [place]. She has missed 7 doses (06/18 through [...] bit. She was then driving back from [place] when she developed sudden onset of pleuritic [...] No facial droop. No slurred speech. Normal owtvxg-yt-xwja. Normal dgyh-fq-ffky. No ataxic gait. Extraocular movements intact. PERRLA. [...] Elle Steel, Referring Physicians Within As Needed [address] [phone] Additional Instructions: There are many [...] fentaNYL, 25 mcg, Slow IV Push iohexol, 80909 mg, IV NS (bolus), 1000 mL, IV [...] ongoing care relationship with the patient. Complexity: 02687 Moderate; 1 or more chronic illnesses with [...] Information Surgery - General Within 1 month [facility] [place] [address]- Business (1) Additional Instructions: I have referred you to general surgery at and follow-up with if you end up having frequent symptoms from your gallbladder. Return to Emergency Department Within As Needed Additional Instructions: Please return to the emergency department for chest pain, shortness of breath, lightheadedness, persistent abdominal pain associated with vomiting or fevers, or new/worsening symptoms. Elle Wiredu Within As Needed [address] [place] [address] Business (1) Additional Instructions: Medication Reconciliation [...] injection, 5 mg, Slow IV Push iohexol, 76870 mg, IV ketorolac, 15 mg, IV Push [...] Clean Catch UR Diagnostic Results (05/25/2024 17:20 TECHNICAL BUSINESS SYSTEMS ANALYST US Leg Imaging Venous) FINDINGS: Right common [...] right lower extremity DVT. [1] (05/25/2024 21:[address] TE[address] [employer] [address] Chest PE Protocol) FINDINGS: VASCULAR: The [...] Imaging Venous; Dario Alvarado MD 05/25/2024 17:20 TECHNICAL BUSINESS SYSTEMS ANALYST [2] CT Chest PE Protocol; Dario Alvarado MD 05/25/2024 21:21 TECHNICAL BUSINESS SYSTEMS ANALYST 05/25/2024 Emergency Services Note Basic Informatio n [...] Elle Villarreal Within 1 to [address] [phone] Business (1) Additional Instructions: You [...] fentaNYL, 25 mcg, Slow IV Push iohexol, 29000 mg, IV ketorolac, 15 mg, IV Push [...] Negative 04/18/23 Negative Diagnostic Results (04/23/2024 02:[address] [employer] [address] Chest PE Protocol) IMPRESSION: VASCULAR: No acute pulmonary embolism. CHEST: 1. No acute cardiopulmonary abnormalities.. 2. Cholelithiasis without secondary signs of acute cholecystitis. 3. Grossly unchanged subcentimeter hypodense left thyroid nodule. [1] ECG Sinus rhythm with sinus arrhythmia, rate of 88, normal axis, NC, QRS and QTc intervals normal, nonspecific ST/T wave changes, by my read. [1] CT Chest PE Protocol; Milton BOWIE (Gomez)(CT)Brett 04/23/2024 02:17 TECHNICAL BUSINESS SYSTEMS ANALYST I evaluated the patient and discussed the [...] Results CT Head or Brain 03/03/2024 20:32 TECHNICAL BUSINESS SYSTEMS ANALYST XR Chest Portable 03/03/2024 20:51 TECHNICAL BUSINESS SYSTEMS ANALYST ECG Medical Decision Making Patient received from [...] to preform similar actions later (s.a. hand brush clearer surveying, getting out of wheel chair, able to [...] move arms to shake hand w proper brush clearer surveying, control the fall of her arm to [...] Results CT Head or Brain 03/03/2024 20:32 TECHNICAL BUSINESS SYSTEMS ANALYST XR Chest Portable 03/03/2024 20:51 TECHNICAL BUSINESS SYSTEMS ANALYST ECG Attestation by Dyllan KESSLER, Christel Shaffer [...] History Found Diagnostic Results ECG (02/20/2024 22:[address] TE[address] [address]LY[address] Chest PE Protocol) FINDINGS: VASCULAR: The [...] Acute Care Surgery Clinic Within As Needed [facility] [place] [address]- Business (1) Additional Instructions: Return to Emergency Department Within As Needed Additional Instructions: Phil KESSLER, Elle Steel, Referring Physicians Within As Needed [address] [address] Additional Instructions: Medication Administration Given [...] Protocol; Shruthi KESSLER, Tommy Heath 02/20/2024 22:35 TECHNICAL BUSINESS SYSTEMS ANALYST Attestation by Lyric Enriquez DO on February [...] Differentials include but not limited to: PE, NC, pneumonia, viral URI/LRI, mucosal bleeding, Independent interpretation [...] chest pain, hemoptsis, h/o PE, 02/20/24 20:37:00 TECHNICAL BUSINESS SYSTEMS ANALYST, Stat, Orig Ref Doc Eliazar Zuñiga Influenza+SARS-CoV-2 (COVID-19) Rapid Antigen POC, Stat collect, Nasal Swab, Nurse Collect, Start date 02/20/24 23:20:00 TECHNICAL BUSINESS SYSTEMS ANALYST, Stop date 02/20/24 23:20:00 TECHNICAL BUSINESS SYSTEMS ANALYST, Eliazar Zuñiga Patient Education Chest Pain SOB (Shortness of Breath) Gallstones: General Info Follow Up With When Contact Information Surgery - Acute Care Surgery Clinic Within As Needed [facility] [place] [address]- Business (1) Additional Instructions: Return to Emergency Department Within As Needed Additional Instructions: Phil KESSLER, Elle Steel, Referring Physicians Within As Needed [address] [address] Additional Instructions: Medication Reconciliation Unchanged [...] fentaNYL, 25 mcg, Slow IV Push iohexol, 95081 mg, IV morphine INJ, 4 mg, Slow [...] 02/20/24 21:25 Negative BB ID 02/20/24 21:25 [id number] Diagnostic Results (02/20/2024 22:[address] [address] Chest PE Protocol) IMPRESSION: VASCULAR: No evidence of pulmonary embolus. CHEST: * No acute cardiopulmonary findings. * Cholelithiasis without cholecystitis. [1] ECG Normal sinus rhythm, no ST elevation, no reciprocal changes, no inverted T waves, no signs of arrhythmia, intervals are all within normal limits. [1] CT Chest PE Protocol; Robe Cordoba 02/20/2024 22:35 TECHNICAL BUSINESS SYSTEMS ANALYST Attestation by Lyric Enriquez DO on February [...] Elle Phil Within 5 to [address] [phone] Business (1) Additional Instructions: Medication [...] SHAYY PUTNAM Date of : 1990 UEI: [id number] Age: 33 year(s) Gender: Female Visit number: [id number] Procedure Information Procedure: TTE procedure: Echo Transthoracic Complete, Complete 2D, M-mode, Complete Spectral Doppler, Color Flow. Study date and time: 12/12/2023 3:53 PM Blood pressure: 93 / 54 mmHg Study status: Routine Heart rate: 73 bpm Patient status: In-Patient Height: 65 in. Study location: Bedside Weight: 132.25 lb. Patient location: BSA: 1.66 m BMI: 22.01 kg/m Indication R07.9 Chest Pain. Procedure Histologist: Timi Camarena RDCS RVT Interpreting physician: Rosana [...] understands the plan for admission. Scripts: _ [facility] 33yo female presented to the ED with [...] # 1 Kit, Refill(s) 0, DVT/PE, Pharmacy: [facility], Loading plus maintenance dose X 3... Follow [...] Follow up at Elle Villarreal MD with [facility] Within 7 Days, Coordinate appt with [...] heparin 25,000 units/250 mL RTU 25,000 units, 65863 units= 250 mL, IV ibuprofen 600 mg [...] CDT [2] CT Chest PE Protocol; Dario Alvraado MD 12/11/2023 19:53 CDT Patient states she [...] Elliott MD Department of Medicine Hospital medicine, Occ Therapist/Hospitalist 12/12/2023 Vital Signs Vital Sign Value Date Comments Source SpO2 100 % 07/10/2024 09:20:59 [facility] Heart Rate 66 bpm 07/10/2024 09:20:58 [facility] SBP NIBP 99 mm[Hg] 07/10/2024 09:20:00 [facility] DBP NIBP 70 mm[Hg] 07/10/2024 09:20:00 [facility] Heart Rate 64 bpm 07/10/2024 09:19:58 [facility] SpO2 100 % 07/10/2024 09:19:58 [facility] Mean NIBP 78 mm[Hg] 07/10/2024 09:18:36 [facility] SBP NIBP 93 mm[Hg] 07/10/2024 09:18:36 [facility] DBP NIBP 68 mm[Hg] 07/10/2024 09:18:36 [facility] SpO2 94 % 07/10/2024 07:49:19 [facility] Heart Rate 64 bpm 07/10/2024 07:49:18 [facility] Mean NIBP 61 mm[Hg] 07/10/2024 07:37:44 [facility] SpO2 95 % 07/10/2024 05:33:05 [facility] Heart Rate 67 bpm 07/10/2024 05:33:03 [facility] Mean NIBP 77 mm[Hg] 07/10/2024 05:30:00 [facility] SBP NIBP 99 mm[Hg] 07/10/2024 05:30:00 [facility] DBP NIBP 64 mm[Hg] 07/10/2024 05:30:00 [facility] SBP NIBP 98 mm[Hg] 07/10/2024 04:30:00 [facility] DBP NIBP 73 mm[Hg] 07/10/2024 04:30:00 [facility] Mean NIBP 83 mm[Hg] 07/10/2024 04:30:00 [facility] Respiratory Rate 16 breaths/min 07/10/2024 00:17:52 [facility] Respiratory Rate 20 breaths/min 07/09/2024 22:10:00 [facility] Temperature (Celsius) 37.2 Rani 07/09/2024 22:10:00 [facility] Weight (kg) 56.7 kg 07/09/2024 22:10:00 [facility] SBP NIBP 118 mm[Hg] 07/09/2024 01:30:00 [facility] DBP NIBP 70 mm[Hg] 07/09/2024 01:30:00 [facility] SpO2 99 % 07/09/2024 01:30:00 [facility] Respiratory Rate 18 breaths/min 07/09/2024 01:30:00 [facility] Heart Rate 72 bpm 07/09/2024 01:30:00 [facility] SpO2 100 % 07/09/2024 01:20:27 [facility] Respiratory Rate 15 breaths/min 07/09/2024 01:19:56 [facility] Heart Rate 75 bpm 07/09/2024 01:19:56 [facility] SBP NIBP 113 mm[Hg] 07/09/2024 01:00:00 [facility] DBP NIBP 75 mm[Hg] 07/09/2024 01:00:00 [facility] Mean NIBP 87 mm[Hg] 07/09/2024 01:00:00 [facility] Heart Rate 83 bpm 07/09/2024 00:57:26 [facility] SpO2 98 % 07/09/2024 00:57:26 [facility] Respiratory Rate 16 breaths/min 07/09/2024 00:57:26 [facility] Mean NIBP 74 mm[Hg] 07/09/2024 00:30:00 [facility] SBP NIBP 94 mm[Hg] 07/09/2024 00:30:00 [facility] DBP NIBP 72 mm[Hg] 07/09/2024 00:30:00 [facility] Heart Rate 68 bpm 07/09/2024 00:29:50 [facility] SpO2 97 % 07/09/2024 00:29:50 [facility] Respiratory Rate 17 breaths/min 07/09/2024 00:29:42 [facility] Mean NIBP 83 mm[Hg] 07/09/2024 00:00:50 [facility] SBP NIBP 93 mm[Hg] 07/09/2024 00:00:50 [facility] DBP NIBP 76 mm[Hg] 07/09/2024 00:00:50 [facility] Mean NIBP 83 mm[Hg] 07/08/2024 23:57:55 [facility] Temperature (Celsius) 37.0 Rani 07/08/2024 21:31:00 [facility] Weight (kg) 56.9 kg 07/08/2024 21:31:00 [facility] Mean NIBP 68 mm[Hg] 06/25/2024 10:06:39 [facility] SBP NIBP 95 mm[Hg] 06/25/2024 10:06:39 [facility] DBP NIBP 57 mm[Hg] 06/25/2024 10:06:39 [facility] Respiratory Rate 15 breaths/min 06/25/2024 10:01:56 [facility] Heart Rate 89 bpm 06/25/2024 10:01:56 [facility] SpO2 100 % 06/25/2024 10:01:55 [facility] Mean NIBP 84 mm[Hg] 06/25/2024 09:17:44 [facility] SBP NIBP 95 mm[Hg] 06/25/2024 09:17:44 [facility] DBP NIBP 77 mm[Hg] 06/25/2024 09:17:44 [facility] Heart Rate 78 bpm 06/25/2024 09:17:00 [facility] Respiratory Rate 18 breaths/min 06/25/2024 09:17:00 [facility] SpO2 100 % 06/25/2024 09:17:00 [facility] Temperature (Celsius) 36.6 Rani 06/25/2024 09:17:00 [facility] SpO2 100 % 06/25/2024 08:29:04 [facility] Respiratory Rate 15 breaths/min 06/25/2024 08:29:02 [facility] Heart Rate 81 bpm 06/25/2024 08:29:02 [facility] SpO2 99 % 06/25/2024 07:33:15 [facility] Heart Rate 75 bpm 06/25/2024 07:27:26 [facility] Mean NIBP 84 mm[Hg] 06/25/2024 07:27:12 [facility] SBP NIBP 95 mm[Hg] 06/25/2024 07:27:12 [facility] DBP NIBP 80 mm[Hg] 06/25/2024 07:27:12 [facility] Respiratory Rate 18 breaths/min 06/25/2024 07:27:00 [facility] Temperature (Celsius) 36.2 Rani 06/25/2024 07:22:00 [facility] Mean NIBP 89 mm[Hg] 06/25/2024 07:22:00 [facility] Weight (kg) 58.1 kg 06/25/2024 07:22:00 [facility] SBP NIBP 103 mm[Hg] 06/25/2024 07:22:00 [facility] DBP NIBP 82 mm[Hg] 06/25/2024 07:22:00 [facility] Heart Rate 77 bpm 06/12/2024 10:17:37 [facility] SpO2 100 % 06/12/2024 10:17:35 [facility] Mean NIBP 85 mm[Hg] 06/12/2024 10:00:00 [facility] SBP NIBP 99 mm[Hg] 06/12/2024 10:00:00 [facility] DBP NIBP 76 mm[Hg] 06/12/2024 10:00:00 [facility] SpO2 100 % 06/12/2024 09:50:01 [facility] Heart Rate 76 bpm 06/12/2024 09:49:59 [facility] SBP NIBP 98 mm[Hg] 06/12/2024 09:30:00 [facility] DBP NIBP 74 mm[Hg] 06/12/2024 09:30:00 [facility] Mean NIBP 83 mm[Hg] 06/12/2024 09:30:00 [facility] SpO2 100 % 06/12/2024 09:29:59 [facility] Heart Rate 75 bpm 06/12/2024 09:29:54 [facility] Mean NIBP 81 mm[Hg] 06/12/2024 09:00:00 [facility] SBP NIBP 102 mm[Hg] 06/12/2024 09:00:00 [facility] DBP NIBP 66 mm[Hg] 06/12/2024 09:00:00 [facility] SpO2 100 % 06/12/2024 08:59:53 [facility] Heart Rate 66 bpm 06/12/2024 08:59:48 [facility] Mean NIBP 86 mm[Hg] 06/12/2024 08:04:59 [facility] SBP NIBP 103 mm[Hg] 06/12/2024 08:04:59 [facility] DBP NIBP 79 mm[Hg] 06/12/2024 08:04:59 [facility] Respiratory Rate 19 breaths/min 06/12/2024 06:58:00 [facility] Temperature (Celsius) 36.3 Rani 06/12/2024 06:58:00 [facility] Weight (kg) 60.2 kg 06/12/2024 06:58:00 [facility] Temperature (Celsius) 37.3 Rani 06/06/2024 18:53:00 [facility] Respiratory Rate 20 breaths/min 06/06/2024 18:53:00 [facility] Heart Rate 103 bpm 06/06/2024 18:53:00 [facility] Weight (kg) 56.7 kg 06/06/2024 18:53:00 [facility] SBP NIBP 109 mm[Hg] 06/06/2024 18:53:00 [facility] DBP NIBP 69 mm[Hg] 06/06/2024 18:53:00 [facility] SpO2 99 % 05/26/2024 03:30:52 [facility] Heart Rate 73 bpm 05/26/2024 03:30:05 [facility] Respiratory Rate 16 breaths/min 05/26/2024 03:30:00 [facility] Mean NIBP 75 mm[Hg] 05/26/2024 03:30:00 [facility] SBP NIBP 97 mm[Hg] 05/26/2024 03:30:00 [facility] DBP NIBP 65 mm[Hg] 05/26/2024 03:30:00 [facility] SpO2 94 % 05/26/2024 02:47:32 [facility] Heart Rate 66 bpm 05/26/2024 02:47:28 [facility] Heart Rate 61 bpm 05/26/2024 02:30:13 [facility] SpO2 98 % 05/26/2024 02:30:02 [facility] Mean NIBP 71 mm[Hg] 05/26/2024 02:30:00 [facility] SBP NIBP 92 mm[Hg] 05/26/2024 02:30:00 [facility] DBP NIBP 63 mm[Hg] 05/26/2024 02:30:00 [facility] SpO2 98 % 05/26/2024 01:43:37 [facility] Heart Rate 68 bpm 05/26/2024 01:43:36 [facility] Mean NIBP 90 mm[Hg] 05/26/2024 01:30:00 [facility] SBP NIBP 110 mm[Hg] 05/26/2024 01:30:00 [facility] DBP NIBP 78 mm[Hg] 05/26/2024 01:30:00 [facility] Mean NIBP 75 mm[Hg] 05/26/2024 01:00:00 [facility] SBP NIBP 91 mm[Hg] 05/26/2024 01:00:00 [facility] DBP NIBP 64 mm[Hg] 05/26/2024 01:00:00 [facility] Respiratory Rate 18 breaths/min 05/25/2024 21:30:00 [facility] Weight (kg) 57.9 kg 05/25/2024 21:30:00 [facility] Temperature (Celsius) 36.7 Rani 05/25/2024 21:30:00 [facility] Heart Rate 59 bpm 04/23/2024 09:23:06 [facility] SpO2 96 % 04/23/2024 09:23:04 [facility] Respiratory Rate 15 breaths/min 04/23/2024 09:23:00 [facility] Mean NIBP 80 mm[Hg] 04/23/2024 09:15:00 [facility] SBP NIBP 100 mm[Hg] 04/23/2024 09:15:00 [facility] DBP NIBP 70 mm[Hg] 04/23/2024 09:15:00 [facility] Respiratory Rate 13 breaths/min 04/23/2024 08:59:57 [facility] Heart Rate 72 bpm 04/23/2024 08:59:31 [facility] SpO2 96 % 04/23/2024 08:59:30 [facility] SBP NIBP 106 mm[Hg] 04/23/2024 08:45:00 [facility] DBP NIBP 77 mm[Hg] 04/23/2024 08:45:00 [facility] Mean NIBP 85 mm[Hg] 04/23/2024 08:45:00 [facility] SpO2 97 % 04/23/2024 07:59:13 [facility] Respiratory Rate 13 breaths/min 04/23/2024 07:59:12 [facility] Heart Rate 72 bpm 04/23/2024 07:59:12 [facility] SpO2 96 % 04/23/2024 07:17:36 [facility] Heart Rate 77 bpm 04/23/2024 07:17:08 [facility] Respiratory Rate 16 breaths/min 04/23/2024 07:17:08 [facility] SBP NIBP 92 mm[Hg] 04/23/2024 07:15:00 [facility] DBP NIBP 67 mm[Hg] 04/23/2024 07:15:00 [facility] Mean NIBP 75 mm[Hg] 04/23/2024 07:15:00 [facility] Temperature (Celsius) 36.4 Rani 04/23/2024 06:35:00 [facility] SBP NIBP 110 mm[Hg] 04/23/2024 06:35:00 [facility] DBP NIBP 73 mm[Hg] 04/23/2024 06:35:00 [facility] Weight (kg) 58.2 kg 04/23/2024 06:35:00 [facility] SpO2 99 % 03/04/2024 05:59:15 [facility] Mean NIBP 66 mm[Hg] 03/04/2024 05:30:00 [facility] Respiratory Rate 18 breaths/min 03/04/2024 05:30:00 [facility] SBP NIBP 94 mm[Hg] 03/04/2024 05:30:00 [facility] DBP NIBP 58 mm[Hg] 03/04/2024 05:30:00 [facility] Heart Rate 80 bpm 03/04/2024 05:30:00 [facility] SpO2 100 % 03/04/2024 05:29:39 [facility] Mean NIBP 76 mm[Hg] 03/04/2024 05:00:00 [facility] SBP NIBP 104 mm[Hg] 03/04/2024 05:00:00 [facility] DBP NIBP 67 mm[Hg] 03/04/2024 05:00:00 [facility] SpO2 100 % 03/04/2024 04:59:33 [facility] Mean NIBP 80 mm[Hg] 03/04/2024 04:30:00 [facility] SBP NIBP 103 mm[Hg] 03/04/2024 04:30:00 [facility] DBP NIBP 65 mm[Hg] 03/04/2024 04:30:00 [facility] SpO2 100 % 03/04/2024 04:08:58 [facility] Heart Rate 84 bpm 03/04/2024 04:00:00 [facility] Mean NIBP 83 mm[Hg] 03/04/2024 04:00:00 [facility] SBP NIBP 101 mm[Hg] 03/04/2024 04:00:00 [facility] DBP NIBP 75 mm[Hg] 03/04/2024 04:00:00 [facility] Respiratory Rate 16 breaths/min 03/04/2024 04:00:00 [facility] Respiratory Rate 22 breaths/min 03/04/2024 01:30:00 [facility] Heart Rate 92 bpm 03/04/2024 01:30:00 [facility] SpO2 100 % 02/21/2024 06:07:01 [facility] Heart Rate 88 bpm 02/21/2024 06:07:01 [facility] Respiratory Rate 13 breaths/min 02/21/2024 06:02:31 [facility] SBP NIBP 105 mm[Hg] 02/21/2024 06:00:02 [facility] DBP NIBP 71 mm[Hg] 02/21/2024 06:00:02 [facility] Mean NIBP 79 mm[Hg] 02/21/2024 06:00:02 [facility] Heart Rate 71 bpm 02/21/2024 05:59:30 [facility] SpO2 100 % 02/21/2024 05:59:30 [facility] Respiratory Rate 16 breaths/min 02/21/2024 05:59:22 [facility] Mean NIBP 83 mm[Hg] 02/21/2024 05:45:00 [facility] SBP NIBP 113 mm[Hg] 02/21/2024 05:45:00 [facility] DBP NIBP 73 mm[Hg] 02/21/2024 05:45:00 [facility] Heart Rate 66 bpm 02/21/2024 05:29:56 [facility] SpO2 100 % 02/21/2024 05:29:54 [facility] Respiratory Rate 12 breaths/min 02/21/2024 05:29:50 [facility] Mean NIBP 83 mm[Hg] 02/21/2024 05:15:00 [facility] SBP NIBP 98 mm[Hg] 02/21/2024 05:15:00 [facility] DBP NIBP 73 mm[Hg] 02/21/2024 05:15:00 [facility] Heart Rate 75 bpm 02/21/2024 04:29:46 [facility] SpO2 100 % 02/21/2024 04:29:44 [facility] Respiratory Rate 11 breaths/min 02/21/2024 04:29:43 [facility] SBP NIBP 110 mm[Hg] 02/21/2024 04:00:00 [facility] DBP NIBP 84 mm[Hg] 02/21/2024 04:00:00 [facility] Mean NIBP 93 mm[Hg] 02/21/2024 04:00:00 [facility] Temperature (Celsius) 36.7 Rani 02/21/2024 01:49:00 [facility] Weight (kg) 59 kg 02/21/2024 01:49:00 [facility] Heart Rate 76 bpm 12/17/2023 08:55:48 [facility] Respiratory Rate 19 breaths/min 12/17/2023 08:55:45 [facility] SpO2 99 % 12/17/2023 08:52:49 [facility] Mean NIBP 66 mm[Hg] 12/17/2023 08:30:00 [facility] SBP NIBP 97 mm[Hg] 12/17/2023 08:30:00 [facility] DBP NIBP 53 mm[Hg] 12/17/2023 08:30:00 [facility] Heart Rate 64 bpm 12/17/2023 08:16:15 [facility] SpO2 99 % 12/17/2023 08:16:15 [facility] Respiratory Rate 16 breaths/min 12/17/2023 08:16:12 [facility] Mean NIBP 88 mm[Hg] 12/17/2023 08:00:00 [facility] SBP NIBP 107 mm[Hg] 12/17/2023 08:00:00 [facility] DBP NIBP 81 mm[Hg] 12/17/2023 08:00:00 [facility] SpO2 99 % 12/17/2023 07:50:12 [facility] Heart Rate 78 bpm 12/17/2023 07:50:11 [facility] Respiratory Rate 16 breaths/min 12/17/2023 07:50:11 [facility] Heart Rate 60 bpm 12/17/2023 07:49:42 [facility] SpO2 99 % 12/17/2023 07:49:40 [facility] Respiratory Rate 13 breaths/min 12/17/2023 07:49:36 [facility] Mean NIBP 94 mm[Hg] 12/17/2023 07:31:30 [facility] SBP NIBP 106 mm[Hg] 12/17/2023 07:31:30 [facility] DBP NIBP 90 mm[Hg] 12/17/2023 07:31:30 [facility] Mean NIBP 78 mm[Hg] 12/17/2023 07:30:00 [facility] SBP NIBP 98 mm[Hg] 12/17/2023 07:30:00 [facility] DBP NIBP 69 mm[Hg] 12/17/2023 07:30:00 [facility] Weight (kg) 58 kg 12/17/2023 02:05:00 [facility] Temperature (Celsius) 36.5 Rani 12/17/2023 02:05:00 [facility] SBP NIBP 91 mm[Hg] 12/13/2023 15:03:47 [facility] DBP NIBP 55 mm[Hg] 12/13/2023 15:03:47 [facility] Mean NIBP 67 mm[Hg] 12/13/2023 15:03:47 [facility] Heart Rate 61 bpm 12/13/2023 15:03:47 [facility] SpO2 96 % 12/13/2023 15:03:47 [facility] Temperature (Celsius) 36.5 Rani 12/13/2023 15:00:00 [facility] Temperature (Celsius) 36.3 Rani 12/13/2023 09:00:00 [facility] Heart Rate 79 bpm 12/13/2023 09:00:00 [facility] Respiratory Rate 16 breaths/min 12/13/2023 09:00:00 [facility] SBP NIBP 99 mm[Hg] 12/13/2023 09:00:00 [facility] DBP NIBP 71 mm[Hg] 12/13/2023 09:00:00 [facility] Mean NIBP 80 mm[Hg] 12/13/2023 09:00:00 [facility] SpO2 97 % 12/13/2023 09:00:00 [facility] Temperature (Celsius) 36.1 Rani 12/13/2023 00:00:00 [facility] Heart Rate 66 bpm 12/13/2023 00:00:00 [facility] Respiratory Rate 16 breaths/min 12/13/2023 00:00:00 [facility] SBP NIBP 96 mm[Hg] 12/13/2023 00:00:00 [facility] DBP NIBP 60 mm[Hg] 12/13/2023 00:00:00 [facility] Mean NIBP 72 mm[Hg] 12/13/2023 00:00:00 [facility] SpO2 99 % 12/13/2023 00:00:00 [facility] SBP NIBP 102 mm[Hg] 12/12/2023 21:45:44 [facility] DBP NIBP 67 mm[Hg] 12/12/2023 21:45:44 [facility] Mean NIBP 78 mm[Hg] 12/12/2023 21:45:44 [facility] Heart Rate 74 bpm 12/12/2023 21:45:44 [facility] SpO2 97 % 12/12/2023 21:45:44 [facility] Respiratory Rate 14 breaths/min 12/12/2023 21:00:00 [facility] Temperature (Celsius) 36.9 Rani 12/12/2023 14:25:25 [facility] Respiratory Rate 17 breaths/min 12/12/2023 09:00:00 [facility] Report Given to RN 12/12/2023 03:03:00 [facility] Dosing Weight (kg) 57.7 kg 12/12/2023 03:00:00 [facility] Height (cm) 165.1 cm 12/12/2023 03:00:00 [facility] Height (cm) 165.1 cm 12/12/2023 02:30:00 [facility] Height (cm) 165.1 cm 12/12/2023 02:00:00 [facility] Weight (kg) 59.7 kg 12/12/2023 01:46:00 [facility] Height (cm) 165.1 cm 12/12/2023 01:46:00 [facility] BMI 21.9 kg/m2 12/12/2023 01:46:00 [facility] Dosing Weight (kg) 57.7 kg 12/12/2023 01:36:00 [facility] Weight (kg) 57.7 kg 12/11/2023 21:39:00 [facility] BMI 21.2 kg/m2 12/11/2023 21:39:00 [facility] Encounters Location Location Details Encounter Type Encounter Number Reason For Visit Attending Provider ADM Date DC Date Status Source [facility] Inpatient [id number] PAIN - CHEST Patricia Backes 12/10 16:37 :07 12/12 15:26 :00 Active [facility] Emergency [id number] Jelani Carranza 12/16 01:59 :35 12/16 09:09 :00 [facility] [id number] Tre Alvarado 02/20 01:46 :02 02/20 07:10 :00 [facility] [id number] Bryan Dupree 03/04 00:22 :00 03/04 00:34 :00 [facility] [id number] Christel Mijares 03/04 00:41 :27 03/04 06:04 :00 [facility] [id number] Bryan Dupree 03/04 23:22 :00 03/04 23:23 :00 [facility] [id number] Zhao Vigil 04/23 06:33 :42 04/23 09:35 :00 [facility] [id number] Bryan Dupree 05/25 20:53 :00 05/25 21:04 :00 [facility] [id number] Camilo Dan 05/25 21:07 :14 05/26 04:27 :00 [facility] [id number] Jordon Hartman 06/06 18:38 :30 06/07 04:59 :59 [facility] Transport [id number] Bryan Dupree 06/12 06:39 :00 06/12 06:49 :00 [facility] Emergency [id number] Chan Buck 06/12 06:53 :56 06/12 10:30 :00 [facility] [id number] Bryan Dupree 06/25 06:56 :00 06/25 07:09 :00 [facility] [id number] Chan Devinet 06/25 07:16 :45 06/25 10:11 :00 [facility] [id number] Bryan Dupree 07/08 21:11 :00 07/08 21:25 :00 [facility] Emergency [id number] Obianuju Eziolisa 07/08 21:30 :22 07/09 02:06 :00 [facility] [id number] Bryan Dupree 07/09 21:49 :00 07/09 21:58 :00 [facility] Emergency [id number] Ed Beavers 07/09 22:05 :12 07/10 11:10 :00 [facility]Reg [id number] Outside Ordering Physician 07/31 18:45 :00 09/30 04:59 :59 [facility] [id number] Bryan Dupree 08/09 17:31 :00 08/09 17:54 :00 [facility] Emergency [id number] Ed Beavers 08/09 17:57 :50 08/09 22:44 :00 [facility] FGL FGL OUTPATIENT [id number] ER FU 3-5 DAYS/blo od clot Brett Alejo [facility] SPP SPP OUTPATIENT [id number] NEW PER PT(ANXIE TY) Jessie Dao [facility]GL OUTPATIENT [id number] 6 WEEK F/U Liliana Gov-Jesse [facility] [id number] tachycar karina, possible POTS Roberto Marquez [facility] FGL FGL OUTPATIENT [id number] ER FU 3-5 DAYS/blo od clot Marybeth Chasitydahl [facility]GL OUTPATIENT [id number] ER f/u Sam Cobbnshaw [facility] FGL OUTPATIENT [id number] 1 wk f/u per madeline Sam Cobbnshaw [facility] FBL FBL DIAGNOSTIC TESTING [id number] ppd reading it was placed at 10:50 11/3 Sam Cobbnshaw [facility] FGL FGL OUTPATIENT [id number] ER F/U-HEAR T RACING/V OMITING- TB CHECKED Sam Larue [facility]GL OUTPATIENT [id number] hosp dc fu Sam Madeline [facility] CRD CRD OUTPATIENT [id number] EST CARE CHECK FOR Armen Leal Cancel [facility] [id number] cristóbal/fts/ blayne Weston Cancel [facility] [id number] con/?us/ blayne Weston Cancel [facility] [id number] con/?us/ cisneros [facility] N[facility] CR [facility] [id number] CRISTÓBAL/BARRON SON Brett Weston [facility] [id number] CRISTÓBAL/BARRON DESIREE Weston [facility] OUTPATIENT [id number] SCOLI - 16 DEGRESS L1-L4 Dot Pul[facility] [id number] growth/r ob/jacks on Brett Weston [facility] N[facility] CR [facility] [id number] growth/r ob/jacks on [facility] N[facility] CR [facility] [id number] growth/r ob/jacks on Brett Weston [facility] OUTPATIENT [id number] 6WK FU ON RT TOE Collette Tana-Natanael stinson [facility] OBP OBP CR PHYSICIAN OP CLINIC [id number] ER FOLLOW [facility] N[facility] CR [facility] [id number] cristóbal/fts/ blayne Weston [facility] N[facility] N[facility] CR [facility] [id number] cristóbal/fts/ cisneros [facility] NELSON NELSON CR DIAGNOSTIC TESTING [id number] ua/jacks on [facility] NELSON NELSON CR PH[facility] [id number] fts/cristóbal/ christopher [facility] NELSON NELSON CR [facility] [id number] fts/cristóbal/ christopher Weston [facility] SPP SPP NO TECHBILL [id number] THERAPY [facility]ira [facility] N[facility] CR [facility] [id number] bpp/nst/ cristóbal/barron desiree Weston [facility] N[facility] NELSON CR [facility] [id number] bpp/nst/ cristóbal/barron desiree [facility] N[facility] CR [facility] [id number] bpp/nst/ cristóbal/barron son [facility] OBP OBP CR PHYSICIAN OP CLINIC [id number] COLPO Neelima Martin [facility] SPP SPP NO TECHBILL [id number] NEW PT. THERAPY Shira Velasquezf [facility]BP OBP CR PH[facility] OP [facility] [id number] COLPO/MF M REFERRAL [facility] OBP OBP CR PHYSICIAN OP CLINIC [id number] PRE-OP BTL Neelima Martin [facility] Procedures Procedure Code Date Perfomer Comments Source D&C- 2015 [facility] lypoma removal-2013 [facility] Social History Social History Date Source No data available for this section 09/30/2024 [facility] No data available for this section 08/09/2024 [facility] No data available for this section 08/09/2024 [facility] No data available for this section 07/10/2024 [facility] No data available for this section 07/09/2024 [facility] No data available for this section 07/09/2024 [facility] No data available for this section 07/08/2024 [facility] No data available for this section 06/25/2024 [facility] No data available for this section 06/25/2024 [facility] No data available for this section 06/12/2024 [facility] No data available for this section 06/12/2024 [facility] No data available for this section 06/07/2024 [facility] No data available for this section 05/26/2024 [facility] No data available for this section 05/25/2024 [facility] No data available for this section 04/23/2024 [facility] No data available for this section 03/04/2024 [facility] No data available for this section 03/04/2024 [facility] No data available for this section 03/04/2024 [facility] No data available for this section 02/21/2024 [facility] No data available for this section 12/17/2023 [facility] No data available for this section 12/13/2023 [facility]
[2024-10-19 04:12] VITALS: BP 105/70; PULSE 83; RESP 18; TEMP 36.9; O2SAT 100
--- NOTE | 2024-10-19 04:13 | ECG_ITS ---
Test Date: 2024-10-19 04:16:28 Measurements Intervals Sod Rate: 84 P: 63 LA: 141 QRS: 78 QRSD: 80 T: 58 QT: 370 QTc: 440 Interpretive Statements SINUS RHYTHM NONSPECIFIC T-WAVE ABNORMALITY Compared to ECG 10/12/2024 07:23:34 T-wave abnormality now present Electronically Signed On 10-20-2024 15:42:59 CDT by Alfonzo Chambers M.D.
[2024-10-19 04:32] LABS: Hematocrit 42.1 % (37.0-47.0); Hemoglobin 14.1 g/dL (12.0-15.0); Immature Granulocyte Percent A 0.3 % (0-0.5); Lymphocytes Absolute Auto 2.50 K/mm3 (0.9-3.2); Mean Corpuscular HGB Conc 33.5 g/dl (32-36); Mean Corpuscular Hemoglobin 30.0 pg (26-34); Mean Corpuscular Volume 89.6 fl (80-100); Nucleated Red Blood Cells Absolute Auto 0.000 K/mm3 (0.0-0.012); Nucleated Red Blood Cells Perc 0.0 % (0.0-0.2); Platelet Count Result 212 k/mm3 (150-375); Red Blood Count 4.70 M/mm3 (4.2-5.4); White Blood Count 7.8 K/mm3 (4.5-10.0)
[2024-10-19 04:41] LABS: INR 1.0; Prothrombin Time 13.3 Seconds (11.1-14.7)
[2024-10-19 04:42] LABS: Partial Thromboplastin Time 24.2 Seconds (22.3-36.8)
[2024-10-19 05:01] LABS: Alanine Aminotransferase 14 U/L (6-35); Albumin Level 4.4 g/dL (3.5-5.1); Alkaline Phosphatase 49 U/L (38-126); Anion Gap 8 mmol/L (4-12); Aspartate Amino Transferase 24 U/L (14-36); Bilirubin,Total 0.3 mg/dL (0.2-1.3); Blood Urea Nitrogen 12 mg/dL (7-17); Calcium 9.1 mg/dL (8.4-10.2); Carbon Dioxide 21 mmol/L (22-30); Chloride 105 mmol/L (98-107); Estimated CRCL calculation 81 ml/min; Estimated Glomerular Filt Rate > 60; Glucose 90 mg/dL (65-110); Lipase 67 U/L (23-300); Potassium 3.7 mmol/L (3.4-5.0); Sodium 134 mmol/L (137-145); Total Protein 7.2 g/dL (6.3-8.2)
[2024-10-19 05:12] LABS: Troponin I < 0.012 ng/mL (0.000-0.034)
[2024-10-19 06:00] VITALS: PULSE 67
[2024-10-19 06:02] VITALS: O2SAT 100
[2024-10-19 06:04] VITALS: BP 103/71; PULSE 70; RESP 12; O2SAT 100
--- NOTE | 2024-10-19 07:28 | ECG_ITS ---
Test Date: 2024-10-19 07:49:51 Measurements Intervals [place] Rate: 63 P: 46 MT: 166 QRS: 66 QRSD: 86 T: 45 QT: 385 QTc: 395 Interpretive Statements SINUS RHYTHM NONSPECIFIC T-WAVE ABNORMALITY Compared to ECG 10/19/2024 04:16:28 NO SIGNIFICANT CHANGES Electronically Signed On 10-20-2024 15:44:08 CDT by Alfonzo Chambers M.D.
[2024-10-19] MEDS: fentaNYL CITRATE INJ (*CRX) 100 MCG/2 ML VIAL 50 MCG IV PUSH (07:56)
--- OUTSIDE RECORDS SUMMARY | 2024-10-19 08:27 | XMS_ITS | Continuity of Care Document ---
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 [employer] Website. [facility] CHEMISTRY Estimated GFR for Adults 124 mL/min/1.7 3m 06/25 07:51 :00 Interpretive Data: Changed to CKD-EPI 2020 on 2020. [facility] GENERAL CHEMISTRY Creatinine, standardized HEMOLYZED, unable to report due to interferen ce mg/dL 0.5 - 1.0 06/25 07:51 :00 Result Comment: Hemolyzed Hemolyzed Sample. Interpretive Data: Npndxb-ea-plx e transgender patients on testosterone therapy should have results assessed using the male reference range. Cliw-ce-owexm e transgender patients on hormone-modul ating therapy clinical judgment is advisedfor assessment. [facility] HEMATOLOGY PROFILES PLT 141 x10(9)/L 150 - 450 06/25 07:51 :00 [facility] HEMATOLOGY PROFILES MPV 10.5 8.0 - 12.0 06/25 07:51 :00 [facility] HEMATOLOGY PROFILES HGB 12.0 g/dL 12.0 - 15.5 06/25 07:51 :00 Interpretive Data: Xhlaws-ne-wpa e transgender patients on testosterone therapy should have results assessed using the male reference range. Anec-ti-bjevl e transgender patients on hormone-modul ating therapy clinical judgment is advisedfor assessment. [facility] HEMATOLOGY PROFILES RBC 3.92 x10(12)/L 3.90 - 5.03 06/25 07:51 :00 [facility] HEMATOLOGY PROFILES HCT 34.9 % 34.9 - 44.5 06/25 07:51 :00 Interpretive Data: Ovcpcg-pv-zbj e transgender patients on testosterone therapy should have results assessed using the male reference range. Rhya-jr-ojhun e transgender patients on hormone-modul ating therapy clinical judgment is advisedfor assessment. [facility] HEMATOLOGY PROFILES WBC 8.15 x10(9)/L 3.50 - 10.50 06/25 07:51 :00 [facility] HEMATOLOGY PROFILES RDW SD 37.7 fL 36.4 - 46.3 06/25 07:51 :00 [facility] HEMATOLOGY PROFILES RDW CV 11.9 % 11.9 - 15.5 06/25 07:51 :00 [facility] HEMATOLOGY PROFILES MCV 89.0 fL 81.6 - 98.3 06/25 07:51 :00 [facility] HEMATOLOGY PROFILES MCHC 34.4 g/dL 32.0 - 36.0 06/25 07:51 :00 [facility] HEMATOLOGY PROFILES MCH 30.6 pg 26.0 - 33.0 06/25 07:51 :00 [facility] HEMATOLOGY PROFILES % Basophils 0.6 % 06/25 07:51 :00 [facility] HEMATOLOGY PROFILES Absolute Granulocytes 5.30 x10(9)/L 1.70 - 7.00 06/25 07:51 :00 [facility] HEMATOLOGY PROFILES % Immature Granulocytes 0.60 % 0.02 - 0.42 06/25 07:51 :00 [facility] HEMATOLOGY PROFILES % Eosinophils 4.7 % 06/25 07:51 :00 [facility] HEMATOLOGY PROFILES Abs Basophils 0.05 x10(9)/L 0.00 - 0.30 06/25 07:51 :00 [facility] HEMATOLOGY PROFILES Abs Eosinophils 0.38 x10(9)/L 0.05 - 0.50 06/25 07:51 :00 [facility] HEMATOLOGY PROFILES Abs Immature Granulocytes 0.05 x10(9)/L 0.00 - 0.03 06/25 07:51 :00 [facility] HEMATOLOGY PROFILES Abs Monocytes 0.44 x10(9)/L 0.30 - 0.90 06/25 07:51 :00 [facility] HEMATOLOGY PROFILES Abs Lymphocytes 1.93 x10(9)/L 0.90 - 2.90 06/25 07:51 :00 [facility] HEMATOLOGY PROFILES % Neutrophils 65.0 % 06/25 07:51 :00 [facility] HEMATOLOGY PROFILES Absolute Nucleated RBCs 0.0 x10(9)/L 0.0 - 0.0 06/25 07:51 :00 Interpretive Data: Normal values not established in patients less than 18 years old. [facility] HEMATOLOGY PROFILES % Monocytes 5.4 % 06/25 07:51 :00 [facility] HEMATOLOGY PROFILES % Lymphocytes 23.7 % 06/25 07:51 :00 [facility] HEMATOLOGY PROFILES % Nucleated RBCs 0.0 % 06/25 07:51 :00 [facility] US Leg Imaging Venous US Leg [...] Signed on: 06/25/24 09:19 06/25 03:01 :05 [facility] XR Chest XR Chest XR General [...] Signed on: 06/25/24 08:32 06/25 02:50 :51 [facility] CLINIC SITE LAB RESULTS POC U hCG (Rals) Negative *NA* (06/12/24 2:35 AM) 06/12 07:35 :00 [facility] GENERAL CHEMISTRY ALT-SGPT 13 U/L 10 - 40 06/12 07:26 :00 [facility] GENERAL CHEMISTRY Alkaline Phosphatase 47 U/L 35 - 104 06/12 07:26 :00 [facility] GENERAL CHEMISTRY Total Protein 7.0 g/dL 5.7 - 8.2 06/12 07:26 :00 [facility] GENERAL CHEMISTRY Creatinine, standardized 0.6 mg/dL 0.5 - 1.0 06/12 07:26 :00 Interpretive Data: Dkufsf-ig-zzm e transgender patients on testosterone therapy should have results assessed using the male reference range. Ytup-hc-pvlpr e transgender patients on hormone-modul ating therapy clinical judgment is advisedfor assessment. [facility] GENERAL CHEMISTRY Chloride 107 mmol/L 98 - 107 06/12 07:26 :00 [facility] GENERAL CHEMISTRY Estimated GFR for Adults 121 mL/min/1.7 3m 06/12 07:26 :00 Interpretive Data: Changed to CKD-EPI 2020 on 2020. [facility] GENERAL CHEMISTRY Glucose Lvl 97 mg/dL 70 - 139 06/12 07:26 :00 [facility] GENERAL CHEMISTRY Calcium 8.6 mg/dL 8.3 - 10.6 06/12 07:26 :00 [facility] GENERAL CHEMISTRY BUN 9 mg/dL 6 - 20 06/12 07:26 :00 [facility] GENERAL CHEMISTRY Sodium 137 mmol/L 136 - 145 06/12 07:26 :00 [facility] GENERAL CHEMISTRY Estimated GFR for peds Not Calculated mL/min/1.7 3m 06/12 07:26 :00 Interpretive Data: The estimated GFR was calculated using the Eliezer salas [place] equation (2009) . Reference: Pediatric GFR calculator at [employer] Website. [facility] CHEMISTRY Albumin 3.9 g/dL 3.4 - 5.0 06/12 07:26 :00 [facility] GENERAL CHEMISTRY T Bili 0.54 mg/dL 0.30 - 1.20 06/12 07:26 :00 [facility] GENERAL CHEMISTRY AST-SGOT 20 U/L 06/12 07:26 :00 [facility] GENERAL CHEMISTRY Anion gap 11 mmol/L 0 - 20 06/12 07:26 :00 [facility] GENERAL CHEMISTRY CO2 23 mmol/L 20 - 31 06/12 07:26 :00 [facility] GENERAL CHEMISTRY Potassium HEMOLYZED, unable to report due to interferen ce mmol/L 3.5 - 5.1 06/12 07:26 :00 Result Comment: Hemolyzed Hemolyzed Sample. [facility] GENERAL CHEMISTRY 3rd Generation TSH 1.490 mcIU/mL 0.550 - 4.780 06/12 07:26 :00 Interpretive Data: Reference Interval I U/mL Infants (1 2 3 months) 0.87 6 .15 Children (2 1 2 years) 0.67 4 .16 Adolescents (13 2 0 years) 0.48 4 .17 [facility] HEMATOLOGY PROFILES PLT 214 x10(9)/L 150 - 450 06/12 07:26 :00 [facility] HEMATOLOGY PROFILES RDW SD 37.3 fL 36.4 - 46.3 06/12 07:26 :00 [facility] HEMATOLOGY PROFILES RDW CV 11.6 % 11.9 - 15.5 06/12 07:26 :00 [facility] HEMATOLOGY PROFILES MCHC 33.9 g/dL 32.0 - 36.0 06/12 07:26 :00 [facility] HEMATOLOGY PROFILES MCH 30.2 pg 26.0 - 33.0 06/12 07:26 :00 [facility] HEMATOLOGY PROFILES MCV 89.0 fL 81.6 - 98.3 06/12 07:26 :00 [facility] HEMATOLOGY PROFILES HCT 41.3 % 34.9 - 44.5 06/12 07:26 :00 Interpretive Data: Euyhdu-jk-gaq e transgender patients on testosterone therapy should have results assessed using the male reference range. Ydzd-ws-wcxyi e transgender patients on hormone-modul ating therapy clinical judgment is advisedfor assessment. [facility] HEMATOLOGY PROFILES HGB 14.0 g/dL 12.0 - 15.5 06/12 07:26 :00 Interpretive Data: Kezegx-de-zng e transgender patients on testosterone therapy should have results assessed using the male reference range. Gonk-gg-bnmyo e transgender patients on hormone-modul ating therapy clinical judgment is advisedfor assessment. [facility] HEMATOLOGY PROFILES RBC 4.64 x10(12)/L 3.90 - 5.03 06/12 07:26 :00 [facility] HEMATOLOGY PROFILES WBC 6.03 x10(9)/L 3.50 - 10.50 06/12 07:26 :00 [facility] HEMATOLOGY PROFILES MPV 10.5 8.0 - 12.0 06/12 07:26 :00 [facility] HEMATOLOGY PROFILES % Neutrophils 47.7 % 06/12 07:26 :00 [facility] HEMATOLOGY PROFILES Abs Immature Granulocytes 0.02 x10(9)/L 0.00 - 0.03 06/12 07:26 :00 [facility] HEMATOLOGY PROFILES Absolute Nucleated RBCs 0.0 x10(9)/L 0.0 - 0.0 06/12 07:26 :00 Interpretive Data: Normal values not established in patients less than 18 years old. [facility] HEMATOLOGY PROFILES Abs Basophils 0.06 x10(9)/L 0.00 - 0.30 06/12 07:26 :00 [facility] HEMATOLOGY PROFILES Abs Eosinophils 0.32 x10(9)/L 0.05 - 0.50 06/12 07:26 :00 [facility] HEMATOLOGY PROFILES % Nucleated RBCs 0.0 % 06/12 07:26 :00 [facility] HEMATOLOGY PROFILES Abs Monocytes 0.31 x10(9)/L 0.30 - 0.90 06/12 07:26 :00 [facility] HEMATOLOGY PROFILES Abs Lymphocytes 2.45 x10(9)/L 0.90 - 2.90 06/12 07:26 :00 [facility] HEMATOLOGY PROFILES Absolute Granulocytes 2.87 x10(9)/L 1.70 - 7.00 06/12 07:26 :00 [facility] HEMATOLOGY PROFILES % Immature Granulocytes 0.30 % 0.02 - 0.42 06/12 07:26 :00 [facility] HEMATOLOGY PROFILES % Basophils 1.0 % 06/12 07:26 :00 [facility] HEMATOLOGY PROFILES % Eosinophils 5.3 % 06/12 07:26 :00 [facility] HEMATOLOGY PROFILES % Monocytes 5.1 % 06/12 07:26 :00 [facility] HEMATOLOGY PROFILES % Lymphocytes 40.6 % 06/12 07:26 :00 [facility] CT Chest PE Protocol CT Chest PE [...] Signed on: 06/12/24 08:14 06/12 03:25 :07 [facility] GENERAL CHEMISTRY Estimated GFR for Adults 120 mL/min/1.7 3m 05/25 22:26 :00 Interpretive Data: Changed to CKD-EPI 2020 on 2020. [facility] GENERAL CHEMISTRY Creatinine, standardized 0.6 mg/dL 0.5 - 1.0 05/25 22:26 :00 Interpretive Data: Fdpumx-sy-fch e transgender patients on testosterone therapy should have results assessed using the male reference range. Kder-dq-nurpz e transgender patients on hormone-modul ating therapy clinical judgment is advisedfor assessment. [facility] GENERAL CHEMISTRY Sodium 139 mmol/L 136 - 145 05/25 22:26 :00 [facility] GENERAL CHEMISTRY Total Protein 7.0 g/dL 5.7 - 8.2 05/25 22:26 :00 [facility] GENERAL CHEMISTRY Glucose Lvl 80 mg/dL 70 - 139 05/25 22:26 :00 [facility] CHEMISTRY Anion gap 14 mmol/L 0 - 20 05/25 22:26 :00 [facility] CHEMISTRY Chloride 105 mmol/L 98 - 107 05/25 22:26 :00 [facility] CHEMISTRY T Bili 0.60 mg/dL 0.30 - 1.20 05/25 22:26 :00 [facility] GENERAL CHEMISTRY BUN 11 mg/dL 6 - 20 05/25 22:26 :00 [facility] GENERAL CHEMISTRY Potassium 3.6 mmol/L 3.5 - 5.1 05/25 22:26 :00 [facility] GENERAL CHEMISTRY Calcium 9.2 mg/dL 8.3 - 10.6 05/25 22:26 :00 [facility] GENERAL CHEMISTRY CO2 24 mmol/L 20 - 31 05/25 22:26 :00 [facility] GENERAL CHEMISTRY Alkaline Phosphatase 50 U/L 35 - 104 05/25 22:26 :00 [facility] GENERAL CHEMISTRY ALT-SGPT 14 U/L 10 - 40 05/25 22:26 :00 [facility] GENERAL CHEMISTRY Albumin 4.2 g/dL 3.4 - 5.0 05/25 22:26 :00 [facility] CHEMISTRY AST-SGOT 15 U/L 05/25 22:26 :00 [facility] CHEMISTRY Estimated GFR for peds Not Calculated mL/min/1.7 3m 05/25 22:26 :00 Interpretive Data: The estimated GFR was calculated using the B josue [place] equation (2009) . Reference: Pediatric GFR calculator at [employer] Website. [facility] HEMATOLOGY PROFILES MPV 10.4 8.0 - 12.0 05/25 22:26 :00 [facility] HEMATOLOGY PROFILES PLT 188 x10(9)/L 150 - 450 05/25 22:26 :00 [facility] HEMATOLOGY PROFILES RDW CV 12.0 % 11.9 - 15.5 05/25 22:26 :00 [facility] HEMATOLOGY PROFILES RDW SD 38.9 fL 36.4 - 46.3 05/25 22:26 :00 [facility] HEMATOLOGY PROFILES MCH 29.8 pg 26.0 - 33.0 05/25 22:26 :00 [facility] HEMATOLOGY PROFILES MCHC 33.5 g/dL 32.0 - 36.0 05/25 22:26 :00 [facility] HEMATOLOGY PROFILES MCV 88.9 fL 81.6 - 98.3 05/25 22: :00 [facility] HEMATOLOGY PROFILES HCT 44.8 % 34.9 - 44.5 05/25 22:26 :00 Interpretive Data: Zmozit-cw-fty e transgender patients on testosterone therapy should have results assessed using the male reference range. Sgpf-qe-ltify e transgender patients on hormone-modul ating therapy clinical judgment is advisedfor assessment. [facility] HEMATOLOGY PROFILES RBC 5.04 x10(12)/L 3.90 - 5.03 05/25 22:26 :00 [facility] HEMATOLOGY PROFILES HGB 15.0 g/dL 12.0 - 15.5 05/25 22:26 :00 Interpretive Data: Lpmqdg-ya-mtz e transgender patients on testosterone therapy should have results assessed using the male reference range. Faug-hl-adajl e transgender patients on hormone-modul ating therapy clinical judgment is advisedfor assessment. [facility] HEMATOLOGY PROFILES WBC 5.97 x10(9)/L 3.50 - 10.50 05/25 22:26 :00 [facility] HEMATOLOGY PROFILES Absolute Granulocytes 3.03 x10(9)/L 1.70 - 7.00 05/25 22: :00 [facility] HEMATOLOGY PROFILES Abs Lymphocytes 2.25 x10(9)/L 0.90 - 2.90 05/25 22:26 :00 [facility] HEMATOLOGY PROFILES % Basophils 0.7 % 05/25 22:26 :00 [facility] HEMATOLOGY PROFILES % Immature Granulocytes 0.20 % 0.02 - 0.42 05/25 22:26 :00 [facility] HEMATOLOGY PROFILES % Eosinophils 4.4 % 05/25 22:26 :00 [facility] HEMATOLOGY PROFILES % Lymphocytes 37.7 % 05/25 22:26 :00 [facility] HEMATOLOGY PROFILES % Monocytes 6.4 % 05/25 22:26 :00 [facility] HEMATOLOGY PROFILES Absolute Nucleated RBCs 0.0 x10(9)/L 0.0 - 0.0 05/25 22:26 :00 Interpretive Data: Normal values not established in patients less than 18 years old. [facility] HEMATOLOGY PROFILES % Neutrophils 50.6 % 05/25 22:26 :00 [facility] HEMATOLOGY PROFILES % Nucleated RBCs 0.0 % 05/25 22:26 :00 [facility] HEMATOLOGY PROFILES Abs Basophils 0.04 x10(9)/L 0.00 - 0.30 05/25 22:26 :00 [facility] HEMATOLOGY PROFILES Abs Immature Granulocytes 0.01 x10(9)/L 0.00 - 0.03 05/25 22:26 :00 [facility] HEMATOLOGY PROFILES Abs Monocytes 0.38 x10(9)/L 0.30 - 0.90 05/25 22:26 :00 [facility] HEMATOLOGY PROFILES Abs Eosinophils 0.26 x10(9)/L 0.05 - 0.50 05/25 22:26 :00 [facility] URINALYSIS UA PH 6 (05/25/24 4:26 PM) 4.5 - 8.0 05/25 22:26 :00 [facility] URINALYSIS COLOR Yellow (05/25/24 4:26 PM) 05/25 22:26 :00 [facility] URINALYSIS SPECIFIC GRAVITY 1.026 1.006 - 1.030 05/25 22:26 :00 [facility] URINALYSIS Urine Collection Method Clean Catch UR (05/25/24 4:26 PM) 05/25 22:26 :00 [facility] URINALYSIS CLARITY Slightly Cloudy (05/25/24 4:26 PM) 05/25 22:26 :00 [facility] URINALYSIS UA UROBILINOGEN Negative Geronimo unit/dL 0.2 - 1.0 05/25 22:26 :00 [facility] URINALYSIS UA BLOOD Negative 4 (05/25/24 4:26 PM) 05/25 22:26 :00 Result Comment: A hemoglobin concentration of 0.015-0.062 mg/dL is approximately equivalent to 5 -20 intact red blood cells per microliter. [facility] URINALYSIS UA KETONES Negative mg/dL 05/25 22:26 :00 [facility] URINALYSIS BILIRUBIN Negative (05/25/24 4:26 PM) 05/25 22:26 :00 [facility] URINALYSIS UA GLUCOSE Negative mg/dL 05/25 22:26 :00 [facility] URINALYSIS UA NITRITE Negative (05/25/24 4:26 PM) 05/25 22:26 :00 [facility] URINALYSIS UA PROTEIN Negative mg/dL 05/25 22:26 :00 [facility] URINALYSIS UA LEUKOCYTES Negative (05/25/24 4:26 PM) 05/25 22:26 :00 [facility] CT Chest PE Protocol CT Chest PE Protocol CT Scan/CT Angio Accession # Exam Date/Time Procedure Ordering Provider [id number] 05/25/2024 21:[address] Chest PE Protocol Mathew Lopez Reason [...] Signed on: 05/25/24 21:26 05/25 21:05 :48 [facility] US Leg Imaging Venous US Leg Imaging Venous Ultrasound Accession # Exam Date/Time Procedure Ordering Provider [id number] 05/25/2024 17:20 [facility] US Leg Imaging Venous Rachelle Galeano MD [...] Signed on: 05/25/24 17:30 05/25 16:58 :29 [facility] CLINIC SITE LAB RESULTS POC U hCG (Rals) Negative *NA* (04/23/24 1:32 AM) 04/23 07:32 :00 [facility] URINALYSIS UA GLUCOSE Negative mg/dL 04/23 07:32 :00 [facility] URINALYSIS UA PH 7 (04/23/24 1:32 AM) 4.5 - 8.0 04/23 07:32 :00 [facility] URINALYSIS UA UROBILINOGEN Negative Geronimo unit/dL 0.2 - 1.0 04/23 07:32 :00 [facility] URINALYSIS BILIRUBIN Negative (04/23/24 1:32 AM) 04/23 07:32 :00 [facility] URINALYSIS UA KETONES Negative mg/dL 04/23 07:32 :00 [facility] URINALYSIS UA LEUKOCYTES Negative (04/23/24 1:32 AM) 04/23 07:32 :00 [facility] URINALYSIS UA BLOOD Negative 5 (04/23/24 1:32 AM) 04/23 07:32 :00 Result Comment: A hemoglobin concentration of 0.015-0.062 mg/dL is approximately equivalent to 5 -20 intact red blood cells per microliter. [facility] URINALYSIS UA PROTEIN Negative mg/dL 04/23 07:32 :00 [facility] URINALYSIS UA NITRITE Negative (04/23/24 1:32 AM) 04/23 07:32 :00 [facility] URINALYSIS Urine Collection Method Clean Catch UR (04/23/24 1:32 AM) 04/23 07:32 :00 [facility] URINALYSIS SPECIFIC GRAVITY 1.026 1.006 - 1.030 04/23 07:32 :00 [facility] URINALYSIS COLOR Yellow (04/23/24 1:32 AM) 04/23 07:32 :00 [facility] URINALYSIS CLARITY Cloudy *ABNORMAL* (04/23/24 1:32 AM) 04/23 07:32 :00 [facility] COAGULATIO N PT 12.4 s 9.4 - 12.5 04/23 07:00 :00 [facility] COAGULATIO N INR 1.1 0.9 - 1.2 [...] M, Harley DD, Schu n joshua HJ; [employer] Antithromboti c Therapy and Prevention of Thrombosis Panel. Executive summary: Antithromboti c Therapy and Prevention of Thrombosis, 9th Ed: [employer] Evidence-Base d Clinical Practice Guidelines. Chest. 2012 Apr; 141(2 Suppl):7S-47S . doi: 10.1378/chest .1412S3 [facility] COAGULATIO N PTT 28.6 s 25.1 - [...] the Clinical Pathology Service for additional questions. [facility] GENERAL CHEMISTRY Albumin 4.0 g/dL 3.4 - 5.0 04/23 07:00 :00 [facility] GENERAL CHEMISTRY Calcium 9.3 mg/dL 8.3 - 10.6 04/23 07:00 :00 [facility] GENERAL CHEMISTRY BUN 12 mg/dL 6 - 20 04/23 07:00 :00 [facility] GENERAL CHEMISTRY ALT-SGPT 13 U/L 10 - 40 04/23 07:00 :00 [facility] GENERAL CHEMISTRY Alkaline Phosphatase 56 U/L 35 - 104 04/23 07:00 :00 [facility] GENERAL CHEMISTRY Glucose Lvl 108 mg/dL 70 - 139 04/23 07:00 :00 [facility] GENERAL CHEMISTRY Chloride 106 mmol/L 98 - 107 04/23 07:00 :00 [facility] GENERAL CHEMISTRY Anion gap 14 mmol/L 0 - 20 04/23 07:00 :00 [facility] GENERAL CHEMISTRY CO2 25 mmol/L 20 - 31 04/23 07:00 :00 [facility] GENERAL CHEMISTRY Potassium 3.5 mmol/L 3.5 - 5.1 04/23 07:00 :00 [facility] GENERAL CHEMISTRY Sodium 141 mmol/L 136 - 145 04/23 07:00 :00 [facility] GENERAL CHEMISTRY T Bili 0.45 mg/dL 0.30 - 1.20 04/23 07:00 :00 [facility] GENERAL CHEMISTRY Creatinine, standardized 0.7 mg/dL 0.5 - 1.0 04/23 07:00 :00 Interpretive Data: Gaxplv-cj-abe e transgender patients on testosterone therapy should have results assessed using the male reference range. Ydyp-ld-umysq e transgender patients on hormone-modul ating therapy clinical judgment is advisedfor assessment. [facility] GENERAL CHEMISTRY Total Protein 7.0 g/dL 5.7 - 8.2 04/23 07:00 :00 [facility] CHEMISTRY Estimated GFR for Adults 115 mL/min/1.7 3m 04/23 07:00 :00 Interpretive Data: Changed to CKD-EPI 2020 on 2020. [facility] GENERAL CHEMISTRY AST-SGOT 15 U/L 04/23 07:00 :00 [facility] GENERAL CHEMISTRY Estimated GFR for peds Not Calculated mL/min/1.7 3m 04/23 07:00 :00 Interpretive Data: The estimated GFR was calculated using the Eliezer salas [place] equation (2009) . Reference: Pediatric GFR calculator at [employer] Website. [facility] HEMATOLOGY PROFILES RDW CV 11.5 % 11.9 - 15.5 04/23 07:00 :00 [facility] HEMATOLOGY PROFILES MCHC 34.0 g/dL 32.0 - 36.0 04/23 07:00 :00 [facility] HEMATOLOGY PROFILES RDW SD 38.4 fL 36.4 - 46.3 04/23 07:00 :00 [facility] HEMATOLOGY PROFILES MCH 30.7 pg 26.0 - 33.0 04/23 07:00 :00 [facility] HEMATOLOGY PROFILES MCV 90.3 fL 81.6 - 98.3 04/23 07:00 :00 [facility] HEMATOLOGY PROFILES HGB 14.5 g/dL 12.0 - 15.5 04/23 07:00 :00 Interpretive Data: Vgavzd-ij-asc e transgender patients on testosterone therapy should have results assessed using the male reference range. Dvgn-gw-uygtn e transgender patients on hormone-modul ating therapy clinical judgment is advisedfor assessment. [facility] HEMATOLOGY PROFILES RBC 4.73 x10(12)/L 3.90 - 5.03 04/23 07:00 :00 [facility] HEMATOLOGY PROFILES HCT 42.7 % 34.9 - 44.5 04/23 07:00 :00 Interpretive Data: Sepfjg-ni-ppp e transgender patients on testosterone therapy should have results assessed using the male reference range. Jdel-la-dljvw e transgender patients on hormone-modul ating therapy clinical judgment is advisedfor assessment. [facility] HEMATOLOGY PROFILES WBC 7.56 x10(9)/L 3.50 - 10.50 04/23 07:00 :00 [facility] HEMATOLOGY PROFILES PLT 187 x10(9)/L 150 - 450 04/23 07:00 :00 [facility] HEMATOLOGY PROFILES MPV 10.9 8.0 - 12.0 04/23 07:00 :00 [facility] HEMATOLOGY PROFILES % Nucleated RBCs 0.0 % 04/23 07:00 :00 [facility] HEMATOLOGY PROFILES % Neutrophils 44.5 % 04/23 07:00 :00 [facility] HEMATOLOGY PROFILES Absolute Nucleated RBCs 0.0 x10(9)/L 0.0 - 0.0 04/23 07:00 :00 Interpretive Data: Normal values not established in patients less than 18 years old. [facility] HEMATOLOGY PROFILES Abs Eosinophils 0.38 x10(9)/L 0.05 - 0.50 04/23 07:00 :00 [facility] HEMATOLOGY PROFILES Abs Monocytes 0.39 x10(9)/L 0.30 - 0.90 04/23 07:00 :00 [facility] HEMATOLOGY PROFILES Abs Immature Granulocytes 0.02 x10(9)/L 0.00 - 0.03 04/23 07:00 :00 [facility] HEMATOLOGY PROFILES Abs Basophils 0.05 x10(9)/L 0.00 - 0.30 04/23 07:00 :00 [facility] HEMATOLOGY PROFILES Abs Lymphocytes 3.35 x10(9)/L 0.90 - 2.90 04/23 07:00 :00 [facility] HEMATOLOGY PROFILES % Lymphocytes 44.3 % 04/23 07:00 :00 [facility] HEMATOLOGY PROFILES % Basophils 0.7 % 04/23 07:00 :00 [facility] HEMATOLOGY PROFILES % Eosinophils 5.0 % 04/23 07:00 :00 [facility] HEMATOLOGY PROFILES Absolute Granulocytes 3.37 x10(9)/L 1.70 - 7.00 04/23 07:00 :00 [facility] HEMATOLOGY PROFILES % Immature Granulocytes 0.30 % 0.02 - 0.42 04/23 07:00 :00 [facility] HEMATOLOGY PROFILES % Monocytes 5.2 % 04/23 07:00 :00 [facility] CT Chest PE Protocol CT Chest PE Protocol CT Scan/CT Angio Accession # Exam Date/Time Procedure Ordering Provider [id number] 04/23/2024 02:[address] Chest PE Protocol Massiel KESSLER, Andrey [...] Signed on: 04/23/24 08:53 04/23 01:56 :34 [facility] GENERAL CHEMISTRY BUN 8 mg/dL 6 - 20 03/04 00:45 :00 [facility] GENERAL CHEMISTRY Calcium 9.0 mg/dL 8.3 - 10.6 03/04 00:45 :00 [facility] GENERAL CHEMISTRY Alkaline Phosphatase 63 U/L 35 - 104 03/04 00:45 :00 [facility] GENERAL CHEMISTRY Total Protein 7.3 g/dL 5.7 - 8.2 03/04 00:45 :00 [facility] GENERAL CHEMISTRY ALT-SGPT 16 U/L 10 - 40 03/04 00:45 :00 [facility] GENERAL CHEMISTRY Creatinine, standardized 0.7 mg/dL 0.5 - 1.0 03/04 00:45 :00 Interpretive Data: Lursxb-gm-gue e transgender patients on testosterone therapy should have results assessed using the male reference range. Jbeo-md-dupmh e transgender patients on hormone-modul ating therapy clinical judgment is advisedfor assessment. [facility] GENERAL CHEMISTRY Anion gap 15 mmol/L 0 - 20 03/04 00:45 :00 [facility] GENERAL CHEMISTRY Albumin 4.3 g/dL 3.4 - 5.0 03/04 00:45 :00 [facility] GENERAL CHEMISTRY T Bili 0.43 mg/dL 0.30 - 1.20 03/04 00:45 :00 [facility] GENERAL CHEMISTRY Estimated GFR for peds Not Calculated mL/min/1.7 3m 03/04 00:45 :00 Interpretive Data: The estimated GFR was calculated using the Eliezer salas [place] equation (2009) . Reference: Pediatric GFR calculator at [employer] Website. [facility] GENERAL CHEMISTRY Potassium 3.4 mmol/L 3.5 - 5.1 03/04 00:45 :00 [facility] GENERAL CHEMISTRY CO2 22 mmol/L 20 - 31 03/04 00:45 :00 [facility] GENERAL CHEMISTRY Chloride 105 mmol/L 98 - 107 03/04 00:45 :00 [facility] CHEMISTRY Estimated GFR for Adults 118 mL/min/1.7 3m 03/04 00:45 :00 Interpretive Data: Changed to CKD-EPI 2020 on 2020. [facility] GENERAL CHEMISTRY Sodium 139 mmol/L 136 - 145 03/04 00:45 :00 [facility] GENERAL CHEMISTRY AST-SGOT 16 U/L 03/04 00:45 :00 [facility] GENERAL CHEMISTRY Glucose Lvl 120 mg/dL 70 - 139 03/04 00:45 :00 [facility] HEMATOLOGY PROFILES MCHC 33.9 g/dL 32.0 - 36.0 03/04 00:45 :00 [facility] HEMATOLOGY PROFILES MCH 30.4 pg 26.0 - 33.0 03/04 00:45 :00 [facility] HEMATOLOGY PROFILES MCV 89.8 fL 81.6 - 98.3 03/04 00:45 :00 [facility] HEMATOLOGY PROFILES HCT 43.1 % 34.9 - 44.5 03/04 00:45 :00 Interpretive Data: Ulnjem-zh-jaz e transgender patients on testosterone therapy should have results assessed using the male reference range. Pjpe-xl-paazu e transgender patients on hormone-modul ating therapy clinical judgment is advisedfor assessment. [facility] HEMATOLOGY PROFILES HGB 14.6 g/dL 12.0 - 15.5 03/04 00:45 :00 Interpretive Data: Wpeyos-mv-ldb e transgender patients on testosterone therapy should have results assessed using the male reference range. Ulsz-bv-zehsp e transgender patients on hormone-modul ating therapy clinical judgment is advisedfor assessment. [facility] HEMATOLOGY PROFILES RBC 4.80 x10(12)/L 3.90 - 5.03 03/04 00:45 :00 [facility] HEMATOLOGY PROFILES WBC 9.74 x10(9)/L 3.50 - 10.50 03/04 00:45 :00 [facility] HEMATOLOGY PROFILES MPV 10.1 8.0 - 12.0 03/04 00:45 :00 [facility] HEMATOLOGY PROFILES PLT 227 x10(9)/L 150 - 450 03/04 00:45 :00 [facility] HEMATOLOGY PROFILES RDW SD 38.6 fL 36.4 - 46.3 03/04 00:45 :00 [facility] HEMATOLOGY PROFILES RDW CV 11.9 % 11.9 - 15.5 03/04 00:45 :00 [facility] HEMATOLOGY PROFILES Abs Monocytes 0.43 x10(9)/L 0.30 - 0.90 03/04 00:45 :00 [facility] HEMATOLOGY PROFILES Abs Lymphocytes 2.29 x10(9)/L 0.90 - 2.90 03/04 00:45 :00 [facility] HEMATOLOGY PROFILES Absolute Granulocytes 6.62 x10(9)/L 1.70 - 7.00 03/04 00:45 :00 [facility] HEMATOLOGY PROFILES % Immature Granulocytes 0.60 % 0.02 - 0.42 03/04 00:45 :00 [facility] HEMATOLOGY PROFILES % Basophils 0.5 % 03/04 00:45 :00 [facility] HEMATOLOGY PROFILES % Eosinophils 3.0 % 03/04 00:45 :00 [facility] HEMATOLOGY PROFILES % Monocytes 4.4 % 03/04 00:45 :00 [facility] HEMATOLOGY PROFILES % Lymphocytes 23.5 % 03/04 00:45 :00 [facility] HEMATOLOGY PROFILES Abs Immature Granulocytes 0.06 x10(9)/L 0.00 - 0.03 03/04 00:45 :00 [facility] HEMATOLOGY PROFILES % Neutrophils 68.0 % 03/04 00:45 :00 [facility] HEMATOLOGY PROFILES Absolute Nucleated RBCs 0.0 x10(9)/L 0.0 - 0.0 03/04 00:45 :00 Interpretive Data: Normal values not established in patients less than 18 years old. [facility] HEMATOLOGY PROFILES Abs Basophils 0.05 x10(9)/L 0.00 - 0.30 03/04 00:45 :00 [facility] HEMATOLOGY PROFILES % Nucleated RBCs 0.0 % 03/04 00:45 :00 [facility] HEMATOLOGY PROFILES Abs Eosinophils 0.29 x10(9)/L 0.05 - 0.50 03/04 00:45 :00 [facility] XR Chest Portable XR Chest Portable XR General Diagnostic Accession # Exam Date/Time Procedure Ordering Provider [id number] 03/03/2024 20:39 [facility] XR Chest Portable Angelina Garibay Reason For [...] Signed on: 03/03/24 20:50 03/03 20:14 :16 [facility] CT Head or Brain CT Head or Brain CT Scan/CT Angio Accession # Exam Date/Time Procedure Ordering Provider [id number] 03/03/2024 20:[address] Head or Brain Brett Goel MD [...] Signed on: 03/03/24 20:31 03/03 20:05 :14 [facility] SITE LAB RESULTS Influenza A Rapid POC Negative *NA* (02/20/24 11:20 PM) 02/20 05:20 :00 [facility] SITE LAB RESULTS Influenza B Rapid POC Negative *NA* (02/20/24 11:20 PM) 02/20 05:20 :00 [facility] COAGULATIO N PT 13.1 s 9.4 - 12.5 02/20 02:45 :00 [facility] COAGULATIO N INR 1.2 0.9 - 1.2 [...] M, Harley DD, Schu n joshua HJ; [employer] Antithromboti c Therapy and Prevention of Thrombosis Panel. Executive summary: Antithromboti c Therapy and Prevention of Thrombosis, 9th Ed: [employer] Evidence-Base d Clinical Practice Guidelines. Chest. 2011; 141(2 Suppl):7S-47S . doi: 10.1378/chest .1412S3 [facility] COAGULATIO N PTT 30.3 s 25.1 - [...] the Clinical Pathology Service for additional questions. [facility] GENERAL CHEMISTRY Anion gap 14 mmol/L 0 - 20 02/20 02:00 :00 [facility] GENERAL CHEMISTRY Albumin 4.2 g/dL 3.4 - 5.0 02/20 02:00 :00 [facility] GENERAL CHEMISTRY T Bili 0.70 mg/dL 0.30 - 1.20 02/20 02:00 :00 [facility] GENERAL CHEMISTRY Alkaline Phosphatase 64 U/L 35 - 104 02/20 02:00 :00 [facility] GENERAL CHEMISTRY Total Protein 7.1 g/dL 5.7 - 8.2 02/20 02:00 :00 [facility] GENERAL CHEMISTRY ALT-SGPT 13 U/L 10 - 40 02/20 02:00 :00 [facility] GENERAL CHEMISTRY Creatinine, standardized 0.7 mg/dL 0.5 - 1.0 02/20 02:00 :00 Interpretive Data: Lpgpei-ry-ean e transgender patients on testosterone therapy should have results assessed using the male reference range. Rlie-ij-emvfg e transgender patients on hormone-modul ating therapy clinical judgment is advisedfor assessment. [facility] GENERAL CHEMISTRY BUN 13 mg/dL 6 - 20 02/20 02:00 :00 [facility] GENERAL CHEMISTRY Calcium 8.6 mg/dL 8.3 - 10.6 02/20 02:00 :00 [facility] GENERAL CHEMISTRY Glucose Lvl 87 mg/dL 70 - 139 02/20 02:00 :00 [facility] GENERAL CHEMISTRY Chloride 106 mmol/L 98 - 107 02/20 02:00 :00 [facility] GENERAL CHEMISTRY Estimated GFR for Adults 118 mL/min/1.7 3m 02/20 02:00 :00 Interpretive Data: Changed to CKD-EPI 2020 on 2020. [facility] GENERAL CHEMISTRY Sodium 138 mmol/L 136 - 145 02/20 02:00 :00 [facility] GENERAL CHEMISTRY Estimated GFR for peds Not calculated 02/20 02:00 :00 Interpretive Data: The estimated GFR was calculated using the B josue [place] equation (2009) . Reference: Pediatric GFR calculator at [employer] Website. [facility] GENERAL CHEMISTRY Potassium 3.7 mmol/L 3.5 - 5.1 02/20 02:00 :00 [facility] GENERAL CHEMISTRY CO2 22 mmol/L 20 - 31 02/20 02:00 :00 [facility] GENERAL CHEMISTRY AST-SGOT 16 U/L 02/20 02:00 :00 [facility] HEMATOLOGY PROFILES WBC 8.13 x10(9)/L 3.50 - 10.50 02/20 02:00 :00 [facility] HEMATOLOGY PROFILES PLT 217 x10(9)/L 150 - 450 02/20 02:00 :00 [facility] HEMATOLOGY PROFILES MPV 10.6 8.0 - 12.0 02/20 02:00 :00 [facility] HEMATOLOGY PROFILES RDW CV 12.0 % 11.9 - 15.5 02/20 02:00 :00 [facility] HEMATOLOGY PROFILES RDW SD 38.7 fL 36.4 - 46.3 02/20 02:00 :00 [facility] HEMATOLOGY PROFILES MCHC 34.0 g/dL 32.0 - 36.0 02/20 02:00 :00 [facility] HEMATOLOGY PROFILES MCV 87.9 fL 81.6 - 98.3 02/20 02:00 :00 [facility] HEMATOLOGY PROFILES MCH 29.9 pg 26.0 - 33.0 02/20 02:00 :00 [facility] HEMATOLOGY PROFILES HGB 14.4 g/dL 12.0 - 15.5 02/20 02:00 :00 Interpretive Data: Coaigk-cg-hrj e transgender patients on testosterone therapy should have results assessed using the male reference range. Dlyn-gk-jdwli e transgender patients on hormone-modul ating therapy clinical judgment is advisedfor assessment. [facility] HEMATOLOGY PROFILES HCT 42.3 % 34.9 - 44.5 02/20 02:00 :00 Interpretive Data: Iqznog-gs-kqu e transgender patients on testosterone therapy should have results assessed using the male reference range. Sucl-vq-ladtc e transgender patients on hormone-modul ating therapy clinical judgment is advisedfor assessment. [facility] HEMATOLOGY PROFILES RBC 4.81 x10(12)/L 3.90 - 5.03 02/20 02:00 :00 [facility] HEMATOLOGY PROFILES Abs Immature Granulocytes 0.03 x10(9)/L 0.00 - 0.03 02/20 02:00 :00 [facility] HEMATOLOGY PROFILES Abs Eosinophils 0.42 x10(9)/L 0.05 - 0.50 02/20 02:00 :00 [facility] HEMATOLOGY PROFILES Abs Basophils 0.05 x10(9)/L 0.00 - 0.30 02/20 02:00 :00 [facility] HEMATOLOGY PROFILES % Monocytes 6.3 % 02/20 02:00 :00 [facility] HEMATOLOGY PROFILES % Eosinophils 5.2 % 02/20 02:00 :00 [facility] HEMATOLOGY PROFILES % Immature Granulocytes 0.40 % 0.02 - 0.42 02/20 02:00 :00 [facility] HEMATOLOGY PROFILES Absolute Granulocytes 4.86 x10(9)/L 1.70 - 7.00 02/20 02:00 :00 [facility] HEMATOLOGY PROFILES % Basophils 0.6 % 02/20 02:00 :00 [facility] HEMATOLOGY PROFILES % Nucleated RBCs 0.0 % 02/20 02:00 :00 [facility] HEMATOLOGY PROFILES Abs Lymphocytes 2.26 x10(9)/L 0.90 - 2.90 02/20 02:00 :00 [facility] HEMATOLOGY PROFILES Abs Monocytes 0.51 x10(9)/L 0.30 - 0.90 02/20 02:00 :00 [facility] HEMATOLOGY PROFILES % Neutrophils 59.7 % 02/20 02:00 :00 [facility] HEMATOLOGY PROFILES % Lymphocytes 27.8 % 02/20 02:00 :00 [facility] HEMATOLOGY PROFILES Absolute Nucleated RBCs 0.0 x10(9)/L 0.0 - 0.0 02/20 02:00 :00 Interpretive Data: Normal values not established in patients less than 18 years old. [facility] CT Chest PE Protocol CT Chest PE Protocol CT Scan/CT Angio Accession # Exam Date/Time Procedure Ordering Provider [id number] 02/20/2024 22:[address] Chest PE Protocol Chip Espinosa DO [...] Signed on: 02/21/24 01:23 02/19 22:00 :03 [facility] GENERAL CHEMISTRY Potassium 4.1 mmol/L 3.5 - 5.1 12/16 04:32 :00 [facility] GENERAL CHEMISTRY BUN 11 mg/dL - 12/16 04:32 :00 [facility] COAGULATIO N PT 17.2 s 9.4 - 12.5 12/16 03:15 :00 [facility] COAGULATIO N INR 1.5 0.9 - 1.2 [...] M, Harley DD, Tonie n joshua HJ; [employer] Antithromboti c Therapy and Prevention of Thrombosis Panel. Executive summary: Antithromboti c Therapy and Prevention of Thrombosis, 9th Ed: [employer] Evidence-Base d Clinical Practice Guidelines. Chest. 2012 Feb; 141(2 Suppl):7S-47S . doi: 10.1378/chest .1412S3 [facility] COAGULATIO N PTT 30.0 s 25.1 - [...] the Clinical Pathology Service for additional questions. [facility] GENERAL CHEMISTRY AST-SGOT 36 U/L 12/16 03:15 :00 [facility] GENERAL CHEMISTRY Albumin 4.3 g/dL 3.4 - 5.0 12/16 03:15 :00 [facility] GENERAL CHEMISTRY Alkaline Phosphatase 46 U/L 35 - 104 12/16 03:15 :00 [facility] CHEMISTRY ALT-SGPT 57 U/L 10 - 40 12/16 03:15 :00 Result Comment: Hemolyzed [facility] GENERAL CHEMISTRY BUN HEMOLYZED, unable to report due to interferen ce mg/dL 6 - 20 12/16 03:15 :00 Result Comment: Hemolyzed Hemolyzed Sample.notifi ed [facility] GENERAL CHEMISTRY Calcium 9.8 mg/dL 8.3 - 10.6 12/16 03:15 :00 [facility] GENERAL CHEMISTRY Glucose Lvl 81 mg/dL 70 - 139 12/16 03:15 :00 [facility] GENERAL CHEMISTRY Chloride 108 mmol/L 98 - 107 12/16 03:15 :00 [facility] GENERAL CHEMISTRY Sodium 137 mmol/L 136 - 145 12/16 03:15 :00 [facility] GENERAL CHEMISTRY Potassium HEMOLYZED, unable to report due to interferen ce mmol/L 3.5 - 5.1 12/16 03:15 :00 Result Comment: Hemolyzed Hemolyzed Sample. Rosaashia Hardin RN [facility] GENERAL CHEMISTRY CO2 22 mmol/L 20 - 12/16 03:15 :00 [facility] GENERAL CHEMISTRY Anion gap 12 mmol/L 0 - 20 12/16 03:15 :00 [facility] GENERAL CHEMISTRY T Bili 0.48 mg/dL 0.30 - 1.20 12/16 03:15 :00 [facility] GENERAL CHEMISTRY Total Protein 7.3 g/dL 5.7 - 8.2 12/16 03:15 :00 [facility] GENERAL CHEMISTRY Creatinine, standardized 0.7 mg/dL 0.5 - 1.0 12/16 03:15 :00 Interpretive Data: Xarqab-ka-msl e transgender patients on testosterone therapy should have results assessed using the male reference range. Mfck-qb-hnreq e transgender patients on hormone-modul ating therapy clinical judgment is advisedfor assessment. [facility] GENERAL CHEMISTRY Estimated GFR for Adults 118 mL/min/1.7 3m 12/16 03:15 :00 Interpretive Data: Changed to CKD-EPI 2020 on 2020. [facility] GENERAL CHEMISTRY Estimated GFR for peds Not calculated 12/16 03:15 :00 Interpretive Data: The estimated GFR was calculated using the B josue [place] equation (2009) . Reference: Pediatric GFR calculator at [employer] Website. [facility] HEMATOLOGY PROFILES WBC 6.31 x10(9)/L 3.50 - 10.50 12/16 03:15 :00 [facility] HEMATOLOGY PROFILES RBC 4.96 x10(12)/L 3.90 - 5.03 12/16 03:15 :00 [facility] HEMATOLOGY PROFILES HGB 15.0 g/dL 12.0 - 15.5 12/16 03:15 :00 Interpretive Data: Wjpzuy-dp-wrm e transgender patients on testosterone therapy should have results assessed using the male reference range. Ebmm-mx-peaug e transgender patients on hormone-modul ating therapy clinical judgment is advisedfor assessment. [facility] HEMATOLOGY PROFILES HCT 44.1 % 34.9 - 44.5 12/16 03:15 :00 Interpretive Data: Hobrja-ja-oaj e transgender patients on testosterone therapy should have results assessed using the male reference range. Tnln-ur-zabbg e transgender patients on hormone-modul ating therapy clinical judgment is advisedfor assessment. [facility] HEMATOLOGY PROFILES MCV 88.9 fL 81.6 - 98.3 12/16 03:15 :00 [facility] HEMATOLOGY PROFILES MCH 30.2 pg 26.0 - 33.0 12/16 03:15 :00 [facility] HEMATOLOGY PROFILES MCHC 34.0 g/dL 32.0 - 36.0 12/16 03:15 :00 [facility] HEMATOLOGY PROFILES RDW CV 12.1 % 11.9 - 15.5 12/16 03:15 :00 [facility] HEMATOLOGY PROFILES RDW SD 39.8 fL 36.4 - 46.3 12/16 03:15 :00 [facility] HEMATOLOGY PROFILES PLT 189 x10(9)/L 150 - 450 12/16 03:15 :00 [facility] HEMATOLOGY PROFILES MPV 10.5 8.0 - 12.0 12/16 03:15 :00 [facility] HEMATOLOGY PROFILES % Nucleated RBCs 0.0 % 12/16 03:15 :00 [facility] HEMATOLOGY PROFILES Absolute Nucleated RBCs 0.0 x10(9)/L 0.0 - 0.0 12/16 03:15 :00 Interpretive Data: Normal values not established in patients less than 18 years old. [facility] HEMATOLOGY PROFILES % Neutrophils 50.2 % 12/16 03:15 :00 [facility] HEMATOLOGY PROFILES % Lymphocytes 39.5 % 12/16 03:15 :00 [facility] HEMATOLOGY PROFILES % Monocytes 5.5 % 12/16 03:15 :00 [facility] HEMATOLOGY PROFILES % Eosinophils 3.5 % 12/16 03:15 :00 [facility] HEMATOLOGY PROFILES % Basophils 1.1 % 12/16 03:15 :00 [facility] HEMATOLOGY PROFILES % Immature Granulocytes 0.20 % 0.02 - 0.42 12/16 03:15 :00 [facility] HEMATOLOGY PROFILES Absolute Granulocytes 3.17 x10(9)/L 1.70 - 7.00 12/16 03:15 :00 [facility] HEMATOLOGY PROFILES Abs Lymphocytes 2.49 x10(9)/L 0.90 - 2.90 12/16 03:15 :00 [facility] HEMATOLOGY PROFILES Abs Monocytes 0.35 x10(9)/L 0.30 - 0.90 12/16 03:15 :00 [facility] HEMATOLOGY PROFILES Abs Eosinophils 0.22 x10(9)/L 0.05 - 0.50 12/16 03:15 :00 [facility] HEMATOLOGY PROFILES Abs Basophils 0.07 x10(9)/L 0.00 - 0.30 12/16 03:15 :00 [facility] HEMATOLOGY PROFILES Abs Immature Granulocytes 0.01 x10(9)/L 0.00 - 0.03 12/16 03:15 :00 [facility] XR Chest XR Chest XR General [...] Signed on: 12/17/23 02:58 12/16 00:27 :07 [facility] CT Head or Brain CT Head [...] d date/time: 12/17/23 11:42 12/15 23:34 :43 [facility] COAGULATIO N Unfractionat ed Heparin Assay 0.39 [iU]/mL 0.30 - 0.70 12/12 08:31 :00 Interpretive Data: Therapeutic Range: 0.3- 0.7 IU/mL [facility] GENERAL CHEMISTRY BUN 15 mg/dL 6 - 12/12 08:31 :00 [facility] GENERAL CHEMISTRY Calcium 9.2 mg/dL 8.3 - 10.6 12/12 08:31 :00 [facility] CHEMISTRY Glucose Lvl 81 mg/dL 70 - 139 12/12 08:31 :00 [facility] GENERAL CHEMISTRY Chloride 110 mmol/L 98 - 107 12/12 08:31 :00 [facility] GENERAL CHEMISTRY Sodium 140 mmol/L 136 - 145 12/12 08:31 :00 [facility] GENERAL CHEMISTRY Potassium 4.1 mmol/L 3.5 - 5.1 12/12 08:31 :00 [facility] GENERAL CHEMISTRY CO2 24 mmol/L 12/12 08:31 :00 [facility] GENERAL CHEMISTRY Anion gap 10 mmol/L 0 - 20 12/12 08:31 :00 [facility] CHEMISTRY Creatinine, standardized 0.6 mg/dL 0.5 - 1.0 12/12 08:31 :00 Interpretive Data: Ycelzi-qc-dlh e transgender patients on testosterone therapy should have results assessed using the male reference range. Jmbr-ej-afgyf e transgender patients on hormone-modul ating therapy clinical judgment is advisedfor assessment. [facility] GENERAL CHEMISTRY Estimated GFR for Adults 121 mL/min/1.7 3m 12/12 08:31 :00 Interpretive Data: Changed to CKD-EPI 2020 on 2020. [facility] GENERAL CHEMISTRY Estimated GFR for peds Not calculated 12/12 08:31 :00 Interpretive Data: The estimated GFR was calculated using the [employer] [place] equation (2009) . Reference: Pediatric GFR calculator at [employer] Website. [facility] HEMATOLOGY PROFILES WBC 6.13 x10(9)/L 3.50 - 10.50 12/12 08:31 :00 [facility] HEMATOLOGY PROFILES RBC 4.55 x10(12)/L 3.90 - 5.03 12/12 08:31 :00 [facility] HEMATOLOGY PROFILES HGB 13.9 g/dL 12.0 - 15.5 12/12 08:31 :00 Interpretive Data: Bkwkhj-uh-qpe e transgender patients on testosterone therapy should have results assessed using the male reference range. Kofs-dx-xpxdo e transgender patients on hormone-modul ating therapy clinical judgment is advisedfor assessment. [facility] HEMATOLOGY PROFILES HCT 40.3 % 34.9 - 44.5 12/12 08:31 :00 Interpretive Data: Ycencq-fi-dmz e transgender patients on testosterone therapy should have results assessed using the male reference range. Iiul-vh-uwlbv e transgender patients on hormone-modul ating therapy clinical judgment is advisedfor assessment. [facility] HEMATOLOGY PROFILES MCV 88.6 fL 81.6 - 98.3 12/12 08:31 :00 [facility] HEMATOLOGY PROFILES MCH 30.5 pg 26.0 - 33.0 12/12 08:31 :00 [facility] HEMATOLOGY PROFILES MCHC 34.5 g/dL 32.0 - 36.0 12/12 08:31 :00 [facility] HEMATOLOGY PROFILES RDW CV 12.2 % 11.9 - 15.5 12/12 08:31 :00 [facility] HEMATOLOGY PROFILES RDW SD 39.4 fL 36.4 - 46.3 12/12 08:31 :00 [facility] HEMATOLOGY PROFILES PLT 173 x10(9)/L 150 - 450 12/12 08:31 :00 [facility] HEMATOLOGY PROFILES MPV 10.9 8.0 - 12.0 12/12 08:31 :00 [facility] HEMATOLOGY PROFILES % Nucleated RBCs 0.0 % 12/12 08:31 :00 [facility] HEMATOLOGY PROFILES Absolute Nucleated RBCs 0.0 x10(9)/L 0.0 - 0.0 12/12 08:31 :00 Interpretive Data: Normal values not established in patients less than 18 years old. [facility] COAGULATIO N Unfractionat ed Heparin Assay 0.47 [iU]/mL 0.30 - 0.70 12/12 01:21 :00 Interpretive Data: Therapeutic Range: 0.3- 0.7 IU/mL [facility] COAGULATIO N Unfractionat ed Heparin Assay 0.70 [iU]/mL 0.30 - 0.70 12/11 18:31 :00 Interpretive Data: Therapeutic Range: 0.3- 0.7 IU/mL [facility] US Leg Imaging Venous US Leg [...] Signed on: 12/12/23 13:46 12/11 11:50 :32 [facility] COAGULATIO N Unfractionat ed Heparin Assay 0.68 [iU]/mL 0.30 - 0.70 12/11 09:41 :00 Interpretive Data: Therapeutic Range: 0.3- 0.7 IU/mL [facility] COAGULATIO N PT 13.1 s 9.4 - 12.5 12/11 01:42 :00 [facility] COAGULATIO N INR 1.2 0.9 - 1.2 [...] M, Harley DD, Tonie n joshua HJ; [employer] Antithromboti c Therapy and Prevention of Thrombosis Panel. Executive summary: Antithromboti c Therapy and Prevention of Thrombosis, 9th Ed: [employer] Evidence-Base d Clinical Practice Guidelines. Chest. 2011; 141(2 Suppl):7S-47S . doi: 10.1378/chest .1412S3 [facility] COAGULATIO N PTT 26.8 s 25.1 - [...] the Clinical Pathology Service for additional questions. [facility] COAGULATIO N D-DIMER QUANTITATIVE 527.00 ng/mLFEU 0.00 [...] Tran et al. PLoS One. 2014; 9(4): f60292) Calculate Score: > or = 500: compatible with overt DIC < 500: suggestive for non-overt DIC [facility] GENERAL CHEMISTRY AST-SGOT 14 U/L 12/10 21:52 :00 [facility] GENERAL CHEMISTRY Albumin 4.3 g/dL 3.4 - 5.0 12/10 21:52 :00 [facility] GENERAL CHEMISTRY Alkaline Phosphatase 50 U/L 35 - 104 12/10 21:52 :00 [facility] GENERAL CHEMISTRY ALT-SGPT 10 U/L 10 - 40 12/10 21:52 :00 [facility] GENERAL CHEMISTRY BUN 10 mg/dL 6 - 20 12/10 21:52 :00 [facility] GENERAL CHEMISTRY Calcium 9.2 mg/dL 8.3 - 10.6 12/10 21:52 :00 [facility] GENERAL CHEMISTRY Glucose Lvl 89 mg/dL 70 - 139 12/10 21:52 :00 [facility] GENERAL CHEMISTRY Chloride 108 mmol/L 98 - 107 12/10 21:52 :00 [facility] GENERAL CHEMISTRY Sodium 137 mmol/L 136 - 145 09/14 /2024 21:52 :00 [facility] GENERAL CHEMISTRY Potassium 3.8 mmol/L 3.5 - 5.1 12/10 21:52 :00 [facility] GENERAL CHEMISTRY CO2 23 mmol/L 20 - 31 12/10 21:52 :00 [facility] GENERAL CHEMISTRY Anion gap 10 mmol/L 0 - 20 12/10 21:52 :00 [facility] GENERAL CHEMISTRY T Bili 0.51 mg/dL 0.30 - 1.20 12/10 21:52 :00 [facility] GENERAL CHEMISTRY Total Protein 7.1 g/dL 5.7 - 8.2 12/10 21:52 :00 [facility] GENERAL CHEMISTRY Creatinine, standardized 0.7 mg/dL 0.5 - 1.0 12/10 21:52 :00 Interpretive Data: Apgosm-hl-evo e transgender patients on testosterone therapy should have results assessed using the male reference range. Kvlu-id-gdkma e transgender patients on hormone-modul ating therapy clinical judgment is advisedfor assessment. [facility] GENERAL CHEMISTRY Estimated GFR for Adults 118 mL/min/1.7 3m 12/10 21:52 :00 Interpretive Data: Changed to CKD-EPI 2020 on 2020. [facility] CHEMISTRY Estimated GFR for peds Not calculated 12/10 21:52 :00 Interpretive Data: The estimated GFR was calculated using the [employer] equation (2009) . Reference: Pediatric GFR calculator at [employer] Website. [facility] HEMATOLOGY PROFILES % Nucleated RBCs 0.0 % 12/10 21:52 :00 [facility] HEMATOLOGY PROFILES Absolute Nucleated RBCs 0.0 x10(9)/L 0.0 - 0.0 12/10 21:52 :00 Interpretive Data: Normal values not established in patients less than 18 years old. [facility] HEMATOLOGY PROFILES % Neutrophils 51.8 % 12/10 21:52 :00 [facility] HEMATOLOGY PROFILES % Lymphocytes 39.7 % 12/10 21:52 :00 [facility] HEMATOLOGY PROFILES % Monocytes 5.0 % 12/10 21:52 :00 [facility] HEMATOLOGY PROFILES % Eosinophils 2.7 % 12/10 21:52 :00 [facility] HEMATOLOGY PROFILES % Basophils 0.6 % 12/10 21:52 :00 [facility] HEMATOLOGY PROFILES % Immature Granulocytes 0.20 % 0.02 - 0.42 12/10 21:52 :00 [facility] HEMATOLOGY PROFILES Absolute Granulocytes 3.22 x10(9)/L 1.70 - 7.00 12/10 21:52 :00 [facility] HEMATOLOGY PROFILES Abs Lymphocytes 2.47 x10(9)/L 0.90 - 2.90 12/10 21:52 :00 [facility] HEMATOLOGY PROFILES Abs Monocytes 0.31 x10(9)/L 0.30 - 0.90 12/10 21:52 :00 [facility] HEMATOLOGY PROFILES Abs Eosinophils 0.17 x10(9)/L 0.05 - 0.50 12/10 21:52 :00 [facility] HEMATOLOGY PROFILES Abs Basophils 0.04 x10(9)/L 0.00 - 0.30 12/10 21:52 :00 [facility] HEMATOLOGY PROFILES Abs Immature Granulocytes 0.01 x10(9)/L 0.00 - 0.03 12/10 21:52 :00 [facility] HEMATOLOGY PROFILES WBC 6.22 x10(9)/L 3.50 - 10.50 12/10 21:52 :00 [facility] HEMATOLOGY PROFILES RBC 4.92 x10(12)/L 3.90 - 5.03 12/10 21:52 :00 [facility] HEMATOLOGY PROFILES HGB 15.0 g/dL 12.0 - 15.5 12/10 21:52 :00 Interpretive Data: Vjpusm-br-eyn e transgender patients on testosterone therapy should have results assessed using the male reference range. Ajvb-ad-ezyao e transgender patients on hormone-modul ating therapy clinical judgment is advisedfor assessment. [facility] HEMATOLOGY PROFILES HCT 43.1 % 34.9 - 44.5 12/10 21:52 :00 Interpretive Data: Ivcmja-cl-ijd e transgender patients on testosterone therapy should have results assessed using the male reference range. Ffzc-lz-nuuxp e transgender patients on hormone-modul ating therapy clinical judgment is advisedfor assessment. [facility] HEMATOLOGY PROFILES MCV 87.6 fL 81.6 - 98.3 12/10 21:52 :00 [facility] HEMATOLOGY PROFILES MCH 30.5 pg 26.0 - 33.0 12/10 21:52 :00 [facility] HEMATOLOGY PROFILES MCHC 34.8 g/dL 32.0 - 36.0 12/10 21:52 :00 [facility] HEMATOLOGY PROFILES RDW CV 12.0 % 11.9 - 15.5 12/10 21:52 :00 [facility] HEMATOLOGY PROFILES RDW SD 38.5 fL 36.4 - 46.3 12/10 21:52 :00 [facility] HEMATOLOGY PROFILES PLT 186 x10(9)/L 150 - 450 12/10 21:52 :00 [facility] HEMATOLOGY PROFILES MPV 10.4 8.0 - 12.0 12/10 21:52 :00 [facility] CT Chest PE Protocol CT Chest PE [...] Signed on: 12/11/23 20:22 12/10 19:35 :30 [facility] XR Chest XR Chest XR General [...] Signed on: 12/11/23 20:15 12/10 17:29 :35 [facility] Consultation Notes Results Value Date Source [...] Elle Villarreal Within 1 to [address] [id number] Business (1) Additional Instructions: Medication [...] Contact Information Elle Villarreal Within As Needed [address] [place] [address] [facility] (1) Additional Instructions: At this time [...] fentaNYL, 50 mcg, Slow IV Push iohexol, 14995 mg, IV Toradol, 15 mg, IV Push [...] July 10, 2024 04:58 CDT Encounter info: [id number], [facility], Emergency, 07/09/2024 - * Preliminary Report [...] July 10, 2024 00:59 CDT Encounter info: [id number], [facility], Emergency, 07/09/2024 - * Preliminary Report [...] July 10, 2024 00:25 CDT Encounter info: [id number], [facility], Emergency, 07/09/2024 - * Preliminary Report [...] CTPEThis document has an image LY ### [id number] This document has an image ECG 07/09/2024 [...] Differentials include but not limited to: PE, NM, PNA, viral URI/LRI, arrhythmia, POTS, aneurysm, larynx [...] her anticoagulation as she left it in [place]. She has missed 7 doses (06/18 through [...] bit. She was then driving back from [place] when she developed sudden onset of pleuritic [...] No facial droop. No slurred speech. Normal pinpzh-ul-gqhb. Normal qhaj-yw-cojm. No ataxic gait. Extraocular movements intact. PERRLA. [...] Elle Steel, Referring Physicians Within As Needed [address] [phone] Additional Instructions: There are many [...] fentaNYL, 25 mcg, Slow IV Push iohexol, 82396 mg, IV NS (bolus), 1000 mL, IV [...] ongoing care relationship with the patient. Complexity: 73906 Moderate; 1 or more chronic illnesses with [...] Information Surgery - General Within 1 month [facility] [place]O Porter [address]- Business (1) Additional Instructions: I have referred you to general surgery at and follow-up with if you end up having frequent symptoms from your gallbladder. Return to Emergency Department Within As Needed Additional Instructions: Please return to the emergency department for chest pain, shortness of breath, lightheadedness, persistent abdominal pain associated with vomiting or fevers, or new/worsening symptoms. Elle Wiredu Within As Needed [address] [place] [address] Business (1) Additional Instructions: Medication Reconciliation [...] injection, 5 mg, Slow IV Push iohexol, 80980 mg, IV ketorolac, 15 mg, IV Push [...] Clean Catch UR Diagnostic Results (05/25/2024 17:20 [facility] ED[facility] US Leg Imaging Venous) FINDINGS: Right common [...] right lower extremity DVT. [1] (05/25/2024 21:[address] Chest PE Protocol) FINDINGS: VASCULAR: The [...] Imaging Venous; Dario Alvarado MD 05/25/2024 17:20 [facility] ED[facility] [2] CT Chest PE Protocol; Dario Alvarado MD 05/25/2024 21:21 [facility]ASS ED[facility] 05/25/2024 Emergency Services Note Basic Informatio n [...] Elle Villarreal Within 1 to [address] [phone] Business (1) Additional Instructions: You [...] fentaNYL, 25 mcg, Slow IV Push iohexol, 66566 mg, IV ketorolac, 15 mg, IV Push [...] Negative 04/18/23 Negative Diagnostic Results (04/23/2024 02:[address] Chest PE Protocol) IMPRESSION: VASCULAR: No acute pulmonary embolism. CHEST: 1. No acute cardiopulmonary abnormalities.. 2. Cholelithiasis without secondary signs of acute cholecystitis. 3. Grossly unchanged subcentimeter hypodense left thyroid nodule. [1] ECG Sinus rhythm with sinus arrhythmia, rate of 88, normal axis, ND, QRS and QTc intervals normal, nonspecific ST/T wave changes, by my read. 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, control the fall of her arm to [...] Results CT Head or Brain 03/03/2024 20:32 GLASS EDGER XR Chest Portable 03/03/2024 20:51 [facility] ED[facility] ECG Attestation by Dyllan KESSLER, Christel Shaffer [...] History Found Diagnostic Results ECG (02/20/2024 22:[address] Chest PE Protocol) FINDINGS: VASCULAR: The [...] Acute Care Surgery Clinic Within As Needed [facility] [place] [address]- Business (1) Additional Instructions: Return to Emergency Department Within As Needed Additional Instructions: Phil KESSLER, Elle Steel, Referring Physicians Within As Needed [address] [phone] Additional Instructions: Medication Administration Given [...] Protocol; Shruthi KESSLER, Tommy Heath 02/20/2024 22:35 GLASS EDGER Attestation by Lyric Enriquez DO on February [...] Differentials include but not limited to: PE, NM, pneumonia, viral URI/LRI, mucosal bleeding, Independent interpretation [...] chest pain, hemoptsis, h/o PE, 02/20/24 20:37:00 GLASS EDGER, Stat, Orig Ref Doc Eliazar Zuñiga Influenza+SARS-CoV-2 (COVID-19) Rapid Antigen POC, Stat collect, Nasal Swab, Nurse Collect, Start date 02/20/24 23:20:00 GLASS EDGER, Stop date 02/20/24 23:20:00 GLASS EDGER, Eliazar Zuñiga Patient Education Chest Pain SOB (Shortness of Breath) Gallstones: General Info Follow Up With When Contact Information Surgery - Acute Care Surgery Clinic Within As Needed [facility] [place] [address]- Business (1) Additional Instructions: Return to Emergency Department Within As Needed Additional Instructions: Phil KESSLER, Elle Steel, Referring Physicians Within As Needed [address] [address] Additional Instructions: Medication Reconciliation Unchanged [...] fentaNYL, 25 mcg, Slow IV Push iohexol, 30439 mg, IV morphine INJ, 4 mg, Slow [...] 02/20/24 21:25 Negative BB ID 02/20/24 21:25 [id number] Diagnostic Results (02/20/2024 22:[address] Chest PE Protocol) IMPRESSION: VASCULAR: No evidence of pulmonary embolus. CHEST: * No acute cardiopulmonary findings. * Cholelithiasis without cholecystitis. [1] ECG Normal sinus rhythm, no ST elevation, no reciprocal changes, no inverted T waves, no signs of arrhythmia, intervals are all within normal limits. [1] CT Chest PE Protocol; Robe Cordoba 02/20/2024 22:35 GLASS EDGER Attestation by Lyric Enriquez DO on February [...] Elle Phil Within 5 to [address] [phone] Business (1) Additional Instructions: Medication [...] SHAYY PUTNAM Date of : 1990 UEI: [id number] Age: 33 year(s) Gender: Female Visit number: [id number] Procedure Information Procedure: TTE procedure: Echo Transthoracic Complete, Complete 2D, M-mode, Complete Spectral Doppler, Color Flow. Study date and time: 12/12/2023 3:53 PM Blood pressure: 93 / 54 mmHg Study status: Routine Heart rate: 73 bpm Patient status: In-Patient Height: 65 in. Study location: Bedside Weight: 132.25 lb. Patient location: BSA: 1.66 m BMI: 22.01 kg/m Indication R07.9 Chest Pain. Procedure Shower Doors And Panels Fabricator: Timi Camarena RDCS RVT Interpreting physician: Rosana [...] understands the plan for admission. Scripts: _ [facility] 33yo female presented to the ED [...] # 1 Kit, Refill(s) 0, DVT/PE, Pharmacy: [facility], Loading plus maintenance dose X 3... Follow [...] Follow up at Elle Villarreal MD with [facility] Within 7 Days, Coordinate appt with No [...] heparin 25,000 units/250 mL RTU 25,000 units, 35821 units= 250 mL, IV ibuprofen 600 mg [...] Elliott MD Department of Medicine Hospital medicine, Signal Tower Director/Hospitalist 12/12/2023 Vital Signs Vital Sign Value Date Comments Source SpO2 100 % 07/10/2024 09:20:59 [facility] Heart Rate 66 bpm 07/10/2024 09:20:58 [facility] SBP NIBP 99 mm[Hg] 07/10/2024 09:20:00 [facility] DBP NIBP 70 mm[Hg] 07/10/2024 09:20:00 [facility] Heart Rate 64 bpm 07/10/2024 09:19:58 [facility] SpO2 100 % 07/10/2024 09:19:58 [facility] Mean NIBP 78 mm[Hg] 07/10/2024 09:18:36 [facility] SBP NIBP 93 mm[Hg] 07/10/2024 09:18:36 [facility] DBP NIBP 68 mm[Hg] 07/10/2024 09:18:36 [facility] SpO2 94 % 07/10/2024 07:49:19 [facility] Heart Rate 64 bpm 07/10/2024 07:49:18 [facility] Mean NIBP 61 mm[Hg] 07/10/2024 07:37:44 [facility] SpO2 95 % 07/10/2024 05:33:05 [facility] Heart Rate 67 bpm 07/10/2024 05:33:03 [facility] Mean NIBP 77 mm[Hg] 07/10/2024 05:30:00 [facility] SBP NIBP 99 mm[Hg] 07/10/2024 05:30:00 [facility] DBP NIBP 64 mm[Hg] 07/10/2024 05:30:00 [facility] SBP NIBP 98 mm[Hg] 07/10/2024 04:30:00 [facility] DBP NIBP 73 mm[Hg] 07/10/2024 04:30:00 [facility] Mean NIBP 83 mm[Hg] 07/10/2024 04:30:00 [facility] Respiratory Rate 16 breaths/min 07/10/2024 00:17:52 [facility] Respiratory Rate 20 breaths/min 07/09/2024 22:10:00 [facility] Temperature (Celsius) 37.2 Rani 07/09/2024 22:10:00 [facility] Weight (kg) 56.7 kg 07/09/2024 22:10:00 [facility] SBP NIBP 118 mm[Hg] 07/09/2024 01:30:00 [facility] DBP NIBP 70 mm[Hg] 07/09/2024 01:30:00 [facility] SpO2 99 % 07/09/2024 01:30:00 [facility] Respiratory Rate 18 breaths/min 07/09/2024 01:30:00 [facility] Heart Rate 72 bpm 07/09/2024 01:30:00 [facility] SpO2 100 % 07/09/2024 01:20:27 [facility] Respiratory Rate 15 breaths/min 07/09/2024 01:19:56 [facility] Heart Rate 75 bpm 07/09/2024 01:19:56 [facility] SBP NIBP 113 mm[Hg] 07/09/2024 01:00:00 [facility] DBP NIBP 75 mm[Hg] 07/09/2024 01:00:00 [facility] Mean NIBP 87 mm[Hg] 07/09/2024 01:00:00 [facility] Heart Rate 83 bpm 07/09/2024 00:57:26 [facility] SpO2 98 % 07/09/2024 00:57:26 [facility] Respiratory Rate 16 breaths/min 07/09/2024 00:57:26 [facility] Mean NIBP 74 mm[Hg] 07/09/2024 00:30:00 [facility] SBP NIBP 94 mm[Hg] 07/09/2024 00:30:00 [facility] DBP NIBP 72 mm[Hg] 07/09/2024 00:30:00 [facility] Heart Rate 68 bpm 07/09/2024 00:29:50 [facility] SpO2 97 % 07/09/2024 00:29:50 [facility] Respiratory Rate 17 breaths/min 07/09/2024 00:29:42 [facility] Mean NIBP 83 mm[Hg] 07/09/2024 00:00:50 [facility] SBP NIBP 93 mm[Hg] 07/09/2024 00:00:50 [facility] DBP NIBP 76 mm[Hg] 07/09/2024 00:00:50 [facility] Mean NIBP 83 mm[Hg] 07/08/2024 23:57:55 [facility] Temperature (Celsius) 37.0 Rani 07/08/2024 21:31:00 [facility] Weight (kg) 56.9 kg 07/08/2024 21:31:00 [facility] Mean NIBP 68 mm[Hg] 06/25/2024 10:06:39 [facility] SBP NIBP 95 mm[Hg] 06/25/2024 10:06:39 [facility] DBP NIBP 57 mm[Hg] 06/25/2024 10:06:39 [facility] Respiratory Rate 15 breaths/min 06/25/2024 10:01:56 [facility] Heart Rate 89 bpm 06/25/2024 10:01:56 [facility] SpO2 100 % 06/25/2024 10:01:55 [facility] Mean NIBP 84 mm[Hg] 06/25/2024 09:17:44 [facility] SBP NIBP 95 mm[Hg] 06/25/2024 09:17:44 [facility] DBP NIBP 77 mm[Hg] 06/25/2024 09:17:44 [facility] Heart Rate 78 bpm 06/25/2024 09:17:00 [facility] Respiratory Rate 18 breaths/min 06/25/2024 09:17:00 [facility] SpO2 100 % 06/25/2024 09:17:00 [facility] Temperature (Celsius) 36.6 Rani 06/25/2024 09:17:00 [facility] SpO2 100 % 06/25/2024 08:29:04 [facility] Respiratory Rate 15 breaths/min 06/25/2024 08:29:02 [facility] Heart Rate 81 bpm 06/25/2024 08:29:02 [facility] SpO2 99 % 06/25/2024 07:33:15 [facility] Heart Rate 75 bpm 06/25/2024 07:27:26 [facility] Mean NIBP 84 mm[Hg] 06/25/2024 07:27:12 [facility] SBP NIBP 95 mm[Hg] 06/25/2024 07:27:12 [facility] DBP NIBP 80 mm[Hg] 06/25/2024 07:27:12 [facility] Respiratory Rate 18 breaths/min 06/25/2024 07:27:00 [facility] Temperature (Celsius) 36.2 Rani 06/25/2024 07:22:00 [facility] Mean NIBP 89 mm[Hg] 06/25/2024 07:22:00 [facility] Weight (kg) 58.1 kg 06/25/2024 07:22:00 [facility] SBP NIBP 103 mm[Hg] 06/25/2024 07:22:00 [facility] DBP NIBP 82 mm[Hg] 06/25/2024 07:22:00 [facility] Heart Rate 77 bpm 06/12/2024 10:17:37 [facility] SpO2 100 % 06/12/2024 10:17:35 [facility] Mean NIBP 85 mm[Hg] 06/12/2024 10:00:00 [facility] SBP NIBP 99 mm[Hg] 06/12/2024 10:00:00 [facility] DBP NIBP 76 mm[Hg] 06/12/2024 10:00:00 [facility] SpO2 100 % 06/12/2024 09:50:01 [facility] Heart Rate 76 bpm 06/12/2024 09:49:59 [facility] SBP NIBP 98 mm[Hg] 06/12/2024 09:30:00 [facility] DBP NIBP 74 mm[Hg] 06/12/2024 09:30:00 [facility] Mean NIBP 83 mm[Hg] 06/12/2024 09:30:00 [facility] SpO2 100 % 06/12/2024 09:29:59 [facility] Heart Rate 75 bpm 06/12/2024 09:29:54 [facility] Mean NIBP 81 mm[Hg] 06/12/2024 09:00:00 [facility] SBP NIBP 102 mm[Hg] 06/12/2024 09:00:00 [facility] DBP NIBP 66 mm[Hg] 06/12/2024 09:00:00 [facility] SpO2 100 % 06/12/2024 08:59:53 [facility] Heart Rate 66 bpm 06/12/2024 08:59:48 [facility] Mean NIBP 86 mm[Hg] 06/12/2024 08:04:59 [facility] SBP NIBP 103 mm[Hg] 06/12/2024 08:04:59 [facility] DBP NIBP 79 mm[Hg] 06/12/2024 08:04:59 [facility] Respiratory Rate 19 breaths/min 06/12/2024 06:58:00 [facility] Temperature (Celsius) 36.3 Rani 06/12/2024 06:58:00 [facility] Weight (kg) 60.2 kg 06/12/2024 06:58:00 [facility] Temperature (Celsius) 37.3 Rani 06/06/2024 18:53:00 [facility] Respiratory Rate 20 breaths/min 06/06/2024 18:53:00 [facility] Heart Rate 103 bpm 06/06/2024 18:53:00 [facility] Weight (kg) 56.7 kg 06/06/2024 18:53:00 [facility] SBP NIBP 109 mm[Hg] 06/06/2024 18:53:00 [facility] DBP NIBP 69 mm[Hg] 06/06/2024 18:53:00 [facility] SpO2 99 % 05/26/2024 03:30:52 [facility] Heart Rate 73 bpm 05/26/2024 03:30:05 [facility] Respiratory Rate 16 breaths/min 05/26/2024 03:30:00 [facility] Mean NIBP 75 mm[Hg] 05/26/2024 03:30:00 [facility] SBP NIBP 97 mm[Hg] 05/26/2024 03:30:00 [facility] DBP NIBP 65 mm[Hg] 05/26/2024 03:30:00 [facility] SpO2 94 % 05/26/2024 02:47:32 [facility] Heart Rate 66 bpm 05/26/2024 02:47:28 [facility] Heart Rate 61 bpm 05/26/2024 02:30:13 [facility] SpO2 98 % 05/26/2024 02:30:02 [facility] Mean NIBP 71 mm[Hg] 05/26/2024 02:30:00 [facility] SBP NIBP 92 mm[Hg] 05/26/2024 02:30:00 [facility] DBP NIBP 63 mm[Hg] 05/26/2024 02:30:00 [facility] SpO2 98 % 05/26/2024 01:43:37 [facility] Heart Rate 68 bpm 05/26/2024 01:43:36 [facility] Mean NIBP 90 mm[Hg] 05/26/2024 01:30:00 [facility] SBP NIBP 110 mm[Hg] 05/26/2024 01:30:00 [facility] DBP NIBP 78 mm[Hg] 05/26/2024 01:30:00 [facility] Mean NIBP 75 mm[Hg] 05/26/2024 01:00:00 [facility] SBP NIBP 91 mm[Hg] 05/26/2024 01:00:00 [facility] DBP NIBP 64 mm[Hg] 05/26/2024 01:00:00 [facility] Respiratory Rate 18 breaths/min 05/25/2024 21:30:00 [facility] Weight (kg) 57.9 kg 05/25/2024 21:30:00 [facility] Temperature (Celsius) 36.7 Rani 05/25/2024 21:30:00 [facility] Heart Rate 59 bpm 04/23/2024 09:23:06 [facility] SpO2 96 % 04/23/2024 09:23:04 [facility] Respiratory Rate 15 breaths/min 04/23/2024 09:23:00 [facility] Mean NIBP 80 mm[Hg] 04/23/2024 09:15:00 [facility] SBP NIBP 100 mm[Hg] 04/23/2024 09:15:00 [facility] DBP NIBP 70 mm[Hg] 04/23/2024 09:15:00 [facility] Respiratory Rate 13 breaths/min 04/23/2024 08:59:57 [facility] Heart Rate 72 bpm 04/23/2024 08:59:31 [facility] SpO2 96 % 04/23/2024 08:59:30 [facility] SBP NIBP 106 mm[Hg] 04/23/2024 08:45:00 [facility] DBP NIBP 77 mm[Hg] 04/23/2024 08:45:00 [facility] Mean NIBP 85 mm[Hg] 04/23/2024 08:45:00 [facility] SpO2 97 % 04/23/2024 07:59:13 [facility] Respiratory Rate 13 breaths/min 04/23/2024 07:59:12 [facility] Heart Rate 72 bpm 04/23/2024 07:59:12 [facility] SpO2 96 % 04/23/2024 07:17:36 [facility] Heart Rate 77 bpm 04/23/2024 07:17:08 [facility] Respiratory Rate 16 breaths/min 04/23/2024 07:17:08 [facility] SBP NIBP 92 mm[Hg] 04/23/2024 07:15:00 [facility] DBP NIBP 67 mm[Hg] 04/23/2024 07:15:00 [facility] Mean NIBP 75 mm[Hg] 04/23/2024 07:15:00 [facility] Temperature (Celsius) 36.4 Rani 04/23/2024 06:35:00 [facility] SBP NIBP 110 mm[Hg] 04/23/2024 06:35:00 [facility] DBP NIBP 73 mm[Hg] 04/23/2024 06:35:00 [facility] Weight (kg) 58.2 kg 04/23/2024 06:35:00 [facility] SpO2 99 % 03/04/2024 05:59:15 [facility] Mean NIBP 66 mm[Hg] 03/04/2024 05:30:00 [facility] Respiratory Rate 18 breaths/min 03/04/2024 05:30:00 [facility] SBP NIBP 94 mm[Hg] 03/04/2024 05:30:00 [facility] DBP NIBP 58 mm[Hg] 03/04/2024 05:30:00 [facility] Heart Rate 80 bpm 03/04/2024 05:30:00 [facility] SpO2 100 % 03/04/2024 05:29:39 [facility] Mean NIBP 76 mm[Hg] 03/04/2024 05:00:00 [facility] SBP NIBP 104 mm[Hg] 03/04/2024 05:00:00 [facility] DBP NIBP 67 mm[Hg] 03/04/2024 05:00:00 [facility] SpO2 100 % 03/04/2024 04:59:33 [facility] Mean NIBP 80 mm[Hg] 03/04/2024 04:30:00 [facility] SBP NIBP 103 mm[Hg] 03/04/2024 04:30:00 [facility] DBP NIBP 65 mm[Hg] 03/04/2024 04:30:00 [facility] SpO2 100 % 03/04/2024 04:08:58 [facility] Heart Rate 84 bpm 03/04/2024 04:00:00 [facility] Mean NIBP 83 mm[Hg] 03/04/2024 04:00:00 [facility] SBP NIBP 101 mm[Hg] 03/04/2024 04:00:00 [facility] DBP NIBP 75 mm[Hg] 03/04/2024 04:00:00 [facility] Respiratory Rate 16 breaths/min 03/04/2024 04:00:00 [facility] Respiratory Rate 22 breaths/min 03/04/2024 01:30:00 [facility] Heart Rate 92 bpm 03/04/2024 01:30:00 [facility] SpO2 100 % 02/21/2024 06:07:01 [facility] Heart Rate 88 bpm 02/21/2024 06:07:01 [facility] Respiratory Rate 13 breaths/min 02/21/2024 06:02:31 [facility] SBP NIBP 105 mm[Hg] 02/21/2024 06:00:02 [facility] DBP NIBP 71 mm[Hg] 02/21/2024 06:00:02 [facility] Mean NIBP 79 mm[Hg] 02/21/2024 06:00:02 [facility] Heart Rate 71 bpm 02/21/2024 05:59:30 [facility] SpO2 100 % 02/21/2024 05:59:30 [facility] Respiratory Rate 16 breaths/min 02/21/2024 05:59:22 [facility] Mean NIBP 83 mm[Hg] 02/21/2024 05:45:00 [facility] SBP NIBP 113 mm[Hg] 02/21/2024 05:45:00 [facility] DBP NIBP 73 mm[Hg] 02/21/2024 05:45:00 [facility] Heart Rate 66 bpm 02/21/2024 05:29:56 [facility] SpO2 100 % 02/21/2024 05:29:54 [facility] Respiratory Rate 12 breaths/min 02/21/2024 05:29:50 [facility] Mean NIBP 83 mm[Hg] 02/21/2024 05:15:00 [facility] SBP NIBP 98 mm[Hg] 02/21/2024 05:15:00 [facility] DBP NIBP 73 mm[Hg] 02/21/2024 05:15:00 [facility] Heart Rate 75 bpm 02/21/2024 04:29:46 [facility] SpO2 100 % 02/21/2024 04:29:44 [facility] Respiratory Rate 11 breaths/min 02/21/2024 04:29:43 [facility] SBP NIBP 110 mm[Hg] 02/21/2024 04:00:00 [facility] DBP NIBP 84 mm[Hg] 02/21/2024 04:00:00 [facility] Mean NIBP 93 mm[Hg] 02/21/2024 04:00:00 [facility] Temperature (Celsius) 36.7 Rani 02/21/2024 01:49:00 [facility] Weight (kg) 59 kg 02/21/2024 01:49:00 [facility] Heart Rate 76 bpm 12/17/2023 08:55:48 [facility] Respiratory Rate 19 breaths/min 12/17/2023 08:55:45 [facility] SpO2 99 % 12/17/2023 08:52:49 [facility] Mean NIBP 66 mm[Hg] 12/17/2023 08:30:00 [facility] SBP NIBP 97 mm[Hg] 12/17/2023 08:30:00 [facility] DBP NIBP 53 mm[Hg] 12/17/2023 08:30:00 [facility] Heart Rate 64 bpm 12/17/2023 08:16:15 [facility] SpO2 99 % 12/17/2023 08:16:15 [facility] Respiratory Rate 16 breaths/min 12/17/2023 08:16:12 [facility] Mean NIBP 88 mm[Hg] 12/17/2023 08:00:00 [facility] SBP NIBP 107 mm[Hg] 12/17/2023 08:00:00 [facility] DBP NIBP 81 mm[Hg] 12/17/2023 08:00:00 [facility] SpO2 99 % 12/17/2023 07:50:12 [facility] Heart Rate 78 bpm 12/17/2023 07:50:11 [facility] Respiratory Rate 16 breaths/min 12/17/2023 07:50:11 [facility] Heart Rate 60 bpm 12/17/2023 07:49:42 [facility] SpO2 99 % 12/17/2023 07:49:40 [facility] Respiratory Rate 13 breaths/min 12/17/2023 07:49:36 [facility] Mean NIBP 94 mm[Hg] 12/17/2023 07:31:30 [facility] SBP NIBP 106 mm[Hg] 12/17/2023 07:31:30 [facility] DBP NIBP 90 mm[Hg] 12/17/2023 07:31:30 [facility] Mean NIBP 78 mm[Hg] 12/17/2023 07:30:00 [facility] SBP NIBP 98 mm[Hg] 12/17/2023 07:30:00 [facility] DBP NIBP 69 mm[Hg] 12/17/2023 07:30:00 [facility] Weight (kg) 58 kg 12/17/2023 02:05:00 [facility] Temperature (Celsius) 36.5 Rani 12/17/2023 02:05:00 [facility] SBP NIBP 91 mm[Hg] 12/13/2023 15:03:47 [facility] DBP NIBP 55 mm[Hg] 12/13/2023 15:03:47 [facility] Mean NIBP 67 mm[Hg] 12/13/2023 15:03:47 [facility] Heart Rate 61 bpm 12/13/2023 15:03:47 [facility] SpO2 96 % 12/13/2023 15:03:47 [facility] Temperature (Celsius) 36.5 Rani 12/13/2023 15:00:00 [facility] Temperature (Celsius) 36.3 Rani 12/13/2023 09:00:00 [facility] Heart Rate 79 bpm 12/13/2023 09:00:00 [facility] Respiratory Rate 16 breaths/min 12/13/2023 09:00:00 [facility] SBP NIBP 99 mm[Hg] 12/13/2023 09:00:00 [facility] DBP NIBP 71 mm[Hg] 12/13/2023 09:00:00 [facility] Mean NIBP 80 mm[Hg] 12/13/2023 09:00:00 [facility] SpO2 97 % 12/13/2023 09:00:00 [facility] Temperature (Celsius) 36.1 Rani 12/13/2023 00:00:00 [facility] Heart Rate 66 bpm 12/13/2023 00:00:00 [facility] Respiratory Rate 16 breaths/min 12/13/2023 00:00:00 [facility] SBP NIBP 96 mm[Hg] 12/13/2023 00:00:00 [facility] DBP NIBP 60 mm[Hg] 12/13/2023 00:00:00 [facility] Mean NIBP 72 mm[Hg] 12/13/2023 00:00:00 [facility] SpO2 99 % 12/13/2023 00:00:00 [facility] SBP NIBP 102 mm[Hg] 12/12/2023 21:45:44 [facility] DBP NIBP 67 mm[Hg] 12/12/2023 21:45:44 [facility] Mean NIBP 78 mm[Hg] 12/12/2023 21:45:44 [facility] Heart Rate 74 bpm 12/12/2023 21:45:44 [facility] SpO2 97 % 12/12/2023 21:45:44 [facility] Respiratory Rate 14 breaths/min 12/12/2023 21:00:00 [facility] Temperature (Celsius) 36.9 Rani 12/12/2023 14:25:25 [facility] Respiratory Rate 17 breaths/min 12/12/2023 09:00:00 [facility] Report Given to RN 12/12/2023 03:03:00 [facility] Dosing Weight (kg) 57.7 kg 12/12/2023 03:00:00 [facility] Height (cm) 165.1 cm 12/12/2023 03:00:00 [facility] Height (cm) 165.1 cm 12/12/2023 02:30:00 [facility] Height (cm) 165.1 cm 12/12/2023 02:00:00 [facility] Weight (kg) 59.7 kg 12/12/2023 01:46:00 [facility] Height (cm) 165.1 cm 12/12/2023 01:46:00 [facility] BMI 21.9 kg/m2 12/12/2023 01:46:00 [facility] Dosing Weight (kg) 57.7 kg 12/12/2023 01:36:00 [facility] Weight (kg) 57.7 kg 12/11/2023 21:39:00 [facility] BMI 21.2 kg/m2 12/11/2023 21:39:00 [facility] Encounters Location Location Details Encounter Type Encounter Number Reason For Visit Attending Provider ADM Date DC Date Status Source [facility] Inpatient [id number] PAIN - CHEST Patricia Backes 12/10 16:37 :07 12/12 15:26 :00 Active [facility] [id number] Jelani Carranza 12/16 01:59 :35 12/16 09:09 :00 [facility] [id number] Tre Alvarado 02/20 01:46 :02 02/20 07:10 :00 [facility] [id number] Bryan Dupree 03/04 00:22 :00 03/04 00:34 :00 [facility] [id number] Christel Mijares 03/04 00:41 :27 03/04 06:04 :00 [facility] [id number] Bryan Dupree 03/04 23:22 :00 03/04 23:23 :00 [facility] [id number] Zhao Vigil 04/23 06:33 :42 04/23 09:35 :00 [facility] [id number] Bryan Dupree 05/25 20:53 :00 05/25 21:04 :00 [facility] [id number] Camilo Dan 05/25 21:07 :14 05/26 04:27 :00 [facility] [id number] Jordon Hartman 06/06 18:38 :30 06/07 04:59 :59 [facility] [id number] Bryan Dupree 06/12 06:39 :00 06/12 06:49 :00 [facility] [id number] Chan Buck 06/12 06:53 :56 06/12 10:30 :00 [facility] [id number] Bryan Dupree 06/25 06:56 :00 06/25 07:09 :00 [facility] [id number] Chan Devinet 06/25 07:16 :45 06/25 10:11 :00 [facility] [id number] Bryan Dupree 07/08 21:11 :00 07/08 21:25 :00 [facility] [id number] Obianuju Eziolisa 07/08 21:30 :22 07/09 02:06 :00 [facility] [id number] Bryan Dupree 07/09 21:49 :00 07/09 21:58 :00 [facility] [id number] Ed Beavers 07/09 22:05 :12 07/10 11:10 :00 [facility] PreReg [id number] Outside Ordering Physician 07/31 18:45 :00 09/30 04:59 :59 [facility] [id number] Bryan Dupree 08/09 17:31 :00 08/09 17:54 :00 [facility] Emergency [id number] Ed Beavers 08/09 17:57 :50 08/09 22:44 :00 [facility] FGL FGL OUTPATIENT [id number] ER FU 3-5 DAYS/blo od clot Brett Alejo [facility] SPP SPP OUTPATIENT [id number] NEW PER PT(ANXIE TY) Jessie Dao [facility] FGL OUTPATIENT [id number] 6 WEEK F/U Liliana Gov-Jesse [facility] [id number] tachycar karina, possible POTS Roberto Marquez C[facility] FGL FGL OUTPATIENT [id number] ER FU 3-5 DAYS/blo od clot Marybeth Chasitydahl [facility] FGL OUTPATIENT [id number] ER f/u Sam Cobbnshaw [facility]GL [facility]GL OUTPATIENT [id number] 1 wk f/u per madeline Sam Cobbnshaw [facility]BL FBL DIAGNOSTIC TESTING [id number] ppd reading it was placed at 10:50 11/3 Sam Cobbnshaw [facility] FGL FGL OUTPATIENT [id number] ER F/U-HEAR T RACING/V OMITING- TB CHECKED Sam [place] [facility]GL FGL OUTPATIENT [id number] hosp dc fu Sam Madeline [facility] CRD CRD OUTPATIENT [id number] EST CARE CHECK FOR Armen Leal Cancel [facility] N[facility] GOMEZ PHYSICIAN OP CLINIC [id number] cristóbal/fts/ blayne Weston Cancel [facility] [id number] con/?us/ blayne Weston Cancel [facility] [id number] con/?us/ [facility] NELSON NELSON CR PHYSICIAN OP CLINIC [id number] CRISTÓBAL/BARRON SON Brett Weston [facility] [id number] CRISTÓBAL/BARRON DESIREE Weston [facility] OUT[facility]IENT [id number] SCOLI - 16 DEGRESS L1-L4 Dot Pul[facility] [id number] growth/r ob/jacks on Brett Weston [facility] N[facility] NEL[facility] CR [facility] [id number] growth/r ob/jacks [facility] N[facility] N[facility] CR [facility] [id number] growth/r ob/jacks on Brett Weston [facility] OUTPATIENT [id number] 6WK FU ON RT TOE Collette Tana-Natanael stinson [facility] OBP OBP CR PHYSICIAN OP CLINIC [id number] ER FOLLOW [facility]SON NELSON CR PHYS[facility]IN[facility] [id number] cristóbal/fts/ blayne Weston [facility] NELSON NELSON CR [facility] [id number] cristóbal/fts/ [facility] NELSON NELSON CR DIAGNOSTIC TESTING [id number] ua/jacks on [facility] NELSON NELSON CR PHYSICIAN OP CLINIC [id number] fts/cristóbal/ christopher [facility] NELSON NELSON CR PHYSICIAN OP CLINIC [id number] fts/cristóbal/ christopher Weston [facility] SPP SPP NO TECHBILL [id number] THERAPY [facility] [id number] bpp/nst/ cristóbal/barron desiree Weston [facility] N[facility] NELSON CR [facility] [id number] bpp/nst/ cristóbal/barron desiree [facility] NELSON CR [facility] [id number] bpp/nst/ cristóbal/barron son Cancel [facility] OBP OBP CR PHYSICIAN OP CLINIC [id number] COLPO Neelima Martin [facility] [place] [facility] SPP SPP NO TECHBILL [id number] NEW PT. THERAPY Shira Velasquezf [facility] OBP OBP [facility] OP [facility] [id number] COLPO/MF M REFERRAL Cancel [place] [facility] OBP OBP CR PHYSICIAN OP CLINIC [id number] PRE-OP BTL Neelima Martin [facility] [place] [facility] Procedures Procedure Code Date Perfomer Comments Source D&C- 2015 [facility] lypoma removal-2013 [facility] Social History Social History Date Source No data available for this section 09/30/2024 [facility] No data available for this section 08/09/2024 [facility] No data available for this section 08/09/2024 [facility] No data available for this section 07/10/2024 [facility] No data available for this section 07/09/2024 [facility] No data available for this section 07/09/2024 [facility] No data available for this section 07/08/2024 [facility] No data available for this section 06/25/2024 [facility] No data available for this section 06/25/2024 [facility] No data available for this section 06/12/2024 [facility] No data available for this section 06/12/2024 [facility] No data available for this section 06/07/2024 [facility] No data available for this section 05/26/2024 [facility] No data available for this section 05/25/2024 [facility] No data available for this section 04/23/2024 [facility] No data available for this section 03/04/2024 [facility] No data available for this section 03/04/2024 [facility] No data available for this section 03/04/2024 [facility] No data available for this section 02/21/2024 [facility] No data available for this section 12/17/2023 [facility] No data available for this section 12/13/2023 [facility]
--- OUTSIDE RECORDS SUMMARY | 2024-10-19 08:28 | XMS_ITS ---
Author Organization [facility] [place] [facility] Network Address [id number] [id number] Care Team Providers Care Hogshead Mat Assembler Name Role Phone No, Physician Primary Care Physician Christiano Workman DMD Attending Clinician [phone] Elle Villarreal Attending Clinician [phone] Jelani Jimenez Attending Clinician [phone] ServicesVielka Attending Clinician [phone] Slade Daley Attending Clinician [phone] Cher Hernandez Attending Clinician [phone] Rodney Rolon Attending Clinician [phone] Rosa Dan Attending Clinician [phone] Ramirez Banks Attending Clinician [phone] Belinda Desir Attending Clinician [phone] Lyric Santiago Attending Clinician [phone] Gema José Attending Clinician [phone] Eryn Zuñiga Attending Clinician [phone] Disclaimer 42CFR Part 2 prohibits unauthorized disclosure of these records Problems Condition Name Condition Details Condition Category Status Onset Date Resolution Date Last Treatment Date Treating Clinician Comments Borderline personality disorder Complaint 2021-03 12:00: 00 Posttraumat ic stress disorder Complaint 2021-03 12:00: 00 Gingivitis Gingivitis Problem (finding) Active (qualif ier value) 08-05 00:00: 00 2015-08-06 00:00:00 Recurrent major depressive episodes, moderate Complaint Chronic post-trauma tic stress disorder Complaint COVID-19 virus infection Problem active Factor V deficiency Problem complet ed Hallucinati ons Problem complet ed Postural orthostatic tachycardia syndrome Problem complet ed Threatened in early Problem complet ed Allergies, Adverse Reactions, Alerts This patient has no known allergies or adverse reactions. Medications Ordered Medication Name Filled Medication Name Start Date Stop Date Current Medication? Ordering Clinician Indication Dosage Frequency Signature (SIG) Comments Components cetirizine 10 mg tablet 09-24 00:00: 00 Yes 1{table t} Q1D take 1 tablet by oral route every day metronidazo le 0.75 % (37.5 mg/5 gram) vaginal gel 09-21 00:00: 00 Yes insert 1 applicator ful by vaginal route every day at bedtime x 5 days 5 day supply cyclobenzap rine 5 mg tablet 09-21 00:00: 00 Yes 1{table t} Q8H take 1 tablet by oral route 3 times every day Dang Allergy 180 mg tablet 09-21 00:00: 00 Yes 1{table t} Q1D take 1 tablet by oral route every day Zoloft 5-21 04:00: 00 10-14 04:00 :00 Yes .5{tbl} metronidazo le 500 mg tablet 4-11 00:00: 00 09-21 00:00 :00 No 1{table t} Q12H take 1 tablet by oral route every 12 hours lorazepam 1 mg tablet 4-10 10:38: 00 Yes 1{table t} Q1D take 1 tablet by oral route every day as needed Eliquis 5 mg tablet 2023-03- 00:00: 00 Yes 1{table t} Q12H take 1 tablet by oral route 2 times every day Eliquis 5 mg tablet 2023-03 1- 00:00: 00 03-03 00:00 :00 No 1{table t} Q12H take 1 tablet by oral route 2 times every day Miralax 17 gram oral powder packet - 00:00: 00 Yes 1 packet daily diclofenac 1 % topical gel - 00:00: 00 Yes 2g Q6H apply 2 gram by topical route 4 times every day to the affected area(s) oxycodone 5 mg tablet 05-07 00:00: 00 03-03 00:00 :00 No take 1 Tablet by oral route every 6 hours PRN pain ketorolac 60 mg/2 mL intramuscul ar solution 05-07 00:00: 00 03-03 00:00 :00 No 1mL Q6H inject 1 milliliter by intramuscu lar route every 6 hours as needed for up to 5 days total use Vitamin D2 1,250 mcg (50,000 unit) capsule 08-20 00:00: 00 Yes 1{capsu le} Q1W take 1 capsule by ORAL route every week Acetaminoph en-Codeine 300-15 mg tablet 04-19 00:00: 00 Yes 1TAB Q6H as needed for pain Ondansetron 4 mg tablet,disi ntegrating 04-01 00:00: 00 Yes 4MG Q6H as needed for nausea and vomiting Albuterol Sulfate 04-01 00:00: 00 Yes 2INHALA TION Q4H as needed for Cough, shortness of breath or wheezing Methylpredn isolone (Medrol (Rey)) 4 mg tablets,dos e pack 04-01 00:00: 00 04-19 10:19 :48 No 0 .COMPLEX LOVENOX (unknown strength) 2020-03 08:42: 00 11-18 00:00 :00 No aspirin 325 mg tablet 2020-03 08:42: 00 03-15 00:00 :00 No 1{table t} QD take 1 tablet by oral route every day as needed Ativan 1 mg tablet 2020-03 08:42: 00 02-13 00:00 :00 No take 1 Tablet by oral route TID LORazepam (ATIVAN) 0.5 MG tablet 09-02 08:22: 53 Yes [id number] .25mg Q.5D Take 0.25 mg by mouth every 12 hours Reasons: Rapid Heartbeat ondansetron (ZOFRAN) 4 MG tablet 09-02 08:22: 53 Yes [id number] 4mg Q6H Take 4 mg by mouth every 6 hours as needed for Nausea/Vom iting Reasons: Excessive Vomiting in associatio n with amoxicillin 500 mg capsule 07-09 00:00: 00 03-01 00:00 :00 No 1{capsu le} Q12H take 1 capsule by oral route every 12 hours Pt is in first trimester of lorazepam 1 mg tablet 07-07 00:00: 00 03-01 00:00 :00 No Take 0.25 mg q8 hrs 07/07/2016 : pt reports taking 1/2 tab po BID Multi 27 mg-800 mcg tablet 07-07 00:00: 00 07-07 00:00 :00 No Take one tab po daily lorazepam 1 mg tablet 2015-03 00:00: 00 07-07 00:00 :00 No Take 0.25 mg q8 hrs Zofran ODT 4 mg disintegrat ing tablet 2015-03 00:00: 00 07-07 00:00 :00 No 1{table t} Q6H take 1 tablet by ORAL route every [address] on top of the tongue where it will dissolve, then swallow loratadine 10 mg tablet 2015-03 00:00: 00 07-07 00:00 :00 No 1{table t} Q1D take 1 tablet by oral route every day Multi 27 mg-800 mcg tablet 11-18 00:00: 00 07-07 00:00 :00 No Take one tab po daily lorazepam 1 mg tablet 11-18 00:00: 00 01-19 00:00 :00 No Take 0.5 mg po q 8 hrs lorazepam 1 mg tablet 07-30 00:00: 00 11-18 00:00 :00 No Take 1 mg po BID Compazine 5 mg tablet 07-23 00:00: 00 11-18 00:00 :00 No 1{table t} Q4H take 1 tablet by oral route every 4 hours as needed for nausea and vomiting lorazepam 1 mg tablet 07-22 00:00: 00 07-23 00:00 :00 No Take one tab po BID PRN Dosage increased on 07/23/2015 . This Rx was canceled after PCP was inforrmed by [facility] that pt had filled an Rx yesterday ( 6) for alpzojung mercer. lorazepam 1 mg tablet 07-14 00:00: 00 07-22 00:00 :00 No Take one tab po BID PRN Zofran ODT 4 mg disintegrat ing tablet 07-11 00:00: 00 07-23 00:00 :00 No 1{table t} Q6H take 1 tablet by ORAL route every [address] on top of the tongue where it will dissolve, then swallow Ativan 0.5 mg tablet 07-11 00:00: 00 07-14 00:00 :00 No 1{table t} Q1D take 1 Tablet by oral route every day as needed Ativan 1 mg tablet 06-20 00:00: 00 07-11 00:00 :00 No 1{table t} Q12H take 1 tablet by oral route 2 times every day as needed patient in midst of tapering. Ativan 1 mg tablet 05-21 00:00: 00 06-20 00:00 :00 No Take one tab po every 8 hours as discussed Ativan 1 mg tablet 04-19 00:00: 00 05-21 00:00 :00 No Take one tab po every 8 hours as discussed duloxetine 30 mg capsule,del ayed release 04-12 00:00: 00 07-11 00:00 :00 No Take one cap po daily at same time each day. May increase to 60 mg a day after one week if tolerated Ativan 1 mg tablet 2014-03 00:00: 00 04-19 00:00 :00 No Take one tab po every 8 hours as discussed Naprosyn 500 mg tablet 2014-03 00:00: 00 04-12 00:00 :00 No 1{table t} Q12H take 1 tablet by oral route 2 times every day with food Take with a meal Ativan 1 mg tablet 2014-03 00:00: 00 03-15 00:00 :00 No take 1 Tablet by oral route TID Med ordered on 5. On 5, increased dosage to 1mg po in AM, 1mg in afternoon , and 2mg po at hs Ativan 1 mg tablet 2014-03 00:00: 00 02-20 00:00 :00 No take 1 Tablet by oral route TID Procedures Procedure Date / Time Performed Performing Clinicia n Device Analgesia 2024-09-25 00:00:00 Resin composite1 surf posterior 2024-09-25 00:00:00 OFFICE/OUTPATIENT VISIT, EST 2024-09-21 00:00:00 URINALYSIS, AUTO, W/O SCOPE 2024-07-06 00:00:00 OFFICE/OUTPATIENT VISIT, EST 2024-07-06 00:00:00 Periodic oral evaluation 2024-07-04 00:00:00 Caries risk assessment w/ high risk 2024-07-04 00:00:0 0 Sealant Not Recommended 2024-07-04 00:00:00 OFFICE/OUTPATIENT VISIT, EST 2024-03-03 00:00:00 Dental bitewings four films 2023-10-21 00:00:00 Do Not Charge Periapical Xrays 2023-10-21 00:00:00 Periodic oral evaluation 2023-10-21 00:00:00 Caries risk assessment w/ high risk 2023-10-21 00:00:0 0 Sealant Not Recommended 2023-10-21 00:00:00 Ketorolac Tromethamine Inj 2023-05-07 00:00:00 THER/PROPH/DIAG INJ, SC/IM 2023-05-07 00:00:00 OFFICE/OUTPATIENT VISIT, EST 2023-05-07 00:00:00 Dental panoramic film 2022-09-04 00:00:00 Periapical first film 2022-09-04 00:00:00 Periapical ea add 2022-09-04 00:00:00 Comprehensive oral evaluation 2022-09-04 00:00:00 Caries risk assessment w/ high risk 2022-09-04 00:00:0 0 Sealant Not Recommended 2022-09-04 00:00:00 Dental bitewings four films 2022-09-04 00:00:00 OFFICE/OUTPATIENT VISIT, NEW 2022-08-13 00:00:00 US OB >14 wks transvag 2022-04-19 09:06:00 OFFICE/OUTPATIENT VISIT, EST 2017-03-01 00:00:00 Alcohol/Sub Abuse Screen 15-30 Mins 2016-07-07 00:00:0 0 URINALYSIS, AUTO, W/O SCOPE 2016-07-07 00:00:00 URINE TEST 2016-07-07 00:00:00 OFFICE/OUTPATIENT VISIT, EST 2016-07-07 00:00:00 No Charge 2016-04-17 00:00:00 URINE TEST 2016-01-20 00:00:00 OFFICE/OUTPATIENT VISIT, EST 2016-01-20 00:00:00 OFFICE/OUTPATIENT VISIT, EST 2015-11-19 00:00:00 PROPHYLAXIS-ADULT 2015-08-28 00:00:00 TRTMT COMPLETE NEW PATIENT ADULT 2015-08-28 00:00:00 Productive Visit 2015-08-06 00:00:00 COMPREHENSIVE ORAL EXAMINATION 2015-08-05 00:00:00 INTRAORAL-PERIAPICAL FIRST FILM 2015-08-05 00:00:00 [id number] ADDITIONAL HECTOR 2015-08-05 00:00:00 BITEWINGS-FOUR FILMS 2015-08-05 00:00:00 OFFICE/OUTPATIENT VISIT, EST 2015-07-24 00:00:00 OFFICE/OUTPATIENT VISIT, EST 2015-07-23 00:00:00 OFFICE/OUTPATIENT VISIT, EST 2015-07-12 00:00:00 OFFICE/OUTPATIENT VISIT, EST 2015-04-12 00:00:00 OFFICE/OUTPATIENT VISIT, EST 2015-03-15 00:00:00 OFFICE/OUTPATIENT VISIT, EST 2015-02-19 00:00:00 OFFICE/OUTPATIENT VISIT, EST 2015-02-13 00:00:00 SCREEN DEPRESSION PERFORMED 2015-02-04 00:00:00 OFFICE/OUTPATIENT VISIT, NEW 2015-02-04 00:00:00 Results Test Description Test Time Test Comments Text Results Atomic Results Result Comments Panel Description: SURESWAB(R) ADVANCED VAGINITI S PLUS, TMA 2024-07-07 07:15:06 SURESWAB(R) ADV BACTERIAL VAGINOSIS (BV), TMA (test code = SURESWAB(R) ADV BACTERIAL VAGINOSIS (BV), TMA) POSITIVE NEGATIVE Panel Description: SURESWAB(R) ADVANCED VAGINITIS PLUS, [id number] 07:15:06* Test Item Value Reference Range Comments SHANTELL SPECIES (test code = SHANTELL SPECIES) NOT DETECTED NOT DETECTED SHANTELL GLABRATA (test code = SHANTELL GLABRATA) NOT DETECTED NOT DETECTED Shantell species C. albicans, C. tropicalis,C. parapsilosis, and/or C. dubliniensis can be detected,but not differentiated, in the Shantell spp. result. Panel Description: SURESWAB(R) ADVANCED VAGINITIS PLUS, [id number] 07:15:06* Test Item Value Reference Range Comments TRICHOMONAS VAGINALIS (TV), TMA (test code = TRICHOMONAS VAGINALIS (TV), TMA) NOT DETECTED NOT DETECTED Panel Description: SURESWAB(R) ADVANCED VAGINITIS PLUS, [id number] 07:15:06* Test Item Value Reference Range Comments CHLAMYDIA TRACHOMATIS RNA, TMA, UROGENITAL (test code = CHLAMYDIA TRACHOMATIS RNA, TMA, UROGENITAL) NOT DETECTED NOT DETECTED NEISSERIA GONORRHOEAE RNA, TMA, UROGENITAL (test code = NEISSERIA GONORRHOEAE RNA, TMA, UROGENITAL) NOT DETECTED NOT DETECTED For additional infor mation, please refer tohttps://education.Qire/faq/JJS657(Th is link is being provided for information/educational purposes only.) Panel Description: UA Dipstick (In-House)2024-07-06 10:47:00* Test Item Value Reference Range Comments Blood (test code = Blood) NEG 0-250 Urinbilinogen (test code = Urinbilinogen) NORM Normal-12 Bilirubin (test code = Bilirubin) NEG Negativ e Protein (test code = Protein) NEG Negative Nitrite (test code = Nitrite) NEG Negative Ketones (test code = Ketones) NEG Negative Asorbic Acid (test code = Asorbic Acid) NEG 0 -0 Glucose (test code = Glucose) NEG Negative PH (test code = PH) 6.5 [pH] 5.0-8.0 Specific [place] (test code = Specific [place]) 1.015 SG 1.001-1.035 Leukocyte (test code = Leukocyte) NEG Negativ e Panel Description: LIPID PANEL, [id number] 18:12:00* Test Item Value Reference Range Comments CHOLESTEROL, TOTAL (test code = CHOLESTEROL, TOTAL) 201 mg/dL <200 HDL CHOLESTEROL (test code = HDL CHOLESTEROL) 53 mg/dL See_Comment [Automated message] The system which generated this result transmitted reference range: > OR = 50. The reference range was not used to interpret this result as normal/abnormal. TRIGLYCERIDES (test code = TRIGLYCERIDES) 68 mg/dL <150 LDL-CHOLESTEROL (test code = LDL-CHOLESTEROL) 132 mg/dL(calc) Reference range: <10 0 Desirable range <100 mg/dL for primary prevention; <70 mg/dL for patients with CHD or diabetic patients with > or = 2 CHD risk factors. LDL-C is now calculated using the Flavio-Herrera calculation, which is a validated novel method providing better accuracy than the Friedewald equation in the estimation of LDL-C. Flavio SS et al. CHARLEEN. 2013;310(19): 1907-7403 (http://education.[employer]/faq/WLW104) CHOL/HDLC RATIO (test code = CHOL/HDLC RATIO) 3.8 (calc) <5.0 NON HDL CHOLESTEROL (test code = NON HDL CHOLESTEROL) 148 mg/dL(calc) <130 For patients with diabetes plus 1 major ASCVD risk factor, treating to a non-HDL-C goal of <100 mg/dL (LDL-C of <70 mg/dL) is considered a therapeutic option. Panel Description: SUKHWINDER SCREEN, IFA, W/REFL TITER AND [id number] 18:12:00 * Test Item Value Reference Range Comments SUKHWINDER SCREEN, IFA (test code = SUKHWINDER SCREEN, IFA) POSITIVE NEGATIVE SUKHWINDER IFA is a first l ine screen for detecting thepresence of up to approximately 150 autoantibodies invarious autoimmune diseases. A positive SUKHWINDER IFA resultis suggestive of autoimmune disease and reflexes totiter and pattern. Further laboratory testing may beconsidered if clinically indicated. For additional information, please refer tohttp://education.[employer]/faq/QYG599(This link is being provided for informational/educational purposes only.) SUKHWINDER TITER (test code = SUKHWINDER TITER) DNR Reference Range <1:4 0 Negative 1:40-1:80 Low Antibody Level >1:80 Elevated Antibody Level SUKHWINDER PATTERN (test code = SUKHWINDER PATTERN) DNR Speckled pattern is associated with mixed connectivetissue disease (MCTD), systemic lupus erythematosus(SLE), Sjogren's syndrome, dermatomyositis, and systemic sclerosis/polymyositis overlap. AC-2,4,5,29: Speckled International Consensus on SUKHWINDER Patterns(https://doi.org/10.1515/c exi-2624-2589) Panel Description: HEPATITIS C AB W/REFL TO HCV RNA, VICK, [id number] 18:12:00 * Test Item Value Reference Range Comments HEPATITIS C ANTIBODY (test code = HEPATITIS C ANTIBODY) NON-REACTIVE NON-REACTIVE INDEX (test code = INDEX) 0.13 <1.00 HC V antibody was non-reactive. There is no laboratory evidence of HCV infection. In most cases, no further action is required. However,if recent HCV exposure is suspected, a test for HCV RNA(test code 74002) is suggested. For additional information please refer tohttp://[employer]/faq/FFD21r9(This link is being provided for informational/educational purposes only.) Panel Description: TSH W/REFLEX TO [id number] 18:12:00* Test Item Value Reference Range Comments TSH W/REFLEX TO FT4 (test code = TSH W/REFLEX TO FT4) 0.73 mIU/L Reference Ra nge > or = 20 Years 0.40-4.50 Ranges First trimester 0.26-2.66 Second trimester 0.55-2.73 Third trimester 0.43-2.91 Panel Description: VITAMIN D,25-OH,TOTAL,[id number] 18:12:00* Test Item Value Reference Range Comments VITAMIN D,25-OH,TOTAL,IA (test code = VITAMIN D,25-OH,TOTAL,IA) 24 ng/mL 30-100 Vitamin D Status 25- OH Vitamin D: Deficiency: <20 ng/mLInsufficiency: 20 - 29 ng/mLOptimal: > or = 30 ng/mL For 25-OH Vitamin D testing on patients on D2-supplementation and patients for whom quantitation of D2 and D3 fractions is required, the QuestAssureD(TM)25-OH VIT D, (D2,D3), LC/MS/MS is recommended: order code 09235 (patients >2yrs).See Note 1 Note 1 For additional information, please refer to http://education.[employer]/faq/XAU639 (This link is being provided for informational/educational purposes only.) Panel Description: FOOD ALLERGY PROFILE WITH [id number] 18:12:00* Test Item Value Reference Range Comments EGG WHITE (F1) IGE (test cod e = EGG WHITE (F1) IGE) 0.18 kU/L CLASS (test code = CLASS) 0 PEANUT (F13) IGE (test code = PEANUT (F13) IGE) <0.10 WHEAT (F4) IGE (test code = WHEAT (F4) IGE) 0.50 kU/L WALNUT (F256) IGE (test code = WALNUT (F256) IGE) <0.1 0 CODFISH (F3) IGE (test code = CODFISH (F3) IGE) <0.10 COW'S MILK (F2) IGE (test co de = COW'S MILK (F2) IGE) 0.17 kU/L SOYBEAN (F14) IGE (test code = SOYBEAN (F14) IGE) 0.26 kU/L SHRIMP (F24) IGE (test code = SHRIMP (F24) IGE) <0.10 SCALLOP (F338) IGE (test cod e = SCALLOP (F338) IGE) <0.10 SESAME SEED (F10) IGE (test code = SESAME SEED (F10) IGE) <0.10 HAZELNUT (F17) IGE (test cod e = HAZELNUT (F17) IGE) <0.10 CASHEW NUT (F202) IGE (test code = CASHEW NUT (F202) IGE) <0.10 ALMOND (F20) IGE (test code = ALMOND (F20) IGE) <0.10 SALMON (F41) IGE (test code = SALMON (F41) IGE) <0.10 TUNA (F40) IGE (test code = TUNA (F40) IGE) <0.10 Panel Description: EGG COMPONENT [id number] 18:12:00* Test Item Value Reference Range Comments OVALBUMIN (F232) IGE (test c ode = OVALBUMIN (F232) IGE) <0.10 CLASS (test code = CLASS) 0 Ig E reactivity to whole egg without reactivity to Gal d 1 or Gal d 2 may be explained by IgE reactivity to other egg proteins or non-protein egg constituents. Additional information can be found at http://www.[employer] OVOMUCOID (F233) IGE (test c ode = OVOMUCOID (F233) IGE) <0.10 Panel Description: MILK COMPONENT [id number] 18:12:00* Test Item Value Reference Range Comments ALPHA-LACTALBUMIN (F76) IGE (test code = ALPHA-LACTALBUMIN (F76) IGE) <0.10 CLASS (test code = CLASS) 0/1 Po sitive cow's milk component IgE results may beclinically significant even if quantification levels (kU/L) are low. Francisco J d 8 (casein) is resistant to heat denaturation and IgE reactivity to this milk component is associated with allergic reactions to both raw andcooked milk, even in baked goods. Francisco J d 4(alpha-lactalbumin) and Francisco J d 5 (beta-lactoglobulin)are relatively susceptible to heat denaturation. WhileIgE reactivity to Francisco J d 4 and/or Francisco J d 5 areassociated with allergic reactions to raw milk, inbaked goods, milk may be tolerated. Children with IgE reactivity directed primarily to Francisco J d 4 and Francisco J d 5 are more likely to outgrow their cow's milk allergythan children with IgE reactivity directed primarilyto Francisco J d 8. Additional information can be found at http://www.[employer] BETA-LACTOGLOBULIN (F77) IGE (test code = BETA-LACTOGLOBULIN (F77) IGE) <0.10 CASEIN (F78) IGE (test code = CASEIN (F78) IGE) 0.18 kU/L Panel Description: [id number] 18:12:00INTERPRETATIONPanel Description: HIV 1/2 ANTIGEN/ANTIBODY,FOURTH GENERATION [id number] 18:12:00 * Test Item Value Reference Range Comments HIV AG/AB, 4TH GEN (test code = HIV AG/AB, 4TH GEN) NON-REACTIVE NON-REACTIVE HIV-1 antigen and HI V-1/HIV-2 antibodies were notdetected. There is no laboratory evidence of HIVinfection. PLEASE NOTE: This information has been disclosed toyou from records whose confidentiality may beprotected by state law. If your state requires suchprotection, then the state law prohibits you frommaking any further disclosure of the informationwithout the specific written consent of the personto whom it pertains, or as otherwise permitted by law.A general authorization for the release of medical orother information is NOT sufficient for this purpose. For additional information please refer tohttp://education.[employer]/faq/RFX346(This link is being provided for informational/educational purposes only.) The performance of this assay has not been clinicallyvalidated in patients less than 2 years old. Panel Description: COMPREHENSIVE METABOLIC [id number] 18:12:00* Test Item Value Reference Range Comments GLUCOSE (test code = GLUCOSE) 97 mg/dL 65-139 Non-fasting referenc e interval UREA NITROGEN (BUN) (test code = UREA NITROGEN (BUN)) 10 mg/dL 7-25 CREATININE (test code = CREATININE) 0.70 mg/dL 0.50-0.97 EGFR (test code = EGFR) 119 mL/min/1.73m2 See_Comment The eGFR is based on the CKD-EPI 202 equation. To calculate the new eGFR from a previous Creatinine or Cystatin Cresult, go to https://www.kidney.org/pr ofessionals/kdoqi/gfr%5Fc alculator [Automated message] The system which generated this result transmitted reference range: > OR = 60. The reference range was not used to interpret this result as normal/abnormal. BUN/CREATININE RATIO (test code = BUN/CREATININE RATIO) NOT APPLICABLE 6-22 SODIUM (test code = SODIUM) 138 mmol/L 135-146 POTASSIUM (test code = POTASSIUM) 3.5 mmol/L 3.5-5.3 CHLORIDE (test code = CHLORIDE) 104 mmol/L 98-110 CARBON DIOXIDE (test code = CARBON DIOXIDE) 26 mmol/L 20-32 CALCIUM (test code = CALCIUM) 8.9 mg/dL 8.6-10.2 PROTEIN, TOTAL (test code = PROTEIN, TOTAL) 6.6 g/dL 6.1-8.1 ALBUMIN (test code = ALBUMIN) 4.3 g/dL 3.6-5.1 GLOBULIN (test code = GLOBULIN) 2.3 g/dL(calc) 1.9-3.7 ALBUMIN/GLOBULIN RATIO (test code = ALBUMIN/GLOBULIN RATIO) 1.9 (calc) 1.0-2.5 BILIRUBIN, TOTAL (test code = BILIRUBIN, TOTAL) 0.4 mg/dL 0.2-1.2 ALKALINE PHOSPHATASE (test code = ALKALINE PHOSPHATASE) 50 U/L 31-125 AST (test code = AST) 11 U/L 10-30 ALT (test code = ALT) 8 U/L 6-29 Panel Description: SED RATE BY ADRIANA [id number] 18:12:00* Test Item Value Reference Range Comments SED RATE BY MODIFIED RADHA MARTINEZ (test code = SED RATE BY MODIFIED LARRY) 2 mm/h See_Comment [Automated message] The system which generated this result transmitted reference range: < OR = 20. The reference range was not used to interpret this result as normal/abnormal. Panel Description: CBC (INCLUDES DIFF/PLT)2022-08-17 18:12:00* Test Item Value Reference Range Comments WHITE BLOOD CELL COUNT (test code = WHITE BLOOD CELL COUNT) 5.7 Thousand/uL 3.8-10.8 RED BLOOD CELL COUNT (test c ode = RED BLOOD CELL COUNT) 4.57 Million/uL 3.80-5.10 HEMOGLOBIN (test code = HEMOGLOBIN) 13.4 g/dL 11.7- 15.5 HEMATOCRIT (test code = HEMATOCRIT) 40.5 % 35.0- 45.0 MCV (test code = MCV) 88.6 fL 80.0-100.0 MCH (test code = MCH) 29.3 pg 27.0-33.0 MCHC (test code = MCHC) 33.1 g/dL 32.0-36.0 RDW (test code = RDW) 12.0 % 11.0-15.0 PLATELET COUNT (test code = PLATELET COUNT) [address]/uL 140-400 MPV (test code = MPV) 11.4 fL 7.5-12.5 ABSOLUTE NEUTROPHILS (test c ode = ABSOLUTE NEUTROPHILS) 2753 cells/uL 4583-5986 ABSOLUTE BAND NEUTROPHILS (t est code = ABSOLUTE BAND NEUTROPHILS) DNR 0-750 ABSOLUTE METAMYELOCYTES (carin t code = ABSOLUTE METAMYELOCYTES) DNR 0-0 ABSOLUTE MYELOCYTES (test co de = ABSOLUTE MYELOCYTES) DNR 0-0 ABSOLUTE PROMYELOCYTES (test code = ABSOLUTE PROMYELOCYTES) DNR 0-0 ABSOLUTE LYMPHOCYTES (test c ode = ABSOLUTE LYMPHOCYTES) 2252 cells/uL 850-3900 ABSOLUTE MONOCYTES (test cod e = ABSOLUTE MONOCYTES) 251 cells/uL 200-950 ABSOLUTE EOSINOPHILS (test c ode = ABSOLUTE EOSINOPHILS) 405 cells/uL 15-500 ABSOLUTE BASOPHILS (test cod e = ABSOLUTE BASOPHILS) 40 cells/uL 0-200 ABSOLUTE BLASTS (test code = ABSOLUTE BLASTS) DNR 0-0 ABSOLUTE NUCLEATED RBC (test code = ABSOLUTE NUCLEATED RBC) DNR 0-0 NEUTROPHILS (test code = NEUTROPHILS) 48.3 % BAND NEUTROPHILS (test code = BAND NEUTROPHILS) DNR METAMYELOCYTES (test code = METAMYELOCYTES) DNR MYELOCYTES (test code = MYELOCYTES) DNR PROMYELOCYTES (test code = PROMYELOCYTES) DNR LYMPHOCYTES (test code = LYMPHOCYTES) 39.5 % REACTIVE LYMPHOCYTES (test c ode = REACTIVE LYMPHOCYTES) DNR 0-10 MONOCYTES (test code = MONOCYTES) 4.4 % EOSINOPHILS (test code = EOSINOPHILS) 7.1 % BASOPHILS (test code = BASOPHILS) 0.7 % BLASTS (test code = BLASTS) DNR NUCLEATED RBC (test code = NUCLEATED RBC) DNR 0-0 COMMENT(S) (test code = COMMENT(S)) DNR Panel Description: LIPID PANEL, [id number] 08:17:00* Test Item Value Reference Range Comments CHOLESTEROL, TOTAL (test code = CHOLESTEROL, TOTAL) 201 mg/dL <200 HDL CHOLESTEROL (test code = HDL CHOLESTEROL) 53 mg/dL See_Comment [Automated message] The system which generated this result transmitted reference range: > OR = 50. The reference range was not used to interpret this result as normal/abnormal. TRIGLYCERIDES (test code = TRIGLYCERIDES) 68 mg/dL <150 LDL-CHOLESTEROL (test code = LDL-CHOLESTEROL) 132 mg/dL(calc) Reference range: <10 0 Desirable range <100 mg/dL for primary prevention; <70 mg/dL for patients with CHD or diabetic patients with > or = 2 CHD risk factors. LDL-C is now calculated using the Flavio-Herrera calculation, which is a validated novel method providing better accuracy than the Friedewald equation in the estimation of LDL-C. Flavio SS et al. CHARLEEN. 2013;310(19): 0875-8517 (http://education.[employer]/faq/LAO908) CHOL/HDLC RATIO (test code = CHOL/HDLC RATIO) 3.8 (calc) <5.0 NON HDL CHOLESTEROL (test code = NON HDL CHOLESTEROL) 148 mg/dL(calc) <130 For patients with diabetes plus 1 major ASCVD risk factor, treating to a non-HDL-C goal of <100 mg/dL (LDL-C of <70 mg/dL) is considered a therapeutic option. Panel Description: SUKHWINDER SCREEN, IFA, W/REFL TITER AND [id number] 08:17:00 * Test Item Value Reference Range Comments SUKHWINDER SCREEN, IFA (test code = SUKHWINDER SCREEN, IFA) POSITIVE NEGATIVE SUKHWINDER IFA is a first l ine screen for detecting thepresence of up to approximately 150 autoantibodies invarious autoimmune diseases. A positive SUKHWINDER IFA resultis suggestive of autoimmune disease and reflexes totiter and pattern. Further laboratory testing may beconsidered if clinically indicated. For additional information, please refer tohttp://[employer]/faq/MCQ018(This link is being provided for informational/educational purposes only.) SUKHWINDER TITER (test code = SUKHWINDER TITER) DNR Reference Range <1:4 0 Negative 1:40-1:80 Low Antibody Level >1:80 Elevated Antibody Level SUKHWINDER PATTERN (test code = SUKHWINDER PATTERN) DNR Speckled pattern is associated with mixed connectivetissue disease (MCTD), systemic lupus erythematosus(SLE), Sjogren's syndrome, dermatomyositis, and systemic sclerosis/polymyositis overlap. AC-2,4,5,29: Speckled International Consensus on SUKHWINDER Patterns(https://doi.org/10.1515/c tmb-7124-4243) Panel Description: HEPATITIS C AB W/REFL TO HCV RNA, QN, [id number] 08:17:00 * Test Item Value Reference Range Comments HEPATITIS C ANTIBODY (test code = HEPATITIS C ANTIBODY) NON-REACTIVE NON-REACTIVE INDEX (test code = INDEX) 0.13 <1.00 HC V antibody was non-reactive. There is no laboratory evidence of HCV infection. In most cases, no further action is required. However,if recent HCV exposure is suspected, a test for HCV RNA(test code 17487) is suggested. For additional information please refer tohttp://[employer]/faq/GIK28t2(This link is being provided for informational/educational purposes only.) Panel Description: TSH W/REFLEX TO [id number] 08:17:00* Test Item Value Reference Range Comments TSH W/REFLEX TO FT4 (test code = TSH W/REFLEX TO FT4) 0.73 mIU/L Reference Ra nge > or = 20 Years 0.40-4.50 Ranges First trimester 0.26-2.66 Second trimester 0.55-2.73 Third trimester 0.43-2.91 Panel Description: VITAMIN D,25-OH,TOTAL,[id number] 08:17:00* Test Item Value Reference Range Comments VITAMIN D,25-OH,TOTAL,IA (test code = VITAMIN D,25-OH,TOTAL,IA) 24 ng/mL 30-100 Vitamin D Status 25- OH Vitamin D: Deficiency: <20 ng/mLInsufficiency: 20 - 29 ng/mLOptimal: > or = 30 ng/mL For 25-OH Vitamin D testing on patients on D2-supplementation and patients for whom quantitation of D2 and D3 fractions is required, the QuestAssureD(TM)25-OH VIT D, (D2,D3), LC/MS/MS is recommended: order code 97226 (patients >2yrs).See Note 1 Note 1 For additional information, please refer to http://education.[employer].com/faq/PSH272 (This link is being provided for informational/educational purposes only.) Panel Description: FOOD ALLERGY PROFILE WITH [id number] 08:17:00* Test Item Value Reference Range Comments EGG WHITE (F1) IGE (test cod e = EGG WHITE (F1) IGE) 0.18 kU/L CLASS (test code = CLASS) 0 PEANUT (F13) IGE (test code = PEANUT (F13) IGE) <0.10 WHEAT (F4) IGE (test code = WHEAT (F4) IGE) 0.50 kU/L WALNUT (F256) IGE (test code = WALNUT (F256) IGE) <0.1 0 CODFISH (F3) IGE (test code = CODFISH (F3) IGE) <0.10 COW'S MILK (F2) IGE (test co de = COW'S MILK (F2) IGE) 0.17 kU/L SOYBEAN (F14) IGE (test code = SOYBEAN (F14) IGE) 0.26 kU/L SHRIMP (F24) IGE (test code = SHRIMP (F24) IGE) <0.10 SCALLOP (F338) IGE (test cod e = SCALLOP (F338) IGE) <0.10 SESAME SEED (F10) IGE (test code = SESAME SEED (F10) IGE) <0.10 HAZELNUT (F17) IGE (test cod e = HAZELNUT (F17) IGE) <0.10 CASHEW NUT (F202) IGE (test code = CASHEW NUT (F202) IGE) <0.10 ALMOND (F20) IGE (test code = ALMOND (F20) IGE) <0.10 SALMON (F41) IGE (test code = SALMON (F41) IGE) <0.10 TUNA (F40) IGE (test code = TUNA (F40) IGE) <0.10 Panel Description: EGG COMPONENT [id number] 08:17:00OVALBUMIN (F232) IGECLASSOVOMUCOID (F233) IGECLASSPanel Description: MILK COMPONENT PANEL 2022-08-17 08:17:00ALPHA-LACTALBUMIN (F76) IGECLASSBETA-LACTOGLOBULIN (F77) IGECLASSCASEIN (F78) IGECLASSPanel Description: [id number] 08:17:00INTERPRETATIONPanel Description: HIV 1/2 ANTIGEN/ANTIBODY,FOURTH GENERATION [id number] 08:17:00* Test Item Value Reference Range Comments HIV AG/AB, 4TH GEN (test code = HIV AG/AB, 4TH GEN) NON-REACTIVE NON-REACTIVE HIV-1 antigen and HI V-1/HIV-2 antibodies were notdetected. There is no laboratory evidence of HIVinfection. PLEASE NOTE: This information has been disclosed toyou from records whose confidentiality may beprotected by state law. If your state requires suchprotection, then the state law prohibits you frommaking any further disclosure of the informationwithout the specific written consent of the personto whom it pertains, or as otherwise permitted by law.A general authorization for the release of medical orother information is NOT sufficient for this purpose. For additional information please refer tohttp://education.[employer]/faq/GGB792(This link is being provided for informational/educational purposes only.) The performance of this assay has not been clinicallyvalidated in patients less than 2 years old. Panel Description: COMPREHENSIVE METABOLIC [id number] 08:17:00* Test Item Value Reference Range Comments GLUCOSE (test code = GLUCOSE) 97 mg/dL 65-139 Non-fasting referenc e interval UREA NITROGEN (BUN) (test code = UREA NITROGEN (BUN)) 10 mg/dL 7-25 CREATININE (test code = CREATININE) 0.70 mg/dL 0.50-0.97 EGFR (test code = EGFR) 119 mL/min/1.73m2 See_Comment The eGFR is based on the CKD-EPI 202 equation. To calculate the new eGFR from a previous Creatinine or Cystatin Cresult, go to https://www.kidney.org/pr ofessionals/kdoqi/gfr%5Fc alculator [Automated message] The system which generated this result transmitted reference range: > OR = 60. The reference range was not used to interpret this result as normal/abnormal. BUN/CREATININE RATIO (test code = BUN/CREATININE RATIO) NOT APPLICABLE 6-22 SODIUM (test code = SODIUM) 138 mmol/L 135-146 POTASSIUM (test code = POTASSIUM) 3.5 mmol/L 3.5-5.3 CHLORIDE (test code = CHLORIDE) 104 mmol/L 98-110 CARBON DIOXIDE (test code = CARBON DIOXIDE) 26 mmol/L 20-32 CALCIUM (test code = CALCIUM) 8.9 mg/dL 8.6-10.2 PROTEIN, TOTAL (test code = PROTEIN, TOTAL) 6.6 g/dL 6.1-8.1 ALBUMIN (test code = ALBUMIN) 4.3 g/dL 3.6-5.1 GLOBULIN (test code = GLOBULIN) 2.3 g/dL(calc) 1.9-3.7 ALBUMIN/GLOBULIN RATIO (test code = ALBUMIN/GLOBULIN RATIO) 1.9 (calc) 1.0-2.5 BILIRUBIN, TOTAL (test code = BILIRUBIN, TOTAL) 0.4 mg/dL 0.2-1.2 ALKALINE PHOSPHATASE (test code = ALKALINE PHOSPHATASE) 50 U/L 31-125 AST (test code = AST) 11 U/L 10-30 ALT (test code = ALT) 8 U/L 6-29 Panel Description: SED RATE BY MODIFIED [id number] 08:17:00* Test Item Value Reference Range Comments SED RATE BY MODIFIED WESTERG JUAN (test code = SED RATE BY MODIFIED WESTERGREN) 2 mm/h See_Comment [Automated message] The system which generated this result transmitted reference range: < OR = 20. The reference range was not used to interpret this result as normal/abnormal. Panel Description: CBC (INCLUDES DIFF/PLT)2022-08-17 08:17:00* Test Item Value Reference Range Comments WHITE BLOOD CELL COUNT (test code = WHITE BLOOD CELL COUNT) 5.7 Thousand/uL 3.8-10.8 RED BLOOD CELL COUNT (test c ode = RED BLOOD CELL COUNT) 4.57 Million/uL 3.80-5.10 HEMOGLOBIN (test code = HEMOGLOBIN) 13.4 g/dL 11.7- 15.5 HEMATOCRIT (test code = HEMATOCRIT) 40.5 % 35.0- 45.0 MCV (test code = MCV) 88.6 fL 80.0-100.0 MCH (test code = MCH) 29.3 pg 27.0-33.0 MCHC (test code = MCHC) 33.1 g/dL 32.0-36.0 RDW (test code = RDW) 12.0 % 11.0-15.0 PLATELET COUNT (test code = PLATELET COUNT) [address]/uL 140-400 MPV (test code = MPV) 11.4 fL 7.5-12.5 ABSOLUTE NEUTROPHILS (test c ode = ABSOLUTE NEUTROPHILS) 2753 cells/uL 8217-6728 ABSOLUTE BAND NEUTROPHILS (t est code = ABSOLUTE BAND NEUTROPHILS) DNR 0-750 ABSOLUTE METAMYELOCYTES (carin t code = ABSOLUTE METAMYELOCYTES) DNR 0-0 ABSOLUTE MYELOCYTES (test co de = ABSOLUTE MYELOCYTES) DNR 0-0 ABSOLUTE PROMYELOCYTES (test code = ABSOLUTE PROMYELOCYTES) DNR 0-0 ABSOLUTE LYMPHOCYTES (test c ode = ABSOLUTE LYMPHOCYTES) 2252 cells/uL 850-3900 ABSOLUTE MONOCYTES (test cod e = ABSOLUTE MONOCYTES) 251 cells/uL 200-950 ABSOLUTE EOSINOPHILS (test c ode = ABSOLUTE EOSINOPHILS) 405 cells/uL 15-500 ABSOLUTE BASOPHILS (test cod e = ABSOLUTE BASOPHILS) 40 cells/uL 0-200 ABSOLUTE BLASTS (test code = ABSOLUTE BLASTS) DNR 0-0 ABSOLUTE NUCLEATED RBC (test code = ABSOLUTE NUCLEATED RBC) DNR 0-0 NEUTROPHILS (test code = NEUTROPHILS) 48.3 % BAND NEUTROPHILS (test code = BAND NEUTROPHILS) DNR METAMYELOCYTES (test code = METAMYELOCYTES) DNR MYELOCYTES (test code = MYELOCYTES) DNR PROMYELOCYTES (test code = PROMYELOCYTES) DNR LYMPHOCYTES (test code = LYMPHOCYTES) 39.5 % REACTIVE LYMPHOCYTES (test c ode = REACTIVE LYMPHOCYTES) DNR 0-10 MONOCYTES (test code = MONOCYTES) 4.4 % EOSINOPHILS (test code = EOSINOPHILS) 7.1 % BASOPHILS (test code = BASOPHILS) 0.7 % BLASTS (test code = BLASTS) DNR NUCLEATED RBC (test code = NUCLEATED RBC) DNR 0-0 COMMENT(S) (test code = COMMENT(S)) DNR Panel Description: LIPID PANEL, [id number] 17:50:00* Test Item Value Reference Range Comments CHOLESTEROL, TOTAL (test code = CHOLESTEROL, TOTAL) 201 mg/dL <200 HDL CHOLESTEROL (test code = HDL CHOLESTEROL) 53 mg/dL See_Comment [Automated message] The system which generated this result transmitted reference range: > OR = 50. The reference range was not used to interpret this result as normal/abnormal. TRIGLYCERIDES (test code = TRIGLYCERIDES) 68 mg/dL <150 LDL-CHOLESTEROL (test code = LDL-CHOLESTEROL) 132 mg/dL(calc) Reference range: <10 0 Desirable range <100 mg/dL for primary prevention; <70 mg/dL for patients with CHD or diabetic patients with > or = 2 CHD risk factors. LDL-C is now calculated using the Flavio-Herrera calculation, which is a validated novel method providing better accuracy than the Friedewald equation in the estimation of LDL-C. Flavio SS et al. CHARLEEN. 2013;310(19): 1020-7215 (http://education.[employer]/faq/IBR673) CHOL/HDLC RATIO (test code = CHOL/HDLC RATIO) 3.8 (calc) <5.0 NON HDL CHOLESTEROL (test code = NON HDL CHOLESTEROL) 148 mg/dL(calc) <130 For patients with diabetes plus 1 major ASCVD risk factor, treating to a non-HDL-C goal of <100 mg/dL (LDL-C of <70 mg/dL) is considered a therapeutic option. Panel Description: SUKHWINDER SCREEN, IFA, W/REFL TITER AND [id number] 17:50:00 SUKHWINDER SCREEN, IFAPanel Description: HEPATITIS C AB W/REFL TO HCV RNA, QN, PCR 2022-08-14 17:50:00* Test Item Value Reference Range Comments HEPATITIS C ANTIBODY (test code = HEPATITIS C ANTIBODY) NON-REACTIVE NON-REACTIVE INDEX (test code = INDEX) 0.13 <1.00 HC V antibody was non-reactive. There is no laboratory evidence of HCV infection. In most cases, no further action is required. However,if recent HCV exposure is suspected, a test for HCV RNA(test code 15715) is suggested. For additional information please refer tohttp://[employer]/faq/ECD10s9(This link is being provided for informational/educational purposes only.) Panel Description: TSH W/REFLEX TO [id number] 17:50:00* Test Item Value Reference Range Comments TSH W/REFLEX TO FT4 (test code = TSH W/REFLEX TO FT4) 0.73 mIU/L Reference Ra nge > or = 20 Years 0.40-4.50 Ranges First trimester 0.26-2.66 Second trimester 0.55-2.73 Third trimester 0.43-2.91 Panel Description: VITAMIN D,25-OH,TOTAL,[id number] 17:50:00* Test Item Value Reference Range Comments VITAMIN D,25-OH,TOTAL,IA (test code = VITAMIN D,25-OH,TOTAL,IA) 24 ng/mL 30-100 Vitamin D Status 25- OH Vitamin D: Deficiency: <20 ng/mLInsufficiency: 20 - 29 ng/mLOptimal: > or = 30 ng/mL For 25-OH Vitamin D testing on patients on D2-supplementation and patients for whom quantitation of D2 and D3 fractions is required, the QuestAssureD(TM)25-OH VIT D, (D2,D3), LC/MS/MS is recommended: order code 39996 (patients >2yrs).See Note 1 Note 1 For additional information, please refer to http://education.[employer]/faq/SLS694 (This link is being provided for informational/educational purposes only.) Panel Description: FOOD ALLERGY PROFILE WITH [id number] 17:50:00* Test Item Value Reference Range Comments EGG WHITE (F1) IGE (test cod e = EGG WHITE (F1) IGE) 0.18 kU/L CLASS (test code = CLASS) 0 PEANUT (F13) IGE (test code = PEANUT (F13) IGE) <0.10 WHEAT (F4) IGE (test code = WHEAT (F4) IGE) 0.50 kU/L WALNUT (F256) IGE (test code = WALNUT (F256) IGE) <0.1 0 CODFISH (F3) IGE (test code = CODFISH (F3) IGE) <0.10 COW'S MILK (F2) IGE (test co de = COW'S MILK (F2) IGE) 0.17 kU/L SOYBEAN (F14) IGE (test code = SOYBEAN (F14) IGE) 0.26 kU/L SHRIMP (F24) IGE (test code = SHRIMP (F24) IGE) <0.10 SCALLOP (F338) IGE (test cod e = SCALLOP (F338) IGE) <0.10 SESAME SEED (F10) IGE (test code = SESAME SEED (F10) IGE) <0.10 HAZELNUT (F17) IGE (test cod e = HAZELNUT (F17) IGE) <0.10 CASHEW NUT (F202) IGE (test code = CASHEW NUT (F202) IGE) <0.10 ALMOND (F20) IGE (test code = ALMOND (F20) IGE) <0.10 SALMON (F41) IGE (test code = SALMON (F41) IGE) <0.10 TUNA (F40) IGE (test code = TUNA (F40) IGE) <0.10 Panel Description: EGG COMPONENT [id number] 17:50:00OVALBUMIN (F232) IGECLASSOVOMUCOID (F233) IGECLASSPanel Description: MILK COMPONENT PANEL 2022-08-14 17:50:00ALPHA-LACTALBUMIN (F76) IGECLASSBETA-LACTOGLOBULIN (F77) IGECLASSCASEIN (F78) IGECLASSPanel Description: [id number] 17:50:00INTERPRETATIONPanel Description: HIV 1/2 ANTIGEN/ANTIBODY,FOURTH GENERATION [id number] 17:50:00* Test Item Value Reference Range Comments HIV AG/AB, 4TH GEN (test code = HIV AG/AB, 4TH GEN) NON-REACTIVE NON-REACTIVE HIV-1 antigen and HI V-1/HIV-2 antibodies were notdetected. There is no laboratory evidence of HIVinfection. PLEASE NOTE: This information has been disclosed toyou from records whose confidentiality may beprotected by state law. If your state requires suchprotection, then the state law prohibits you frommaking any further disclosure of the informationwithout the specific written consent of the personto whom it pertains, or as otherwise permitted by law.A general authorization for the release of medical orother information is NOT sufficient for this purpose. For additional information please refer tohttp://education.[employer]/faq/MEV873(This link is being provided for informational/educational purposes only.) The performance of this assay has not been clinicallyvalidated in patients less than 2 years old. Panel Description: COMPREHENSIVE METABOLIC [id number] 17:50:00* Test Item Value Reference Range Comments GLUCOSE (test code = GLUCOSE) 97 mg/dL 65-139 Non-fasting referenc e interval UREA NITROGEN (BUN) (test code = UREA NITROGEN (BUN)) 10 mg/dL 7-25 CREATININE (test code = CREATININE) 0.70 mg/dL 0.50-0.97 EGFR (test code = EGFR) 119 mL/min/1.73m2 See_Comment The eGFR is based on the CKD-EPI 2021 equation. To calculate the new eGFR from a previous Creatinine or Cystatin Cresult, go to https://www.kidney.org/pr ofessionals/kdoqi/gfr%5Fc alculator [Automated message] The system which generated this result transmitted reference range: > OR = 60. The reference range was not used to interpret this result as normal/abnormal. BUN/CREATININE RATIO (test code = BUN/CREATININE RATIO) NOT APPLICABLE 6-22 SODIUM (test code = SODIUM) 138 mmol/L 135-146 POTASSIUM (test code = POTASSIUM) 3.5 mmol/L 3.5-5.3 CHLORIDE (test code = CHLORIDE) 104 mmol/L 98-110 CARBON DIOXIDE (test code = CARBON DIOXIDE) 26 mmol/L 20-32 CALCIUM (test code = CALCIUM) 8.9 mg/dL 8.6-10.2 PROTEIN, TOTAL (test code = PROTEIN, TOTAL) 6.6 g/dL 6.1-8.1 ALBUMIN (test code = ALBUMIN) 4.3 g/dL 3.6-5.1 GLOBULIN (test code = GLOBULIN) 2.3 g/dL(calc) 1.9-3.7 ALBUMIN/GLOBULIN RATIO (test code = ALBUMIN/GLOBULIN RATIO) 1.9 (calc) 1.0-2.5 BILIRUBIN, TOTAL (test code = BILIRUBIN, TOTAL) 0.4 mg/dL 0.2-1.2 ALKALINE PHOSPHATASE (test code = ALKALINE PHOSPHATASE) 50 U/L 31-125 AST (test code = AST) 11 U/L 10-30 ALT (test code = ALT) 8 U/L 6-29 Panel Description: SED RATE BY MODIFIED [id number] 17:50:00* Test Item Value Reference Range Comments SED RATE BY MODIFIED RADHA JUAN (test code = SED RATE BY MODIFIED LARRY) 2 mm/h See_Comment [Automated message] The system which generated this result transmitted reference range: < OR = 20. The reference range was not used to interpret this result as normal/abnormal. Panel Description: CBC (INCLUDES DIFF/PLT)2022-08-14 17:50:00* Test Item Value Reference Range Comments WHITE BLOOD CELL COUNT (test code = WHITE BLOOD CELL COUNT) 5.7 Thousand/uL 3.8-10.8 RED BLOOD CELL COUNT (test c ode = RED BLOOD CELL COUNT) 4.57 Million/uL 3.80-5.10 HEMOGLOBIN (test code = HEMOGLOBIN) 13.4 g/dL 11.7- 15.5 HEMATOCRIT (test code = HEMATOCRIT) 40.5 % 35.0- 45.0 MCV (test code = MCV) 88.6 fL 80.0-100.0 MCH (test code = MCH) 29.3 pg 27.0-33.0 MCHC (test code = MCHC) 33.1 g/dL 32.0-36.0 RDW (test code = RDW) 12.0 % 11.0-15.0 PLATELET COUNT (test code = PLATELET COUNT) [address]/uL 140-400 MPV (test code = MPV) 11.4 fL 7.5-12.5 ABSOLUTE NEUTROPHILS (test c ode = ABSOLUTE NEUTROPHILS) 2753 cells/uL 8384-5978 ABSOLUTE BAND NEUTROPHILS (t est code = ABSOLUTE BAND NEUTROPHILS) DNR 0-750 ABSOLUTE METAMYELOCYTES (carin t code = ABSOLUTE METAMYELOCYTES) DNR 0-0 ABSOLUTE MYELOCYTES (test co de = ABSOLUTE MYELOCYTES) DNR 0-0 ABSOLUTE PROMYELOCYTES (test code = ABSOLUTE PROMYELOCYTES) DNR 0-0 ABSOLUTE LYMPHOCYTES (test c ode = ABSOLUTE LYMPHOCYTES) 2252 cells/uL 850-3900 ABSOLUTE MONOCYTES (test cod e = ABSOLUTE MONOCYTES) 251 cells/uL 200-950 ABSOLUTE EOSINOPHILS (test c ode = ABSOLUTE EOSINOPHILS) 405 cells/uL 15-500 ABSOLUTE BASOPHILS (test cod e = ABSOLUTE BASOPHILS) 40 cells/uL 0-200 ABSOLUTE BLASTS (test code = ABSOLUTE BLASTS) DNR 0-0 ABSOLUTE NUCLEATED RBC (test code = ABSOLUTE NUCLEATED RBC) DNR 0-0 NEUTROPHILS (test code = NEUTROPHILS) 48.3 % BAND NEUTROPHILS (test code = BAND NEUTROPHILS) DNR METAMYELOCYTES (test code = METAMYELOCYTES) DNR MYELOCYTES (test code = MYELOCYTES) DNR PROMYELOCYTES (test code = PROMYELOCYTES) DNR LYMPHOCYTES (test code = LYMPHOCYTES) 39.5 % REACTIVE LYMPHOCYTES (test c ode = REACTIVE LYMPHOCYTES) DNR 0-10 MONOCYTES (test code = MONOCYTES) 4.4 % EOSINOPHILS (test code = EOSINOPHILS) 7.1 % BASOPHILS (test code = BASOPHILS) 0.7 % BLASTS (test code = BLASTS) DNR NUCLEATED RBC (test code = NUCLEATED RBC) DNR 0-0 COMMENT(S) (test code = COMMENT(S)) DNR Panel Description: LIPID PANEL, [id number] 11:37:00* Test Item Value Reference Range Comments CHOLESTEROL, TOTAL (test code = CHOLESTEROL, TOTAL) 201 mg/dL <200 HDL CHOLESTEROL (test code = HDL CHOLESTEROL) 53 mg/dL See_Comment [Automated message] The system which generated this result transmitted reference range: > OR = 50. The reference range was not used to interpret this result as normal/abnormal. TRIGLYCERIDES (test code = TRIGLYCERIDES) 68 mg/dL <150 LDL-CHOLESTEROL (test code = LDL-CHOLESTEROL) 132 mg/dL(calc) Reference range: <10 0 Desirable range <100 mg/dL for primary prevention; <70 mg/dL for patients with CHD or diabetic patients with > or = 2 CHD risk factors. LDL-C is now calculated using the Flavio-Herrera calculation, which is a validated novel method providing better accuracy than the Friedewald equation in the estimation of LDL-C. Flavio SS et al. CHARLEEN. 2013;310(19): 3028-9410 (http://education.[employer]/faq/CJQ481) CHOL/HDLC RATIO (test code = CHOL/HDLC RATIO) 3.8 (calc) <5.0 NON HDL CHOLESTEROL (test code = NON HDL CHOLESTEROL) 148 mg/dL(calc) <130 For patients with diabetes plus 1 major ASCVD risk factor, treating to a non-HDL-C goal of <100 mg/dL (LDL-C of <70 mg/dL) is considered a therapeutic option. Panel Description: TSH W/REFLEX TO [id number] 11:37:00* Test Item Value Reference Range Comments TSH W/REFLEX TO FT4 (test code = TSH W/REFLEX TO FT4) 0.73 mIU/L Reference Ra nge > or = 20 Years 0.40-4.50 Ranges First trimester 0.26-2.66 Second trimester 0.55-2.73 Third trimester 0.43-2.91 Panel Description: VITAMIN D,25-OH,TOTAL,[id number] 11:37:00* Test Item Value Reference Range Comments VITAMIN D,25-OH,TOTAL,IA (test code = VITAMIN D,25-OH,TOTAL,IA) 24 ng/mL 30-100 Vitamin D Status 25 -OH Vitamin D: Deficiency: <20 ng/mLInsufficiency: 20 - 29 ng/mLOptimal: > or = 30 ng/mL For 25-OH Vitamin D testing on patients on D2-supplementation and patients for whom quantitation of D2 and D3 fractions is required, the QuestAssureD(TM)25-OH VIT D, (D2,D3), LC/MS/MS is recommended: order code 17434 (patients >2yrs).See Note 1 Note 1 For additional information, please refer to http://education.[employer]/faq/KDN548 (This link is being provided for informational/educational purposes only.) Panel Description: FOOD ALLERGY PROFILE WITH [id number] 11:37:00EGG WHITE (F1) IGECLASSPEANUT (F13) IGECLASSWHEAT (F4) IGECLASSWALNUT (F256) IGECLASSCODFISH (F3) IGECLASSCOW'S MILK (F2) IGECLASSSOYBEAN (F14) IGECLASSSHRIMP (F24) IGECLASSSCALLOP (F338) IGECLASSSESAME SEED (F10) IGECLASSHAZELNUT (F17) IGECLASSCASHEW NUT (F202) IGECLASSALMOND (F20) IGECLASSSALMON (F41) IGECLASSTUNA (F40) IGECLASSPanel Description: [id number] 11:37:00INTERPRETATIONPanel Description: HIV 1/2 ANTIGEN/ANTIBODY,FOURTH GENERATION [id number] 11:37:00* Test Item Value Reference Range Comments HIV AG/AB, 4TH GEN (test code = HIV AG/AB, 4TH GEN) NON-REACTIVE NON-REACTIVE HIV-1 antigen and HI V-1/HIV-2 antibodies were notdetected. There is no laboratory evidence of HIVinfection. PLEASE NOTE: This information has been disclosed toyou from records whose confidentiality may beprotected by state law. If your state requires suchprotection, then the state law prohibits you frommaking any further disclosure of the informationwithout the specific written consent of the personto whom it pertains, or as otherwise permitted by law.A general authorization for the release of medical orother information is NOT sufficient for this purpose. For additional information please refer [email or web address]/[email or web address](This link is being provided for informational/educational purposes only.) The performance of this assay has not been clinicallyvalidated in patients less than 2 years old. Panel Description: COMPREHENSIVE METABOLIC [id number] 11:37:00* Test Item Value Reference Range Comments GLUCOSE (test code = GLUCOSE) 97 mg/dL 65-139 Non-fasting referenc e interval UREA NITROGEN (BUN) (test code = UREA NITROGEN (BUN)) 10 mg/dL 7-25 CREATININE (test code = CREATININE) 0.70 mg/dL 0.50-0.97 EGFR (test code = EGFR) 119 mL/min/1.73m2 See_Comment The eGFR is based on the CKD-EPI 2021 equation. To calculate the new eGFR from a previous Creatinine or Cystatin Cresult, go to https://[email or web address].org/pr [email or web address]/[email or web address] [email or web address] [Automated message] The system which generated this result transmitted reference range: > OR = 60. The reference range was not used to interpret this result as normal/abnormal. BUN/CREATININE RATIO (test code = BUN/CREATININE RATIO) NOT APPLICABLE 6-22 SODIUM (test code = SODIUM) 138 mmol/L 135-146 POTASSIUM (test code = POTASSIUM) 3.5 mmol/L 3.5-5.3 CHLORIDE (test code = CHLORIDE) 104 mmol/L 98-110 CARBON DIOXIDE (test code = CARBON DIOXIDE) 26 mmol/L 20-32 CALCIUM (test code = CALCIUM) 8.9 mg/dL 8.6-10.2 PROTEIN, TOTAL (test code = PROTEIN, TOTAL) 6.6 g/dL 6.1-8.1 ALBUMIN (test code = ALBUMIN) 4.3 g/dL 3.6-5.1 GLOBULIN (test code = GLOBULIN) 2.3 g/dL(calc) 1.9-3.7 ALBUMIN/GLOBULIN RATIO (test code = ALBUMIN/GLOBULIN RATIO) 1.9 (calc) 1.0-2.5 BILIRUBIN, TOTAL (test code = BILIRUBIN, TOTAL) 0.4 mg/dL 0.2-1.2 ALKALINE PHOSPHATASE (test code = ALKALINE PHOSPHATASE) 50 U/L 31-125 AST (test code = AST) 11 U/L 10-30 ALT (test code = ALT) 8 U/L 6-29 Panel Description: SED RATE BY MODIFIED [id number] 11:37:00* Test Item Value Reference Range Comments SED RATE BY MODIFIED WESTERG JUAN (test code = SED RATE BY MODIFIED WESTERGREN) 2 mm/h See_Comment [Automated message] The system which generated this result transmitted reference range: < OR = 20. The reference range was not used to interpret this result as normal/abnormal. Panel Description: CBC (INCLUDES DIFF/PLT)2022-08-14 11:37:00* Test Item Value Reference Range Comments WHITE BLOOD CELL COUNT (test code = WHITE BLOOD CELL COUNT) 5.7 Thousand/uL 3.8-10.8 RED BLOOD CELL COUNT (test c ode = RED BLOOD CELL COUNT) 4.57 Million/uL 3.80-5.10 HEMOGLOBIN (test code = HEMOGLOBIN) 13.4 g/dL 11.7- 15.5 HEMATOCRIT (test code = HEMATOCRIT) 40.5 % 35.0- 45.0 MCV (test code = MCV) 88.6 fL 80.0-100.0 MCH (test code = MCH) 29.3 pg 27.0-33.0 MCHC (test code = MCHC) 33.1 g/dL 32.0-36.0 RDW (test code = RDW) 12.0 % 11.0-15.0 PLATELET COUNT (test code = PLATELET COUNT) [address]/uL 140-400 MPV (test code = MPV) 11.4 fL 7.5-12.5 ABSOLUTE NEUTROPHILS (test c ode = ABSOLUTE NEUTROPHILS) 2753 cells/uL 2467-0039 ABSOLUTE BAND NEUTROPHILS (t est code = ABSOLUTE BAND NEUTROPHILS) DNR 0-750 ABSOLUTE METAMYELOCYTES (carin t code = ABSOLUTE METAMYELOCYTES) DNR 0-0 ABSOLUTE MYELOCYTES (test co de = ABSOLUTE MYELOCYTES) DNR 0-0 ABSOLUTE PROMYELOCYTES (test code = ABSOLUTE PROMYELOCYTES) DNR 0-0 ABSOLUTE LYMPHOCYTES (test c ode = ABSOLUTE LYMPHOCYTES) 2252 cells/uL 850-3900 ABSOLUTE MONOCYTES (test cod e = ABSOLUTE MONOCYTES) 251 cells/uL 200-950 ABSOLUTE EOSINOPHILS (test c ode = ABSOLUTE EOSINOPHILS) 405 cells/uL 15-500 ABSOLUTE BASOPHILS (test cod e = ABSOLUTE BASOPHILS) 40 cells/uL 0-200 ABSOLUTE BLASTS (test code = ABSOLUTE BLASTS) DNR 0-0 ABSOLUTE NUCLEATED RBC (test code = ABSOLUTE NUCLEATED RBC) DNR 0-0 NEUTROPHILS (test code = NEUTROPHILS) 48.3 % BAND NEUTROPHILS (test code = BAND NEUTROPHILS) DNR METAMYELOCYTES (test code = METAMYELOCYTES) DNR MYELOCYTES (test code = MYELOCYTES) DNR PROMYELOCYTES (test code = PROMYELOCYTES) DNR LYMPHOCYTES (test code = LYMPHOCYTES) 39.5 % REACTIVE LYMPHOCYTES (test c ode = REACTIVE LYMPHOCYTES) DNR 0-10 MONOCYTES (test code = MONOCYTES) 4.4 % EOSINOPHILS (test code = EOSINOPHILS) 7.1 % BASOPHILS (test code = BASOPHILS) 0.7 % BLASTS (test code = BLASTS) DNR NUCLEATED RBC (test code = NUCLEATED RBC) DNR 0-0 COMMENT(S) (test code = COMMENT(S)) DNR Panel Description: SUKHWINDER SCREEN, IFA, W/REFL TITER AND [id number] 11:37:00 SUKHWINDER SCREEN, IFAPanel Description: HEPATITIS C AB W/REFL TO HCV RNA, QN, PCR 2022-08-14 11:37:00* Test Item Value Reference Range Comments HEPATITIS C ANTIBODY (test code = HEPATITIS C ANTIBODY) NON-REACTIVE NON-REACTIVE INDEX (test code = INDEX) 0.13 <1.00 HC V antibody was non-reactive. There is no laboratory evidence of HCV infection. In most cases, no further action is required. However,if recent HCV exposure is suspected, a test for HCV RNA(test code 45698) is suggested. For additional information please refer tohttp://education.[employer]/faq/SGT76y0(This link is being provided for informational/educational purposes only.) Panel Description: LIPID PANEL, [id number] 09:56:00* Test Item Value Reference Range Comments CHOLESTEROL, TOTAL (test code = CHOLESTEROL, TOTAL) 201 mg/dL <200 HDL CHOLESTEROL (test code = HDL CHOLESTEROL) 53 mg/dL See_Comment [Automated message] The system which generated this result transmitted reference range: > OR = 50. The reference range was not used to interpret this result as normal/abnormal. TRIGLYCERIDES (test code = TRIGLYCERIDES) 68 mg/dL <150 LDL-CHOLESTEROL (test code = LDL-CHOLESTEROL) 132 mg/dL(calc) Reference range: <10 0 Desirable range <100 mg/dL for primary prevention; <70 mg/dL for patients with CHD or diabetic patients with > or = 2 CHD risk factors. LDL-C is now calculated using the Flavio-Herrera calculation, which is a validated novel method providing better accuracy than the Friedewald equation in the estimation of LDL-C. Flavio JUAN et al. CHARLEEN. 2013;310(19): 2932-4415 (http://education.[employer]/faq/KTR005) CHOL/HDLC RATIO (test code = CHOL/HDLC RATIO) 3.8 (calc) <5.0 NON HDL CHOLESTEROL (test code = NON HDL CHOLESTEROL) 148 mg/dL(calc) <130 For patients with diabetes plus 1 major ASCVD risk factor, treating to a non-HDL-C goal of <100 mg/dL (LDL-C of <70 mg/dL) is considered a therapeutic option. Panel Description: TSH W/REFLEX TO [id number] 09:56:00TSH W/REFLEX TO FT4 Panel Description: VITAMIN D,25-OH,TOTAL,[id number] 09:56:00VITAMIN D,25-OH,TOTAL,IAPanel Description: FOOD ALLERGY PROFILE WITH [id number] 09:56:00EGG WHITE (F1) IGECLASSPEANUT (F13) IGECLASSWHEAT (F4) IGECLASSWALNUT (F256) IGECLASSCODFISH (F3) IGECLASSCOW'S MILK (F2) IGECLASSSOYBEAN (F14) IGECLASSSHRIMP (F24) IGECLASSSCALLOP (F338) IGECLASSSESAME SEED (F10) IGECLASSHAZELNUT (F17) IGECLASSCASHEW NUT (F202) IGECLASSALMOND (F20) IGECLASSSALMON (F41) IGECLASSTUNA (F40) IGECLASSPanel Description: [id number] 09:56:00INTERPRETATIONPanel Description: HIV 1/2 ANTIGEN/ANTIBODY,FOURTH GENERATION [id number] 09:56:00* Test Item Value Reference Range Comments HIV AG/AB, 4TH GEN (test code = HIV AG/AB, 4TH GEN) NON-REACTIVE NON-REACTIVE HIV-1 antigen and HI V-1/HIV-2 antibodies were notdetected. There is no laboratory evidence of HIVinfection. PLEASE NOTE: This information has been disclosed toyou from records whose confidentiality may beprotected by state law. If your state requires suchprotection, then the state law prohibits you frommaking any further disclosure of the informationwithout the specific written consent of the personto whom it pertains, or as otherwise permitted by law.A general authorization for the release of medical orother information is NOT sufficient for this purpose. For additional information please refer tohttp://education.[employer]/faq/ACE350(This link is being provided for informational/educational purposes only.) The performance of this assay has not been clinicallyvalidated in patients less than 2 years old. Panel Description: COMPREHENSIVE METABOLIC [id number] 09:56:00* Test Item Value Reference Range Comments GLUCOSE (test code = GLUCOSE) 97 mg/dL 65-139 Non-fasting referenc e interval UREA NITROGEN (BUN) (test code = UREA NITROGEN (BUN)) 10 mg/dL 7-25 CREATININE (test code = CREATININE) 0.70 mg/dL 0.50-0.97 EGFR (test code = EGFR) 119 mL/min/1.73m2 See_Comment The eGFR is based on the CKD-EPI 202 equation. To calculate the new eGFR from a previous Creatinine or Cystatin Cresult, go to https://www.kidney.org/pr ofessionals/kdoqi/gfr%5Fc alculator [Automated message] The system which generated this result transmitted reference range: > OR = 60. The reference range was not used to interpret this result as normal/abnormal. BUN/CREATININE RATIO (test code = BUN/CREATININE RATIO) NOT APPLICABLE 6-22 SODIUM (test code = SODIUM) 138 mmol/L 135-146 POTASSIUM (test code = POTASSIUM) 3.5 mmol/L 3.5-5.3 CHLORIDE (test code = CHLORIDE) 104 mmol/L 98-110 CARBON DIOXIDE (test code = CARBON DIOXIDE) 26 mmol/L 20-32 CALCIUM (test code = CALCIUM) 8.9 mg/dL 8.6-10.2 PROTEIN, TOTAL (test code = PROTEIN, TOTAL) 6.6 g/dL 6.1-8.1 ALBUMIN (test code = ALBUMIN) 4.3 g/dL 3.6-5.1 GLOBULIN (test code = GLOBULIN) 2.3 g/dL(calc) 1.9-3.7 ALBUMIN/GLOBULIN RATIO (test code = ALBUMIN/GLOBULIN RATIO) 1.9 (calc) 1.0-2.5 BILIRUBIN, TOTAL (test code = BILIRUBIN, TOTAL) 0.4 mg/dL 0.2-1.2 ALKALINE PHOSPHATASE (test code = ALKALINE PHOSPHATASE) 50 U/L 31-125 AST (test code = AST) 11 U/L 10-30 ALT (test code = ALT) 8 U/L 6-29 Panel Description: SED RATE BY MODIFIED [id number] 09:56:00* Test Item Value Reference Range Comments SED RATE BY MODIFIED WESTERG JUAN (test code = SED RATE BY MODIFIED WESTERGREN) 2 mm/h See_Comment [Automated message] The system which generated this result transmitted reference range: < OR = 20. The reference range was not used to interpret this result as normal/abnormal. Panel Description: CBC (INCLUDES DIFF/PLT)2022-08-14 09:56:00* Test Item Value Reference Range Comments WHITE BLOOD CELL COUNT (test code = WHITE BLOOD CELL COUNT) 5.7 Thousand/uL 3.8-10.8 RED BLOOD CELL COUNT (test c ode = RED BLOOD CELL COUNT) 4.57 Million/uL 3.80-5.10 HEMOGLOBIN (test code = HEMOGLOBIN) 13.4 g/dL 11.7- 15.5 HEMATOCRIT (test code = HEMATOCRIT) 40.5 % 35.0- 45.0 MCV (test code = MCV) 88.6 fL 80.0-100.0 MCH (test code = MCH) 29.3 pg 27.0-33.0 MCHC (test code = MCHC) 33.1 g/dL 32.0-36.0 RDW (test code = RDW) 12.0 % 11.0-15.0 PLATELET COUNT (test code = PLATELET COUNT) [address]/uL 140-400 MPV (test code = MPV) 11.4 fL 7.5-12.5 ABSOLUTE NEUTROPHILS (test c ode = ABSOLUTE NEUTROPHILS) 2753 cells/uL 9100-4451 ABSOLUTE BAND NEUTROPHILS (t est code = ABSOLUTE BAND NEUTROPHILS) DNR 0-750 ABSOLUTE METAMYELOCYTES (carin t code = ABSOLUTE METAMYELOCYTES) DNR 0-0 ABSOLUTE MYELOCYTES (test co de = ABSOLUTE MYELOCYTES) DNR 0-0 ABSOLUTE PROMYELOCYTES (test code = ABSOLUTE PROMYELOCYTES) DNR 0-0 ABSOLUTE LYMPHOCYTES (test c ode = ABSOLUTE LYMPHOCYTES) 2252 cells/uL 850-3900 ABSOLUTE MONOCYTES (test cod e = ABSOLUTE MONOCYTES) 251 cells/uL 200-950 ABSOLUTE EOSINOPHILS (test c ode = ABSOLUTE EOSINOPHILS) 405 cells/uL 15-500 ABSOLUTE BASOPHILS (test cod e = ABSOLUTE BASOPHILS) 40 cells/uL 0-200 ABSOLUTE BLASTS (test code = ABSOLUTE BLASTS) DNR 0-0 ABSOLUTE NUCLEATED RBC (test code = ABSOLUTE NUCLEATED RBC) DNR 0-0 NEUTROPHILS (test code = NEUTROPHILS) 48.3 % BAND NEUTROPHILS (test code = BAND NEUTROPHILS) DNR METAMYELOCYTES (test code = METAMYELOCYTES) DNR MYELOCYTES (test code = MYELOCYTES) DNR PROMYELOCYTES (test code = PROMYELOCYTES) DNR LYMPHOCYTES (test code = LYMPHOCYTES) 39.5 % REACTIVE LYMPHOCYTES (test c ode = REACTIVE LYMPHOCYTES) DNR 0-10 MONOCYTES (test code = MONOCYTES) 4.4 % EOSINOPHILS (test code = EOSINOPHILS) 7.1 % BASOPHILS (test code = BASOPHILS) 0.7 % BLASTS (test code = BLASTS) DNR NUCLEATED RBC (test code = NUCLEATED RBC) DNR 0-0 COMMENT(S) (test code = COMMENT(S)) DNR Panel Description: SUKHWINDER SCREEN, IFA, W/REFL TITER AND [id number] 09:56:00 SUKHWINDER SCREEN, IFAPanel Description: HEPATITIS C AB W/REFL TO HCV RNA, QN, PCR 2022-08-14 09:56:00* Test Item Value Reference Range Comments HEPATITIS C ANTIBODY (test code = HEPATITIS C ANTIBODY) NON-REACTIVE NON-REACTIVE INDEX (test code = INDEX) 0.13 <1.00 HC V antibody was non-reactive. There is no laboratory evidence of HCV infection. In most cases, no further action is required. However,if recent HCV exposure is suspected, a test for HCV RNA(test code 87823) is suggested. For additional information please refer tohttp://education.[employer]/faq/XTN63y9(This link is being provided for informational/educational purposes only.) Panel Description: LIPID PANEL, [id number] 09:42:00* Test Item Value Reference Range Comments CHOLESTEROL, TOTAL (test code = CHOLESTEROL, TOTAL) 201 mg/dL <200 HDL CHOLESTEROL (test code = HDL CHOLESTEROL) 53 mg/dL See_Comment [Automated message] The system which generated this result transmitted reference range: > OR = 50. The reference range was not used to interpret this result as normal/abnormal. TRIGLYCERIDES (test code = TRIGLYCERIDES) 68 mg/dL <150 LDL-CHOLESTEROL (test code = LDL-CHOLESTEROL) 132 mg/dL(calc) Reference range: <10 0 Desirable range <100 mg/dL for primary prevention; <70 mg/dL for patients with CHD or diabetic patients with > or = 2 CHD risk factors. LDL-C is now calculated using the Flavio-Javier calculation, which is a validated novel method providing better accuracy than the Friedewald equation in the estimation of LDL-C. Flavio JUAN et al. CHARLEEN. 2013;310(19): 9529-2231 (http://education.[employer]/faq/ORD446) CHOL/HDLC RATIO (test code = CHOL/HDLC RATIO) 3.8 (calc) <5.0 NON HDL CHOLESTEROL (test code = NON HDL CHOLESTEROL) 148 mg/dL(calc) <130 For patients with diabetes plus 1 major ASCVD risk factor, treating to a non-HDL-C goal of <100 mg/dL (LDL-C of <70 mg/dL) is considered a therapeutic option. Panel Description: TSH W/REFLEX TO [id number] 09:42:00TSH W/REFLEX TO FT4 Panel Description: VITAMIN D,25-OH,TOTAL,[id number] 09:42:00VITAMIN D,25-OH,TOTAL,IAPanel Description: FOOD ALLERGY PROFILE WITH [id number] 09:42:00EGG WHITE (F1) IGECLASSPEANUT (F13) IGECLASSWHEAT (F4) IGECLASSWALNUT (F256) IGECLASSCODFISH (F3) IGECLASSCOW'S MILK (F2) IGECLASSSOYBEAN (F14) IGECLASSSHRIMP (F24) IGECLASSSCALLOP (F338) IGECLASSSESAME SEED (F10) IGECLASSHAZELNUT (F17) IGECLASSCASHEW NUT (F202) IGECLASSALMOND (F20) IGECLASSSALMON (F41) IGECLASSTUNA (F40) IGECLASSPanel Description: [id number] 09:42:00INTERPRETATIONPanel Description: HIV 1/2 ANTIGEN/ANTIBODY,FOURTH GENERATION [id number] 09:42:00* Test Item Value Reference Range Comments HIV AG/AB, 4TH GEN (test code = HIV AG/AB, 4TH GEN) NON-REACTIVE NON-REACTIVE HIV-1 antigen and HI V-1/HIV-2 antibodies were notdetected. There is no laboratory evidence of HIVinfection. PLEASE NOTE: This information has been disclosed toyou from records whose confidentiality may beprotected by state law. If your state requires suchprotection, then the state law prohibits you frommaking any further disclosure of the informationwithout the specific written consent of the personto whom it pertains, or as otherwise permitted by law.A general authorization for the release of medical orother information is NOT sufficient for this purpose. For additional information please refer tohttp://education.[employer]/faq/LGX443(This link is being provided for informational/educational purposes only.) The performance of this assay has not been clinicallyvalidated in patients less than 2 years old. Panel Description: COMPREHENSIVE METABOLIC [id number] 09:42:00* Test Item Value Reference Range Comments GLUCOSE (test code = GLUCOSE) 97 mg/dL 65-139 Non-fasting referenc e interval UREA NITROGEN (BUN) (test code = UREA NITROGEN (BUN)) 10 mg/dL 7-25 CREATININE (test code = CREATININE) 0.70 mg/dL 0.50-0.97 EGFR (test code = EGFR) 119 mL/min/1.73m2 See_Comment The eGFR is based on the CKD-EPI 202 equation. To calculate the new eGFR from a previous Creatinine or Cystatin Cresult, go to https://www.kidney.org/pr ofessionals/kdoqi/gfr%5Fc alculator [Automated message] The system which generated this result transmitted reference range: > OR = 60. The reference range was not used to interpret this result as normal/abnormal. BUN/CREATININE RATIO (test code = BUN/CREATININE RATIO) NOT APPLICABLE 6-22 SODIUM (test code = SODIUM) 138 mmol/L 135-146 POTASSIUM (test code = POTASSIUM) 3.5 mmol/L 3.5-5.3 CHLORIDE (test code = CHLORIDE) 104 mmol/L 98-110 CARBON DIOXIDE (test code = CARBON DIOXIDE) 26 mmol/L 20-32 CALCIUM (test code = CALCIUM) 8.9 mg/dL 8.6-10.2 PROTEIN, TOTAL (test code = PROTEIN, TOTAL) 6.6 g/dL 6.1-8.1 ALBUMIN (test code = ALBUMIN) 4.3 g/dL 3.6-5.1 GLOBULIN (test code = GLOBULIN) 2.3 g/dL(calc) 1.9-3.7 ALBUMIN/GLOBULIN RATIO (test code = ALBUMIN/GLOBULIN RATIO) 1.9 (calc) 1.0-2.5 BILIRUBIN, TOTAL (test code = BILIRUBIN, TOTAL) 0.4 mg/dL 0.2-1.2 ALKALINE PHOSPHATASE (test code = ALKALINE PHOSPHATASE) 50 U/L 31-125 AST (test code = AST) 11 U/L 10-30 ALT (test code = ALT) 8 U/L 6-29 Panel Description: SED RATE BY ADRIANA [id number] 09:42:00* Test Item Value Reference Range Comments SED RATE BY MODIFIED RADHA MARTINEZ (test code = SED RATE BY MODIFIED LARRY) 2 mm/h See_Comment [Automated message] The system which generated this result transmitted reference range: < OR = 20. The reference range was not used to interpret this result as normal/abnormal. Panel Description: CBC (INCLUDES DIFF/PLT)2022-08-14 09:42:00* Test Item Value Reference Range Comments WHITE BLOOD CELL COUNT (test code = WHITE BLOOD CELL COUNT) 5.7 Thousand/uL 3.8-10.8 RED BLOOD CELL COUNT (test c ode = RED BLOOD CELL COUNT) 4.57 Million/uL 3.80-5.10 HEMOGLOBIN (test code = HEMOGLOBIN) 13.4 g/dL 11.7- 15.5 HEMATOCRIT (test code = HEMATOCRIT) 40.5 % 35.0- 45.0 MCV (test code = MCV) 88.6 fL 80.0-100.0 MCH (test code = MCH) 29.3 pg 27.0-33.0 MCHC (test code = MCHC) 33.1 g/dL 32.0-36.0 RDW (test code = RDW) 12.0 % 11.0-15.0 PLATELET COUNT (test code = PLATELET COUNT) [address]/uL 140-400 MPV (test code = MPV) 11.4 fL 7.5-12.5 ABSOLUTE NEUTROPHILS (test c ode = ABSOLUTE NEUTROPHILS) 2753 cells/uL 3644-0921 ABSOLUTE BAND NEUTROPHILS (t est code = ABSOLUTE BAND NEUTROPHILS) DNR 0-750 ABSOLUTE METAMYELOCYTES (carin t code = ABSOLUTE METAMYELOCYTES) DNR 0-0 ABSOLUTE MYELOCYTES (test co de = ABSOLUTE MYELOCYTES) DNR 0-0 ABSOLUTE PROMYELOCYTES (test code = ABSOLUTE PROMYELOCYTES) DNR 0-0 ABSOLUTE LYMPHOCYTES (test c ode = ABSOLUTE LYMPHOCYTES) 2252 cells/uL 850-3900 ABSOLUTE MONOCYTES (test cod e = ABSOLUTE MONOCYTES) 251 cells/uL 200-950 ABSOLUTE EOSINOPHILS (test c ode = ABSOLUTE EOSINOPHILS) 405 cells/uL 15-500 ABSOLUTE BASOPHILS (test cod e = ABSOLUTE BASOPHILS) 40 cells/uL 0-200 ABSOLUTE BLASTS (test code = ABSOLUTE BLASTS) DNR 0-0 ABSOLUTE NUCLEATED RBC (test code = ABSOLUTE NUCLEATED RBC) DNR 0-0 NEUTROPHILS (test code = NEUTROPHILS) 48.3 % BAND NEUTROPHILS (test code = BAND NEUTROPHILS) DNR METAMYELOCYTES (test code = METAMYELOCYTES) DNR MYELOCYTES (test code = MYELOCYTES) DNR PROMYELOCYTES (test code = PROMYELOCYTES) DNR LYMPHOCYTES (test code = LYMPHOCYTES) 39.5 % REACTIVE LYMPHOCYTES (test c ode = REACTIVE LYMPHOCYTES) DNR 0-10 MONOCYTES (test code = MONOCYTES) 4.4 % EOSINOPHILS (test code = EOSINOPHILS) 7.1 % BASOPHILS (test code = BASOPHILS) 0.7 % BLASTS (test code = BLASTS) DNR NUCLEATED RBC (test code = NUCLEATED RBC) DNR 0-0 COMMENT(S) (test code = COMMENT(S)) DNR Panel Description: SUKHWINDER SCREEN, IFA, W/REFL TITER AND [id number] 09:42:00 SUKHWINDER SCREEN, IFAPanel Description: HEPATITIS C AB W/REFL TO HCV RNA, QN, PCR 2022-08-14 09:42:00HEPATITIS C ANTIBODYINDEXPanel Description: LIPID PANEL, [id number] 09:37:00CHOLESTEROL, TOTALHDL CHOLESTEROLTRIGLYCERIDESLDL- CHOLESTEROLCHOL/HDLC RATIONON HDL CHOLESTEROLPanel Description: TSH W/REFLEX TO [id number] 09:37:00TSH W/REFLEX TO WD9Titnc Description: VITAMIN D,25-OH,TOTAL,[id number] 09:37:00VITAMIN D,25-OH,TOTAL,IAPanel Description: FOOD ALLERGY PROFILE WITH [id number] 09:37:00EGG WHITE (F1) IGECLASSPEANUT (F13) IGECLASSWHEAT (F4) IGECLASSWALNUT (F256) IGECLASSCODFISH (F3) IGECLASSCOW'S MILK (F2) IGECLASSSOYBEAN (F14) IGECLASSSHRIMP (F24) IGECLASSSCALLOP (F338) IGECLASSSESAME SEED (F10) IGECLASSHAZELNUT (F17) IGECLASSCASHEW NUT (F202) IGECLASSALMOND (F20) IGECLASSSALMON (F41) IGECLASSTUNA (F40) IGECLASSPanel Description: [id number] 09:37:00INTERPRETATION Panel Description: HIV 1/2 ANTIGEN/ANTIBODY,FOURTH GENERATION [id number] 09:37:00* Test Item Value Reference Range Comments HIV AG/AB, 4TH GEN (test code = HIV AG/AB, 4TH GEN) NON-REACTIVE NON-REACTIVE HIV-1 antigen and HI V-1/HIV-2 antibodies were notdetected. There is no laboratory evidence of HIVinfection. PLEASE NOTE: This information has been disclosed toyou from records whose confidentiality may beprotected by state law. If your state requires suchprotection, then the state law prohibits you frommaking any further disclosure of the informationwithout the specific written consent of the personto whom it pertains, or as otherwise permitted by law.A general authorization for the release of medical orother information is NOT sufficient for this purpose. For additional information please refer tohttp://education.[employer]/faq/JCJ369(This link is being provided for informational/educational purposes only.) The performance of this assay has not been clinicallyvalidated in patients less than 2 years old. Panel Description: COMPREHENSIVE METABOLIC [id number] 09:37:00GLUCOSEUREA NITROGEN (BUN)CREATININEEGFRBUN/CREATININE RATIOSODIUMPOTASSIUMCHLORIDECARBON DIOXIDECALCIUMPROTEIN, TOTALALBUMINGLOBULINALBUMIN/GLOBULIN RATIOBILIRUBIN, TOTALALKALINE PHOSPHATASEASTALTPanel Description: SED RATE BY MODIFIED [id number] 09:37:00* Test Item Value Reference Range Comments SED RATE BY MODIFIED WESTERG JUAN (test code = SED RATE BY MODIFIED WESTERGREN) 2 mm/h See_Comment [Automated message] The system which generated this result transmitted reference range: < OR = 20. The reference range was not used to interpret this result as normal/abnormal. Panel Description: CBC (INCLUDES DIFF/PLT)2022-08-14 09:37:00* Test Item Value Reference Range Comments WHITE BLOOD CELL COUNT (test code = WHITE BLOOD CELL COUNT) 5.7 Thousand/uL 3.8-10.8 RED BLOOD CELL COUNT (test c ode = RED BLOOD CELL COUNT) 4.57 Million/uL 3.80-5.10 HEMOGLOBIN (test code = HEMOGLOBIN) 13.4 g/dL 11.7- 15.5 HEMATOCRIT (test code = HEMATOCRIT) 40.5 % 35.0- 45.0 MCV (test code = MCV) 88.6 fL 80.0-100.0 MCH (test code = MCH) 29.3 pg 27.0-33.0 MCHC (test code = MCHC) 33.1 g/dL 32.0-36.0 RDW (test code = RDW) 12.0 % 11.0-15.0 PLATELET COUNT (test code = PLATELET COUNT) [address]/uL 140-400 MPV (test code = MPV) 11.4 fL 7.5-12.5 ABSOLUTE NEUTROPHILS (test c ode = ABSOLUTE NEUTROPHILS) 2753 cells/uL 2781-2810 ABSOLUTE BAND NEUTROPHILS (t est code = ABSOLUTE BAND NEUTROPHILS) DNR 0-750 ABSOLUTE METAMYELOCYTES (carin t code = ABSOLUTE METAMYELOCYTES) DNR 0-0 ABSOLUTE MYELOCYTES (test co de = ABSOLUTE MYELOCYTES) DNR 0-0 ABSOLUTE PROMYELOCYTES (test code = ABSOLUTE PROMYELOCYTES) DNR 0-0 ABSOLUTE LYMPHOCYTES (test c ode = ABSOLUTE LYMPHOCYTES) 2252 cells/uL 850-3900 ABSOLUTE MONOCYTES (test cod e = ABSOLUTE MONOCYTES) 251 cells/uL 200-950 ABSOLUTE EOSINOPHILS (test c ode = ABSOLUTE EOSINOPHILS) 405 cells/uL 15-500 ABSOLUTE BASOPHILS (test cod e = ABSOLUTE BASOPHILS) 40 cells/uL 0-200 ABSOLUTE BLASTS (test code = ABSOLUTE BLASTS) DNR 0-0 ABSOLUTE NUCLEATED RBC (test code = ABSOLUTE NUCLEATED RBC) DNR 0-0 NEUTROPHILS (test code = NEUTROPHILS) 48.3 % BAND NEUTROPHILS (test code = BAND NEUTROPHILS) DNR METAMYELOCYTES (test code = METAMYELOCYTES) DNR MYELOCYTES (test code = MYELOCYTES) DNR PROMYELOCYTES (test code = PROMYELOCYTES) DNR LYMPHOCYTES (test code = LYMPHOCYTES) 39.5 % REACTIVE LYMPHOCYTES (test c ode = REACTIVE LYMPHOCYTES) DNR 0-10 MONOCYTES (test code = MONOCYTES) 4.4 % EOSINOPHILS (test code = EOSINOPHILS) 7.1 % BASOPHILS (test code = BASOPHILS) 0.7 % BLASTS (test code = BLASTS) DNR NUCLEATED RBC (test code = NUCLEATED RBC) DNR 0-0 COMMENT(S) (test code = COMMENT(S)) DNR Panel Description: SUKHWINDER SCREEN, IFA, W/REFL TITER AND [id number] 09:37:00 SUKHWINDER SCREEN, IFAPanel Description: HEPATITIS C AB W/REFL TO HCV RNA, QN, PCR 2022-08-14 09:37:00HEPATITIS C ANTIBODYINDEXPanel Description: LIPID PANEL, [id number] 07:42:00CHOLESTEROL, TOTALHDL CHOLESTEROLTRIGLYCERIDESLDL- CHOLESTEROLCHOL/HDLC RATIONON HDL CHOLESTEROLPanel Description: TSH W/REFLEX TO [id number] 07:42:00TSH W/REFLEX TO [id number] Description: VITAMIN D,25-OH,TOTAL,[id number] 07:42:00VITAMIN D,25-OH,TOTAL,IAPanel Description: FOOD ALLERGY PROFILE WITH [id number] 07:42:00EGG WHITE (F1) IGECLASSPEANUT (F13) IGECLASSWHEAT (F4) IGECLASSWALNUT (F256) IGECLASSCODFISH (F3) IGECLASSCOW'S MILK (F2) IGECLASSSOYBEAN (F14) IGECLASSSHRIMP (F24) IGECLASSSCALLOP (F338) IGECLASSSESAME SEED (F10) IGECLASSHAZELNUT (F17) IGECLASSCASHEW NUT (F202) IGECLASSALMOND (F20) IGECLASSSALMON (F41) IGECLASSTUNA (F40) IGECLASSPanel Description: [id number] 07:42:00INTERPRETATION Panel Description: HIV 1/2 ANTIGEN/ANTIBODY,FOURTH GENERATION [id number] 07:42:00HIV AG/AB, 4TH GENPanel Description: COMPREHENSIVE METABOLIC PANEL 2022-08-14 07:42:00GLUCOSEUREA NITROGEN (BUN)CREATININEEGFRBUN/CREATININE RATIOSODIUMPOTASSIUMCHLORIDECARBON DIOXIDECALCIUMPROTEIN, TOTALALBUMINGLOBULINALBUMIN/GLOBULIN RATIOBILIRUBIN, TOTALALKALINE PHOSPHATASEASTALTPanel Description: SED RATE BY MODIFIED [id number] 07:42:00* Test Item Value Reference Range Comments SED RATE BY MODIFIED RADHA JUAN (test code = SED RATE BY MODIFIED RADHAREN) 2 mm/h See_Comment [Automated message] The system which generated this result transmitted reference range: < OR = 20. The reference range was not used to interpret this result as normal/abnormal. Panel Description: CBC (INCLUDES DIFF/PLT)2022-08-14 07:42:00* Test Item Value Reference Range Comments WHITE BLOOD CELL COUNT (test code = WHITE BLOOD CELL COUNT) 5.7 Thousand/uL 3.8-10.8 RED BLOOD CELL COUNT (test c ode = RED BLOOD CELL COUNT) 4.57 Million/uL 3.80-5.10 HEMOGLOBIN (test code = HEMOGLOBIN) 13.4 g/dL 11.7- 15.5 HEMATOCRIT (test code = HEMATOCRIT) 40.5 % 35.0- 45.0 MCV (test code = MCV) 88.6 fL 80.0-100.0 MCH (test code = MCH) 29.3 pg 27.0-33.0 MCHC (test code = MCHC) 33.1 g/dL 32.0-36.0 RDW (test code = RDW) 12.0 % 11.0-15.0 PLATELET COUNT (test code = PLATELET COUNT) [address]/uL 140-400 MPV (test code = MPV) 11.4 fL 7.5-12.5 ABSOLUTE NEUTROPHILS (test c ode = ABSOLUTE NEUTROPHILS) 2753 cells/uL 8481-7823 ABSOLUTE BAND NEUTROPHILS (t est code = ABSOLUTE BAND NEUTROPHILS) DNR 0-750 ABSOLUTE METAMYELOCYTES (carin t code = ABSOLUTE METAMYELOCYTES) DNR 0-0 ABSOLUTE MYELOCYTES (test co de = ABSOLUTE MYELOCYTES) DNR 0-0 ABSOLUTE PROMYELOCYTES (test code = ABSOLUTE PROMYELOCYTES) DNR 0-0 ABSOLUTE LYMPHOCYTES (test c ode = ABSOLUTE LYMPHOCYTES) 2252 cells/uL 850-3900 ABSOLUTE MONOCYTES (test cod e = ABSOLUTE MONOCYTES) 251 cells/uL 200-950 ABSOLUTE EOSINOPHILS (test c ode = ABSOLUTE EOSINOPHILS) 405 cells/uL 15-500 ABSOLUTE BASOPHILS (test cod e = ABSOLUTE BASOPHILS) 40 cells/uL 0-200 ABSOLUTE BLASTS (test code = ABSOLUTE BLASTS) DNR 0-0 ABSOLUTE NUCLEATED RBC (test code = ABSOLUTE NUCLEATED RBC) DNR 0-0 NEUTROPHILS (test code = NEUTROPHILS) 48.3 % BAND NEUTROPHILS (test code = BAND NEUTROPHILS) DNR METAMYELOCYTES (test code = METAMYELOCYTES) DNR MYELOCYTES (test code = MYELOCYTES) DNR PROMYELOCYTES (test code = PROMYELOCYTES) DNR LYMPHOCYTES (test code = LYMPHOCYTES) 39.5 % REACTIVE LYMPHOCYTES (test c ode = REACTIVE LYMPHOCYTES) DNR 0-10 MONOCYTES (test code = MONOCYTES) 4.4 % EOSINOPHILS (test code = EOSINOPHILS) 7.1 % BASOPHILS (test code = BASOPHILS) 0.7 % BLASTS (test code = BLASTS) DNR NUCLEATED RBC (test code = NUCLEATED RBC) DNR 0-0 COMMENT(S) (test code = COMMENT(S)) DNR Panel Description: SUKHWINDER SCREEN, IFA, W/REFL TITER AND [id number] 07:42:00 SUKHWINDER SCREEN, IFAPanel Description: HEPATITIS C AB W/REFL TO HCV RNA, QN, PCR 2022-08-14 07:42:00HEPATITIS C ANTIBODYINDEXPanel Description: LIPID PANEL, [id number] 07:14:00CHOLESTEROL, TOTALHDL CHOLESTEROLTRIGLYCERIDESLDL- CHOLESTEROLCHOL/HDLC RATIONON HDL CHOLESTEROLPanel Description: TSH W/REFLEX TO [id number] 07:14:00TSH W/REFLEX TO [id number] Description: VITAMIN D,25-OH,TOTAL,[id number] 07:14:00VITAMIN D,25-OH,TOTAL,IAPanel Description: FOOD ALLERGY PROFILE WITH [id number] 07:14:00EGG WHITE (F1) IGECLASSPEANUT (F13) IGECLASSWHEAT (F4) IGECLASSWALNUT (F256) IGECLASSCODFISH (F3) IGECLASSCOW'S MILK (F2) IGECLASSSOYBEAN (F14) IGECLASSSHRIMP (F24) IGECLASSSCALLOP (F338) IGECLASSSESAME SEED (F10) IGECLASSHAZELNUT (F17) IGECLASSCASHEW NUT (F202) IGECLASSALMOND (F20) IGECLASSSALMON (F41) IGECLASSTUNA (F40) IGECLASSPanel Description: [id number] 07:14:00INTERPRETATION Panel Description: HIV 1/2 ANTIGEN/ANTIBODY,FOURTH GENERATION [id number] 07:14:00HIV AG/AB, 4TH GENPanel Description: COMPREHENSIVE METABOLIC PANEL 2022-08-14 07:14:00GLUCOSEUREA NITROGEN (BUN)CREATININEEGFRBUN/CREATININE RATIOSODIUMPOTASSIUMCHLORIDECARBON DIOXIDECALCIUMPROTEIN, TOTALALBUMINGLOBULINALBUMIN/GLOBULIN RATIOBILIRUBIN, TOTALALKALINE PHOSPHATASEASTALTPanel Description: SED RATE BY MODIFIED [id number] 07:14:00SED R[facility]: [facility] (INCLUDES DIFF/PLT)2022-08-14 07:14:00* Test Item Value Reference Range Comments WHITE BLOOD CELL COUNT (test code = WHITE BLOOD CELL COUNT) 5.7 Thousand/uL 3.8-10.8 RED BLOOD CELL COUNT (test c ode = RED BLOOD CELL COUNT) 4.57 Million/uL 3.80-5.10 HEMOGLOBIN (test code = HEMOGLOBIN) 13.4 g/dL 11.7- 15.5 HEMATOCRIT (test code = HEMATOCRIT) 40.5 % 35.0- 45.0 MCV (test code = MCV) 88.6 fL 80.0-100.0 MCH (test code = MCH) 29.3 pg 27.0-33.0 MCHC (test code = MCHC) 33.1 g/dL 32.0-36.0 RDW (test code = RDW) 12.0 % 11.0-15.0 PLATELET COUNT (test code = PLATELET COUNT) [address]/uL 140-400 MPV (test code = MPV) 11.4 fL 7.5-12.5 ABSOLUTE NEUTROPHILS (test c ode = ABSOLUTE NEUTROPHILS) 2753 cells/uL 1821-5771 ABSOLUTE BAND NEUTROPHILS (t est code = ABSOLUTE BAND NEUTROPHILS) DNR 0-750 ABSOLUTE METAMYELOCYTES (carin t code = ABSOLUTE METAMYELOCYTES) DNR 0-0 ABSOLUTE MYELOCYTES (test co de = ABSOLUTE MYELOCYTES) DNR 0-0 ABSOLUTE PROMYELOCYTES (test code = ABSOLUTE PROMYELOCYTES) DNR 0-0 ABSOLUTE LYMPHOCYTES (test c ode = ABSOLUTE LYMPHOCYTES) 2252 cells/uL 850-3900 ABSOLUTE MONOCYTES (test cod e = ABSOLUTE MONOCYTES) 251 cells/uL 200-950 ABSOLUTE EOSINOPHILS (test c ode = ABSOLUTE EOSINOPHILS) 405 cells/uL 15-500 ABSOLUTE BASOPHILS (test cod e = ABSOLUTE BASOPHILS) 40 cells/uL 0-200 ABSOLUTE BLASTS (test code = ABSOLUTE BLASTS) DNR 0-0 ABSOLUTE NUCLEATED RBC (test code = ABSOLUTE NUCLEATED RBC) DNR 0-0 NEUTROPHILS (test code = NEUTROPHILS) 48.3 % BAND NEUTROPHILS (test code = BAND NEUTROPHILS) DNR METAMYELOCYTES (test code = METAMYELOCYTES) DNR MYELOCYTES (test code = MYELOCYTES) DNR PROMYELOCYTES (test code = PROMYELOCYTES) DNR LYMPHOCYTES (test code = LYMPHOCYTES) 39.5 % REACTIVE LYMPHOCYTES (test c ode = REACTIVE LYMPHOCYTES) DNR 0-10 MONOCYTES (test code = MONOCYTES) 4.4 % EOSINOPHILS (test code = EOSINOPHILS) 7.1 % BASOPHILS (test code = BASOPHILS) 0.7 % BLASTS (test code = BLASTS) DNR NUCLEATED RBC (test code = NUCLEATED RBC) DNR 0-0 COMMENT(S) (test code = COMMENT(S)) DNR Panel Description: SUKHWINDER SCREEN, IFA, W/REFL TITER AND [id number] 07:14:00 SUKHWINDER SCREEN, IFAPanel Description: HEPATITIS C AB W/REFL TO HCV RNA, QN, PCR 2022-08-14 07:14:00HEPATITIS C ANTIBODYINDEXEstimated Creatinine Clearance Calc 2022-04-19 08:38:00* Test Item Value Reference Range Comments Estimated Creatinine Clearan ce Calc (test code = Estimated Creatinine Clearance Calc) 112 mL/min Panel Description: URINE [id number] 14:57:00* Test Item Value Reference Range Comments SOURCE: (test code = 37699-5) URINE STATUS: (test code = STATUS:) PRELIMINARY DATE PLATED: (test code = DATE PLATED:) 07/07/2016 PRELIMINARY: (test code = PRELIMINARY:) SEE COMMENT 07/08/2016 >100,000 CFU/ML GRAM NEGATIVE RODS SENSITIVITIES TO FOLLOW Test Performed by: [facility] [address] [place] [address] Panel Description: URINE [id number] 14:57:00* Test Item Value Reference Range Comments SOURCE: (test code = 74588-7) URINE STATUS: (test code = STATUS:) FINAL DATE PLATED: (test code = DATE PLATED:) 07/07/2016 PRELIMINARY: (test code = PRELIMINARY:) SEE COMMENT 07/08/2016 >100,000 CFU/ML GRAM NEGATIVE RODS SENSITIVITIES TO FOLLOW CULTURE REPORT: (test code = CULTURE REPORT:) SEE COMMENT 07/09/2016 >100,000 CFU/ML KLEBSIELLA PNEUMONIAE Test Performed by: [facility] [address] [place] [address] Panel Description: SENSITIVITY REPORT 14:57:00* Test Item Value Reference Range Comments ORGANISM (test code = ORGANISM) SEE COMMENT KLEBSIELLA PNEUMONIAE ORG NUMBER (test code = ORG NUMBER) 15 AMIKACIN (test code = 12-5) S AMOXICILLIN/CLAV (test code = 20-8) S AMPICILLIN/SULBACTAM (test c ode = 32-3) S AMPICILLIN (test code = 28-1) R CEFAZOLIN (test code = 76-0) S CEFEPIME (test code = 6644-9) S CEFOTAXIME (test code = 108-1) S CEFTAZIDIME (test code = 133-9) S CEFTRIAXONE (test code = 141-2) S CEFUROXIME (test code = 51663-0) S CIPROFLOXACIN (test code = 185-9) S ERTAPENEM (test code = 98615-7) S GENTAMICIN (test code = 267-5) S IMIPENEM (test code = 279-0) S LEVOFLOXACIN (test code = 39946-7) S MEROPENEM (test code = 6652-2) S NITROFURANTOIN (test code = 363-2) S PIPERACILLIN/TAZO (test code = 412-7) S TETRACYCLINE (test code = 496-0) S TOBRAMYCIN (test code = 508-2) S TRIMETH/SULFA (test code = 516-5) S Test Performed by: [facility] [address] [place] [address] Panel Description: B-HCG [id number] 14:57:00* Test Item Value Reference Range Comments B-HCG QUALITATIVE (test code = 2110-5) POSITIVE Test Performed by: [facility] [address] [place] [address] Panel Description: B-HCG [id number] 14:57:00* Test Item Value Reference Range Comments B-HCG QUANTITATIVE (test code = 35943-5) 148 mIU/mL Weeks of gestation h CG mIU/mL 3 6-71 4 10-750 5 217-7,138 6 158-31,795 7 3,697-163,563 8 32,065-149,571 9 63,803-151,410 10 46,509-186,977 12 27,832-210,612 14 13,950-62,530 15 12,039-70,971 16 9,040-56,451 17 8,175-55,868 18 8,099-58,176 Non- premenopausal women: <=1 mIU/mL Postmenopausal women: <=7 mIU/mLAn infrequent occurrence of falsely elevated serum HCG results may be seen in some patients. Typically this is the result of assayinterference by heterophilic antibodies present in the patient. Whilethese false positive results are rare, persistent elevation of serumHCG in the absence of or clinical evidence of disease mustbe carefully evaluated by the clinician. Test Performed by: [facility] [address] [place] [address] Panel Description: B-HCG [id number] 13:40:00* Test Item Value Reference Range Comments B-HCG QUANTITATIVE (test cod e = B-HCG QUANTITATIVE) <1 Weeks of gestation hCG mIU/mL 3 6-71 4 10-750 5 217-7,138 6 158-31,795 7 3,697-163,563 8 32,065-149,571 9 63,803-151,410 10 46,509-186,977 12 27,832-210,612 14 13,950-62,530 15 12,039-70,971 16 9,040-56,451 17 8,175-55,868 18 8,099-58,176 Non- premenopausal women: <=1 mIU/mL Postmenopausal women: <=7 mIU/mLAn infrequent occurrence of falsely elevated serum HCG results may be seen in some patients. Typically this is the result of assayinterference by heterophilic antibodies present in the patient. Whilethese false positive results are rare, persistent elevation of serumHCG in the absence of or clinical evidence of disease mustbe carefully evaluated by the clinician. Test Performed by: [facility] [address] [place] [address] Panel Description: COMPREHENSIVE METABOLIC [id number] 00:02:00* Test Item Value Reference Range Comments GLUCOSE (test code = 2345-7) 76 mg/dL 65-99 Fasting reference interval UREA NITROGEN (BUN) (test code = 3094-0) 10 mg/dL 7-25 CREATININE (test code = 2160-0) 0.63 mg/dL 0.50-1.10 eGFR NON-AFR. DUTCH (test code = 90645-3) 126 mL/min/1.73m2 See_Comment [Automated message ] The system which generated this result transmitted reference range: > OR = 60. The reference range was not used to interpret this result as normal/abnormal. eGFR (test code = 66421-1) 147 mL/min/1.73m2 See_Comment [Automated message ] The system which generated this result transmitted reference range: > OR = 60. The reference range was not used to interpret this result as normal/abnormal. BUN/CREATININE RATIO (test code = 3097-3) 16 (calc) 6-22 SODIUM (test code = 2951-2) 135 mmol/L 135-146 POTASSIUM (test code = 2823-3) 4.2 mmol/L 3.5-5.3 CHLORIDE (test code = 5-0) 100 mmol/L 98-110 CARBON DIOXIDE (test code = 2027-9) 25 mmol/L 19-30 CALCIUM (test code = 07916-3) 9.0 mg/dL 8.6-10.2 PROTEIN, TOTAL (test code = 2885-2) 6.7 g/dL 6.1-8.1 ALBUMIN (test code = 1751-7) 4.1 g/dL 3.6-5.1 GLOBULIN (test code = 25215-9) 2.6 g/dL(calc) 1.9-3.7 ALBUMIN/GLOBULIN RATIO (test code = 1759-0) 1.6 (calc) 1.0-2.5 BILIRUBIN, TOTAL (test code = 1974-) 0.3 mg/dL 0.2-1.2 ALKALINE PHOSPHATASE (test code = 6768-6) 43 U/L 33-115 AST (test code = 1920-8) 15 U/L 10-30 ALT (test code = 1742-6) 14 U/L 6- Panel Description: MICROALBUMIN, RANDOM URINE (W/CREATININE)2015-07-14 00:02:00 * Test Item Value Reference Range Comments CREATININE, RANDOM URINE (test code = 2161-8) 248 mg/dL 20-320 MICROALBUMIN (test code = 19987-6) 1.0 mg/dL See Note: Reference Range:Refe rence RangeNot established MICROALBUMIN/CREATININE RATIO, RANDOM URINE (test code = 9318-7) 4 mcg/mgcreat <30 The ADA defines abno rmalities in albuminexcretion as follows: Category Result (mcg/mg creatinine) Normal <30Microalbuminuria 30-299 Clinical albuminuria > OR = 300 The ADA recommends that at least two of threespecimens collected within a 3-6 month period beabnormal before considering a patient to bewithin a diagnostic category. Panel Description: URINALYSIS, COMPLETE W/REFLEX TO [id number] 00:02:00* Test Item Value Reference Range Comments COLOR (test code = 5778-6) YELLOW YELLOW APPEARANCE (test code = 5767-9) CLEAR CLEAR SPECIFIC GRAVITY (test code = 5811-5) 1.025 1.001-1.035 PH (test code = 5803-2) 6.5 5.0-8.0 GLUCOSE (test code = 27836-4) NEGATIVE NEGATIVE REDUCING SUBSTANCES (test co de = 24690-4) DNR NEGATIVE BILIRUBIN (test code = 5770-3) NEGATIVE NEGATIVE KETONES (test code = 2514-8) NEGATIVE NEGATIVE OCCULT BLOOD (test code = 5794-3) NEGATIVE NEGATIVE PROTEIN (test code = 27871-4) TRACE NEGATIVE NITRITE (test code = 5802-4) NEGATIVE NEGATIVE LEUKOCYTE ESTERASE (test cod e = 5799-2) NEGATIVE NEGATIVE WBC (test code = 5821-4) 0-5 See_Comment [Au tomated message] The system which generated this result transmitted reference range: < OR = 5. The reference range was not used to interpret this result as normal/abnormal. RBC (test code = 30670-8) NONE SEEN See_Comment [A utomated message] The system which generated this result transmitted reference range: < OR = 2. The reference range was not used to interpret this result as normal/abnormal. SQUAMOUS EPITHELIAL CELLS (test code = 62386-3) 0-5 See_Comment [Automated message ] The system which generated this result transmitted reference range: < OR = 5. The reference range was not used to interpret this result as normal/abnormal. TRANSITIONAL EPITHELIAL CELL S (test code = 38088-1) DNR See_Comment [Automated message ] The system which generated this result transmitted reference range: < OR = 5. The reference range was not used to interpret this result as normal/abnormal. RENAL EPITHELIAL CELLS (test code = 65238-1) DNR See_Comment [Automated message] The system which generated this result transmitted reference range: < OR = 3. The reference range was not used to interpret this result as normal/abnormal. BACTERIA (test code = 5769-5) NONE SEEN NONE SEEN CALCIUM OXALATE CRYSTALS (te st code = 03463-5) DNR NONE OR FEW TRIPLE PHOSPHATE CRYSTALS (test code = 71224-9) DNR NONE OR FEW URIC ACID CRYSTALS (test cod e = 83596-5) DNR NONE OR FEW AMORPHOUS SEDIMENT (test cod e = 8246-1) DNR NONE OR FEW CRYSTALS (test code = 53946-9) DNR NONE SEEN HYALINE CAST (test code = 5796-8) NONE SEEN NONE SEEN GRANULAR CAST (test code = 5793-5) DNR NONE SEEN CASTS (test code = 9842-6) DNR NONE SEEN YEAST (test code = 5822-2) DNR NONE SEEN NOTE (test code = 8251-1) DNR Panel Description: CBC (INCLUDES DIFF/PLT)2015-07-14 00:02:00* Test Item Value Reference Range Comments WHITE BLOOD CELL COUNT (test code = 6690-2) 6.[address]/uL 3.8-10.8 RED BLOOD CELL COUNT (test code = 789-8) 4.82 Million/ uL 3.80-5.10 HEMOGLOBIN (test code = 718-7) 14.0 g/dL 11.7-15.5 HEMATOCRIT (test code = 4544-3) 41.9 % 35.0-45.0 MCV (test code = 787-2) 87.0 fL 80.0-100.0 MCH (test code = 785-6) 29.0 pg 27.0-33.0 MCHC (test code = 786-4) 33.3 g/dL 32.0-36.0 RDW (test code = 788-0) 13.1 % 11.0-15.0 PLATELET COUNT (test code = 777-3) 228 Thousand/uL 140 -400 MPV (test code = 776-5) 8.1 fL 7.5-11.5 ABSOLUTE NEUTROPHILS (test code = 751-8) 3418 cells/uL 4707-4635 ABSOLUTE BAND NEUTROPHILS (t est code = 61387-0) DNR 0-750 ABSOLUTE METAMYELOCYTES (carin t code = 99395-0) DNR 0-0 ABSOLUTE MYELOCYTES (test code = 84897-4) DNR 0-0 ABSOLUTE PROMYELOCYTES (test code = 14389-0) DNR 0-0 ABSOLUTE LYMPHOCYTES (test code = 731-0) 2246 cells/uL 850-3900 ABSOLUTE MONOCYTES (test code = 742-7) 326 cells/uL 20 0-950 ABSOLUTE EOSINOPHILS (test code = 711-2) 384 cells/uL 15-500 ABSOLUTE BASOPHILS (test code = 704-7) 26 cells/uL 0- 200 ABSOLUTE BLASTS (test code = 62579-2) DNR 0-0 ABSOLUTE NUCLEATED RBC (test code = 36774-6) DNR 0-0 NEUTROPHILS (test code = 770-8) 53.4 % BAND NEUTROPHILS (test code = 764-1) DNR METAMYELOCYTES (test code = 740-1) DNR MYELOCYTES (test code = 749-2) DNR PROMYELOCYTES (test code = 783-1) DNR LYMPHOCYTES (test code = 736-9) 35.1 % REACTIVE LYMPHOCYTES (test code = 73346-7) DNR 0-10 MONOCYTES (test code = 5905-5) 5.1 % EOSINOPHILS (test code = 713-8) 6.0 % BASOPHILS (test code = 706-2) 0.4 % BLASTS (test code = 709-6) DNR NUCLEATED RBC (test code = 72518-2) DNR 0-0 COMMENT(S) (test code = 8251-1) DNR Panel Description: PROTHROMBIN [id number] 00:02:00* Test Item Value Reference Range Comments INR (test code = 6301-6) 1.0 Ref erence Range 0.9-1.1Moderate-intensity Warfarin Therapy 2.0-3.0Higher-intensity Warfarin Therapy 3.0-4.0 PT (test code = 5902-2) 10.3 sec 9.0-11.5 For more information on this test, go to:[email or web address].[employer]/faq/[email or web address] Panel Description: REFLEXIVE URINE [id number] 00:02:00* Test Item Value Reference Range Comments REFLEXIVE URINE CULTURE (carin t code = 630-4) NO CULTURE INDICATED Panel Description: COMPREHENSIVE METABOLIC [id number] 05:46:00* Test Item Value Reference Range Comments GLUCOSE (test code = 2345-7) 76 mg/dL 65-99 Fasting reference interval UREA NITROGEN (BUN) (test code = 3094-0) 10 mg/dL 7-25 CREATININE (test code = 2160-0) 0.63 mg/dL 0.50-1.10 eGFR NON-AFR. DUTCH (test code = 46997-6) 126 mL/min/1.73m2 See_Comment [Automated message ] The system which generated this result transmitted reference range: > OR = 60. The reference range was not used to interpret this result as normal/abnormal. eGFR (test code = 40568-8) 147 mL/min/1.73m2 See_Comment [Automated message ] The system which generated this result transmitted reference range: > OR = 60. The reference range was not used to interpret this result as normal/abnormal. BUN/CREATININE RATIO (test code = 3097-3) 16 (calc) 6-22 SODIUM (test code = 2951-2) 135 mmol/L 135-146 POTASSIUM (test code = 2823-3) 4.2 mmol/L 3.5-5.3 CHLORIDE (test code = 2075-0) 100 mmol/L 98-110 CARBON DIOXIDE (test code = 8-9) 25 mmol/L 19-30 CALCIUM (test code = 71384-2) 9.0 mg/dL 8.6-10.2 PROTEIN, TOTAL (test code = 2885-2) 6.7 g/dL 6.1-8.1 ALBUMIN (test code = 1751-7) 4.1 g/dL 3.6-5.1 GLOBULIN (test code = 19240-0) 2.6 g/dL(calc) 1.9-3.7 ALBUMIN/GLOBULIN RATIO (test code = 1759-0) 1.6 (calc) 1.0-2.5 BILIRUBIN, TOTAL (test code = 1975-2) 0.3 mg/dL 0.2-1.2 ALKALINE PHOSPHATASE (test code = 6768-6) 43 U/L 33-115 AST (test code = 1920-8) 15 U/L 10-30 ALT (test code = 1742-6) 14 U/L 6-29 Panel Description: MICROALBUMIN, RANDOM URINE (W/CREATININE)2015-07-13 05:46:00 CREATININE, RANDOM URINEMICROALBUMINMICROALBUMIN/CREATININE RATIO, RANDOM URINE Panel Description: URINALYSIS, COMPLETE W/REFLEX TO [id number] 05:46:00* Test Item Value Reference Range Comments COLOR (test code = 5778-6) YELLOW YELLOW APPEARANCE (test code = 5767-9) CLEAR CLEAR SPECIFIC GRAVITY (test code = 5811-5) 1.025 1.001-1.035 PH (test code = 5803-2) 6.5 5.0-8.0 GLUCOSE (test code = 41140-6) NEGATIVE NEGATIVE REDUCING SUBSTANCES (test co de = 27632-1) DNR NEGATIVE BILIRUBIN (test code = 5770-3) NEGATIVE NEGATIVE KETONES (test code = 2514-8) NEGATIVE NEGATIVE OCCULT BLOOD (test code = 5794-3) NEGATIVE NEGATIVE PROTEIN (test code = 46458-9) TRACE NEGATIVE NITRITE (test code = 5802-4) NEGATIVE NEGATIVE LEUKOCYTE ESTERASE (test cod e = 5799-2) NEGATIVE NEGATIVE WBC (test code = 5821-4) 0-5 See_Comment [Au tomated message] The system which generated this result transmitted reference range: < OR = 5. The reference range was not used to interpret this result as normal/abnormal. RBC (test code = 99988-1) NONE SEEN See_Comment [A utomated message] The system which generated this result transmitted reference range: < OR = 2. The reference range was not used to interpret this result as normal/abnormal. SQUAMOUS EPITHELIAL CELLS (test code = 08816-0) 0-5 See_Comment [Automated message ] The system which generated this result transmitted reference range: < OR = 5. The reference range was not used to interpret this result as normal/abnormal. TRANSITIONAL EPITHELIAL CELL S (test code = 91083-6) DNR See_Comment [Automated message ] The system which generated this result transmitted reference range: < OR = 5. The reference range was not used to interpret this result as normal/abnormal. RENAL EPITHELIAL CELLS (test code = 56076-4) DNR See_Comment [Automated message] The system which generated this result transmitted reference range: < OR = 3. The reference range was not used to interpret this result as normal/abnormal. BACTERIA (test code = 5769-5) NONE SEEN NONE SEEN CALCIUM OXALATE CRYSTALS (te st code = 62199-8) DNR NONE OR FEW TRIPLE PHOSPHATE CRYSTALS (test code = 28140-8) DNR NONE OR FEW URIC ACID CRYSTALS (test cod e = 81569-6) DNR NONE OR FEW AMORPHOUS SEDIMENT (test cod e = 8246-1) DNR NONE OR FEW CRYSTALS (test code = 54897-1) DNR NONE SEEN HYALINE CAST (test code = 5796-8) NONE SEEN NONE SEEN GRANULAR CAST (test code = 5793-5) DNR NONE SEEN CASTS (test code = 9842-6) DNR NONE SEEN YEAST (test code = 5822-2) DNR NONE SEEN NOTE (test code = 8251-1) DNR Panel Description: CBC (INCLUDES DIFF/PLT)2015-07-13 05:46:00* Test Item Value Reference Range Comments WHITE BLOOD CELL COUNT (test code = 6690-2) 6.4 [address]/uL 3.8-10.8 RED BLOOD CELL COUNT (test code = 789-8) 4.82 Million/ uL 3.80-5.10 HEMOGLOBIN (test code = 718-7) 14.0 g/dL 11.7-15.5 HEMATOCRIT (test code = 4544-3) 41.9 % 35.0-45.0 MCV (test code = 787-2) 87.0 fL 80.0-100.0 MCH (test code = 785-6) 29.0 pg 27.0-33.0 MCHC (test code = 786-4) 33.3 g/dL 32.0-36.0 RDW (test code = 788-0) 13.1 % 11.0-15.0 PLATELET COUNT (test code = 777-3) 228 Thousand/uL 140 -400 MPV (test code = 776-5) 8.1 fL 7.5-11.5 ABSOLUTE NEUTROPHILS (test code = 751-8) 3418 cells/uL 3959-4939 ABSOLUTE BAND NEUTROPHILS (t est code = 63509-9) DNR 0-750 ABSOLUTE METAMYELOCYTES (carin t code = 41642-3) DNR 0-0 ABSOLUTE MYELOCYTES (test code = 72826-7) DNR 0-0 ABSOLUTE PROMYELOCYTES (test code = 76769-9) DNR 0-0 ABSOLUTE LYMPHOCYTES (test code = 731-0) 2246 cells/uL 850-3900 ABSOLUTE MONOCYTES (test code = 742-7) 326 cells/uL 20 0-950 ABSOLUTE EOSINOPHILS (test code = 711-2) 384 cells/uL 15-500 ABSOLUTE BASOPHILS (test code = 704-7) 26 cells/uL 0- 200 ABSOLUTE BLASTS (test code = 08370-6) DNR 0-0 ABSOLUTE NUCLEATED RBC (test code = 20948-2) DNR 0-0 NEUTROPHILS (test code = 770-8) 53.4 % BAND NEUTROPHILS (test code = 764-1) DNR METAMYELOCYTES (test code = 740-1) DNR MYELOCYTES (test code = 749-2) DNR PROMYELOCYTES (test code = 783-1) DNR LYMPHOCYTES (test code = 736-9) 35.1 % REACTIVE LYMPHOCYTES (test code = 63422-5) DNR 0-10 MONOCYTES (test code = 5905-5) 5.1 % EOSINOPHILS (test code = 713-8) 6.0 % BASOPHILS (test code = 706-2) 0.4 % BLASTS (test code = 709-6) DNR NUCLEATED RBC (test code = 50329-3) DNR 0-0 COMMENT(S) (test code = 8251-1) DNR Panel Description: PROTHROMBIN [id number] 05:46:00* Test Item Value Reference Range Comments INR (test code = 6301-6) 1.0 Ref erence Range 0.9-1.1Moderate-intensity Warfarin Therapy 2.0-3.0Higher-intensity Warfarin Therapy 3.0-4.0 PT (test code = 5902-2) 10.3 sec 9.0-11.5 For more information on this test, go to:[email or web address] Panel Description: REFLEXIVE URINE [id number] 05:46:00* Test Item Value Reference Range Comments REFLEXIVE URINE CULTURE (carin t code = 630-4) NO CULTURE INDICATED Panel Description: COMPREHENSIVE METABOLIC [id number] 16:40:00* Test Item Value Reference Range Comments GLUCOSE (test code = 2345-7) 76 mg/dL 65-99 Fasting reference interval UREA NITROGEN (BUN) (test code = 3094-0) 10 mg/dL 7-25 CREATININE (test code = 2160-0) 0.63 mg/dL 0.50-1.10 eGFR NON-AFR. DUTCH (test code = 59102-6) 126 mL/min/1.73m2 See_Comment [Automated message ] The system which generated this result transmitted reference range: > OR = 60. The reference range was not used to interpret this result as normal/abnormal. eGFR (test code = 75630-5) 147 mL/min/1.73m2 See_Comment [Automated message ] The system which generated this result transmitted reference range: > OR = 60. The reference range was not used to interpret this result as normal/abnormal. BUN/CREATININE RATIO (test code = 3097-3) 16 (calc) 6-22 SODIUM (test code = 2951-2) 135 mmol/L 135-146 POTASSIUM (test code = 2823-3) 4.2 mmol/L 3.5-5.3 CHLORIDE (test code = 2075-0) 100 mmol/L 98-110 CARBON DIOXIDE (test code = 2027-9) 25 mmol/L 19-30 CALCIUM (test code = 73366-1) 9.0 mg/dL 8.6-10.2 PROTEIN, TOTAL (test code = 2885-2) 6.7 g/dL 6.1-8.1 ALBUMIN (test code = 1751-7) 4.1 g/dL 3.6-5.1 GLOBULIN (test code = 12967-7) 2.6 g/dL(calc) 1.9-3.7 ALBUMIN/GLOBULIN RATIO (test code = 1759-0) 1.6 (calc) 1.0-2.5 BILIRUBIN, TOTAL (test code = 1975-2) 0.3 mg/dL 0.2-1.2 ALKALINE PHOSPHATASE (test code = 6768-6) 43 U/L 33-115 AST (test code = 1920-8) 15 U/L 10-30 ALT (test code = 1742-6) 14 U/L 6-29 Panel Description: MICROALBUMIN, RANDOM URINE (W/CREATININE)2015-07-12 16:40:00 CREATININE, RANDOM URINEMICROALBUMINMICROALBUMIN/CREATININE RATIO, RANDOM URINE Panel Description: URINALYSIS, COMPLETE W/REFLEX TO [id number] 16:40:00* Test Item Value Reference Range Comments COLOR (test code = 5778-6) YELLOW YELLOW APPEARANCE (test code = 5767-9) CLEAR CLEAR SPECIFIC GRAVITY (test code = 5811-5) 1.025 1.001-1.035 PH (test code = 5803-2) 6.5 5.0-8.0 GLUCOSE (test code = 65070-6) NEGATIVE NEGATIVE REDUCING SUBSTANCES (test co de = 41810-8) DNR NEGATIVE BILIRUBIN (test code = 5770-3) NEGATIVE NEGATIVE KETONES (test code = 2514-8) NEGATIVE NEGATIVE OCCULT BLOOD (test code = 5794-3) NEGATIVE NEGATIVE PROTEIN (test code = 88903-7) TRACE NEGATIVE NITRITE (test code = 5802-4) NEGATIVE NEGATIVE LEUKOCYTE ESTERASE (test cod e = 5799-2) NEGATIVE NEGATIVE WBC (test code = 5821-4) 0-5 See_Comment [Au tomated message] The system which generated this result transmitted reference range: < OR = 5. The reference range was not used to interpret this result as normal/abnormal. RBC (test code = 71456-3) NONE SEEN See_Comment [A utomated message] The system which generated this result transmitted reference range: < OR = 2. The reference range was not used to interpret this result as normal/abnormal. SQUAMOUS EPITHELIAL CELLS (test code = 32299-3) 0-5 See_Comment [Automated message ] The system which generated this result transmitted reference range: < OR = 5. The reference range was not used to interpret this result as normal/abnormal. TRANSITIONAL EPITHELIAL CELL S (test code = 34495-4) DNR See_Comment [Automated message ] The system which generated this result transmitted reference range: < OR = 5. The reference range was not used to interpret this result as normal/abnormal. RENAL EPITHELIAL CELLS (test code = 43430-8) DNR See_Comment [Automated message] The system which generated this result transmitted reference range: < OR = 3. The reference range was not used to interpret this result as normal/abnormal. BACTERIA (test code = 5769-5) NONE SEEN NONE SEEN CALCIUM OXALATE CRYSTALS (te st code = 45630-5) DNR NONE OR FEW TRIPLE PHOSPHATE CRYSTALS (test code = 50662-7) DNR NONE OR FEW URIC ACID CRYSTALS (test cod e = 17943-5) DNR NONE OR FEW AMORPHOUS SEDIMENT (test cod e = 8246-1) DNR NONE OR FEW CRYSTALS (test code = 18223-2) DNR NONE SEEN HYALINE CAST (test code = 5796-8) NONE SEEN NONE SEEN GRANULAR CAST (test code = 5793-5) DNR NONE SEEN CASTS (test code = 9842-6) DNR NONE SEEN YEAST (test code = 5822-2) DNR NONE SEEN NOTE (test code = 8251-1) DNR Panel Description: CBC (INCLUDES DIFF/PLT)2015-07-12 16:40:00* Test Item Value Reference Range Comments WHITE BLOOD CELL COUNT (test code = 6690-2) 6.4 [address]/uL 3.8-10.8 RED BLOOD CELL COUNT (test code = 789-8) 4.82 Million/ uL 3.80-5.10 HEMOGLOBIN (test code = 718-7) 14.0 g/dL 11.7-15.5 HEMATOCRIT (test code = 4544-3) 41.9 % 35.0-45.0 MCV (test code = 787-2) 87.0 fL 80.0-100.0 MCH (test code = 785-6) 29.0 pg 27.0-33.0 MCHC (test code = 786-4) 33.3 g/dL 32.0-36.0 RDW (test code = 788-0) 13.1 % 11.0-15.0 PLATELET COUNT (test code = 777-3) 228 Thousand/uL 140 -400 MPV (test code = 776-5) 8.1 fL 7.5-11.5 ABSOLUTE NEUTROPHILS (test code = 751-8) 3418 cells/uL 0994-8568 ABSOLUTE BAND NEUTROPHILS (t est code = 78290-4) DNR 0-750 ABSOLUTE METAMYELOCYTES (carin t code = 08877-5) DNR 0-0 ABSOLUTE MYELOCYTES (test code = 93486-1) DNR 0-0 ABSOLUTE PROMYELOCYTES (test code = 53696-1) DNR 0-0 ABSOLUTE LYMPHOCYTES (test code = 731-0) 2246 cells/uL 850-3900 ABSOLUTE MONOCYTES (test code = 742-7) 326 cells/uL 20 0-950 ABSOLUTE EOSINOPHILS (test code = 711-2) 384 cells/uL 15-500 ABSOLUTE BASOPHILS (test code = 704-7) 26 cells/uL 0- 200 ABSOLUTE BLASTS (test code = 82620-1) DNR 0-0 ABSOLUTE NUCLEATED RBC (test code = 22775-7) DNR 0-0 NEUTROPHILS (test code = 770-8) 53.4 % BAND NEUTROPHILS (test code = 764-1) DNR METAMYELOCYTES (test code = 740-1) DNR MYELOCYTES (test code = 749-2) DNR PROMYELOCYTES (test code = 783-1) DNR LYMPHOCYTES (test code = 736-9) 35.1 % REACTIVE LYMPHOCYTES (test code = 49231-6) DNR 0-10 MONOCYTES (test code = 5905-5) 5.1 % EOSINOPHILS (test code = 713-8) 6.0 % BASOPHILS (test code = 706-2) 0.4 % BLASTS (test code = 709-6) DNR NUCLEATED RBC (test code = 38417-6) DNR 0-0 COMMENT(S) (test code = 8251-1) DNR Panel Description: PROTHROMBIN [id number] 16:40:00* Test Item Value Reference Range Comments INR (test code = 6301-6) 1.0 Ref erence Range 0.9-1.1Moderate-intensity Warfarin Therapy 2.0-3.0Higher-intensity Warfarin Therapy 3.0-4.0 PT (test code = 5902-2) 10.3 sec 9.0-11.5 For more information on this test, go to:http://education.[employer]/faq/[email or web address] Panel Description: REFLEXIVE URINE [id number] 16:40:00REFLEXIVE URINE CULTUREPanel Description: COMPREHENSIVE METABOLIC [id number] 16:34:00 GLUCOSEUREA NITROGEN (BUN)CREATININEeGFR NON-AFR. AMERICANeGFR AMERICANBUN/CREATININE RATIOSODIUMPOTASSIUMCHLORIDECARBON DIOXIDECALCIUMPROTEIN, TOTALALBUMINGLOBULINALBUMIN/GLOBULIN RATIOBILIRUBIN, TOTALALKALINE PHOSPHATASEASTALTPanel Description: MICROALBUMIN, RANDOM URINE (W/CREATININE) 2015-07-12 16:34:00CREATININE, RANDOM URINEMICROALBUMINMICROALBUMIN/CREATININE RATIO, RANDOM URINEPanel Description: URINALYSIS, COMPLETE W/REFLEX TO CULTURE 2015-07-12 16:34:00* Test Item Value Reference Range Comments COLOR (test code = 5778-6) YELLOW YELLOW APPEARANCE (test code = 5767-9) CLEAR CLEAR SPECIFIC GRAVITY (test code = 5811-5) 1.025 1.001-1.035 PH (test code = 5803-2) 6.5 5.0-8.0 GLUCOSE (test code = 17990-8) NEGATIVE NEGATIVE REDUCING SUBSTANCES (test co de = 94275-4) DNR NEGATIVE BILIRUBIN (test code = 5770-3) NEGATIVE NEGATIVE KETONES (test code = 2514-8) NEGATIVE NEGATIVE OCCULT BLOOD (test code = 5794-3) NEGATIVE NEGATIVE PROTEIN (test code = 22014-5) TRACE NEGATIVE NITRITE (test code = 5802-4) NEGATIVE NEGATIVE LEUKOCYTE ESTERASE (test cod e = 5799-2) NEGATIVE NEGATIVE WBC (test code = 5821-4) 0-5 See_Comment [Au tomated message] The system which generated this result transmitted reference range: < OR = 5. The reference range was not used to interpret this result as normal/abnormal. RBC (test code = 05052-1) NONE SEEN See_Comment [A utomated message] The system which generated this result transmitted reference range: < OR = 2. The reference range was not used to interpret this result as normal/abnormal. SQUAMOUS EPITHELIAL CELLS (test code = 19662-5) 0-5 See_Comment [Automated message ] The system which generated this result transmitted reference range: < OR = 5. The reference range was not used to interpret this result as normal/abnormal. TRANSITIONAL EPITHELIAL CELL S (test code = 59166-4) DNR See_Comment [Automated message ] The system which generated this result transmitted reference range: < OR = 5. The reference range was not used to interpret this result as normal/abnormal. RENAL EPITHELIAL CELLS (test code = 22208-8) DNR See_Comment [Automated message] The system which generated this result transmitted reference range: < OR = 3. The reference range was not used to interpret this result as normal/abnormal. BACTERIA (test code = 5769-5) NONE SEEN NONE SEEN CALCIUM OXALATE CRYSTALS (te st code = 52960-0) DNR NONE OR FEW TRIPLE PHOSPHATE CRYSTALS (test code = 68191-1) DNR NONE OR FEW URIC ACID CRYSTALS (test cod e = 66906-5) DNR NONE OR FEW AMORPHOUS SEDIMENT (test cod e = 8246-1) DNR NONE OR FEW CRYSTALS (test code = 11819-3) DNR NONE SEEN HYALINE CAST (test code = 5796-8) NONE SEEN NONE SEEN GRANULAR CAST (test code = 5793-5) DNR NONE SEEN CASTS (test code = 9842-6) DNR NONE SEEN YEAST (test code = 5822-2) DNR NONE SEEN NOTE (test code = 8251-1) DNR Panel Description: CBC (INCLUDES DIFF/PLT)2015-07-12 16:34:00* Test Item Value Reference Range Comments WHITE BLOOD CELL COUNT (test code = 6690-2) 6.4 Th[address]/uL 3.8-10.8 RED BLOOD CELL COUNT (test code = 789-8) 4.82 Million/ uL 3.80-5.10 HEMOGLOBIN (test code = 718-7) 14.0 g/dL 11.7-15.5 HEMATOCRIT (test code = 4544-3) 41.9 % 35.0-45.0 MCV (test code = 787-2) 87.0 fL 80.0-100.0 MCH (test code = 785-6) 29.0 pg 27.0-33.0 MCHC (test code = 786-4) 33.3 g/dL 32.0-36.0 RDW (test code = 788-0) 13.1 % 11.0-15.0 PLATELET COUNT (test code = 777-3) 228 Thousand/uL 140 -400 MPV (test code = 776-5) 8.1 fL 7.5-11.5 ABSOLUTE NEUTROPHILS (test code = 751-8) 3418 cells/uL 1402-3907 ABSOLUTE BAND NEUTROPHILS (t est code = 03957-3) DNR 0-750 ABSOLUTE METAMYELOCYTES (carin t code = 40458-9) DNR 0-0 ABSOLUTE MYELOCYTES (test code = 86075-0) DNR 0-0 ABSOLUTE PROMYELOCYTES (test code = 28001-9) DNR 0-0 ABSOLUTE LYMPHOCYTES (test code = 731-0) 2246 cells/uL 850-3900 ABSOLUTE MONOCYTES (test code = 742-7) 326 cells/uL 20 0-950 ABSOLUTE EOSINOPHILS (test code = 711-2) 384 cells/uL 15-500 ABSOLUTE BASOPHILS (test code = 704-7) 26 cells/uL 0- 200 ABSOLUTE BLASTS (test code = 59557-8) DNR 0-0 ABSOLUTE NUCLEATED RBC (test code = 47212-6) DNR 0-0 NEUTROPHILS (test code = 770-8) 53.4 % BAND NEUTROPHILS (test code = 764-1) DNR METAMYELOCYTES (test code = 740-1) DNR MYELOCYTES (test code = 749-2) DNR PROMYELOCYTES (test code = 783-1) DNR LYMPHOCYTES (test code = 736-9) 35.1 % REACTIVE LYMPHOCYTES (test code = 79943-1) DNR 0-10 MONOCYTES (test code = 5905-5) 5.1 % EOSINOPHILS (test code = 713-8) 6.0 % BASOPHILS (test code = 706-2) 0.4 % BLASTS (test code = 709-6) DNR NUCLEATED RBC (test code = 88706-7) DNR 0-0 COMMENT(S) (test code = 8251-1) DNR Panel Description: PROTHROMBIN [id number] 16:34:00* Test Item Value Reference Range Comments INR (test code = 6301-6) 1.0 Ref erence Range 0.9-1.1Moderate-intensity Warfarin Therapy 2.0-3.0Higher-intensity Warfarin Therapy 3.0-4.0 PT (test code = 5902-2) 10.3 sec 9.0-11.5 For more information on this test, go to:http://education.[employer]/faq/[email or web address] Panel Description: REFLEXIVE URINE [id number] 16:34:00REFLEXIVE URINE CULTUREPanel Description: COMPREHENSIVE METABOLIC [id number] 16:22:00 GLUCOSEUREA NITROGEN (BUN)CREATININEeGFR NON-AFR. AMERICANeGFR AMERICANBUN/CREATININE RATIOSODIUMPOTASSIUMCHLORIDECARBON DIOXIDECALCIUMPROTEIN, TOTALALBUMINGLOBULINALBUMIN/GLOBULIN RATIOBILIRUBIN, TOTALALKALINE PHOSPHATASEASTALTPanel Description: MICROALBUMIN, RANDOM URINE (W/CREATININE) 2015-07-12 16:22:00CREATININE, RANDOM URINEMICROALBUMINMICROALBUMIN/CREATININE RATIO, RANDOM URINEPanel Description: URINALYSIS, COMPLETE W/REFLEX TO CULTURE 2015-07-12 16:22:00* Test Item Value Reference Range Comments COLOR (test code = 5778-6) YELLOW YELLOW APPEARANCE (test code = 5767-9) CLEAR CLEAR SPECIFIC GRAVITY (test code = 5811-5) 1.025 1.001-1.035 PH (test code = 5803-2) 6.5 5.0-8.0 GLUCOSE (test code = 17369-9) NEGATIVE NEGATIVE REDUCING SUBSTANCES (test co de = 82581-9) DNR NEGATIVE BILIRUBIN (test code = 5770-3) NEGATIVE NEGATIVE KETONES (test code = 2514-8) NEGATIVE NEGATIVE OCCULT BLOOD (test code = 5794-3) NEGATIVE NEGATIVE PROTEIN (test code = 38549-4) TRACE NEGATIVE NITRITE (test code = 5802-4) NEGATIVE NEGATIVE LEUKOCYTE ESTERASE (test cod e = 5799-2) NEGATIVE NEGATIVE WBC (test code = 5821-4) 0-5 See_Comment [Au tomated message] The system which generated this result transmitted reference range: < OR = 5. The reference range was not used to interpret this result as normal/abnormal. RBC (test code = 11737-9) NONE SEEN See_Comment [A utomated message] The system which generated this result transmitted reference range: < OR = 2. The reference range was not used to interpret this result as normal/abnormal. SQUAMOUS EPITHELIAL CELLS (test code = 49769-4) 0-5 See_Comment [Automated message ] The system which generated this result transmitted reference range: < OR = 5. The reference range was not used to interpret this result as normal/abnormal. TRANSITIONAL EPITHELIAL CELL S (test code = 94390-7) DNR See_Comment [Automated message ] The system which generated this result transmitted reference range: < OR = 5. The reference range was not used to interpret this result as normal/abnormal. RENAL EPITHELIAL CELLS (test code = 55465-9) DNR See_Comment [Automated message] The system which generated this result transmitted reference range: < OR = 3. The reference range was not used to interpret this result as normal/abnormal. BACTERIA (test code = 5769-5) NONE SEEN NONE SEEN CALCIUM OXALATE CRYSTALS (te st code = 67327-3) DNR NONE OR FEW TRIPLE PHOSPHATE CRYSTALS (test code = 16535-1) DNR NONE OR FEW URIC ACID CRYSTALS (test cod e = 42131-3) DNR NONE OR FEW AMORPHOUS SEDIMENT (test cod e = 8246-1) DNR NONE OR FEW CRYSTALS (test code = 72109-0) DNR NONE SEEN HYALINE CAST (test code = 5796-8) NONE SEEN NONE SEEN GRANULAR CAST (test code = 5793-5) DNR NONE SEEN CASTS (test code = 9842-6) DNR NONE SEEN YEAST (test code = 5822-2) DNR NONE SEEN NOTE (test code = 8251-1) DNR Panel Description: CBC (INCLUDES DIFF/PLT)2015-07-12 16:22:00* Test Item Value Reference Range Comments WHITE BLOOD CELL COUNT (test code = 6690-2) 6.4 Th[place] [address]/uL 3.8-10.8 RED BLOOD CELL COUNT (test code = 789-8) 4.82 Million/ uL 3.80-5.10 HEMOGLOBIN (test code = 718-7) 14.0 g/dL 11.7-15.5 HEMATOCRIT (test code = 4544-3) 41.9 % 35.0-45.0 MCV (test code = 787-2) 87.0 fL 80.0-100.0 MCH (test code = 785-6) 29.0 pg 27.0-33.0 MCHC (test code = 786-4) 33.3 g/dL 32.0-36.0 RDW (test code = 788-0) 13.1 % 11.0-15.0 PLATELET COUNT (test code = 777-3) 228 Thousand/uL 140 -400 MPV (test code = 776-5) 8.1 fL 7.5-11.5 ABSOLUTE NEUTROPHILS (test code = 751-8) 3418 cells/uL 9854-7156 ABSOLUTE BAND NEUTROPHILS (t est code = 18138-9) DNR 0-750 ABSOLUTE METAMYELOCYTES (carin t code = 40175-2) DNR 0-0 ABSOLUTE MYELOCYTES (test code = 03980-6) DNR 0-0 ABSOLUTE PROMYELOCYTES (test code = 94571-4) DNR 0-0 ABSOLUTE LYMPHOCYTES (test code = 731-0) 2246 cells/uL 850-3900 ABSOLUTE MONOCYTES (test code = 742-7) 326 cells/uL 20 0-950 ABSOLUTE EOSINOPHILS (test code = 711-2) 384 cells/uL 15-500 ABSOLUTE BASOPHILS (test code = 704-7) 26 cells/uL 0- 200 ABSOLUTE BLASTS (test code = 95598-7) DNR 0-0 ABSOLUTE NUCLEATED RBC (test code = 80112-2) DNR 0-0 NEUTROPHILS (test code = 770-8) 53.4 % BAND NEUTROPHILS (test code = 764-1) DNR METAMYELOCYTES (test code = 740-1) DNR MYELOCYTES (test code = 749-2) DNR PROMYELOCYTES (test code = 783-1) DNR LYMPHOCYTES (test code = 736-9) 35.1 % REACTIVE LYMPHOCYTES (test code = 01191-9) DNR 0-10 MONOCYTES (test code = 5905-5) 5.1 % EOSINOPHILS (test code = 713-8) 6.0 % BASOPHILS (test code = 706-2) 0.4 % BLASTS (test code = 709-6) DNR NUCLEATED RBC (test code = 52429-1) DNR 0-0 COMMENT(S) (test code = 8251-1) DNR Panel Description: PROTHROMBIN [id number] 16:22:00INRPTPanel Description: REFLEXIVE URINE [id number] 16:22:00REFLEXIVE URINE CULTURE Panel Description: COMPREHENSIVE METABOLIC [id number] 15:28:00GLUCOSEUREA NITROGEN (BUN)CREATININEeGFR NON-AFR. AMERICANeGFR AMERICANBUN/CREATININE RATIOSODIUMPOTASSIUMCHLORIDECARBON DIOXIDECALCIUMPROTEIN, TOTALALBUMINGLOBULINALBUMIN/GLOBULIN RATIOBILIRUBIN, TOTALALKALINE PHOSPHATASEASTALTPanel Description: MICROALBUMIN, RANDOM URINE (W/CREATININE) 2015-07-12 15:28:00CREATININE, RANDOM URINEMICROALBUMINMICROALBUMIN/CREATININE RATIO, RANDOM URINEPanel Description: URINALYSIS, COMPLETE W/REFLEX TO CULTURE 2015-07-12 15:28:00COLORAPPEARANCESPECIFIC GRAVITYPHGLUCOSEREDUCING SUBSTANCESBILIRUBINKETONESOCCULT BLOODPROTEINNITRITELEUKOCYTE ESTERASEWBCRBCSQUAMOUS EPITHELIAL CELLSTRANSITIONAL EPITHELIAL CELLSRENAL EPITHELIAL CELLSBACTERIACALCIUM OXALATE CRYSTALSTRIPLE PHOSPHATE CRYSTALSURIC ACID CRYSTALSAMORPHOUS SEDIMENTCRYSTALSHYALINE CASTGRANULAR CASTCASTSYEASTCOMMENTSNOTEPanel Description: CBC (INCLUDES DIFF/PLT)2015-07-12 15:28:00* Test Item Value Reference Range Comments WHITE BLOOD CELL COUNT (test code = 6690-2) 6.4 Th[address] [address]/uL 3.8-10.8 RED BLOOD CELL COUNT (test code = 789-8) 4.82 Million/ uL 3.80-5.10 HEMOGLOBIN (test code = 718-7) 14.0 g/dL 11.7-15.5 HEMATOCRIT (test code = 4544-3) 41.9 % 35.0-45.0 MCV (test code = 787-2) 87.0 fL 80.0-100.0 MCH (test code = 785-6) 29.0 pg 27.0-33.0 MCHC (test code = 786-4) 33.3 g/dL 32.0-36.0 RDW (test code = 788-0) 13.1 % 11.0-15.0 PLATELET COUNT (test code = 777-3) 228 Thousand/uL 140 -400 MPV (test code = 776-5) 8.1 fL 7.5-11.5 ABSOLUTE NEUTROPHILS (test code = 751-8) 3418 cells/uL 4026-1173 ABSOLUTE BAND NEUTROPHILS (t est code = 95512-9) DNR 0-750 ABSOLUTE METAMYELOCYTES (carin t code = 68479-4) DNR 0-0 ABSOLUTE MYELOCYTES (test code = 90886-9) DNR 0-0 ABSOLUTE PROMYELOCYTES (test code = 04602-0) DNR 0-0 ABSOLUTE LYMPHOCYTES (test code = 731-0) 2246 cells/uL 850-3900 ABSOLUTE MONOCYTES (test code = 742-7) 326 cells/uL 20 0-950 ABSOLUTE EOSINOPHILS (test code = 711-2) 384 cells/uL 15-500 ABSOLUTE BASOPHILS (test code = 704-7) 26 cells/uL 0- 200 ABSOLUTE BLASTS (test code = 98800-1) DNR 0-0 ABSOLUTE NUCLEATED RBC (test code = 01352-2) DNR 0-0 NEUTROPHILS (test code = 770-8) 53.4 % BAND NEUTROPHILS (test code = 764-1) DNR METAMYELOCYTES (test code = 740-1) DNR MYELOCYTES (test code = 749-2) DNR PROMYELOCYTES (test code = 783-1) DNR LYMPHOCYTES (test code = 736-9) 35.1 % REACTIVE LYMPHOCYTES (test code = 98343-1) DNR 0-10 MONOCYTES (test code = 5905-5) 5.1 % EOSINOPHILS (test code = 713-8) 6.0 % BASOPHILS (test code = 706-2) 0.4 % BLASTS (test code = 709-6) DNR NUCLEATED RBC (test code = 98646-7) DNR 0-0 COMMENT(S) (test code = 8251-1) DNR Panel Description: PROTHROMBIN [id number] 15:28:00INRPTPanel Description: Choriogonadotropin.intact+Beta subunit [Units/volume] in Serum or [id number] 05:14:00* Test Item Value Reference Range Comments HCG, TOTAL, QN (test code = 08871-3) <2 Reference RangeNonpr egnant or premenopausal <5Postmenopausal <10 Values from different assay methods may vary.The use of this assay to monitor or to diagnose patients with cancer or any condition unrelatedto has not been cleared or approved bythe FDA or the slabbing machine operator of the assay.NO COLLECTION DATE RECEIVED. WE HAVE USEDTHE DATE THE SPECIMEN WAS RECEIVED BY [facility] THE COLLECTION DATE. IF THISIS INCORRECT, PLEASE CONTACT CLIENT SERVICES.PHONE NUMBER: [phone] Encounters Start Date/Time End Date/Time Encounter Type Admission Type Attending [facility] Care Facility Care Department Encounter ID 2024-10-09 19:00:00 2024-10-09 19:51:00 [id number] 2.16.840. 1.123022. 3.3569.47 00 2.16.840.1. [id number] 69.4700 05014.001 2024-10-02 19:02:00 2024-10-02 19:53:00 [id number] 2.16.840. 1.213314. 3.3569.47 00 2.16.840.1. 816576.3.35 69.4700 58974.001 2024-09-25 18:02:00 2024-09-25 18:51:00 [id number] 2.16.840. 1.707573. 3.3569.47 00 2.16.840.1. 438253.3.35 69.4700 16667.001 2024-09-25 16:30:00 2024-09-25 16:30:00 Encounter identifier Mcnulty ANTHONYChristiano PhilElle 2.16.840. [id number]. 3.5677.00 [facility] [id number] 2024-09-24 15:56:00 2024-09-24 15:56:00 Encounter identifier NasirwoodyElle 2.16.840. 1.896858. [id number] [facility] [id number] 2024-09-21 10:15:00 2024-09-21 10:15:00 OFFICE/OUTP ATIENT VISIT, Elle Caraballo Akua 2.16.840. 1.818493. 3.5677.00 [facility] [id number] 2024-09-18 17:01:00 2024-09-18 17:51:00 [id number] 2.16.840. 1.378393. 3.3569.47 00 2.16.840.1. 240666.3.35 69.4700 24119.002 2024-09-04 19:03:00 2024-09-04 19:53:00 [id number] 2.16.840. 1.953503. 3.3569.47 00 2.16.840.1. 344851.3.35 69.4700 95778.001 2024-09-04 15:25:00 2024-09-04 15:25:00 Encounter identifier Elle Villarreal 2.16.840. 1.524465. 3.5677.00 01 [facility] [id number] 2024-08-28 19:03:00 2024-08-28 19:52:00 [id number] 2.16.840. 1.760712. 3.3569.47 00 2.16.840.1. 834349.3.35 69.4700 11338.001 2024-08-25 14:21:00 2024-08-25 14:21:00 Encounter identifier Elle Villarreal 2.16.840. 1.023205. 3.5677.00 01 [facility] [id number] 2024-08-22 07:53:00 2024-08-22 07:53:00 Encounter identifier Jelani Jimenez 2.16.840. 1.836618. 3.5677.00 01 [facility] [id number] 2024-08-16 15:30:00 2024-08-16 16:37:00 [id number] 2.16.840. 1.271087. 3.3569.47 00 2.16.840.1. 048607.3.35 69.4700 54801.007 2024-08-15 15:10:00 2024-08-15 15:10:00 Encounter identifier Elle Villarreal 2.16.840. 1.211104. 3.5677.[address] [place] [address] [id number] 2024-08-14 19:03:00 2024-08-14 19:52:00 [id number] 2.16.840. 1.059075. 3.3569.47 00 2.16.840.1. 693710.3.35 69.4700 47820.001 2024-08-02 10:30:00 2024-08-02 10:30:00 Encounter identifier 2.16.840. 1.212004. 3.5677.[address] [place] [address] [id number] 2024-07-17 19:00:00 2024-07-17 19:51:00 [id number] 2.16.840. 1.620927. 3.3569.47 00 2.16.840.1. 382996.3.35 69.4700 93028.001 2024-07-16 15:54:00 2024-07-16 15:54:00 Encounter identifier Elle Villarreal 2.16.840. 1.021371. 3.5677.[address] [place] [address] [id number] 2024-07-16 15:49:00 2024-07-16 15:49:00 Encounter identifier Elle Villarreal 2.16.840. 1.553191. 3.5677.[address] [place] [address] [id number] 2024-07-11 11:42:00 2024-07-11 11:42:00 Encounter identifier Services, Enabling 2.16.840. 1.054087. 3.5677.[address] [place] [address] [id number] 2024-07-10 19:05:00 2024-07-10 19:51:00 [id number] 2.16.840. 1.840975. 3.3569.47 00 2.16.840.1. 113993.3.35 69.4700 31516.001 2024-07-07 13:50:00 2024-07-07 13:50:00 Encounter identifier Elle Villarreal 2.16.840. 1.631526. 3.5677.[address] [place] [address] [place] [id number] 2024-07-06 10:30:00 2024-07-06 10:30:00 OFFICE/OUTP ATIENT VISIT, EST Elle Villarreal Akua 2.16.840. 1.469702. 3.5677.[address] [place] [address] [id number] 2024-07-04 16:45:00 2024-07-04 16:45:00 Encounter identifier Hamlet ANTHONYChristiano Toni 2.16.840. 1.187495. 3.5677.00 01 [facility] Laura [id number] 2024-06-28 11:41:00 2024-06-28 11:41:00 Encounter identifier Cher Hernandez 2.16.840. 1.258062. 3.5677.00 01 Alexi Painter [id number] 2024-06-26 18:00:00 2024-06-26 18:51:00 [id number] 2.16.840. 1.601003. 3.3569.47 00 2.16.840.1. 415442.3.35 69.4700 39637.001 2024-05-02 15:37:00 2024-05-02 15:37:00 Encounter identifier Magno Rolonn 2.16.840. 1.351875. 3.5677.00 01 [facility] [id number] 2024-04-20 09:47:00 2024-04-20 09:47:00 Encounter identifier Elle Villarreal 2.16.840. 1.082948. 3.5677.00 01 [facility] [id number] 2024-04-04 13:40:00 2024-04-04 13:40:00 Encounter identifier Rosa Dan 2.16.840. 1.312897. 3.5677.00 01 [facility] [id number] 2024-03-20 18:00:00 2024-03-20 18:52:00 [id number] 2.16.840. 1.854144. 3.3569.47 00 2.16.840.1. 633267.3.35 69.4700 69096.001 2024-03-06 14:00:00 2024-03-06 14:00:00 Unlisted evaluation and management service 2.16.840. 1.394180. 3.3569.47 00 2.16.840.1. 254245.3.35 69.4700 2 2024-03-03 14:15:00 2024-03-03 14:15:00 OFFICE/OUTP ATIENT VISIT, EST Elle Villarreal Akua 2.16.840. 1.031566. 3.5677.00 01 [facility] [id number] 2024-02-20 18:57:00 2024-02-20 23:59:00 Depart Clinical [facility] [id number] 2024-01-28 13:54:00 2024-01-28 13:54:00 Encounter identifier Elle Villarreal 2.16.840. 1.214926. 3.5677.00 01 [facility] [id number] 2023-12-30 12:08:00 2023-12-30 12:08:00 Encounter identifier DarrenRamirez Matheus 2.16.840. 1.656550. 3.5677.00 01 [facility] [id number] 2023-12-03 11:48:00 2023-12-03 11:48:00 Encounter identifier Belinda Desir 2.16.840. 1.479218. 3.5677.00 01 [facility] [id number] 2023-11-19 14:16:00 2023-11-19 14:16:00 Encounter identifier Ramirez Banks Matheus 2.16.840. 1.263079. 3.5677.00 01 [facility] [id number] 2022-03-13 14:00:00 2023-10-22 22:00:00 Unlisted evaluation and management service 2.16.840. 1.023977. 3.3569.47 00 2.16.840.1. 986259.3.35 69.4700 1 2023-10-21 13:30:00 2023-10-21 13:30:00 Encounter identifier Elle Villarreal 2.16.840. 1.584486. 3.5677.00 01 [facility] [id number] 2023-08-06 10:56:00 2023-08-06 10:56:00 Encounter identifier 2.16.840. 1.584352. 3.5677.00 01 Al[facility] Prado [id number] 2023-05-07 13:00:00 2023-05-07 13:00:00 OFFICE/OUTP ATIENT VISIT, EST Nasirdu, Elle Shay 2.16.840. 1.095799. 3.5677.00 01 [facility] [id number] 2023-05-07 10:04:00 2023-05-07 10:04:00 Encounter identifier Lyric Santiago 2.16.840. 1.050953. 3.5677.00 01 [facility] [id number] 2023-04-28 03:55:00 2023-04-28 23:59:00 Departed [facility] [id number] 2023-04-18 11:28:00 2023-04-18 23:59:00 Departed [facility] [id number] 2023-03-17 13:23:00 2023-03-17 13:23:00 Encounter identifier Gema José 2.16.840. 1.835263. 3.5677.00 01 [facility] Prado [id number] 2023-03-05 18:00:00 2023-03-05 18:52:00 [id number] 2.16.840. 1.028518. 3.3569.47 00 2.16.840.1. 350271.3.35 69.4700 40305.001 2023-02-25 19:00:00 2023-02-25 19:51:00 [id number] 2.16.840. 1.124446. 3.3569.47 00 2.16.840.1. 010807.3.35 69.4700 83961.005 2023-02-25 14:39:00 2023-02-25 15:29:00 Office/Op Visit, Est Pt, 25 Min 2.16.840. 1.491022. 3.3569.47 00 2.16.840.1. 037422.3.35 69.4700 10377.004 2023-02-25 15:11:00 2023-02-25 15:11:00 Encounter identifier Cher Hernandez 2.16.840. 1.528273. 3.5677.00 01 [facility] [id number] 2023-02-05 18:01:00 2023-02-05 18:50:00 [id number] 2.16.840. 1.539649. 3.3569.47 00 2.16.840.1. 399061.3.35 69.4700 22066.001 2023-01-29 17:00:00 2023-01-29 18:13:00 [id number] 2.16.840. 1.931236. 3.3569.47 00 2.16.840.1. 631861.3.35 69.4700 49864.001 2023-01-15 17:01:00 2023-01-15 17:51:00 [id number] 2.16.840. 1.111291. 3.3569.47 00 2.16.840.1. 976750.3.35 69.4700 78093.001 2023-01-13 15:20:00 2023-01-13 15:20:00 Encounter identifier Leta, Vielka 2.16.840. 1.342335. 3.5677.00 01 [facility] [id number] 2023-01-11 14:40:00 2023-01-11 14:40:00 Encounter identifier NasirwoodyElle 2.16.840. 1.916938. 3.5677.00 01 [facility] [id number] 2022-12-30 13:57:00 2022-12-30 13:57:00 Encounter identifier Rosa Dan 2.16.840. 1.998096. 3.5677.[address] [place] [address] [id number] 2022-12-22 14:00:00 2022-12-22 14:50:00 [id number] 2.16.840. 1.609924. 3.3569.47 00 2.16.840.1. 169188.3.35 69.4700 53670.001 2022-11-27 17:00:00 2022-11-27 17:51:00 [id number] 2.16.840. 1.088599. 3.3569.47 00 2.16.840.1. 069895.3.35 69.4700 99305.001 2022-11-09 18:00:00 2022-11-09 18:49:00 [id number] 2.16.840. 1.201046. 3.3569.47 00 2.16.840.1. 487558.3.35 69.4700 08678.001 2022-11-02 17:00:00 2022-11-02 17:51:00 13867 2.16.840. 1.615709. 3.3569.47 00 2.16.840.1. 887879.3.35 69.4700 84975.001 2022-10-26 18:00:00 2022-10-26 18:50:00 82637 2.16.840. 1.747744. 3.3569.47 00 2.16.840.1. 487457.3.35 69.4700 78701.001 2022-10-19 18:01:00 2022-10-19 18:49:00 [id number] 2.16.840. 1.944253. 3.3569.47 00 2.16.840.1. 403331.3.35 69.4700 59400.001 2022-09-16 11:57:00 2022-09-16 11:57:00 Encounter identifier Phil, Elle 2.16.840. 1.752024. 3.5677.00 Alia Prado [id number] 2022-09-04 11:15:00 2022-09-04 11:15:00 Encounter identifier Slade Daley 2.16.840. 1.391021. 3.5677.00 01 [facility] [id number] 2022-08-31 13:37:00 2022-08-31 13:37:00 Encounter identifier Elle Villarreal 2.16.840. 1.820919. 3.5677.00 01 Al[facility] Prado [id number] 2022-08-20 12:38:00 2022-08-20 12:38:00 Encounter identifier Elle Villarreal 2.16.840. 1.130556. 3.5677.00 01 [facility] [id number] 2022-08-20 12:12:00 2022-08-20 12:12:00 Encounter identifier Elle Villarreal 2.16.840. 1.843444. 3.5677.00 01 [facility] [id number] 2022-08-13 11:36:00 2022-08-13 11:36:00 Encounter identifier Leta, [facility] 2.16.840. 1.997990. 3.5677.00 01 [facility] [id number] 2022-08-13 11:00:00 2022-08-13 11:00:00 OFFICE/OUTP ATIENT VISIT, NEW Elle Villarreal Akua 2.16.840. 1.728534. 3.5677.00 01 [facility] [id number] 2022-05-17 20:22:56 2022-05-17 23:44:00 Departed Emergency [facility] [id number] 2022-04-19 08:17:44 2022-04-19 12:49:00 Departed Emergency [facility] [id number] 2017-03-01 13:30:00 2017-03-01 13:30:00 OFFICE/OUTP ATIENT VISIT, EST Elle Villarreal Akua 2.16.840. 1.766665. 3.5677.00 01 [facility] [id number] 2016-09-25 08:39:00 2016-09-25 08:39:00 Encounter identifier 2.16.840. 1.935159. 3.5677.00 01 [facility] [id number] 2016-08-05 10:11:00 2016-08-05 10:11:00 Encounter identifier 2.16.840. 1.422187. 3.5677.00 01 [facility] Eve [id number] 2016-07-21 11:45:00 2016-07-21 11:45:00 Encounter identifier 2.16.840. 1.134919. 3.5677.00 01 [facility] Eve [id number] 2016-07-09 13:05:00 2016-07-09 13:05:00 Encounter identifier 2.16.840. 1.613666. 3.5677.00 01 [facility] Goodell Laura [id number] 2016-07-07 14:00:00 2016-07-07 14:00:00 OFFICE/OUTP ATIENT VISIT, EST 2.16.840. 1.346336. 3.5677.00 01 [facility] Laura [id number] 2016-04-17 15:00:00 2016-04-17 15:00:00 Encounter identifier 2.16.840. 1.882069. 3.5677.00 01 [facility] [id number] 2016-03-02 15:16:00 2016-03-02 15:16:00 Encounter identifier 2.16.840. 1.625732. 3.5677.00 01 [facility] Laura [id number] 2016-01-20 10:30:00 2016-01-20 10:30:00 OFFICE/OUTP ATIENT VISIT, EST 2.16.840. 1.178058. 3.5677.00 01 [facility] [id number] 2016-01-20 08:30:00 2016-01-20 08:30:00 Encounter identifier 2.16.840. 1.192989. 3.5677.00 01 [facility] Laura [id number] 2015-11-20 07:06:00 2015-11-20 07:06:00 Encounter identifier 2.16.840. 1.090336. 3.5677.00 01 [facility] Laura [id number] 2015-11-19 13:30:00 2015-11-19 13:30:00 OFFICE/OUTP ATIENT VISIT, EST 2.16.840. 1.649160. 3.5677.00 01 Alia Sanchez [id number] 2015-08-28 09:00:00 2015-08-28 09:00:00 Encounter identifier 2.16.840. 1.528955. 3.5677.00 01 CHRISTI Bahena [id number] 0637-05-10 13:00:00 2015-08-06 13:00:00 Encounter identifier 2.16.840. 1.266820. 3.5677.00 CHRISTI Bahena [id number] 6520-05-09 09:00:00 2015-08-05 09:00:00 Encounter identifier Eryn Zuñiga Megan 2.16.840. 1.967580. 3.5677.00 01 [facility]I Bahena [id number] 9019-05-04 08:52:00 2015-07-31 08:52:00 Encounter identifier 2.16.840. 1.047068. 3.5677.00 01 [facility] Francis Sanchez [id number] 8499-05-04 07:49:00 2015-07-31 07:49:00 Encounter identifier 2.16.840. 1.417137. 3.5677.00 01 [facility] Francis Sanchez [id number] 1050-05-02 13:51:00 2015-07-29 13:51:00 Encounter identifier 2.16.840. 1.143152. 3.5677.00 01 [facility] Francis Laura [id number] 7759-04-27 15:04:00 2015-07-24 15:04:00 Encounter identifier Services, [facility] 2.16.840. 1.480616. 3.5677.00 Alia Prado [id number] 5057-04-27 09:15:00 2015-07-24 09:15:00 OFFICE/OUTP ATIENT VISIT, EST 2.16.840. 1.946704. 3.5677.00 [facility] Francis Sanchez [id number] 6972-04-26 09:45:00 2015-07-23 09:45:00 OFFICE/OUTP ATIENT VISIT, EST 2.16.840. 1.764809. 3.5677.00 01 [facility] Alia Rosas [id number] 6835-04-18 09:07:00 2015-07-15 09:07:00 Encounter identifier 2.16.840. 1.830268. 3.5677.00 01 [facility] Alia Rosas [id number] 9070-04-15 14:00:00 2015-07-12 14:00:00 OFFICE/OUTP ATIENT VISIT, EST 2.16.840. 1.138868. 3.5677.00 01 [facility] Alia Rosas [id number] 1491-03-25 08:52:00 2015-06-21 08:52:00 Encounter identifier 2.16.840. 1.754611. 3.5677.00 01 [facility] Alia Rosas [id number] 7853-03-24 10:59:00 2015-06-20 10:59:00 Encounter identifier 2.16.840. 1.414391. 3.5677.00 01 [facility] Alia Rosas [id number] 0144-02-23 06:28:00 2015-05-21 06:28:00 Encounter identifier 2.16.840. 1.473722. 3.5677.00 01 [facility] Alia Rosas [id number] 1361-02-22 15:17:00 2015-05-20 15:17:00 Encounter identifier 2.16.840. 1.643558. 3.5677.00 01 [facility] Alia Rosas [id number] 8504-01-22 07:53:00 2015-04-19 07:53:00 Encounter identifier 2.16.840. 1.274370. 3.5677.00 01 [facility] Alia Rosas [id number] 0429-01-21 15:02:00 2015-04-18 15:02:00 Encounter identifier 2.16.840. 1.707355. 3.5677.00 01 PC Alia Rosas [id number] 4460-01-15 14:30:00 2015-04-12 14:30:00 OFFICE/OUTP ATIENT VISIT, EST 2.16.840. 1.368521. 3.5677.00 01 [facility] Alia Rosas [id number] 9982-01-06 09:55:00 2015-04-03 09:55:00 Encounter identifier 2.16.840. 1.540622. 3.5677.00 01 Alia Sanchez [id number] 1937-12-22 09:00:00 2015-03-19 09:00:00 Encounter identifier 2.16.840. 1.207770. 3.5677.00 01 Alia Sanchez [id number] 7832-12-18 16:00:00 2015-03-15 16:00:00 OFFICE/OUTP ATIENT VISIT, EST 2.16.840. 1.597349. 3.5677.00 01 Alia Sanchez [id number] 6977-12-17 13:37:00 2015-03-14 13:37:00 Encounter identifier 2.16.840. 1.755025. 3.5677.00 01 Alia Sanchez [id number] 2737-11-25 10:54:00 2015-02-20 10:54:00 Encounter identifier 2.16.840. 1.318578. 3.5677.00 01 Alia Sanchez [id number] 9652-11-24 14:45:00 2015-02-19 14:45:00 OFFICE/OUTP ATIENT VISIT, EST 2.16.840. 1.222239. 3.5677.00 01 Alia Sanchez [id number] 7087-11-19 15:11:00 2015-02-14 15:11:00 Encounter identifier 2.16.840. 1.170511. 3.5677.00 01 Alia Sanchez [id number] 5195-11-18 09:00:00 2015-02-13 09:00:00 OFFICE/OUTP ATIENT VISIT, EST 2.16.840. 1.550214. 3.5677.00 01 Alia Sanchez [id number] 1588-11-10 15:26:00 2015-02-05 15:26:00 Encounter identifier 2.16.840. 1.922904. 3.5677.00 01 Alia Sanchez [id number] 4705-11-09 09:00:00 2015-02-04 09:00:00 OFFICE/OUTP ATIENT VISIT, NEW 2.16.840. 1.080217. 3.5677.00 01 [facility] [id number] Family History Family Member Diagnosis Comments Start Date Stop Date Grandfather malignant neoplasm o f lung (Cause Of ) 2015-02-04 00:00:00 2015-02-04 00:00:00 Social History Social Habit Start Date Stop Date Comments ASSERTION Gender identity Sexual orientation Sex 2024-02-22 00:13:00 2024-02-22 00:13:00 Alcoholic beverage intake 2017-07-26 00:00:00 00:00:00 History of Social function 2016-09-02 00:00:00 2016-08 00:00:00 Tobacco use and exposure 2015-07-06 00:00:00 9 00:00:00 Sex assigned at 1990 00:00:00 1990 0 0:00:00 Smoking Status Start Date Stop Date History of tobacco use Tobacco smoking consumption unknown Smokes tobacco daily 2024-03-06 12:00:00 2024-02 12:00:00 Never smoked tobacco 2015-07-06 00:00:00 Social History Observation Description Sex Female Immunizations Ordered Immunization Name Filled Immunization Name Date Status Comments Refusal Reason Td,(Adult/Ped) adsorbed 2004-11-14 00:00:00 Completed Source: Other Registry Plan of Treatment Planned Activity Planned Date Details Comments Future Scheduled Test 2024-10-27 00:00:00 INFLUE NZA VACCINE (#1) [code = INFLUENZA VACCINE (#1)] Future Scheduled Test 2024-10-06 13:53:14 HIV SC REENING [code = HIV SCREENING] Future Scheduled Test 2024-10-06 13:53:14 HEPATI TIS C SCREENING [code = HEPATITIS C SCREENING] Future Scheduled Test 2024-10-06 13:53:14 Admini stration of third dose of vaccine product containing only acellular Bordetella pertussis and Clostridium tetani and Corynebacterium diphtheriae antigens (procedure) [code = 258907806] Future Scheduled Test 2024-10-06 13:53:14 Admini stration of vaccine product containing only Hepatitis B virus antigen (procedure) [code = 62315720] Future Scheduled Test 2024-10-06 13:53:14 HPV VA CCINE (1 - 3-dose SCDM series) [code = HPV VACCINE (1 - 3-dose SCDM series)] Future Scheduled Test 2024-10-06 13:53:14 COVID- 19 VACCINE ( season) [code = COVID-19 VACCINE ( season)] Future Scheduled Test 2024-10-06 13:53:14 DEPRES MARILEE SCREENING [code = DEPRESSION SCREENING] Future Scheduled Test 2024-10-06 13:53:14 Admini stration of vaccine product containing only Influenza virus antigen (procedure) [code = 98733581] Future Scheduled Test 2024-10-06 13:53:14 ZOSTER VACCINE (1 of 2) [code = ZOSTER VACCINE (1 of 2)] Diagnostic Test Pending 2021-08-02 00:00:00 Scre ening for malignant neoplasm of cervix (procedure) [code = 356683706] Diagnostic Test Pending 2021-08-02 00:00:00 Scre ening for malignant neoplasm of cervix (procedure) [code = 962805994] Diagnostic Test Pending 2021-08-02 00:00:00 Scre ening for malignant neoplasm of cervix (procedure) [code = 850521378] Diagnostic Test Pending 2012-08-02 00:00:00 Scre ening for malignant neoplasm of cervix (procedure) [code = 601745889] Diagnostic Test Pending 2010-08-02 00:00:00 DTAP /TDAP/TD VACCINES (1 - Tdap) [code = DTAP/TDAP/TD VACCINES (1 - Tdap)] Diagnostic Test Pending 2010-08-02 00:00:00 Admi nistration of vaccine product containing only Hepatitis B virus antigen (procedure) [code = 74205493] Diagnostic Test Pending 2006-08-02 00:00:00 Vacc ination for human papillomavirus (procedure) [code = 136989952] Vital Signs Vital Name Observation Time Observation Value Commen ts Body height 2024-09-25 16:33:00 165.10 cm Body Weight 2024-09-25 16:33:00 57.606 kg [facility] Systolic 2024-09-25 16:33:00 100 mm[Hg] [facility]rav[facility] Diastolic 2024-09-25 16:33:00 70 mm[Hg] Heart Rate 2024-09-25 16:33:00 83 /min Body Temperature 2024-09-25 16:33:00 36.78 Rani Body mass index 2024-09-25 16:33:00 21.13 kg/m2 Body height 2024-09-21 10:31:00 165.10 cm Body Weight 2024-09-21 10:31:00 58.604 kg Intravascular Systolic 2024-09-21 10:31:00 94 mm[Hg] Intravascular Diastolic 2024-09-21 10:31:00 64 mm[Hg] Heart Rate 2024-09-21 10:31:00 99 /min Body Temperature 2024-09-21 10:31:00 37.17 Rani Respiratory rate 2024-09-21 10:31:00 18 /min Body mass index 2024-09-21 10:31:00 21.50 kg/m2 SaO2 % BldA PulseOx 2024-09-21 10:31:00 97 % Heart Rate 2024-08-16 16:23:00 105.0 /min BP Systolic 2024-08-16 16:23:00 92.0 mm[Hg] BP Diastolic 2024-08-16 16:23:00 78.0 mm[Hg] Height 2024-08-16 16:23:00 168.9 cm Body height 2024-07-06 10:31:00 165.10 cm Body Weight 2024-07-06 10:31:00 58.786 kg Intravascular Systolic 2024-07-06 10:31:00 106 mm[Hg] Intravascular Diastolic 2024-07-06 10:31:00 75 mm[Hg] Heart Rate 2024-07-06 10:31:00 84 /min Body Temperature 2024-07-06 10:31:00 37.28 Rani Body mass index 2024-07-06 10:31:00 21.57 kg/m2 SaO2 % BldA PulseOx 2024-07-06 10:31:00 96 % Body height 2024-07-04 16:59:00 165.10 cm Body Weight 2024-07-04 16:59:00 57.606 kg Intravascular Systolic 2024-07-04 16:59:00 88 mm[Hg] Intravascular Diastolic 2024-07-04 16:59:00 70 mm[Hg] Heart Rate 2024-07-04 16:59:00 87 /min Body Temperature 2024-07-04 16:59:00 37.06 Rani Body mass index 2024-07-04 16:59:00 21.13 kg/m2 Height 2024-06-21 21:03:00 169.0 cm Body Weight 2024-06-21 21:03:00 57.6 kg BMI 2024-06-21 21:03:00 20.2 kg/m2 Body height 2024-03-03 14:31:00 165.10 cm Body Weight 2024-03-03 14:31:00 61.235 kg Intravascular Systolic 2024-03-03 14:31:00 109 mm[Hg] Intravascular Diastolic 2024-03-03 14:31:00 73 mm[Hg] Heart Rate 2024-03-03 14:31:00 93 /min Body Temperature 2024-03-03 14:31:00 37.00 Rani Respiratory rate 2024-03-03 14:31:00 16 /min Body mass index 2024-03-03 14:31:00 22.46 kg/m2 SaO2 % BldA PulseOx 2024-03-03 14:31:00 97 % Body height 2023-05-07 13:08:00 165.10 cm Body Weight 2023-05-07 13:08:00 55.610 kg Intravascular Systolic 2023-05-07 13:08:00 80 mm[Hg] Intravascular Diastolic 2023-05-07 13:08:00 42 mm[Hg] Heart Rate 2023-05-07 13:08:00 100 /min Body Temperature 2023-05-07 13:08:00 36.61 Rani Respiratory rate 2023-05-07 13:08:00 16 /min Body mass index 2023-05-07 13:08:00 20.40 kg/m2 SaO2 % BldA PulseOx 2023-05-07 13:08:00 97 % Heart Rate 2023-02-25 15:20:00 92.0 /min Respiratory Rate 2023-02-25 15:20:00 16.0 /min BP Systolic 2023-02-25 15:20:00 108.0 mm[Hg] BP Diastolic 2023-02-25 15:20:00 76.0 mm[Hg] Height 2023-02-25 15:20:00 163.8 cm Body Weight 2023-02-25 15:20:00 100.7 kg BMI 2023-02-25 15:20:00 37.5 kg/m2 Body height 2022-08-13 10:44:00 165.10 cm Body Weight 2022-08-13 10:44:00 55.701 kg Intravascular Systolic 2022-08-13 10:44:00 102 mm[Hg] Intravascular Diastolic 2022-08-13 10:44:00 71 mm[Hg] Heart Rate 2022-08-13 10:44:00 65 /min Body Temperature 2022-08-13 10:44:00 37.28 Rani Respiratory rate 2022-08-13 10:44:00 189 /min Body mass index 2022-08-13 10:44:00 20.43 kg/m2 Height 2022-05-17 20:37:00 165.1 cm Weight 2022-05-17 20:37:00 55.33 kg Body Temperature 2022-05-17 20:37:00 97.9 [degF] Heart Rate 2022-05-17 20:37:00 83 /min Respiratory rate 2022-05-17 20:37:00 16 /min Oxygen saturation by Pulse oximetry 2022-05-17 20:37:0 0 99 % BP Systolic 2022-05-17 20:37:00 100 mm[Hg] BP Diastolic 2022-05-17 20:37:00 67 mm[Hg] BMI (Body Mass Index) 2022-05-17 20:37:00 20.3 kg/m2 Heart Rate 2022-04-19 12:15:00 90 /min Height 2022-04-19 08:29:00 165.1 cm Weight 2022-04-19 08:29:00 54.43 kg Body Temperature 2022-04-19 08:29:00 98.6 [degF] Respiratory rate 2022-04-19 08:29:00 16 /min Oxygen saturation by Pulse oximetry 2022-04-19 08:29:0 0 99 % BP Systolic 2022-04-19 08:29:00 115 mm[Hg] BP Diastolic 2022-04-19 08:29:00 74 mm[Hg] BMI (Body Mass Index) 2022-04-19 08:29:00 20.0 kg/m2 Body height 2017-03-01 13:52:00 167.64 cm Body Weight 2017-03-01 13:52:00 64.592 kg Intravascular Systolic 2017-03-01 13:52:00 92 mm[Hg] Intravascular Diastolic 2017-03-01 13:52:00 61 mm[Hg] Heart Rate 2017-03-01 13:52:00 106 /min Body Temperature 2017-03-01 13:52:00 36.80 Rani Respiratory rate 2017-03-01 13:52:00 12 /min Body mass index 2017-03-01 13:52:00 22.98 kg/m2 Systolic blood pressure 2016-09-02 06:12:00 84 mm[Hg] Diastolic blood pressure 2016-09-02 06:12:00 52 mm[Hg] Heart rate 2016-09-02 06:12:00 77 /min Body temperature 2016-09-02 06:12:00 36.5 Rani Respiratory rate 2016-09-02 06:12:00 18 /min Body height 2016-09-02 06:12:00 165.1 cm Body weight 2016-09-02 06:12:00 52.164 kg BMI 2016-09-02 06:12:00 19.14 kg/m2 Body height 2016-07-07 14:09:00 165.10 cm Body Weight 2016-07-07 14:09:00 56.699 kg Intravascular Systolic 2016-07-07 14:09:00 89 mm[Hg] Intravascular Diastolic 2016-07-07 14:09:00 62 mm[Hg] Heart Rate 2016-07-07 14:09:00 102 /min Body Temperature 2016-07-07 14:09:00 37.70 Rani Respiratory rate 2016-07-07 14:09:00 12 /min Body mass index 2016-07-07 14:09:00 20.80 kg/m2 Body height 2016-01-20 10:24:00 167.64 cm Body Weight 2016-01-20 10:24:00 55.883 kg Intravascular Systolic 2016-01-20 10:24:00 97 mm[Hg] Intravascular Diastolic 2016-01-20 10:24:00 67 mm[Hg] Heart Rate 2016-01-20 10:24:00 96 /min Body Temperature 2016-01-20 10:24:00 37.70 Rani Respiratory rate 2016-01-20 10:24:00 12 /min Body mass index 2016-01-20 10:24:00 19.88 kg/m2 Body height 2015-11-19 13:19:00 167.64 cm Body Weight 2015-11-19 13:19:00 53.977 kg Intravascular Systolic 2015-11-19 13:19:00 102 mm[Hg] Intravascular Diastolic 2015-11-19 13:19:00 68 mm[Hg] Heart Rate 2015-11-19 13:19:00 92 /min Body Temperature 2015-11-19 13:19:00 37.60 Rani Respiratory rate 2015-11-19 13:19:00 14 /min Body mass index 2015-11-19 13:19:00 19.21 kg/m2 Body height 2015-08-28 13:21:00 167.64 cm Body Weight 2015-08-28 13:21:00 55.338 kg Intravascular Systolic 2015-08-28 13:21:00 97 mm[Hg] Intravascular Diastolic 2015-08-28 13:21:00 66 mm[Hg] Heart Rate 2015-08-28 13:21:00 65 /min Body Temperature 2015-08-28 13:21:00 35.70 Rani Body mass index 2015-08-28 13:21:00 19.69 kg/m2 Body height 2015-08-06 13:17:00 167.64 cm Body Weight 2015-08-06 13:17:00 55.338 kg Intravascular Systolic 2015-08-06 13:17:00 98 mm[Hg] Intravascular Diastolic 2015-08-06 13:17:00 66 mm[Hg] Heart Rate 2015-08-06 13:17:00 67 /min Body Temperature 2015-08-06 13:17:00 36.60 Rani Body mass index 2015-08-06 13:17:00 19.69 kg/m2 Body height 2015-08-05 09:26:00 0.00 cm Body Weight 2015-08-05 09:26:00 55.429 kg [facility] Systolic 2015-08-05 09:26:00 98 mm[Hg] [facility] Diastolic 2015-08-05 09:26:00 61 mm[Hg] Heart Rate 2015-08-05 09:26:00 68 /min Body Temperature 2015-08-05 09:26:00 36.70 Rani Body height 2015-07-24 09:08:00 165.51 cm Body Weight 2015-07-24 09:08:00 55.792 kg [facility] Systolic 2015-07-24 09:08:00 113 mm[Hg] [facility] Diastolic 2015-07-24 09:08:00 79 mm[Hg] Heart Rate 2015-07-24 09:08:00 83 /min Body Temperature 2015-07-24 09:08:00 36.90 Rani Respiratory rate 2015-07-24 09:08:00 19 /min Body mass index 2015-07-24 09:08:00 20.37 kg/m2 Body height 2015-07-23 10:11:00 165.51 cm Body Weight 2015-07-23 10:11:00 56.245 kg [facility] Systolic 2015-07-23 10:11:00 103 mm[Hg] [facility] Diastolic 2015-07-23 10:11:00 65 mm[Hg] Heart Rate 2015-07-23 10:11:00 67 /min Body Temperature 2015-07-23 10:11:00 37.10 Rani Respiratory rate 2015-07-23 10:11:00 16 /min Body mass index 2015-07-23 10:11:00 20.53 kg/m2 [facility] Systolic 2015-07-12 13:59:00 96 mm[Hg] [facility] Diastolic 2015-07-12 13:59:00 66 mm[Hg] Body height 2015-07-12 13:49:00 165.51 cm Body Weight 2015-07-12 13:49:00 55.520 kg [facility] Systolic 2015-07-12 13:49:00 98 mm[Hg] [facility] Diastolic 2015-07-12 13:49:00 66 mm[Hg] Heart Rate 2015-07-12 13:49:00 101 /min Body Temperature 2015-07-12 13:49:00 37.20 Rani Body mass index 2015-07-12 13:49:00 20.27 kg/m2 Oxygen saturation in Arteria l blood by Pulse oximetry 2015-07-06 15:56:00 99 % Body height 2015-04-12 14:31:00 165.51 cm Body Weight 2015-04-12 14:31:00 53.252 kg [facility] Systolic 2015-04-12 14:31:00 100 mm[Hg] [facility] Diastolic 2015-04-12 14:31:00 65 mm[Hg] Heart Rate 2015-04-12 14:31:00 82 /min Body Temperature 2015-04-12 14:31:00 36.90 Rani Respiratory rate 2015-04-12 14:31:00 16 /min Body mass index 2015-04-12 14:31:00 19.44 kg/m2 Body height 2015-03-15 15:58:00 165.51 cm Body Weight 2015-03-15 15:58:00 52.889 kg [facility] Systolic 2015-03-15 15:58:00 96 mm[Hg] [facility] Diastolic 2015-03-15 15:58:00 65 mm[Hg] Heart Rate 2015-03-15 15:58:00 86 /min Body Temperature 2015-03-15 15:58:00 36.60 Rani Body mass index 2015-03-15 15:58:00 19.31 kg/m2 Body height 2015-02-19 14:50:00 165.51 cm Body Weight 2015-02-19 14:50:00 52.617 kg [facility] Systolic 2015-02-19 14:50:00 105 mm[Hg] [facility] Diastolic 2015-02-19 14:50:00 70 mm[Hg] Heart Rate 2015-02-19 14:50:00 96 /min Body Temperature 2015-02-19 14:50:00 37.20 Rani Body mass index 2015-02-19 14:50:00 19.21 kg/m2 Body height 2015-02-13 10:14:00 165.51 cm Body Weight 2015-02-13 10:14:00 52.435 kg [facility] Systolic 2015-02-13 10:14:00 105 mm[Hg] [facility] Diastolic 2015-02-13 10:14:00 70 mm[Hg] Heart Rate 2015-02-13 10:14:00 105 /min Body Temperature 2015-02-13 10:14:00 37.10 Rani Body mass index 2015-02-13 10:14:00 19.14 kg/m2 Body height 2015-02-04 09:53:00 165.51 cm Body Weight 2015-02-04 09:53:00 51.982 kg [facility] Systolic 2015-02-04 09:53:00 111 mm[Hg] [facility] Diastolic 2015-02-04 09:53:00 74 mm[Hg] Heart Rate 2015-02-04 09:53:00 110 /min Body Temperature 2015-02-04 09:53:00 37.30 Rani Body mass index 2015-02-04 09:53:00 18.98 kg/m2
[2024-10-19 08:29] LABS: Troponin I < 0.012 ng/mL (0.000-0.034)
[2024-10-19 08:39] LABS: BEDSIDEPREGUCG Negative (Negative)
[2024-10-19] MEDS: KETOROLAC 15 MG/ML VIAL (*BKC) IV PUSH (09:03)
--- NOTE | 2024-10-19 10:19 | ED.CHESTPAIN ---
HPI - Chest Pain General Chief Complaint: Chest Pain Stated Complaint: chest pain, abd pain, DE LA PAZ Time Seen by Provider: 10/19/24 07:40 History of Present Illness HPI narrative: Pt presents with numerous complaints. Pt has chest pian which is sharp and non radiating and she has a cough which is productive of bloody sputum. Pt vapes but has a history of PE. Pt also has LLQ abd pain and a DE LA PAZ. Pt denies dysuria or frequency. Pt has norpant and IUD. Pt denies vaginal discharge but maybe has noticed some blood on tissue when wiping. Related Data Allergies Allergy/AdvReac Type Severity Reaction Status Date / Time No Known Allergies Allergy Verified 10/19/24 06:04 Review of Systems Review of Systems: All systems reviewed & are unremarkable except as noted in HPI and below Exam Const: General: healthy appearing and no acute distress Nutritional Appearance: well nourished Orientation/consciousness: patient oriented x3 Limitations: no limitations HENMT: Head: normal to inspection Throat: posterior oropharynx normal Eyes: Pupils: Equal, round and reactive pupils present EOM: EOMs intact bilaterally Neck: Neck: normal visual inspection Chest: Chest palpation & inspection: normal inspection of the chest Resp: Effort & Inspection: normal respiratory effort Auscultation: clear to auscultation bilaterally Cardio: Rate: regular rate Rhythm: regular rhythm GI: GI Palp: Yes Soft to palpation and Yes Tenderness to palpation present (GI) (left adnexa) Auscultation: normal bowel sounds Back/Spine/Pelvis: Back: no CVA tenderness Skin: General skin exam: normal color Wounds: no wounds Neuro: General: patient oriented x3, moves all extremities and no focal motor deficits Cranial nerves: Yes Nystagmus not present Speech: normal speech Extrem: General: normal to inspection and no clubbing, cyanosis or edema Psych: Mental Status: mental status grossly normal Affect: normal affect Attitude: cooperative Course Vital Signs Vital signs: Vital Signs Temperature 98.5 F 10/19/24 04:12 Pulse Rate 83 10/19/24 04:12 Respiratory Rate 18 10/19/24 04:12 Blood Pressure 105/70 10/19/24 04:12 Pulse Oximetry 100 10/19/24 04:12 Temperature 98.5 F 10/19/24 04:12 Pulse Rate 70 10/19/24 10:44 Respiratory Rate 16 10/19/24 10:44 Blood Pressure 99/69 L 10/19/24 10:44 Pulse Oximetry 100 10/19/24 10:44 Oxygen Delivery Room Air 10/19/24 06:02 MDM - Chest Pain MDM Narrative Medical decision making narrative: Pt has numerous complaints but with hemoptysis will need ct to rule out PE and will get pelvic sono to rule out torsion and UA and labs. sono shows that iud is rotated but otherwise normal. CTA neg for PE. will send home on z pack and prednisone and a for naprosyn Lab Data 10/19/24 04:24 10/19/24 04:24 Labs: Lab Results 10/19/24 10/19/24 10/19/24 Range/Units 04:24 07:46 08:36 WBC 7.8 (4.5-10.0) K/mm3 RBC 4.70 (4.2-5.4) M/mm3 Hgb 14.1 (12.0-15.0) g/dL Hct 42.1 (37.0-47.0) % MCV 89.6 (80-100) fl MCH 30.0 (26-34) pg MCHC 33.5 (32-36) g/dl RDW 11.7 (11.5-14.5) % Plt Count 212 (150-375) k/mm3 MPV 9.9 (7.4-10.4) fl Immature Gran % (Auto) 0.3 (0-0.5) % Neut % (Auto) 54.6 (45.5-73.1) % Lymph % (Auto) 32.0 (18.3-44.2) % [place] % (Auto) 7.0 (2.6-8.5) % Eos % (Auto) 5.2 H (0-4.4) % Baso % (Auto) 0.9 (0.2-1.2) % Lymph # (Auto) 2.50 (0.9-3.2) K/mm3 [place] # (Auto) 0.6 (0.1-0.6) K/mm3 Eos # (Auto) 0.4 H (0-0.3) K/mm3 Baso # (Auto) 0.1 (0.0-0.1) K/mm3 Abs Immat Gran (auto) 0.02 (0.00-0.031) K/mm3 Absolute Neuts (auto) 4.3 (1.3-6.7) K/mm3 Absolute Nucleated RBC 0.000 (0.0-0.012) K/mm3 Nucleated RBC % 0.0 (0.0-0.2) % PT 13.3 (11.1-14.7) Seconds INR 1.0 APTT 24.2 (22.3-36.8) Seconds Sodium 134 L (137-145) mmol/L Potassium 3.7 (3.4-5.0) mmol/L Chloride 105 (98-107) mmol/L Carbon Dioxide 21 L (22-30) mmol/L Anion Gap 8 (4-12) mmol/L BUN 12 (7-17) mg/dL Creatinine 0.77 (0.7-1.0) mg/dL Estim Creat Clear Calc 81 ml/min Estimated GFR > 60 (59 - ) Glucose 90 (65-110) mg/dL Calcium 9.1 (8.4-10.2) mg/dL Total Bilirubin 0.3 (0.2-1.3) mg/dL AST 24 (14-36) U/L ALT 14 (6-35) U/L Alkaline Phosphatase 49 (38-126) U/L Troponin I < 0.012 < 0.012 (0.000-0.034) ng/mL Total Protein 7.2 (6.3-8.2) g/dL Albumin 4.4 (3.5-5.1) g/dL Lipase 67 (23-300) U/L POC Urine HCG, Qual Negative (Negative) Discharge Plan Discharge Clinical Impression: Atypical chest pain, Bronchitis Patient Disposition: Home Condition: Improved Instructions: Antibiotic Form, Costochondritis (ED), Acute Bronchitis (ED) Patient Language: Bengali Prescriptions: New naproxen [Naprosyn] 500 mg tablet 500 mg PO BID Qty: 20 0RF azithromycin [Zithromax Z-Rey] 250 mg tablet See Rx Instructions .ROUTE .COMPLEX Qty: 6 0RF Rx Instructions: For 250 mg dose pack: take 500 mg today (day 1), then 250 mg for 4 days (days 2-5) prednisone 50 mg tablet 50 mg PO DAILY Qty: 5 0RF Follow-up/Referrals: PHYSICIAN,ELECTRICAL MAINTENANCE ENGINEER [Primary Care Provider] -
[2024-10-19 10:44] VITALS: BP 99/69; PULSE 70; RESP 16; O2SAT 100
== END 2024-10-19 10:46 | disposition home or self-care (01) ==
PROVIDERS: Student in an Organized Health Care Education/Training Program; Emergency Provider Emergency Medicine
DX: J40 Bronchitis, not specified as acute or chronic (principal); R07.89 Other chest pain; Z86.711 Personal history of pulmonary embolism; Z97.5 Presence of (intrauterine) contraceptive device; R94.31 Abnormal electrocardiogram [ECG] [EKG]
CPT/HCPCS: 36415; 71046; 71275; 76830; 76856; 80053; 81025; 83690; 84484; 85025; 85610; 85730; 93005; 96374; 96375; 99284; J1885; J3010; Q9967